=== PATIENT | female | born 1965 | race Caucasian/White ===

== ENCOUNTER 2020-02-08 15:21 | Outpatient (REF) | payer OTHER, SELFPAY ==
[2020-02-08 16:59] LABS: Vitamin D 25-OH Total 23.8 ng/mL (>30)
[2020-02-11 19:12] LABS: DHEA Sulfate 203 mcg/dL (8-188)
== END 2020-02-08 15:22 | disposition home or self-care (01) ==
LOC: HO.LAB 15:21
PROVIDERS: PCP Internal Medicine; Visit Provider Internal Medicine
DX: E27.8 Other specified disorders of adrenal gland (principal); N83.201 Unspecified ovarian cyst, right side; E67.3 Hypervitaminosis D
CPT/HCPCS: 82306; 82627

== ENCOUNTER → 2020-02-14 10:32 | Outpatient (BNVA) | payer OTHER, SELFPAY | PROVIDERS: PCP Internal Medicine; Referring Provider Internal Medicine; Visit Provider Internal Medicine | DX: Z76.89 Persons encountering health services in other specified circumstances (principal) ==

== ENCOUNTER 2020-05-29 14:08 | Outpatient (REF) | payer OTHER, SELFPAY | END 2020-05-29 14:09 | disposition home or self-care (01) | LOC: HO.LNP 14:08 | PROVIDERS: Visit Provider Hospitalist | DX: Z20.822 Contact with and (suspected) exposure to COVID-19 (principal); B34.9 Viral infection, unspecified | CPT/HCPCS: U0003; U0005 ==

== ENCOUNTER 2020-06-24 14:49 | Outpatient (REF) | payer OTHER, SELFPAY ==
--- NOTE | ~2020-06-24 | XR_ITS ---
EXAMINATION: XR HIP, LEFT CLINICAL INFORMATION: Pain left hip COMPARISON: None TECHNIQUE: Two views of the left hip. FINDINGS: Bones and soft tissues are normal. No fracture. Alignment is anatomic. Hip joint space is maintained. XR/XR hip LT min 2V IMPRESSION: Unremarkable left hip exam.
== END 2020-06-24 14:50 | disposition home or self-care (01) ==
LOC: HO.HMGCX 14:49
PROVIDERS: PCP Internal Medicine; Visit Provider Internal Medicine
DX: M25.552 Pain in left hip (principal)
CPT/HCPCS: 73502

== ENCOUNTER → 2020-07-15 14:04 | Outpatient (BNVA) | payer OTHER, SELFPAY | PROVIDERS: PCP Internal Medicine; Visit Provider Physician Assistant ==

== ENCOUNTER 2020-08-05 15:13 | Outpatient (REF) | payer OTHER, SELFPAY ==
--- NOTE | ~2020-08-05 | US_ITS ---
EXAMINATION: PELVIC ULTRASOUND CLINICAL INFORMATION: Right ovarian cyst COMPARISON: Previous pelvic ultrasound October 2019 TECHNIQUE: Transabdominal and transvaginal pelvic ultrasound was performed. Transvaginal exam was performed for better visualization of the uterus and ovaries. FINDINGS: The uterus is anteverted and measures 6.9 x 2.5 x 2.6 cm in dimension. There is a 7 x 5 x 7 mm hypoechoic lesion in the uterine fundus suggestive of a small fibroid. No other focal uterine lesion is seen. The endometrium and is normal in thickness measuring 2 mm. The cervix is normal appearing. The ovaries are not seen. No adnexal mass is seen. There is no fluid in the pelvis. US/US pelvic complete IMPRESSION: Small uterine fibroid. Ovaries not seen.
--- NOTE | ~2020-08-05 | US_ITS ---
EXAMINATION: PELVIC ULTRASOUND CLINICAL INFORMATION: Right ovarian cyst COMPARISON: Previous pelvic ultrasound October 2019 TECHNIQUE: Transabdominal and transvaginal pelvic ultrasound was performed. Transvaginal exam was performed for better visualization of the uterus and ovaries. FINDINGS: The uterus is anteverted and measures 6.9 x 2.5 x 2.6 cm in dimension. There is a 7 x 5 x 7 mm hypoechoic lesion in the uterine fundus suggestive of a small fibroid. No other focal uterine lesion is seen. The endometrium and is normal in thickness measuring 2 mm. The cervix is normal appearing. The ovaries are not seen. No adnexal mass is seen. There is no fluid in the pelvis. US/US transvaginal IMPRESSION: Small uterine fibroid. Ovaries not seen.
[2020-08-05 16:23] LABS: Vitamin D 25-OH Total 26.6 ng/mL (>30)
[2020-08-06 09:32] LABS: DHEA Sulfate 190 mcg/dL (8-188)
== END 2020-08-05 15:14 | disposition home or self-care (01) ==
LOC: HO.US 15:13
PROVIDERS: Absent Provider Internal Medicine; PCP Internal Medicine; Visit Provider Internal Medicine
DX: N83.201 Unspecified ovarian cyst, right side (principal); E27.8 Other specified disorders of adrenal gland; M53.3 Sacrococcygeal disorders, not elsewhere classified; E55.9 Vitamin D deficiency, unspecified; Z79.899 Other long term (current) drug therapy
CPT/HCPCS: 36415; 76830; 76856; 82306; 82627

== ENCOUNTER → 2020-08-13 11:42 | Outpatient (BNVA) | payer OTHER, SELFPAY | PROVIDERS: PCP Internal Medicine; Visit Provider Internal Medicine ==

== ENCOUNTER 2020-09-18 18:37 | Outpatient (REF) | payer OTHER, SELFPAY ==
--- NOTE | ~2020-09-18 | MR_ITS ---
EXAMINATION: MR LUMBAR SPINE WITHOUT CONTRAST CLINICAL INFORMATION: Lower back pain with left leg pain, numbness, weakness, toe numbness and weakness. COMPARISON: Lumbar spine radiographs dated 12/14/2018. TECHNIQUE: MRI of the lumbar spine was obtained using routine sequences without contrast. FINDINGS: VERTEBRAL BODIES AND PARASPINAL STRUCTURES: Normal vertebral body alignment. The lumbar lordosis is maintained. No acute fracture or subluxation. No loss of vertebral body height. Mild loss of intervertebral disc height at L5-S1. Minimal disc desiccation at L3-S1. Minimal degenerative endplate changes at T11-T12. No additional abnormal marrow signal. No evidence of acute osseous injury. CONUS MEDULLARIS AND CAUDA EQUINA: Normal, terminating at the level of T12. SPINAL LEVELS: T12-L1: No significant disc bulge. No central canal or neural foraminal stenosis. L1-L2: No significant disc bulge. No central canal or neural foraminal stenosis. L2-L3: Minimal disc bulge with a superimposed left subarticular/foraminal disc protrusion which abuts the exiting left L2 nerve root in the extra foraminal space. Mild left-sided neural foraminal stenosis. L3-L4: Minimal broad-based disc bulge and shallow superimposed left extraforaminal disc protrusion which abuts the exiting left L3 nerve root in the extra foraminal space. Bilateral facet arthropathy with mild left-sided neural foraminal stenosis. L4-L5: Minimal broad-based disc bulge and posterior annular fissuring. Bilateral facet arthropathy with mild bilateral neural foraminal stenosis. L5-S1: Minimal broad-based disc bulge with a superimposed left subarticular/extraforaminal disc protrusion where there is annular fissuring. Bilateral facet arthropathy, left greater than right. Minimal left neural foraminal stenosis. MR/MR lumbar spine wo con IMPRESSION: 1. Minimal broad-based disc bulge at L3-L4 with a shallow superimposed left extra foraminal disc protrusion abutting the exiting left L3 nerve root as well as bilateral facet arthropathy resulting in mild left-sided neural foraminal stenosis. 2. Minimal disc bulge at L2-L3 with a superimposed left subarticular/extraforaminal disc protrusion which abuts the exiting left L2 nerve root and causes mild left-sided neural foraminal stenosis. 3. Minimal broad-based disc bulge at L4-L5 with posterior annular fissuring and bilateral facet arthropathy resulting in mild bilateral neural foraminal stenosis. 4. Minimal disc bulge at L5-S1 with a superimposed left subarticular/extraforaminal disc protrusion and annular fissuring. Bilateral facet arthropathy, left greater than right, with minimal left neural foraminal stenosis.
== END 2020-09-18 18:38 | disposition home or self-care (01) ==
LOC: HO.MRI 18:37
PROVIDERS: Visit Provider Anesthesiology
DX: M54.16 Radiculopathy, lumbar region (principal)
CPT/HCPCS: 72148

== ENCOUNTER 2020-10-01 22:10 | Emergency (ER) | payer BC, SELFPAY ==
[2020-10-01 22:12] VITALS: BP 140/69; PULSE 94; RESP 18; TEMP 36.9; O2SAT 98
--- NOTE | 2020-10-01 22:57 | ED_ITS ---
HPI - Seizure General Chief Complaint: Seizure Stated Complaint: Seizure? Time Seen by Provider: 10/01/20 22:48 Source: patient and family Mode of arrival: ambulatory Limitations: no limitations History of Present Illness HPI Narrative: patient with no history of seizures in the past has history of depression and back pain came with 3 episodes of muscle spasm lasted for few minutes patient was awake but having spasm in the both hands in the legs no eyes up rolling no incontinence no jerking movements never had similar situation in the past denies any significant anxiety Related Data Home Medications Medication Instructions Recorded Confirmed bupropion HCl 75 mg tablet 150 mg PO DAILY 02/14/20 09/30/20 escitalopram oxalate 10 mg tablet 10 mg PO DAILY 02/14/20 09/30/20 Previous Rx's Medication Instructions Recorded diclofenac sodium 50 mg 50 mg PO BID #60 tab 08/05/20 tablet,delayed release gabapentin 300 mg capsule 300 mg PO TID 30 Days #90 cap 09/30/20 lidocaine 5 % topical patch 1 patch TOPICAL DAILY 90 Days #90 09/30/20 ea oxycodone 5 mg tablet 5 mg PO Q8H PRN 7 Days #14 tab 09/30/20 lorazepam [Ativan] 1 mg PO BID PRN #14 tab 10/02/20 Allergies Allergy/AdvReac Type Severity Reaction Status Date / Time Iodinated Contrast Media Allergy Unknown UNKNOWN Verified 10/01/20 22:12 [CONTRAST, IV] morphine [Morphine] Allergy Unknown NAUSEA/RASH, Verified 10/01/20 22:12 rash, N/V, rash, N/V Review of Systems Review of Systems: Yes all other systems are reviewed and are negative PMFSH Past Medical History Attestation statement: The following information was validated with the patient. Medical History Cyst of right ovary Elevated dehydroepiandrosterone sulfate level Vitamin D deficiency Surgical History History of lateral meniscus repair of left knee Hx of section Hx of colonoscopy Hx of foot surgery Hx of fusion of cervical spine Hx of wisdom tooth extraction Family History Family History Father Mesothelioma Mother Breast cancer Colon cancer Other Mental health disorder Substance use disorder Social History Social History Housing: House Alcohol intake: current Alcohol intake frequency: a few times a month Patient Tobacco Use Status: Current everyday Tobacco user Tobacco use type: Cigarette Cigarettes Per Day: 10 Advance Directives: No Advance Directives Information Provided: No Patient : No Current occupational status: employed 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: Vital Signs: Last Vital Signs Temp 98.5 F 10/01/20 22:12 Pulse 94 10/01/20 22:12 Resp 18 10/01/20 22:12 BP 140/69 H 10/01/20 22:12 Pulse Ox 98 10/01/20 22:12 Body Mass Index 0.3 MDM - Seizure MDM Narrative Medical decision making narrative: patient has muscle spasm happened 2 times at home and 1 more in the ER no loss of consciousness patient was awake no jerking movements workup is negative patient responded to Ativan feeling much better advised to follow with neurologist and PCP for further workup Lab Data Result diagrams: 10/01/20 23:24 10/01/20 23:23 Labs: Lab Results 10/01/20 10/01/20 Range/Units 23:23 23:24 WBC 9.6 (4.8-10.8) X10*3/uL RBC 4.01 L (4.20-5.50) X10*6/uL Hgb 12.1 (12.0-16.0) g/dl Hct 36.6 L (37-47) % MCV 91.3 (80-98) fL MCH 30.2 (27.0-33.0) pg MCHC 33.1 (31.0-35.0) g/dl RDW 13.3 (11.0-16.0) % Plt Count 308 (160-400) X10*3/uL MPV 8.9 L (9.4-12.3) fL Immature Gran % (Auto) 0.6 H (0.0-0.4) % Neut % (Auto) 57.8 (45-73) % Lymph % (Auto) 33.2 (20-40) % [place] % (Auto) 7.2 (2-11) % Eos % (Auto) 0.7 (0-4) % Baso % (Auto) 0.5 (0-2) % Lymph # (Auto) 3.2 (1.2-4.9) X10*3/uL [place] # (Auto) 0.7 (0.1-1.2) X10*3/uL Eos # (Auto) 0.1 (0.0-0.4) X10*3/uL Baso # (Auto) 0.1 (0.0-0.2) X10*3/uL Abs Immat Gran (auto) 0.06 H (0.00-0.03) X10*3/uL Absolute Neuts (auto) 5.6 (2.0-8.3) X10*3/uL Absolute Nucleated RBC 0.000 (0.0-0.012) X10*3/uL Nucleated RBC % (auto) 0.0 (0.0-0.2) /100WBC Sodium 138 (135-145) mmol/L Potassium 4.7 (3.3-5.1) mmol/L Chloride 105 (96-108) mmol/L Carbon Dioxide 24 (22-29) mmol/L Anion Gap 14 (12-20) BUN 29 H (9-16) mg/dL Creatinine 0.82 (0.5-1.4) mg/dL Estim Creat Clear Calc 117.0 Estimated GFR > 60 Random Glucose 122 H (60-115) mg/dL Calcium 9.6 (8.4-10.2) mg/dL Magnesium 2.3 (1.6-2.6) mg/dL Total Bilirubin 0.2 (0.0-1.0) mg/dL AST 11 (5-31) U/L ALT 22 (0-31) U/L Alkaline Phosphatase 64 (39-117) U/L Total Protein 6.5 (6.5-8.0) g/dL Albumin 4.0 (3.5-5.0) g/dL Discharge Plan Discharge Clinical Impression: Muscle spasm Patient Disposition: Home, Self-Care Instructions: Muscle Spasm (ED) Additional Instructions: likely have muscle spasm etiology not very clear. Take medication to relax. Follow-up with your primary care doctor / neurologist to rule out complex seizure Prescriptions: New lorazepam [Ativan] 1 mg tablet 1 mg PO BID PRN (Reason: anxiety) Qty: 14 RF: 0 No Action gabapentin 300 mg capsule 300 mg PO TID 30 Days Qty: 90 RF: 0 oxycodone 5 mg tablet 5 mg PO Q8H PRN (Reason: pain) 7 Days Qty: 14 RF: 0 lidocaine [Lidoderm] 5 % adhesive patch,medicated 1 patch topical DAILY 90 Days Qty: 90 RF: 0 escitalopram oxalate 10 mg tablet 10 mg PO DAILY RF: 0 bupropion HCl 75 mg tablet 150 mg PO DAILY RF: 0 diclofenac sodium 50 mg tablet,delayed release (DR/EC) 50 mg PO BID Qty: 60 RF: 0 Referrals: Yamile Carreon MD [Physician] - 2 weeks Interventions: ED Discharge Assessment Last Done: 10/02/20 01:34 Discharge Date/Time: 10/02/20 01:35
--- NOTE | 2020-10-01 23:40 | PC.NURSE ---
IN ROOM FOR EVAL. IV PLACED, LABS DRAWN TO LAB. WHILE DRAWING LABS PT STATED IM HAVING CRAMP-LIKE SENSATION TO MY LEGS. MD OBSERVED. PT MEDICATED WITH ATIVAN AND PT RESTING APPARENTLY COMFORTABLE. PT WAKES TO VOICE AND DENIES ANY COMPLAINTS. SEIZURE PADS AT BEDSIDE. CALL BRANDEN W/I REACH OF PT. BED IN LOW LOCKED POSITION. WILL CONTINUE TO MONITOR PT.
[2020-10-01 23:42] LABS: Basophils Absolute Auto 0.1 X10*3/uL (0.0-0.2); Basophils Percent Auto 0.5 % (0-2); Eosinophils Absolute Auto 0.1 X10*3/uL (0.0-0.4); Eosinophils Percent Auto 0.7 % (0-4); Hematocrit 36.6 % (37-47); Hemoglobin 12.1 g/dl (12.0-16.0); Imm Gran Abs Auto 0.06 X10*3/uL (0.00-0.03); Imm Gran Pct Auto 0.6 % (0.0-0.4); Lymphocytes Absolute Auto 3.2 X10*3/uL (1.2-4.9); Lymphocytes Percent Auto 33.2 % (20-40); MANUAL DIFF FLAG NO; Mean Corpuscular HGB Conc 33.1 g/dl (31.0-35.0); Mean Corpuscular Hemoglobin 30.2 pg (27.0-33.0); Mean Corpuscular Volume 91.3 fL (80-98); Mean Platelet Volume 8.9 fL (9.4-12.3); Monocytes Absolute Auto 0.7 X10*3/uL (0.1-1.2); Monocytes Percent Auto 7.2 % (2-11); Neutrophils Absolute Auto 5.6 X10*3/uL (2.0-8.3); Neutrophils Percent Auto 57.8 % (45-73); Platelet Count 308 X10*3/uL (160-400); Red Blood Count 4.01 X10*6/uL (4.20-5.50); Red Cell Distribution Width 13.3 % (11.0-16.0); White Blood Count 9.6 X10*3/uL (4.8-10.8)
[2020-10-01] MEDS: LORazepam 2 MG/ML VIAL 1 MG IVPUSH (23:46)
[2020-10-02 00:19] LABS: Alanine Aminotransferase 22 U/L (0-31); Alkaline Phosphatase 64 U/L (39-117); Anion Gap 14 (12-20); Aspartate Amino Transferase 11 U/L (5-31); Bilirubin Total 0.2 mg/dL (0.0-1.0); Blood Urea Nitrogen 29 mg/dL (9-16); Calcium 9.6 mg/dL (8.4-10.2); Carbon Dioxide 24 mmol/L (22-29); Chloride 105 mmol/L (96-108); Estimated Glomerular Filt Rate > 60; Glucose Random 122 mg/dL (60-115); Magnesium 2.3 mg/dL (1.6-2.6); Potassium 4.7 mmol/L (3.3-5.1); Sodium 138 mmol/L (135-145); Total Protein 6.5 g/dL (6.5-8.0)
== END 2020-10-02 01:35 | disposition home or self-care (01) ==
PROVIDERS: Emergency Provider Internal Medicine; PCP Internal Medicine
DX: M62.838 Other muscle spasm (principal)
CPT/HCPCS: 36415; 80053; 83735; 85025; 96374; 99283; 99284; J2060

== ENCOUNTER 2020-10-16 13:45 | Outpatient (REF) | payer BC, SELFPAY ==
--- NOTE | ~2020-10-16 | MM_ITS ---
EXAMINATION: MM SCREENING DIGITAL BREAST TOMOSYNTHESIS, BILATERAL CLINICAL INFORMATION: Screening. Asymptomatic. Family history breast cancer (mother, sister). The lifetime risk of breast cancer based on the Tyrer-Cuzick Model is 21%. COMPARISON: Mammography: 05/17/2019, 05/08/2018, 04/27/2016 TECHNIQUE: Digital breast tomosynthesis is performed in both the craniocaudal and mediolateral oblique views along with computer-aided detection (CAD). Synthesized 2D images are generated from the tomosynthesis. FINDINGS: There are scattered areas of fibroglandular density (ACR BI-RADS breast composition Category b). There are no significant masses, abnormal calcifications, or other abnormalities. No developing density. No significant changes from prior study. Again, there is biopsy clip marker mid right breast. The axilla and skin contours are unremarkable. MM/MM tomosynthesis screening BI IMPRESSION: No mammographic evidence of malignancy. ASSESSMENT: BI-RADS 1: Negative RECOMMENDATION: 1. Routine annual mammography screening. 2. The lifetime risk of breast cancer based on the Tyrer-Cuzick Model is 21%. Additional annual adjunct screening with breast MRI may be of benefit in women with a risk score of 20% or greater. This patient's information was entered into a reminder system with a target due date for their next mammogram.
== END 2020-10-16 13:46 | disposition home or self-care (01) ==
LOC: HO.MAMMO 13:45
PROVIDERS: PCP Internal Medicine; Visit Provider Internal Medicine
DX: Z12.31 Encounter for screening mammogram for malignant neoplasm of breast (principal)
CPT/HCPCS: 77063; 77067

== ENCOUNTER 2020-10-23 07:56 | Outpatient (REF) | payer BC, SELFPAY ==
[2020-10-23 11:41] LABS: MANUAL DIFF FLAG NO
[2020-10-23 11:48] LABS: Basophils Percent Auto 0.3 % (0-2); Eosinophils Absolute Auto 0.1 X10*3/uL (0.0-0.4); Eosinophils Percent Auto 1.7 % (0-4); Hematocrit 37.7 % (37-47); Hemoglobin 12.1 g/dl (12.0-16.0); Imm Gran Abs Auto 0.01 X10*3/uL (0.00-0.03); Imm Gran Pct Auto 0.2 % (0.0-0.4); Lymphocytes Absolute Auto 2.1 X10*3/uL (1.2-4.9); Lymphocytes Percent Auto 35.7 % (20-40); Mean Corpuscular HGB Conc 32.1 g/dl (31.0-35.0); Mean Corpuscular Hemoglobin 30.2 pg (27.0-33.0); Mean Platelet Volume 9.4 fL (9.4-12.3); Monocytes Absolute Auto 0.4 X10*3/uL (0.1-1.2); Monocytes Percent Auto 6.2 % (2-11); Neutrophils Absolute Auto 3.3 X10*3/uL (2.0-8.3); Neutrophils Percent Auto 55.9 % (45-73); Platelet Count 252 X10*3/uL (160-400); Red Blood Count 4.01 X10*6/uL (4.20-5.50); White Blood Count 5.9 X10*3/uL (4.8-10.8)
[2020-10-23 12:09] LABS: Alanine Aminotransferase 15 U/L (0-31); Albumin Level 4.2 g/dL (3.5-5.0); Alkaline Phosphatase 58 U/L (39-117); Anion Gap 11 (12-20); Aspartate Amino Transferase 12 U/L (5-31); Bilirubin Total 0.6 mg/dL (0.0-1.0); Blood Urea Nitrogen 20 mg/dL (9-16); Calcium 9.5 mg/dL (8.4-10.2); Carbon Dioxide 25 mmol/L (22-29); Chloride 109 mmol/L (96-108); Cholesterol 234 mg/dL; Estimated Glomerular Filt Rate > 60; Glucose Fasting 99 mg/dL (60-99); HDL Cholesterol 65 mg/dL; LDL Cholesterol Calculated 154 mg/dl; Sodium 141 mmol/L (135-145); Total Protein 6.7 g/dL (6.5-8.0); Triglycerides 77 mg/dL
== END 2020-10-23 07:57 | disposition home or self-care (01) ==
LOC: HO.HMGCLDS 07:56
PROVIDERS: PCP Internal Medicine; Visit Provider Internal Medicine
DX: Z00.01 Encounter for general adult medical examination with abnormal findings (principal); F33.9 Major depressive disorder, recurrent, unspecified; F41.1 Generalized anxiety disorder; Z86.010 Personal history of colon polyps
CPT/HCPCS: 36415; 80053; 80061; 85025

== ENCOUNTER 2020-11-11 13:29 | Emergency (ER) | payer BC, SELFPAY ==
[2020-11-11 14:41] VITALS: BP 159/84; PULSE 76; RESP 16; TEMP 36.7; O2SAT 98; BMI 32.2
--- NOTE | 2020-11-11 14:48 | PC.NURSE ---
PT AMBULATORY INTO TRIAGE. GAIT STEADY. NEUROS INTACT. MOVING ALL EXTREMITIES FREELY.
--- NOTE | 2020-11-11 16:26 | ED.NECK ---
HPI - Neck Pain/Injury General Chief Complaint: Neck Pain/Injury Stated Complaint: neck pain Time Seen by Provider: 11/11/20 16:26 Source: patient Mode of arrival: ambulatory Limitations: no limitations History of Present Illness HPI Narrative: 55 y/o female presenting to the ER from home c/o acute on chronic neck pain. She [place] was at the beach 3 [place] ago when she went to catch an umbrella that flew away and was about to her her granddaughter. She pulled the left side of her neck and has been having tightness, soreness and aching since. She has been on chronic opioids for the last 4 weeks after having procedures done on her back. She reports they only help with the pain for about 1-2 hours. The pain is mostly on the left side of her neck and radiates down into her shoulder. She can move her neck side to side with some discomfort. No arm weakness, tingling or numbness. When the pain is severe she reports headaches and blurred vision. MD complaint: neck pain and neck injury Onset (ago): day(s) (5) Place: other ([place]) Radiation: left lateral Severity: moderate Severity scale (1-10): 6 Quality: aching, spasming and throbbing Duration: constant Relieving factors: none Exacerbating factors: movement of extremity and movement of neck Context: other (grabbing a flying away beach umbrella) Associated symptoms: headache and swollen glands Treatments prior to arrival: acetaminophen, ibuprofen, prescription analgesic and heat therapy Related Data Home Medications Medication Instructions Recorded Confirmed bupropion HCl 75 mg tablet 150 mg PO DAILY 02/14/20 10/23/20 escitalopram oxalate 10 mg tablet 10 mg PO DAILY 02/14/20 10/23/20 Previous Rx's Medication Instructions Recorded diclofenac sodium 50 mg 50 mg PO BID #60 tab 08/05/20 tablet,delayed release gabapentin 300 mg capsule 300 mg PO TID 30 Days #90 cap 09/30/20 lidocaine 5 % topical patch 1 patch TOPICAL DAILY 90 Days #90 09/30/20 (Lidoderm) ea lorazepam 1 mg tablet (Ativan) 1 mg PO BID PRN #14 tab 10/02/20 sodium,potassium,mag sulfates 17.5 See Rx Instructions PO .COMPLEX 10/23/20 gram-3.13 gram-1.6 gram oral soln #354 ml (Suprep Bowel Prep Kit) oxycodone 5 mg tablet 5 mg PO Q8H PRN 7 Days #14 tab 10/24/20 diazepam 5 mg tablet (Valium) 5 mg PO BID PRN #8 tab 11/11/20 ibuprofen 600 mg tablet 600 mg PO Q8H PRN #14 tab 11/11/20 lidocaine 5 % topical patch 1 patch TOPICAL DAILY #15 ea 11/11/20 (Lidoderm) Allergies Allergy/AdvReac Type Severity Reaction Status Date / Time Iodinated Contrast Media Allergy Unknown UNKNOWN Verified 10/23/20 14:24 [CONTRAST, IV] morphine [Morphine] Allergy Unknown NAUSEA/RASH, Verified 10/23/20 14:24 rash, N/V, rash, N/V Review of Systems Constitutional: Constitutional: Denies chills, Denies fever(s), Reports headache(s) and Denies weakness Eyes: Eyes: Reports blurry vision (when the pain is severe), Denies diplopia and Denies photophobia ENT: Reports Normal hearing present, Denies vertigo, Denies dizziness, Reports headache(s), Denies hoarseness, Denies neck mass and Reports neck pain Cardiovascular: Cardiovascular: Denies chest pain Respiratory: Respiratory: Denies cough Gastrointestinal: Gastrointestinal: Denies nausea and Denies vomiting Musculoskeletal: Musculoskeletal: Denies back pain, Reports neck pain and Denies numbness Integumentary/Breasts: Skin/Breast: Denies swelling and Denies erythema Neurologic: Reports Normal hearing present, Denies vertigo, Denies dizziness, Reports headache(s), Denies numbness and Denies weakness Psychiatric: Psychiatric: Reports anxiety PMFSH Past Medical History Attestation statement: The following information was validated with the patient. Medical History Cyst of right ovary Elevated dehydroepiandrosterone sulfate level History of colon polyps Vitamin D deficiency Surgical History History of lateral meniscus repair of left knee Hx of section Hx of colonoscopy Hx of foot surgery Hx of fusion of cervical spine Hx of wisdom tooth extraction Family History Family History Father Mesothelioma Mother Breast cancer Colon cancer Other Mental health disorder Substance use disorder Social History Social History Housing: House Alcohol intake: current Alcohol intake frequency: a few times a month Patient Tobacco Use Status: Current everyday Tobacco user Tobacco use type: Cigarette Cigarettes Per Day: 10 Advance Directives: No Advance Directives Information Provided: No Current occupational status: employed 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: Vital Signs: Last Vital Signs Temp 98.0 F 11/11/20 14:41 Pulse 76 11/11/20 14:41 Resp 16 11/11/20 14:41 BP 159/84 H 11/11/20 14:41 Pulse Ox 98 11/11/20 14:41 Body Mass Index 32.2 Const: General: cooperative, healthy appearing and comfortable Nutritional Appearance: average body habitus Orientation/consciousness: patient oriented x3 HENMT: Head: Yes normal to inspection, Yes normocephalic and Yes atraumatic Ears: hearing grossly normal bilaterally, external ears normal and TM's normal bilaterally General nose exam: Normal external nose present and Normal nares present Face and sinus: Yes normal facial exam and Yes face symmetric Mouth: Normal oral and palatal mucosa present, lip normal and tongue normal Teeth and gingiva: dentition normal and gingiva normal Throat: Yes posterior oropharynx normal, Yes tonsils normal and Yes uvula midline Eyes: General: appearance normal, both eyes and all related structures Direct Ophthalmoscopy: No photophobia Neck: Neck: Yes normal visual inspection, Yes full ROM, Yes no lymphadenopathy, Yes no meningeal signs, Yes trachea midline, Yes supple, No anterior neck swelling and Yes tender (left sided soft tissue tenderness of the neck, upper trapezius. ) Thyroid: Thyroid normal Chest: Chest palpation & inspection: normal inspection of the chest and normal palpation of entire chest wall Resp: Effort & Inspection: normal respiratory effort and able to speak in complete sentences : General: Yes no CVA tenderness Back/Spine/Pelvis: Back: no CVA tenderness Cervical Spine: normal cervical lordosis, cervical ROM normal, cervical muscular tenderness, cervical spasm and No Cervical spine tenderness Thoracic/Lumbar Spine: thoracic and lumbar spine normal to inspection Skin: General skin exam: no rashes or lesions noted Neuro: General: patient oriented x3, gait normal, moves all extremities and no meningeal signs Cranial nerves: Yes Normal hearing present Motor exam (neuro): 5/5 motor strength present throughout Extrem: General: Yes normal to inspection and Yes full ROM Psych: Appearance: grossly normal and well kempt Mental Status: mental status grossly normal Course Course Course Narrative: 55 y/o presenting with acute on chronic left pain after minor pulling type injury 5 days ago. Exam and clinical presentation are consistent with muscular strain. Neuro exam is nonfocal and she has no radicular pains. She had a recent MRI of her neck in September. She is going to see pain management, neurology and neurosurgery for follow up at the end of this month. Will give dose of Valium and Toradol and reassess her pain. Reevaluation(s) Reevaluation #1: Pain is improved. She is stable for discharge home with muscle relaxer, NSAID and lidoderm. Discharge Plan Discharge Clinical Impression: Strain of neck muscle Qualifiers: Encounter type: initial encounter Qualified Code(s): S16.1XXA - Strain of muscle, fascia and tendon at neck level, initial encounter Patient Disposition: Home, Self-Care Instructions: Cervical Strain (ED), Acute Neck Pain (ED) Additional Instructions: Follow up with your doctor and Pain Specialist as scheduled. Take the medications as prescribed. If you develop new or worsening symptoms call 911 or come back to the ER for further evaluation. Prescriptions: New diazepam [Valium] 5 mg tablet 5 mg PO BID PRN (Reason: muscle spasm) Qty: 8 RF: 0 ibuprofen 600 mg tablet 600 mg PO Q8H PRN (Reason: pain) Qty: 14 RF: 0 lidocaine [Lidoderm] 5 % adhesive patch,medicated 1 patch topical DAILY Qty: 15 RF: 0 No Action oxycodone 5 mg tablet 5 mg PO Q8H PRN (Reason: pain) 7 Days Qty: 14 RF: 0 lorazepam [Ativan] 1 mg tablet 1 mg PO BID PRN (Reason: anxiety) Qty: 14 RF: 0 gabapentin 300 mg capsule 300 mg PO TID 30 Days Qty: 90 RF: 0 lidocaine [Lidoderm] 5 % adhesive patch,medicated 1 patch topical DAILY 90 Days Qty: 90 RF: 0 escitalopram oxalate 10 mg tablet 10 mg PO DAILY RF: 0 bupropion HCl 75 mg tablet 150 mg PO DAILY RF: 0 diclofenac sodium 50 mg tablet,delayed release (DR/EC) 50 mg PO BID Qty: 60 RF: 0 Suprep Bowel Prep Kit 17.5-3.13-1.6 gram recon soln See Rx Instructions PO .COMPLEX Qty: 354 RF: 0 Interventions: ED Discharge Assessment Last Done: 11/11/20 19:07 Discharge Date/Time: 11/11/20 19:07
[2020-11-11] MEDS: diazePAM 5 MG TABLET PO (17:39)
[2020-11-11] MEDS: Ketorolac Tromethamine 15 MG/ML VIAL 30 MG IM (17:39)
[2020-11-11] MEDS: Lidocaine 4 % Patch ADH..PATCH 1 PATCH TRANSDERMA (17:40)
== END 2020-11-11 19:07 | disposition home or self-care (01) ==
PROVIDERS: Emergency Provider Emergency Medicine; PCP Internal Medicine
DX: S16.1XXA Strain of muscle, fascia and tendon at neck level, initial encounter (principal); X50.9XXA Other and unspecified overexertion or strenuous movements or postures, initial encounter; Y93.89 Activity, other specified; Y92.832 Beach as the place of occurrence of the external cause; Y99.9 Unspecified external cause status; F17.210 Nicotine dependence, cigarettes, uncomplicated; Z79.891 Long term (current) use of opiate analgesic
CPT/HCPCS: 96372; 99284; J1885

== ENCOUNTER → 2020-11-18 08:02 | Outpatient (BNVA) | payer BC, SELFPAY | PROVIDERS: PCP Internal Medicine; Visit Provider Family Medicine Adult Medicine ==

== ENCOUNTER → 2020-11-26 14:22 | Outpatient (BNVA) | payer BC, SELFPAY | PROVIDERS: PCP Internal Medicine; Visit Provider Nurse Practitioner Family ==

== ENCOUNTER → 2020-11-28 08:17 | Outpatient (BNVA) | payer BC, SELFPAY | PROVIDERS: PCP Internal Medicine; Visit Provider Nurse Practitioner Family | DX: M79.18 Myalgia, other site (principal); M54.12 Radiculopathy, cervical region | CPT/HCPCS: 20552; 20553; J3300 ==

== ENCOUNTER 2020-12-09 06:25 | Day surgery (SDC) | payer BC, SELFPAY ==
[2020-12-04 10:00] VITALS: BMI 32.3
--- NOTE | 2020-12-08 08:35 | P.CONAN_ITS ---
Documented by User: Estefanía Wilkes NP 12/08/20 08:37 HPI - Anesthesia Eval Consult details Narrative: 55yo F for Colonoscopy PMFSH Active Problems Active Problems: All Active Problems (Updated 12/05/20 @ 15:01 by Herman Carreon MD) Recurrent boils (Acute) Acute sinusitis (Acute) Viral syndrome (Acute) Hip pain, left (Acute) Lumbar radiculopathy (Acute) Sacroiliac joint pain (Acute) Contact dermatitis (Acute) Alteration in bowel elimination: incontinence (Acute) Herniated nucleus pulposus, lumbar (Acute) Bowel incontinence (Acute) Encounter for general adult medical examination with abnormal findings (Acute) Anxiety, generalized (Acute) Major depression, recurrent (Acute) Breast screening (Acute) Routine gynecological examination (Acute) Colon cancer screening (Acute) Pain management (Acute) Unstable gait (Acute) Muscle spasm (Acute) Weakness of both hands (Acute) Pain in left ear (Acute) Pain in both hands (Acute) Cervical radiculopathy (Acute) Myofascial pain (Acute) History of fusion of cervical spine (Acute) History of colon polyps (Acute) Vitamin D deficiency (Acute) Cyst of right ovary (Acute) Elevated dehydroepiandrosterone sulfate level (Acute) Past Medical History Medical History Chronic neck and back pain Cyst of right ovary Elevated dehydroepiandrosterone sulfate level History of colon polyps Vitamin D deficiency Family History Family History Father Mesothelioma Mother Breast cancer Colon cancer Other Mental health disorder Substance use disorder Surgical History Surgical History History of fusion of cervical spine History of lateral meniscus repair of left knee Hx of section Hx of colonoscopy Hx of foot surgery Hx of fusion of cervical spine Hx of wisdom tooth extraction Social History Social History Housing: House Are you a primary manager respiratory care to a significant other at home: No Do you presently have visiting nurse or other home services: No Alcohol intake: current Alcohol intake frequency: a few times a month Patient Tobacco Use Status: Current everyday Tobacco user Tobacco use type: Cigarette Cigarette Packs Per Day: 0.5 Cigarettes Per Day: 10.0 Years Smoked: 37 Smoked in Last 30 Days: Yes Patient Interested in Nicotine Replacement: No Patient Given Instructions on How to Stop Smoking: Yes Date Education Initiated: 12/04/20 Use of substances other than those prescribed or required for medical reasons: Yes Substance Use Frequency: Occasionally Have you been hit, kicked, punched, or otherwise hurt by someone within the past year? 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 [employer] Allergies Allergy/AdvReac Type Severity Reaction Status Date / Time Iodinated Contrast Media Allergy Unknown UNKNOWN Verified 12/05/20 14:27 [CONTRAST, IV] morphine [Morphine] Allergy Unknown NAUSEA/RASH, Verified 12/05/20 14:27 rash, N/V, rash, N/V Home Medications Medication Instructions Recorded Confirmed Last Taken Type bupropion HCl 75 mg tablet 150 mg PO DAILY 02/14/20 12/05/20 Unknown History escitalopram oxalate 10 mg tablet 10 mg PO DAILY 02/14/20 12/05/20 Unknown History Exam Exam Date and Time: December 08, 2020 0836 Height,Weight and Vital Signs: Height 5 ft 8 in Weight 96.615 kg Pertinent Lab Results Pertinent Lab Results: Laboratory Tests 10/23/20 10/23/20 08:03 08:03 WBC 5.9 Hgb 12.1 Hct 37.7 Plt Count 252 Sodium 141 Potassium 4.0 Chloride 109 H Carbon Dioxide 25 BUN 20 H Creatinine 0.86 Assessment and Plan Assessment Anesthesia Assessment: Chart Reviewed Documented by User: Ciarra Unger MD 12/09/20 07:34 [facility] Past Medical History Medical History Chronic neck and back pain Cyst of right ovary Elevated dehydroepiandrosterone sulfate level History of colon polyps Vitamin D deficiency Functional capacity: independent ambulation Patient : No Family History Family History Father Mesothelioma Mother Breast cancer Colon cancer Other Mental health disorder Substance use disorder Family history of problems with anesthesia: No Surgical History Surgical History History of fusion of cervical spine History of lateral meniscus repair of left knee Hx of section Hx of colonoscopy Hx of foot surgery Hx of fusion of cervical spine Hx of wisdom tooth extraction History of Problems with Anesthesia: No Social History Social History Housing: House Are you a primary manager respiratory care to a significant other at home: No Do you presently have visiting nurse or other home services: No Alcohol intake: current Alcohol intake frequency: a few times a month Patient Tobacco Use Status: Current everyday Tobacco user Tobacco use type: Cigarette Cigarette Packs Per Day: 0.5 Cigarettes Per Day: 10.0 Years Smoked: 37 Smoked in Last 30 Days: Yes Patient Interested in Nicotine Replacement: No Patient Given Instructions on How to Stop Smoking: Yes Date Education Initiated: 12/04/20 Use of substances other than those prescribed or required for medical reasons: Yes Substance Use Frequency: Occasionally Have you been hit, kicked, punched, or otherwise hurt by someone within the past year? 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 Allergies Allergy/AdvReac Type Severity Reaction Status Date / Time Iodinated Contrast Media Allergy Unknown UNKNOWN Verified 12/05/20 14:27 [CONTRAST, IV] morphine [Morphine] Allergy Unknown NAUSEA/RASH, Verified 12/05/20 14:27 rash, N/V, rash, N/V Home Medications Medication Instructions Recorded Confirmed Last Taken Type bupropion HCl 75 mg tablet 150 mg PO DAILY 02/14/20 12/05/20 Unknown History escitalopram oxalate 10 mg tablet 10 mg PO DAILY 02/14/20 12/05/20 Unknown History Exam Airway Mallampati Class: II TM Dist: >3cm Neck ROM: Full Heart: RRR Lungs: CTA Assessment and Plan Final Anesthetic Review Family History of Problems with Anesthesia: No History of Problems with Anesthesia: No
[2020-12-09 07:10] VITALS: BP 106/72; PULSE 68; RESP 16; TEMP 36.3; O2SAT 97
[2020-12-09] MEDS: Lactated Ringers 1,000 ML 100 ML IVCONT (07:25)
--- NOTE | 2020-12-09 07:48 | MHC.SHP ---
Pre-Procedural Eval Section A Date of Service: 12/09/20 Section B Chief Complaint: hx of colonic polyps Allergies: Allergies Allergy/AdvReac Type Severity Reaction Status Date / Time Iodinated Contrast Media Allergy Unknown UNKNOWN Verified 12/05/20 14:27 [CONTRAST, IV] morphine [Morphine] Allergy Unknown NAUSEA/RASH, Verified 12/05/20 14:27 rash, N/V, rash, N/V Plan I have reviewed the history and physical and performed a pertinent physical examination on my patient. No changes have occurred unless specified.
--- NOTE | 2020-12-09 08:53 | W.PM.OPN ---
Operative Note Operative Note Date of Service: 12/09/20 Narrative: Preop diagnosis: History of large tubular adenoma Postop diagnosis: 1. Diverticulosis of the sigmoid and left colon, mild 2. Internal and external hemorrhoids Procedure: Colonoscopy Surgeon: Venancio Eddy MD The patient is a 55-year-old female who had previously undergone colonoscopy in 2017 for screening and was noted to have a polyp that was more than 1 cm in size which was a tubular adenoma. I had therefore recommended a short interval for all repeat colonoscopy. She understood the technique of the procedure. She was aware of the risks, benefits, and alternatives She was brought to the operative room placed in left lateral decubitus position under monitored anesthesia care. A full digital rectal was done and there were no palpable anal lesions except for hemorrhoids . The tip of the Olympus colonoscope was gently introduced through the anal orifice advanced with insufflation all the way to the cecum. The cecum was intubated. The cecum was identified by with visualization of the cecal valve as well as the appendiceal orifice. The cecal mucosa was unremarkable. The scope schedule redrawn with careful examination of the entire colonic mucosa being done with scope withdrawal. The patient had good bowel prep so it is unlikely that any lesion may have been missed. The rectum was reached. There were no lesions seen. The anal canal was unremarkable. The scope was then withdrawn completely with desufflation The patient tolerated the procedure well. There were no complication noted. In view of her history of a large polyp, I would probably recommend another colonoscopy in the next 5 years.
--- NOTE | 2020-12-09 08:56 | PM.OP ---
Brief Operative Note Date of Service: 12/09/20 Pre-op diagnosis: History of large adenomatous polyp Post-op diagnosis: other (Diverticulosis and hemorrhoids) Procedure: Colonoscopy Surgeon: Venancio Eddy MD Anesthesia: MAC Was an Scleroscope Tester used for this Procedure?: No Estimated blood loss (mL): 0 Pathology: none sent Condition: stable Disposition: PACU
[2020-12-09 09:04] VITALS: BP 109/74; PULSE 79; RESP 16; TEMP 36.8; O2SAT 97
[2020-12-09 09:16] VITALS: BP 113/68; PULSE 75; RESP 16; TEMP 36.8; O2SAT 96
== END 2020-12-09 09:58 | disposition home or self-care (01) ==
PROVIDERS: PCP Internal Medicine; Visit Provider Surgery
PROC: 0DJD8ZZ Inspection of Lower Intestinal Tract, Via Natural or Artificial Opening Endoscopic (ICD-10-PCS; CPT 45378; principal; 2020-12-09 07:30)
DX: Z12.11 Encounter for screening for malignant neoplasm of colon (principal); Z86.010 Personal history of colon polyps; Z80.0 Family history of malignant neoplasm of digestive organs; K57.30 Diverticulosis of large intestine without perforation or abscess without bleeding; K64.8 Other hemorrhoids; K64.4 Residual hemorrhoidal skin tags; E55.9 Vitamin D deficiency, unspecified; E28.1 Androgen excess; Z79.899 Other long term (current) drug therapy; Z88.8 Allergy status to other drugs, medicaments and biological substances; Z91.041 Radiographic dye allergy status; F17.210 Nicotine dependence, cigarettes, uncomplicated
CPT/HCPCS: 45378

== ENCOUNTER 2021-01-22 09:03 | Outpatient (REF) | payer BC, SELFPAY | END 2021-01-22 09:04 | disposition home or self-care (01) | LOC: HO.NEURO 09:03 | PROVIDERS: Visit Provider Internal Medicine | DX: Z13.89 Encounter for screening for other disorder (principal) ==

== ENCOUNTER → 2021-01-29 09:22 | Outpatient (BNVA) | payer BC, SELFPAY | PROVIDERS: PCP Internal Medicine; Referring Provider Internal Medicine; Visit Provider Surgery ==

== ENCOUNTER 2021-02-12 17:00 | Outpatient (RCR) | payer BC, OTHER, SELFPAY ==
--- NOTE | 2021-02-12 18:54 | MHC.PT.DC ---
[facility] [place] Office [place] Office [place] Office [address] Melissa Schulz [address] [phone] F: [phone] F: [phone] F: [phone] F: [phone] Physical Therapy Discharge Report Diagnosis: Sacrocaccegeral disorder. Date of Surgery: Date of Evaluation: 09/04/20 Date of Discharge: 02/12/21 Treatments to Date: 22 Cancellations to Date: 0 No Shows to Date: 0 Discharge Status: Improved Function Independent with HEP Recommend MD Follow-up Discharge Summary: Savita has been an active participant in her therapy in and out of the clinic and has become I with her home program; although she has met some of her therapeutic goals she persists with decreased tolerance for sitting for long duration, traveling by car, perform recreational tasks like gardening as well as disturbed sleep and gait abnormality. Pt has a long Hx of spinal dysfunction and she presents with persisting neurological symptoms of her R > L LE as well as LBP. Pt is recommended to f/u further evaluation and management for her continued symptoms. Electronically signed by: Hugo Wetzel PT. Please sign and return to therapist. Thank you for your referral.
== END 2021-02-12 18:56 | disposition home or self-care (01) ==
LOC: HO.PTCHIC 17:00
PROVIDERS: PCP Internal Medicine; Visit Provider Nurse Practitioner Family
DX: M53.3 Sacrococcygeal disorders, not elsewhere classified (principal)
CPT/HCPCS: 97014; 97110; 97112; 97116; 97140; 97161

== ENCOUNTER 2021-02-24 13:54 | Outpatient (REF) | payer BC, SELFPAY ==
--- NOTE | ~2021-02-24 | US_ITS ---
EXAMINATION: US PELVIS CLINICAL INFORMATION: Right-sided ovarian cyst. COMPARISON: None TECHNIQUE: Ultrasound of the pelvis is performed using both transabdominal and transvaginal transducers along with Doppler. Transvaginal imaging is performed due to inadequate visualization transabdominally. FINDINGS: The uterus is anteverted and anteflexed measuring 5.8 cm in length, 2.1 cm AP and 3.8 cm in transverse dimension. Endometrial thickness is 0.3 cm. There is a hypoechoic lesion in the anterior fundus measuring 0.43 x 0.45 x 0.68 cm. Previously it measured 0.7 x 0.5 x 0.7 cm. Adnexa: The ovaries are not visualized. There is no free fluid in the cul-de-sac. US/US pelvic and transvaginal IMPRESSION: Small anterior fundal uterine fibroid. The ovaries are unremarkable.
[2021-02-25 18:31] LABS: DHEA Sulfate 159 mcg/dL (8-188)
== END 2021-02-24 13:55 | disposition home or self-care (01) ==
LOC: HO.US 13:54
PROVIDERS: Absent Provider Surgery; PCP Internal Medicine; Visit Provider Internal Medicine
DX: N83.201 Unspecified ovarian cyst, right side (principal); E55.9 Vitamin D deficiency, unspecified; E27.8 Other specified disorders of adrenal gland
CPT/HCPCS: 20552; 20553; 36415; 76830; 76856; 82306; 82627

== ENCOUNTER → 2021-02-25 11:31 | Outpatient (BNVA) | payer BC, SELFPAY | PROVIDERS: PCP Internal Medicine; Visit Provider Internal Medicine ==

== ENCOUNTER → 2021-03-09 15:34 | Outpatient (BNVA) | payer BC, SELFPAY | PROVIDERS: PCP Internal Medicine; Referring Provider Internal Medicine; Visit Provider Surgery ==

== ENCOUNTER → 2021-04-29 09:22 | Outpatient (BNVA) | payer BC, SELFPAY | PROVIDERS: PCP Internal Medicine; Visit Provider Nurse Practitioner Family | DX: M79.18 Myalgia, other site (principal); M54.12 Radiculopathy, cervical region; M53.3 Sacrococcygeal disorders, not elsewhere classified | CPT/HCPCS: 20552; J3300 ==

== ENCOUNTER 2021-06-17 06:10 | Outpatient (REF) | payer BC, SELFPAY ==
--- NOTE | ~2021-06-17 | FL_ITS ---
EXAMINATION: XR FLUOROSCOPY WITH IMAGES CLINICAL INFORMATION: Sacrococcygeal disorders COMPARISON: None. TECHNIQUE: Fluoroscopy performed by Beryl Mcleod. Fluoroscopy time: 0.3 minutes DAP: 1.27 Gycm2 Images: 2 FINDINGS: There is needle positioned overlying the SI joints with no contrast visualized. The SI joints spaces maintained normal. FL/FL guidance in treatment room IMPRESSION: Fluoroscopy guidance provided to referrer for pain management.
== END 2021-06-17 06:11 | disposition home or self-care (01) ==
LOC: HO.RADIR 06:10
PROVIDERS: Visit Provider Internal Medicine
DX: M53.3 Sacrococcygeal disorders, not elsewhere classified (principal); M54.50 Low back pain, unspecified
CPT/HCPCS: 27096; J1040; Q9967

== ENCOUNTER → 2021-07-15 08:41 | Outpatient (BNVA) | payer BC, SELFPAY | PROVIDERS: PCP Internal Medicine; Visit Provider Nurse Practitioner Family | DX: M25.50 Pain in unspecified joint (principal) ==

== ENCOUNTER 2021-07-27 08:26 | Outpatient (REF) | payer BC, SELFPAY ==
--- NOTE | ~2021-07-27 | XR_ITS ---
EXAMINATION: XR FOOT, LEFT CLINICAL INFORMATION: Lateral left foot pain. No known injury. COMPARISON: Radiographs left ankle 03/22/2019, left foot radiographs 10/28/2009. TECHNIQUE: Left foot is imaged in 4 views. FINDINGS: There is no acute or healing fracture, dislocation, destructive process. Bony mineralization is normal. There is no periostitis. The retrocalcaneal recess is preserved. There is a small posterior calcaneal spur. Subtalar joint appears normal. The midfoot is unremarkable. There are mild degenerative changes first MTP joint with probable small subchondral cyst. No hallux valgus. XR/XR foot LT min 3V IMPRESSION: -No acute or healing fracture, dislocation, destructive process. -Small posterior calcaneal spur. -Borderline degenerative changes first MTP.
== END 2021-07-27 08:27 | disposition home or self-care (01) ==
LOC: HO.XRAY 08:26
PROVIDERS: PCP Internal Medicine; Visit Provider Nurse Practitioner Family
DX: M79.672 Pain in left foot (principal)
CPT/HCPCS: 73630

== ENCOUNTER → 2021-08-03 10:30 | Outpatient (BNVA) | payer BC, SELFPAY | PROVIDERS: PCP Internal Medicine; Visit Provider Internal Medicine | DX: M54.16 Radiculopathy, lumbar region (principal) | CPT/HCPCS: 20552; 20553 ==

== ENCOUNTER 2021-08-05 05:56 | Outpatient (REF) | payer BC, SELFPAY ==
--- NOTE | ~2021-08-05 | FL_ITS ---
EXAMINATION: XR FLUOROSCOPY WITH IMAGES CLINICAL INFORMATION: M54.16 - Radiculopathy, lumbar region COMPARISON: MR lumbar spine 09/18/2020 TECHNIQUE: Fluoroscopy performed by Dr. Alex Nunez. Fluoroscopy time: 0.1 minutes DAP: 2.38 Gycm2 Images: 2 FINDINGS: There is interlaminar spinal needle at L5-S1 with tip just left of midline. There is contrast seen in the epidural space. FL/FL guidance in treatment room IMPRESSION: Fluoroscopy for pain management procedure.
== END 2021-08-05 05:57 | disposition home or self-care (01) ==
LOC: HO.RADIR 05:56
PROVIDERS: Visit Provider Internal Medicine
DX: M54.16 Radiculopathy, lumbar region (principal)
CPT/HCPCS: 62323; J1040; J2795; Q9967

== ENCOUNTER 2021-08-21 08:23 | Outpatient (REF) | payer BC, SELFPAY ==
[2021-08-22 23:42] LABS: DHEA Sulfate 68 mcg/dL (5-167)
== END 2021-08-21 08:24 | disposition home or self-care (01) ==
LOC: HO.LAB 08:23
PROVIDERS: PCP Internal Medicine; Visit Provider Internal Medicine
DX: E27.8 Other specified disorders of adrenal gland (principal)
CPT/HCPCS: 36415; 82627

== ENCOUNTER → 2021-08-26 12:21 | Outpatient (BNVA) | payer BC, SELFPAY | PROVIDERS: PCP Internal Medicine; Visit Provider Internal Medicine | DX: Z13.89 Encounter for screening for other disorder (principal) ==

== ENCOUNTER 2021-09-07 09:32 | Outpatient (REF) | payer BC, SELFPAY ==
--- NOTE | ~2021-09-07 | XR_ITS ---
EXAMINATION: XR CHEST CLINICAL INFORMATION: Cough COMPARISON: 06/19/2019 TECHNIQUE: 2 views of the chest were obtained. FINDINGS: Lungs grossly are clear. Heart and pulmonary vessels are normal. There are no pleural effusions. XR/XR chest 2V IMPRESSION: No active disease.
== END 2021-09-07 09:33 | disposition home or self-care (01) ==
LOC: HO.HMGCX 09:32
PROVIDERS: PCP Internal Medicine; Visit Provider Physician Assistant
DX: R05.8 Other specified cough (principal)
CPT/HCPCS: 71046

== ENCOUNTER 2021-09-29 10:36 | Outpatient (REF) | payer BC, SELFPAY ==
--- NOTE | ~2021-09-29 | XR_ITS ---
EXAMINATION: XR FOOT, LEFT CLINICAL INFORMATION: M79.672 - Pain in left foot COMPARISON: Radiographs left foot 07/27/2021 TECHNIQUE: AP, lateral, and oblique views of the left foot. FINDINGS: No acute or healing fracture, dislocation, destructive process. Normal bony mineralization. No periostitis. Retrocalcaneal recess preserved. There are mild degenerative changes first MTP with small subchondral cyst first metatarsal head. No erosive change or periarticular demineralization. No hallux valgus. XR/XR foot LT min 3V IMPRESSION: Mild degenerative changes first MTP.
[2021-09-29 13:57] LABS: Erythrocyte Sedimentation Rate 13 MM/HR (0-20)
[2021-09-29 14:07] LABS: C Reactive Protein 0.73 mg/dL (< or = 0.50); Rheumatoid Factor < 15.0 IU/mL (<15.0)
[2021-10-05 13:55] LABS: Cyclic Citrullinated Peptide <16 UNITS
== END 2021-09-29 10:37 | disposition home or self-care (01) ==
LOC: HO.XRAY 10:36
PROVIDERS: PCP Internal Medicine; Visit Provider Internal Medicine Rheumatology
DX: M79.672 Pain in left foot (principal); M79.641 Pain in right hand; M79.642 Pain in left hand
CPT/HCPCS: 36415; 73630; 85652; 86140; 86200; 86431

== ENCOUNTER 2021-10-23 07:46 | Outpatient (REF) | payer BC, SELFPAY ==
[2021-10-23 11:08] LABS: MANUAL DIFF FLAG NO
[2021-10-23 11:14] LABS: Basophils Percent Auto 0.6 % (0-2); Eosinophils Absolute Auto 0.1 X10*3/uL (0.0-0.4); Eosinophils Percent Auto 1.1 % (0-4); Hematocrit 39.5 % (37.0-47.0); Hemoglobin 13.2 g/dl (12.0-16.0); Imm Gran Abs Auto 0.02 X10*3/uL (0.00-0.03); Imm Gran Pct Auto 0.3 % (0.0-0.4); Lymphocytes Absolute Auto 1.8 X10*3/uL (1.2-4.9); Lymphocytes Percent Auto 28.3 % (20-40); Mean Corpuscular HGB Conc 33.4 g/dl (31.0-35.0); Mean Corpuscular Volume 92.7 fL (80.0-98.0); Mean Platelet Volume 9.8 fL (9.4-12.3); Monocytes Absolute Auto 0.5 X10*3/uL (0.1-1.2); Monocytes Percent Auto 6.9 % (2-11); Neutrophils Absolute Auto 4.1 x10*3/uL (2.0-8.3); Neutrophils Percent Auto 62.8 % (45-73); Platelet Count 282 X10*3/uL (160-400); Red Blood Count 4.26 X10*6/uL (4.20-5.50); Red Cell Distribution Width 13.2 % (11.0-16.0); White Blood Count 6.5 X10*3/uL (4.8-10.8)
[2021-10-23 11:52] LABS: Alanine Aminotransferase 26 U/L (0-31); Albumin Level 4.3 g/dL (3.5-5.0); Alkaline Phosphatase 81 U/L (39-117); Anion Gap 16 (12-20); Aspartate Amino Transferase 17 U/L (5-31); Bilirubin Total 0.4 mg/dL (0.0-1.0); Blood Urea Nitrogen 19 mg/dL (9-16); Calcium 9.3 mg/dL (8.4-10.2); Carbon Dioxide 24 mmol/L (22-29); Chloride 105 mmol/L (96-108); Cholesterol 224 mg/dL; Estimated Glomerular Filt Rate > 60; Glucose Fasting 113 mg/dL (60-99); HDL Cholesterol 43 mg/dL; LDL Cholesterol Calculated 135 mg/dl; Potassium 4.2 mmol/L (3.3-5.1); Sodium 141 mmol/L (135-145); Total Protein 7.1 g/dL (6.5-8.0); Triglycerides 232 mg/dL; Vitamin B12 307 pg/mL (200-900)
[2021-10-23 12:00] LABS: TSH reflex Free T4 1.88 uIU/mL (0.32-4.0)
[2021-10-30 12:56] LABS: Vitamin D 25-OH, D2 <4 ng/mL; Vitamin D 25-OH, D3 40 ng/mL; Vitamin D 25-OH, Total 40 ng/mL (30-100)
== END 2021-10-23 07:47 | disposition home or self-care (01) ==
LOC: HO.HMGCLDS 07:46
PROVIDERS: Visit Provider Internal Medicine
DX: Z00.01 Encounter for general adult medical examination with abnormal findings (principal); F33.9 Major depressive disorder, recurrent, unspecified; F41.1 Generalized anxiety disorder; G89.29 Other chronic pain; M19.041 Primary osteoarthritis, right hand; M19.042 Primary osteoarthritis, left hand; M79.672 Pain in left foot; Z72.0 Tobacco use
CPT/HCPCS: 36415; 80053; 80061; 82306; 82607; 84443; 85025

== ENCOUNTER 2022-03-10 10:28 | Emergency (ER) | payer OTHER, BC, SELFPAY ==
--- NOTE | ~2022-03-10 | XR_ITS ---
EXAMINATION: XR CERVICAL SPINE CLINICAL INFORMATION: History of fall and left-sided neck pain COMPARISON: None TECHNIQUE: 3 views of the cervical spine were obtained. FINDINGS: There is lack of lordotic curvature of the degenerated and surgically fused cervical spine. The craniocervical junction, dens and atlantodental articulation are intact. Cervical vertebra are normal in height. No evidence of compression fracture or prevertebral soft tissue swelling. Multilevel facet osteoarthritis is present, including C2-C3 and C7-T1. There is 0.2 cm of degenerative anterolisthesis at C2-C3 and C7-T1. The zero profile anterior fusion device is well-positioned in the disc space of C3-C4. Prior discectomy and anterior fusion at C4-C5 and C5-C6. The bone graft is well incorporated into the vertebral endplates at C4-C5 and C5-C6. Anterior fusion plate and screws are intact. Postoperative multilevel laminectomies of the cervical spine and intact appearance of the instrumented posterior spinal fusion at C3-C7. Moderate degenerative disc disease of C6-C7. XR/XR cervical spine 2V IMPRESSION: * No evidence of loosening of the anterior or posterior cervical spinal fusion hardware. * No acute radiographic abnormalities in the cervical spine. No evidence of fracture or traumatic subluxation. * Mild degenerative anterolisthesis is noted at C2-C3 and C7-T1. * Moderate degenerative disc disease at C6-C7.
[2022-03-10 11:18] VITALS: BP 148/78; PULSE 82; RESP 16; TEMP 36.2; O2SAT 98; BMI 36.5
--- NOTE | 2022-03-10 11:19 | ED_ITS ---
HPI - Fall General Chief Complaint: Fall <Clarisa Garcia NP - Last Filed: 03/10/22 11:24> Stated Complaint: fall 03/10/22 <Clarisa Garcia NP - Last Filed: 03/10/22 11:24> Time Seen by Provider: 03/10/22 12:49 <Clarisa Garcia NP - Last Filed: 03/10/22 11:24> Source: patient <Estrellita Neumann NP - Last Filed: 03/10/22 14:01> Mode of arrival: ambulatory <Estrellita Neumann NP - Last Filed: 03/10/22 14:01> Limitations: no limitations <Estrellita Neumann NP - Last Filed: 03/10/22 14:01> History of Present Illness HPI Narrative: 56-year-old female with PMH of Nava syndrome, HTN, osteoarthritis, and recent cervical laminectomy on 12/17/21 who presents to the emergency department today after sustaining a fall and hitting the left side of her body at work at roughly 8:00 a.m. She denies hitting her head. She reports pain at the left shoulder and upper neck that is reproducible with palpation. She describes the pain as sharp, constant, 7/10. She denies any changes in her range of motion, loss of consciousness, vision changes,new numbness or tingling in BUE, no weakness, or changes in bowel or bladder function. She denies numbness or tingling or weakness in perineum or BLE. <Estrellita Neumann NP - Last Filed: 03/10/22 14:01> Related Data Home Medications: Home Medications Medication Instructions Recorded Confirmed escitalopram oxalate 10 mg tablet 10 mg PO DAILY 02/14/20 01/20/22 bupropion HCl 150 mg tablet,12 hr 150 mg PO BID 02/25/21 01/20/22 sustained-release lidocaine 5 % topical patch 1 patch topical DAILY PRN 09/29/21 01/20/22 (Lidoderm) lorazepam 1 mg tablet (Ativan) 0.5 mg PO BID PRN anxiety 09/29/21 01/20/22 gabapentin 100 mg capsule 100 mg PO TID 10/18/22 10/26/22 oxycodone 5 mg tablet mg PO 01/12/22 01/20/22 Previous Rx's Medication Instructions Recorded methocarbamol 750 mg tablet 750 mg PO BID PRN muscle spasm #60 07/15/21 tabs lisinopril 10 mg tablet 10 mg PO ONCE 90 days #90 tabs 01/20/22 meloxicam 7.5 mg tablet 7.5 mg PO BID 90 days #180 tabs 01/20/22 pantoprazole 20 mg tablet,delayed 20 mg PO DAILY 90 days #90 tabs 01/20/22 release tizanidine 2 mg tablet 2 mg PO Q8H 90 days #270 tabs 01/20/22 <LISA Jim Last Filed: 03/10/22 11:24> Allergies/Adverse Reactions: Allergies Allergy/AdvReac Type Severity Reaction Status Date / Time Iodinated Contrast Media Allergy Unknown UNKNOWN Verified 01/20/22 11:24 [CONTRAST, IV] morphine [Morphine] Allergy Unknown NAUSEA/RASH, Verified 01/20/22 11:24 rash, N/V, rash, N/V <Clarisa Garcia NP - Last Filed: 03/10/22 11:24> Review of Systems Review of Systems: In addition to documented HPI above, the additional ROS was obtained: Constitutional: No Weight loss, No Fever, No Chills ENT/Mouth: No Ear Pain, No Nasal Congestion, No Sinus Pain, No Hoarseness, No sore throat, No Rhinorrhea, No Swallowing Difficulty Cardiovascular: No Chest Pain, No SOB Respiratory: No Cough, No Sputum, No Wheezing Gastrointestinal: No Nausea, No Vomiting, No Diarrhea, No Constipation, No Abdominal pain Musculoskeletal: No joint pain, No Myalgias, No Joint Swelling Skin: No Skin Lesions, No rash Neuro: No Weakness, No Numbness, No Paresthesias <LISA Stapleton Last Filed: 03/10/22 14:01> Yes all other systems are reviewed and are negative <LISA Stapleton Last Filed: 03/10/22 14:01> ENT: Reports Normal hearing present <LISA Stapleton Last Filed: 03/10/22 14:01> Neurologic: Reports Normal hearing present <LISA Stapleton Last Filed: 03/10/22 14:01> [facility] Past Medical History Attestation statement: The following information was validated with the patient. <Estrellita Neumann NP - Last Filed: 03/10/22 14:01> Source: old records reviewed <Estrellita Neumann NP - Last Filed: 03/10/22 14:01> Medical History: Medical History Abnormal bowel movement Chronic neck and back pain Cyst of right ovary Elevated dehydroepiandrosterone sulfate level (~2019) Hypertension, essential Nicotine dependence, cigarettes, uncomplicated Post-menopausal (~2018) Tubular adenoma of colon (~2017) Vitamin D deficiency <Clarisa Garcia NP - Last Filed: 03/10/22 11:24> Surgical History: Surgical History History of basal cell carcinoma (BCC) excision History of History of colonoscopy History of foot surgery History of fusion of cervical spine History of left knee surgery History of right knee surgery <Clarisa Garcia NP - Last Filed: 03/10/22 11:24> Family History Family History: Family History Father Mesothelioma Mother Breast cancer Colon cancer Other Mental health disorder Substance use disorder <Clarisa Garcia NP - Last Filed: 03/10/22 11:24> Social History Social History: Social History Housing: House Are you a primary career development facilitator to a significant other at home: No Do you presently have visiting nurse or other home services: No Alcohol intake: current Alcohol intake frequency: a few times a month Patient Tobacco Use Status: Former Tobacco user Tobacco use type: Cigarette Cigarette Packs Per Day: 0.5 Cigarettes Per Day: 10.0 Years Smoked: 37 e-Cigarette/Vaping Use: Never Used Advance Directives: No Current occupational status: employed 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: No Hearing needs: No Vision needs: Yes <Clarisa Garcia NP - Last Filed: 03/10/22 11:24> Physical Exam Vital Signs: Vital Signs: Last Vital Signs Temp 97.2 F 03/10/22 11:18 Pulse 82 03/10/22 11:18 Resp 16 03/10/22 11:18 BP 148/78 H 03/10/22 11:18 Pulse Ox 98 03/10/22 11:18 O2 Del Method 03/10/22 11:18 BMI result Body Mass Index 36.5 <Clarisa Garcia PERENNIAL HOUSE MANAGER - Last Filed: 03/10/22 11:24> Vital Signs: Last Vital Signs Temp 97.2 F 03/10/22 11:18 Pulse 82 03/10/22 11:18 Resp 16 03/10/22 11:18 BP 148/78 H 03/10/22 11:18 Pulse Ox 98 03/10/22 11:18 O2 Del Method 03/10/22 11:18 BMI result Body Mass Index 36.5 <Estrellita Neumann PERENNIAL HOUSE MANAGER - Last Filed: 03/10/22 14:01> Const: General: cooperative, alert and awake <Estrellita Neumann PERENNIAL HOUSE MANAGER - Last Filed: 03/10/22 14:01> Nutritional Appearance: well nourished <Estrellita Neumann PERENNIAL HOUSE MANAGER - Last Filed: 03/10/22 14:01> Orientation/consciousness: patient oriented x3 <Estrellita Neumann PERENNIAL HOUSE MANAGER - Last Filed: 03/10/22 14:01> Limitations: no limitations <Estrellita Neumann PERENNIAL HOUSE MANAGER - Last Filed: 03/10/22 14:01> HEENT: Head: Yes normal to inspection, Yes normocephalic, Yes atraumatic, No abrasion, No contusion, No laceration and No scalp tenderness <Estrellita Neumann PERENNIAL HOUSE MANAGER - Last Filed: 03/10/22 14:01> Ears: hearing grossly normal bilaterally and external ears normal <Estrellita Neumann PERENNIAL HOUSE MANAGER - Last Filed: 03/10/22 14:01> General nose exam: Normal external nose present <Estrellita Neumann PERENNIAL HOUSE MANAGER - Last Filed: 03/10/22 14:01> Face and sinus: Yes normal facial exam <Estrellita Neumann PERENNIAL HOUSE MANAGER - Last Filed: 03/10/22 14:01> Mouth: Normal oral and palatal mucosa present <Estrellita Neumann PERENNIAL HOUSE MANAGER - Last Filed: 03/10/22 14:01> Eyes: General: appearance normal, both eyes and all related structures <Estrellita Neumann PERENNIAL HOUSE MANAGER - Last Filed: 03/10/22 14:01> Visual Regan: normal visual regan by confrontation <Estrellita Neumann PERENNIAL HOUSE MANAGER - Last Filed: 03/10/22 14:01> Alignment and Position: alignment normal <Estrellita Neumann PERENNIAL HOUSE MANAGER - Last Filed: 03/10/22 14:01> Periorbital: periorbital findings normal <Estrellita Neumann PERENNIAL HOUSE MANAGER - Last Filed: 03/10/22 14:01> Eyelids: Yes eyelids normal <Estrellita Neumann PERENNIAL HOUSE MANAGER - Last Filed: 03/10/22 14:01> Conjunctivae: conjunctivae normal <Estrellita Neumann PERENNIAL HOUSE MANAGER - Last Filed: 03/10/22 14:01> Sclerae: sclerae normal <Estrellita Neumann PERENNIAL HOUSE MANAGER - Last Filed: 03/10/22 14:01> Corneas: corneas normal <Estrellita Neumann PERENNIAL HOUSE MANAGER - Last Filed: 03/10/22 14:01> Pupils: Equal, round and reactive pupils present <Estrellita Neumann PERENNIAL HOUSE MANAGER - Last Filed: 03/10/22 14:01> EOM: EOMs intact bilaterally <Estrellita Neumann PERENNIAL HOUSE MANAGER - Last Filed: 03/10/22 14:01> Neck: Neck: Yes normal visual inspection and Yes full ROM <Estrellita Neumann PERENNIAL HOUSE MANAGER - Last Filed: 03/10/22 14:01> Chest: Chest palpation & inspection: normal inspection of the chest <Estrellita Neumann PERENNIAL HOUSE MANAGER - Last Filed: 03/10/22 14:01> Resp: Effort & Inspection: normal respiratory effort and not labored <Estrellita Neumann PERENNIAL HOUSE MANAGER - Last Filed: 03/10/22 14:01> Auscultation: clear to auscultation bilaterally <Estrellita Neumann PERENNIAL HOUSE MANAGER - Last Filed: 03/10/22 14:01> Cardio: Rate: regular rate <Estrellita Neumann, PERENNIAL HOUSE MANAGER - Last Filed: 03/10/22 14:01> Rhythm: regular rhythm <Estrellitakezia Neumann, PERENNIAL HOUSE MANAGER - Last Filed: 03/10/22 14:01> Back/Spine/Pelvis: Cervical Spine: cervical ROM normal and pain with cervical ROM <Estrellita Neumann, PERENNIAL HOUSE MANAGER - Last Filed: 03/10/22 14:01> Thoracic/Lumbar Spine: thoraco-lumbar ROM normal <Estrellitabrandon Neumann, PERENNIAL HOUSE MANAGER - Last Filed: 03/10/22 14:01> Skin: General skin exam: no rashes or lesions noted <Estrellitakezia Neumann, PERENNIAL HOUSE MANAGER - Last Filed: 03/10/22 14:01> Neuro: General: patient oriented x3, gait normal, tone normal, moves all extremities and Normal light touch and pain sensation <Estrellita Neumann, PERENNIAL HOUSE MANAGER - Last Filed: 03/10/22 14:01> Cranial nerves: Yes Equal, round and reactive pupils present, Yes Bilaterally intact EOM present, Yes Nystagmus not present, Yes Normal facial strength present, Yes Normal hearing present and Yes Ability to bilaterally elevate shoulders present <Estrellita Neumann, PERENNIAL HOUSE MANAGER - Last Filed: 03/10/22 14:01> Cognition (Neuro): normal cognition <Estrellita Neumann, PERENNIAL HOUSE MANAGER - Last Filed: 03/10/22 14:01> Gait exam (Neuro): Normal gait present <Estrellita Neumann PERENNIAL HOUSE MANAGER - Last Filed: 03/10/22 14:01> Motor exam (neuro): 5/5 motor strength present throughout <Estrellitabrandon Neumann, PERENNIAL HOUSE MANAGER - Last Filed: 03/10/22 14:01> Extrem: General: Yes normal to inspection, Yes full ROM and Yes capillary refill normal <Estrellita Neumann PERENNIAL HOUSE MANAGER - Last Filed: 03/10/22 14:01> Course Course Course Narrative: This is a rapid medical exam. Deferred additional HPI, ROS, PE to primary provider. 56 yo female s/p lamine[facility] C3-C7 [facility]w/ [facility] anxiety, depression, OA, HTN here with complaints slip and fall on water here w/ left sided neck pain. No numbness/tingling/weakness of the UE. Possible hitting head. No LOC. Ambulatory to triage. VSS. X-rays ordered from triage. <Clarisa Garcia NP - Last Filed: 03/10/22 11:24> This is a rapid medical exam. Deferred additional HPI, ROS, PE to primary provider. 56 yo female s/p laminectomy C3-C7 (w/ cervical fusion) ([facility]), anxiety, depression, OA, HTN here with complaints slip and fall on water here w/ left sided neck pain. No numbness/tingling/weakness of the UE. Possible hitting head. No LOC. Ambulatory to triage. VSS. X-rays ordered from triage. EXAMINATION: XR CERVICAL SPINE CLINICAL INFORMATION: History of fall and left-sided neck pain COMPARISON: None TECHNIQUE: 3 views of the cervical spine were obtained. FINDINGS: There is lack of lordotic curvature of the degenerated and surgically fused cervical spine. The craniocervical junction, dens and atlantodental articulation are intact. Cervical vertebra are normal in height. No evidence of compression fracture or prevertebral soft tissue swelling. Multilevel facet osteoarthritis is present, including C2-C3 and C7-T1. There is 0.2 cm of degenerative anterolisthesis at C2-C3 and C7-T1.? The zero profile anterior fusion device is well-positioned in the disc space of C3-C4. Prior discectomy and anterior fusion at C4-C5 and C5-C6. The bone graft is well incorporated into the vertebral endplates at C4-C5 and C5-C6. Anterior fusion plate and screws are intact. Postoperative multilevel laminectomies of the cervical spine and intact appearance of the instrumented posterior spinal fusion at C3-C7. Moderate degenerative disc disease of C6-C7. XR/XR cervical spine 2V IMPRESSION: *? No evidence of loosening of the anterior or posterior cervical spinal fusion hardware. *? No acute radiographic abnormalities in the cervical spine. No evidence of fracture or traumatic subluxation. *? Mild degenerative anterolisthesis is noted at C2-C3 and C7-T1. *? Moderate degenerative disc disease at C6-C7. ?Dictated By: Mitchell Hayden MD Signed By: <Electronically signed by Mitchell Hayden MD in [place] 03/10/22 1225 DD/ 1131 TD/TT:? Wedding Florist: <Estrellita Neumann NP - Last Filed: 03/10/22 14:01> Medical Decision Making Medical Decision Making MDM Narrative: 56-year-old female with PMH of Nava syndrome, HTN, osteoarthritis, and recent cervical laminectomy on 12/17/21 who presents to the emergency department today after sustaining a fall and hitting the left side of her body at work at roughly 8:00 a.m. Pt able to WORRELL with equal strength, cervical ROM normal. Cervical spine x-ray was negative for any acute changes, no evidence of loosening of the anterior or posterior cervical spinal fusion hardware, no acute radiographic abnormalities in the cervical spine. No evidence of fracture or traumatic subluxation, mild degenerative anterolisthesis is noted at C2-C3 and C7-T1, and moderate degenerative disc disease at C6-C7. Physical exam and HPI the no red flags and consistent with acute on chronic cervicalgia. Low suspicion for cervical cord compression or myelopathy. Recommend to manage pain with [id number] Tylenol and Motrin and to use previously prescribed tizanidine and lidocaine patches as directed for pain. Recommended to rest, apply heat and/or ice to the area. HPI, physical exam, diagnostics, and plan discussed with pt with no unanswered questions. Educated to return to the emergency department with new or worsening numbness, tingling, weakness, changes in vision, headache, inability to move your neck, or any other concerning emergent issues. Recommended to follow up with your primary care provider for further treatment and management. <Estrellita Neumann NP - Last Filed: 03/10/22 14:01> Discharge Plan Discharge Clinical Impression: Neck pain on left side <Clarisa Garcia NP - Last Filed: 03/10/22 11:24> Patient Disposition: Home, Self-Care <Clarisa Garcia NP - Last Filed: 03/10/22 11:24> Instructions: Acute Neck Pain (ED) <Clarisa Garcia NP - Last Filed: 03/10/22 11:24> Additional Instructions: Your cervical spine x-ray was negative for any acute changes. The xray showed not evidence of loosening of the anterior or posterior cervical spinal fusion hardware. No acute radiographic abnormalities in the cervical spine. No evidence of fracture or traumatic subluxation. Mild degenerative anterolisthesis is noted at C2-C3 and C7-T1. Moderate degenerative disc disease at C6-C7. Your pain is consistent with acute on chronic cervicalgia. Recommend that you manage your pain with [id number] Tylenol and Motrin as needed. Please use tizanidine and lidocaine patches as directed for pain. Recommended to rest, apply heat and/or ice to the area. Please return to the emergency department with new or worsening numbness, tingling, weakness, changes in vision, headache, inability to move your neck, or any other concerning emergent issues. Please follow up with your primary care provider for further treatment and management. <Clarisa Garcia NP - Last Filed: 03/10/22 11:24> Prescriptions: No Action gabapentin 100 mg capsule 100 mg PO TID oxycodone 5 mg tablet PO tizanidine 2 mg tablet 2 mg PO Q8H 90 Days Qty: 270 0RF meloxicam 7.5 mg tablet 7.5 mg PO BID 90 Days Qty: 180 0RF lisinopril 10 mg tablet 10 mg PO ONCE 90 Days Qty: 90 0RF pantoprazole 20 mg tablet,delayed release (DR/EC) 20 mg PO DAILY 90 Days Qty: 90 0RF escitalopram oxalate 10 mg tablet 10 mg PO DAILY bupropion HCl 150 mg tablet sustained-release 12 hr 150 mg PO BID lidocaine [Lidoderm] 5 % adhesive patch,medicated 1 patch topical DAILY PRN Rx Instructions: leave on most painful area for up to 12 hrs lorazepam [Ativan] 1 mg tablet 0.5 mg PO BID PRN (Reason: anxiety) methocarbamol 750 mg tablet 750 mg PO BID PRN (Reason: muscle spasm) Qty: 60 3RF <Clarisa Garcia NP - Last Filed: 03/10/22 11:24> Referrals: Herman Carreon MD [Primary Care Provider] - <Clarisa Garcia NP - Last Filed: 03/10/22 11:24> Stand Alone Forms: Work/School Release <Clarisa Garcia NP - Last Filed: 03/10/22 11:24> Print Language: Nigerien <Clarisa Garcia, PERENNIAL HOUSE MANAGER - Last Filed: 03/10/22 11:24>
[2022-03-10] MEDS: Ketorolac Tromethamine 15 MG/ML VIAL IM (13:52)
== END 2022-03-10 13:57 | disposition home or self-care (01) ==
PROVIDERS: Emergency Provider Student in an Organized Health Care Education/Training Program; PCP Internal Medicine
DX: M54.2 Cervicalgia (principal); I10 Essential (primary) hypertension; Z79.899 Other long term (current) drug therapy; Z87.891 Personal history of nicotine dependence
CPT/HCPCS: 72040; 96372; 99283; 99284; J1885

== ENCOUNTER 2022-03-12 14:26 | Outpatient (REF) | payer BC, SELFPAY ==
--- NOTE | ~2022-03-12 | CT_ITS ---
EXAMINATION: CT CHEST SCREENING CLINICAL INFORMATION: Personal history of nicotine dependence. COMPARISON: Chest x-ray 09/07/2021. TECHNIQUE: Multidetector volumetric CT imaging of the chest is performed without contrast using low dose technique. Additional 2D coronal and sagittal reformatted images and axial 3D maximum intensity projection (MIP) images are generated on the CT workstation. This CT examination was performed using dose optimization techniques as appropriate, variously including the following: *Automated exposure control *Adjustment of mA and/or kV according to patient size (this includes techniques or standardized protocols for targeted exams where dose is matched to indication/reason for exam; i.e. extremities or head) *Use of iterative reconstruction technique DLP: 71 mGy-cm. FINDINGS: LUNGS: The lungs are well expanded and clear of acute pneumonic process. There is a 5 mm ill-defined semisolid opacity right middle lobe axial image 28/4 and focal atelectatic changes in the lingula. No additional lung nodules, mass or consolidation. MEDIASTINUM: The thyroid lobes are symmetrical and normal. Central trachea and the bronchi are widely patent. Heart size and the great vessels are normal caliber. No pericardial effusion seen. No abnormal size mediastinal or hilar lymph nodes seen. CORONARY ARTERY CALCIFICATION: None visualized on this study. PLEURA: There is no pleural effusion. No pleural mass or thickening. AXILLA: There are small shotty lymph nodes in the axilla. UPPER ABDOMEN: Visualized liver, spleen, pancreas and bilateral adrenal glands unremarkable. OSSEOUS STRUCTURES: No lytic or sclerotic process seen. CT/CT lung screening IMPRESSION: 5 mm semisolid opacity right middle lobe. Low-dose annual CT chest. ASSESSMENT: Lung-RADS category 2: Benign. RECOMMENDATION: Low-dose annual CT chest.
== END 2022-03-12 14:27 | disposition home or self-care (01) ==
LOC: HO.CT 14:26
PROVIDERS: PCP Internal Medicine; Visit Provider Physician Assistant Medical
DX: Z12.2 Encounter for screening for malignant neoplasm of respiratory organs (principal); Z87.891 Personal history of nicotine dependence
CPT/HCPCS: 71271; G0296

== ENCOUNTER → 2022-08-27 11:21 | Outpatient (BNVA) | payer BC, SELFPAY | PROVIDERS: PCP Nurse Practitioner Family; Visit Provider Internal Medicine | DX: M79.18 Myalgia, other site (principal); M54.16 Radiculopathy, lumbar region | CPT/HCPCS: 20553; J2795; J3301 ==

== ENCOUNTER 2022-09-21 12:07 | Outpatient (REF) | payer BC, SELFPAY ==
--- NOTE | ~2022-09-21 | MM_ITS ---
EXAMINATION: MM SCREENING DIGITAL BREAST TOMOSYNTHESIS, BILATERAL CLINICAL INFORMATION: Screening. Asymptomatic. Family history breast cancer, mother and sister. The lifetime risk of breast cancer based on the Tyrer-Cuzick Model is 20%. COMPARISON: Mammography: 10/16/2020, 05/17/2019, 05/08/2018 TECHNIQUE: Digital breast tomosynthesis is performed in both the craniocaudal and mediolateral oblique views along with computer-aided detection (CAD). Synthesized 2D images are generated from the tomosynthesis. FINDINGS: There are scattered areas of fibroglandular density (ACR BI-RADS breast composition Category b). There are no significant masses, abnormal calcifications, or other abnormalities. Parenchymal pattern is similar to prior studies. No developing density or architectural abnormality. Biopsy clip marker again seen mid central 8:00 right breast. The axilla and skin contours are unremarkable. No significant changes. MM/MM tomosynthesis screening BI IMPRESSION: No mammographic evidence of malignancy. ASSESSMENT: BI-RADS 2: Benign RECOMMENDATION: Routine annual mammography screening. This patient's information was entered into a reminder system with a target due date for their next mammogram.
== END 2022-09-21 12:08 | disposition home or self-care (01) ==
LOC: HO.MAMMO 12:07
PROVIDERS: PCP Nurse Practitioner Family; Visit Provider Nurse Practitioner Family
DX: Z12.31 Encounter for screening mammogram for malignant neoplasm of breast (principal)
CPT/HCPCS: 77063; 77067

== ENCOUNTER 2022-10-06 05:58 | Outpatient (REF) | payer BC, SELFPAY ==
--- NOTE | ~2022-10-06 | FL_ITS ---
EXAMINATION: XR FLUOROSCOPY WITH IMAGES CLINICAL INFORMATION: Radiculopathy, lumbar region. COMPARISON: None available. TECHNIQUE: Fluoroscopy Supervised By: Dr. Nunez. Fluoroscopy Time: 0.1 minute. Cumulative Dose: 5.84 mGy. DAP: 0.774 Gycm2. Images: 2. FINDINGS: Images demonstrate needle placement and epidural contrast injection over the lower lumbar spine at L5-S1. FL/FL guidance in treatment room IMPRESSION: Fluoroscopy guidance for pain management procedure.
== END 2022-10-06 05:59 | disposition home or self-care (01) ==
LOC: CF 05:58
PROVIDERS: Visit Provider Internal Medicine
DX: M54.16 Radiculopathy, lumbar region (principal)
CPT/HCPCS: 62321; Q9967

== ENCOUNTER 2022-10-06 07:44 | Outpatient (AMB) | payer BC, SELFPAY ==
[2022-10-06 08:13] VITALS: BP 130/72; PULSE 96; RESP 14; O2SAT 95
--- NOTE | 2022-10-06 08:13 | A.OFFVIS_ITS ---
Intake Vital Signs 10/06/22 08:13 BP 130/72 Blood Pressure Location Lt brachial Position Sitting Respiration 14 Pulse 96 Pulse Source Pulse Oximeter Pulse Oximetry (%) 95 Oxygen Delivery Method Room Air Intake Visit Reasons: Left interlaminar parasagittal L5-S1 EVELYN Allergies Iodinated Contrast Media [CONTRAST, IV] Allergy (Unknown, Verified 10/06/22 08:13) UNKNOWN morphine [Morphine] Allergy (Unknown, Verified 10/06/22 08:13) NAUSEA/RASH, rash, N/V, rash, N/V HPI Left interlaminar parasagittal L5-S1 EVELYN HPI Details Patient presents for scheduled procedure. Denies any recent cough, cold, infection, fever or other significant changes in medical history since last office visit. [facility] Medical History (Updated 08/31/22 @ 12:54 by Alex Nunez MD) Abnormal bowel movement Chronic neck and back pain Cyst of right ovary Elevated dehydroepiandrosterone sulfate level (~2018) Hypertension, essential Personal history of nicotine dependence Post-menopausal (~2017) Tubular adenoma of colon (~2017) Vitamin D deficiency Surgical History (Updated 03/12/22 @ 14:12 by Edwige Carrasquillo PA-C) History of basal cell carcinoma (BCC) excision History of History of colonoscopy History of foot surgery History of fusion of cervical spine History of left knee surgery History of right knee surgery Family History Father Mesothelioma Mother Breast cancer Colon cancer Other Mental health disorder Substance use disorder Social History Housing: House Are you a primary healthcare or medical to a significant other at home: No Do you presently have visiting nurse or other home services: No Alcohol intake: current Alcohol intake frequency: a few times a month Patient Tobacco Use Status: Former Tobacco user Tobacco use type: Cigarette Cigarette Packs Per Day: 0.5 Cigarettes Per Day: 10.0 Years Smoked: 37 e-Cigarette/Vaping Use: Never Used Current occupational status: employed 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 The patient was placed in the prone position. The lumbosacral area was widely prepped with chloraprep and draped in sterile fashion. Fluoroscopic guidance was used to identify the desired interlaminar space and for needle placement. Subcutaneous 0.5% lidocaine was used to anesthetize the skin overlying the target. A 20-gauge Euceda needle was advanced to the epidural space using loss of resistance to contrast technique under fluoroscopic AP and contralateral oblique views. There was no evidence of heme or CSF and no paresthesias were elicited with needle placement. Confirmation of epidural needle placement was performed with 1cc of Isovue. Next 3 ml 0.5% lidocaine mixed with 80 mg methylprednisolone was administered epidurally with no pain elicited on injection. The needle tract tubing was then cleared with 1 ml of 0.5% lidocaine. The needle was removed, skin cleansed and a sterile bandage was applied. The patient tolerated the procedure well and no complications were encountered. Following the procedure the patient's vital signs were stable. The patient was discharged home in good condition with post-procedural instructions. Time Out: Immediately prior to the procedure, the following was verbally confirmed that there is a signed consent form and that the correct patient, planned procedure, site and side are consistent with documentation and that necessary equipment and/or blood products are available prior to the start of the case. Complications: none EBL: <5 cc Coding 82525 - Caudal/Lumbar Epidural/Interlaminar with fluoroscopy Procedure code (CPT) selection complete Assessment & Plan Assessment & Plan (1) Lumbar radiculitis: Code(s): M54.16 - Radiculopathy, lumbar region Plan Patient is status post left parasagittal interlaminar EVELYN at L5/S1. Patient tolerated procedure well and was discharged home in stable condition with discharge instructions. All questions were answered. We will follow-up via telephone or in clinic to assess response to therapy. A follow-up appointment was made during today's visit. Orders: Orders FL guidance in treatment room Today M54.16 - Radiculopathy, lumbar region Coding Level of Care Code Procedure Only Diagnoses Lumbar radiculitis M54.16 CPT Codes Coding - Joint 11: 09197 - Caudal/Lumbar Epidural/Interlaminar with fluoroscopy ([id number])
== END 2022-10-06 08:26 | disposition home or self-care (01) ==
LOC: HO.PMCPRC 07:44
PROVIDERS: PCP Nurse Practitioner Family; Visit Provider Internal Medicine
DX: M54.16 Radiculopathy, lumbar region (principal)
CPT/HCPCS: 62321

== ENCOUNTER 2022-10-11 08:34 | Outpatient (AMB) | payer BC, SELFPAY ==
--- NOTE | 2022-10-11 08:35 | MHC.OFFVIS ---
Intake Intake Visit Reasons: F/U Elevated DHEA-s level Pasteurizing Supervisor Required: No Allergies Iodinated Contrast Media [CONTRAST, IV] Allergy (Unknown, Verified 10/11/22 09:22) UNKNOWN morphine [Morphine] Allergy (Unknown, Verified 10/11/22 09:22) NAUSEA/RASH, rash, N/V, rash, N/V Medication List - Last Reconciled 10/11/22 by Jenifer Alston, DO bupropion HCl 75 mg PO QAM escitalopram oxalate 10 mg PO DAILY lidocaine 5% (Lidoderm) 1 patch topical DAILY PRN lisinopril 10 mg PO ONCE 90 days lorazepam (Ativan) 0.5 mg PO BID PRN meloxicam 15 mg PO DAILY methocarbamol 750 mg PO BID PRN HPI HPI Comments History of Present Illness Details 56 YO Female with no significant PMHx who is seen in F/U for elevated DHEA-S level. She reports in 2019 she began losing hair in an androgenic pattern on the top of her head. She was referred to a Gaggerman who checked labs which revealed a DHEA-s level elevated to 254. TSH was WNL. Testosterone levels were also WNL. After these labs were drawn she was started on Biotin by her Gaggerman. She then stopped this after her first visit with me. After our initial evaluation I sent her for a full hyperandrogenism panel, and she stopped her Biotin for 7 days prior to having labs drawn. Labs revealed that she is postmenopausal, and also mild elevation of DHEA-S to 218. Labs were otherwise WNL. She had a CT of the abdomen 05/23/2019 which revealed no adrenal pathology. She had an US of the ovaries completed 04/20/2019 which revealed 2 simple cysts within the R ovary, and the R ovary was also larger than expected for a postmenopausal female. The L ovary appeared WNL. She opted for continued surveillance, and DHEA-s was repeated again and was stable at 249. It was again repeated 6 months later and was stable at 203. She underwent a repeat US of the ovary, but unfortunately the ovaries were unable to be visualized. She again underwent repeat imaging 08/05/2020, again with no ovaries visualized. DHEA-s had improved to 193, and has continued to trend down from there. DHEA-s is now within the normal range. She had labs completed 02/24/2021 along with another ovarian US, again with no visualization of the ovaries. Hair loss has improved. Menarche was age 15, menses was irregular and she had endometriosis. She had multiple ectopic pregnancies, and then did IVF which resulted in triplets. Menopause was at the age of 52. US Ovaries: 02/24/2021 FINDINGS: The uterus is anteverted and anteflexed measuring 5.8 cm in length, 2.1 cm AP and 3.8 cm in transverse dimension. Endometrial thickness is 0.3 cm. There is a hypoechoic lesion in the anterior fundus measuring 0.43 x 0.45 x 0.68 cm. Previously it measured 0.7 x 0.5 x 0.7 cm. Adnexa: The ovaries are not visualized. There is no free fluid in the cul-de-sac. Labs: Laboratory Tests 02/24/21 02/24/21 08/21/21 14:05 14:05 08:42 25-OH Vitamin D To holly 38.0 DHEA Sulfate Pending 68 PFSH Medical History Abnormal bowel movement Chronic neck and back pain Cyst of right ovary Elevated dehydroepiandrosterone sulfate level (~2019) Hypertension, essential Personal history of nicotine dependence Post-menopausal (~2018) Tubular adenoma of colon (~2017) Vitamin D deficiency Surgical History History of basal cell carcinoma (BCC) excision History of History of colonoscopy History of foot surgery History of fusion of cervical spine History of left knee surgery History of right knee surgery Family History Father Mesothelioma Mother Breast cancer Colon cancer Other Mental health disorder Substance use disorder Social History Housing: House Are you a primary occasional caregiver to a significant other at home: No Do you presently have visiting nurse or other home services: No Alcohol intake: current Alcohol intake frequency: a few times a month Patient Tobacco Use Status: Former Tobacco user Tobacco use type: Cigarette Cigarette Packs Per Day: 0.5 Cigarettes Per Day: 10.0 Years Smoked: 37 e-Cigarette/Vaping Use: Never Used Current occupational status: employed 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 Unclear etiology. No adrenal nodules visualized. She did have 2 simple appearing cysts of the R ovary, but these were not well visualized on her most recent US. We had discussed the option of removing the R ovary, vs continued surveillance with q 6 month labs and US. She has opted for continued surveillance. Last DHEA-S levels were normal. Plan for now is to repeat DHEA-s levels and her ovarian US and she will F/U thereafter. If all remains WNL at that time, she will not require additional Endocrine F/U. All of her questions were answered. She is in agreement with this plan of care. I spent 20 minutes in reviewing the record, seeing the patient and documenting in the medical record, including 5 minutes on the phone with the Patient. (2) Vitamin D deficiency: Code(s): E55.9 - Vitamin D deficiency, unspecified Plan: Remains on Vitamin D 1000 IU daily. Will continue. (3) Cyst of right ovary: Code(s): N83.201 - Unspecified ovarian cyst, right side Plan: Cysts of the R ovary unable to be visualized on her most recent US. Will repeat imaging now to reassess. If remains WNL no further imaging will be necessary. Orders: Orders DHEA Sulfate Today E27.8 - Other specified disorders of adrenal gland US pelvic complete Today E27.8 - Other specified disorders of adrenal gland US transvaginal Today E27.8 - Other specified disorders of adrenal gland Telehealth Telehealth Location of provider rendering services: practice address Location of patient: address on file Patient Identification confirmed using: Name, : Yes Telehealth method: voice only Patient verbally consented to treatment: Yes Patient verbally consented to billing insurance company: Yes Patient informed of any privacy concerns related to visit: Yes Coding Level of Care Code Tele Est Pt Level 3 (62051) Diagnoses Elevated dehydroepiandrosterone sulfate level E27.8 Vitamin D deficiency E55.9 Cyst of right ovary N83.201
== END 2022-10-11 16:48 | disposition home or self-care (01) ==
LOC: HO.ENCR 08:34
PROVIDERS: PCP Nurse Practitioner Family; Visit Provider Internal Medicine
DX: E27.8 Other specified disorders of adrenal gland (principal); E55.9 Vitamin D deficiency, unspecified; N83.201 Unspecified ovarian cyst, right side
CPT/HCPCS: 99443

== ENCOUNTER → 2022-10-11 08:34 | Outpatient (BNVA) | payer BC, SELFPAY | PROVIDERS: PCP Nurse Practitioner Family; Visit Provider Internal Medicine ==

== ENCOUNTER 2022-10-15 15:31 | Outpatient (REF) | payer BC, SELFPAY ==
--- NOTE | ~2022-10-15 | US_ITS ---
EXAMINATION: US PELVIS CLINICAL INFORMATION: Elevated DHEA, section. COMPARISON: None available. TECHNIQUE: Ultrasound of the pelvis is performed using both transabdominal and transvaginal transducers along with Doppler. Transvaginal imaging is performed due to inadequate visualization transabdominally. FINDINGS: The uterus is heterogeneous and measures 5.9 x 2.6 x 3.6 cm. Uterus is anteverted. Previously identified fibroid not visualized today. Endometrial thickness is 0.5 cm. Bilateral ovaries are not visualized. Ovaries were also not visualized on prior exam. No significant free fluid. US/US pelvic and transvaginal IMPRESSION: No discrete fibroids. Heterogeneous uterus. Previously identified fibroid not visualized today. Endometrial thickness is 0.5 cm. Bilateral ovaries are not visualized. Ovaries were also not visualized on prior exam. Limited visualization due to bowel gas and body habitus.
== END 2022-10-15 15:32 | disposition home or self-care (01) ==
LOC: HO.HMGCX 15:31
PROVIDERS: PCP Nurse Practitioner Family; Visit Provider Internal Medicine
DX: E27.8 Other specified disorders of adrenal gland (principal)
CPT/HCPCS: 76830; 76856

== ENCOUNTER 2022-11-05 08:45 | Outpatient (AMB) | payer BC, SELFPAY ==
--- NOTE | 2022-11-05 08:37 | MHC.OFFVIS ---
Intake Intake Visit Reasons: s/p Left L5-S1 EVELYN Allergies Iodinated Contrast Media [CONTRAST, IV] Allergy (Unknown, Verified 10/11/22 09:22) UNKNOWN morphine [Morphine] Allergy (Unknown, Verified 10/11/22 09:22) NAUSEA/RASH, rash, N/V, rash, N/V HPI s/p Left L5-S1 EVELYN HPI Details 57-year-old female presenting today on tele-health visit for a status post left L5-S1 EVELYN. The patient reports >90% relief following the procedure. The patient reports significant improvement in her pain. She reports resolution of the radiating pain in her leg. She is interested in starting physical therapy with her personal therapist. Past Procedures: 10/06/22: Interlaminar epidural steroid injection, L5/S1, Left parasaggital: >90% relief. 08/27/22: Trigger point injections: % relief. 08/05/21: L5/S1 interlaminar EVELYN left parasaggital: 75% relief. 06/17/21: Left SIJ Injection ? 50% relief for 6 days only. [facility] Medical History Abnormal bowel movement Chronic neck and back pain Cyst of right ovary Elevated dehydroepiandrosterone sulfate level (~2019) Hypertension, essential Personal history of nicotine dependence Post-menopausal (~2018) Tubular adenoma of colon (~2017) Vitamin D deficiency Surgical History History of basal cell carcinoma (BCC) excision History of History of colonoscopy History of foot surgery History of fusion of cervical spine History of left knee surgery History of right knee surgery Family History Father Mesothelioma Mother Breast cancer Colon cancer Other Mental health disorder Substance use disorder Social History Housing: House Are you a primary laboratory animal caretaker to a significant other at home: No Do you presently have visiting nurse or other home services: No Alcohol intake: current Alcohol intake frequency: a few times a month Patient Tobacco Use Status: Former Tobacco user Tobacco use type: Cigarette Cigarette Packs Per Day: 0.5 Cigarettes Per Day: 10.0 Years Smoked: 37 e-Cigarette/Vaping Use: Never Used Current occupational status: employed 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 Assessment & Plan Assessment & Plan (1) Lumbar radiculitis: Code(s): M54.16 - Radiculopathy, lumbar region Plan A referral was provided for formal physical therapy. I encouraged her to continue with strengthening exercises and physical therapy. Follow-up as needed. Scribed for Dr. Nunez by Akhil Leahy, medical laboratory scientist, on 11/05/2022. I, Dr. Nunez, have personally reviewed and agree with the information entered by the scribe. Orders: Orders PT Evaluation and Treatment Today M54.16 - Radiculopathy, lumbar region Telehealth Telehealth Location of provider rendering services: practice address Location of patient: address on file Patient Identification confirmed using: Name, : Yes Telehealth method: voice only Patient verbally consented to treatment: Yes Patient verbally consented to billing insurance company: Yes Patient informed of any privacy concerns related to visit: Yes Minutes spent on Phone/Video with Pt.: 3 Coding Level of Care Code Tele Est Pt Level 3 (53363) Diagnoses Lumbar radiculitis M54.16
== END 2022-11-05 08:47 | disposition home or self-care (01) ==
LOC: HO.PMC 08:45
PROVIDERS: PCP Nurse Practitioner Family; Visit Provider Internal Medicine
DX: M54.16 Radiculopathy, lumbar region (principal)
CPT/HCPCS: 99441

== ENCOUNTER → 2022-11-05 08:45 | Outpatient (BNVA) | payer BC, SELFPAY | PROVIDERS: PCP Nurse Practitioner Family; Visit Provider Internal Medicine | DX: M54.16 Radiculopathy, lumbar region (principal) ==

== ENCOUNTER 2023-01-14 10:08 | Outpatient (AMB) | payer BC, SELFPAY ==
--- NOTE | 2023-01-14 10:13 | A.OFFVIS_ITS ---
Intake Vital Signs 01/14/23 10:14 Height 5 ft 8 in Weight 240 lb BMI 36.5 Blood Pressure Location Lt brachial Position Sitting Respiration 14 Pulse 87 Pulse Source Pulse Oximeter Pulse Oximetry (%) 95 Oxygen Delivery Method Room Air Intake Visit Reasons: TRIGGER POINT INJECTIONS/lvm Allergies Iodinated Contrast Media [CONTRAST, IV] Allergy (Unknown, Verified 01/14/23 10:16) UNKNOWN morphine [Morphine] Allergy (Unknown, Verified 01/14/23 10:16) NAUSEA/RASH, rash, N/V, rash, N/V Medication List - Last Reconciled 01/14/23 by Yvonne Ybarra LPN bupropion HCl 75 mg PO QAM escitalopram oxalate 10 mg PO DAILY lidocaine 5% (Lidoderm) 1 patch topical DAILY PRN lisinopril 10 mg PO ONCE 90 days lorazepam (Ativan) 0.5 mg PO BID PRN meloxicam 15 mg PO DAILY methocarbamol 750 mg PO BID PRN HPI TRIGGER POINT INJECTIONS/lvm HPI Details 57-year-old female who presents today to the office for a trigger point injection. Denies any recent cough, cold, infection, fever or other significant changes in medical history since last office visit. She is currently on antibiotics for a bilateral ear infection. She is currently following up with physical therapy for her back and leg pain. She reports worsening pain when walking. She underwent spinal fusion surgery from C2 to C7 by Dr. Norton in [place] about a year ago. Past Procedures: 10/06/22: Interlaminar epidural steroid injection, L5/S1, Left parasaggital: >90% relief. 08/27/22: Trigger point injections: % re lief. 08/05/21: L5/S1 interlaminar EVELYN left pa rasaggital: 75% relief. 06/17/21: Left SIJ Injection ? 50% relief for 6 days only. COUNTS INCLUDE 234 BEDS AT THE [facility] Medical History Abnormal bowel movement Chronic neck and back pain Cyst of right ovary Elevated dehydroepiandrosterone sulfate level (~2018) Hypertension, essential Personal history of nicotine dependence Post-menopausal (~2018) Tubular adenoma of colon (~2017) Vitamin D deficiency Surgical History History of basal cell carcinoma (BCC) excision History of History of colonoscopy History of foot surgery History of fusion of cervical spine History of left knee surgery History of right knee surgery Family History Father Mesothelioma Mother Breast cancer Colon cancer Other Mental health disorder Substance use disorder Social History Housing: House Are you a primary livestock caretaker to a significant other at home: No Do you presently have visiting nurse or other home services: No Alcohol intake: current Alcohol intake frequency: a few times a month Patient Tobacco Use Status: Former Tobacco user Tobacco use type: Cigarette Cigarette Packs Per Day: 0.5 Cigarettes Per Day: 10.0 Years Smoked: 37 e-Cigarette/Vaping Use: Never Used Current occupational status: employed 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 Alert and oriented. Mood and affect appropriate. Follows and participates in conversation appropriately. Respiratory effort is unlabored. Able to transition from sit to stand unassisted. Ambulates with bilaterally normal heel strike and toe off. Office Procedures Injection Trigger Point Multi Pre-procedure diagnosis: Myofascial pain Post-procedure diagnosis: Myofascial pain Site and number of trigger points: Left Trapezius and Levator scapula. Five trigger points in the muscles. Solution: Total volume administered 5 ml bupivacaine 0.25%. The procedure, its benefits, and its risks were explained to the patient and all questions were answered. Prior to the start of the procedure, a ?time out? was performed to confirm correct patient, procedure, and laterality. Trigger points were identified by manual palpation and marked. The skin was cleaned with Chloraprep. A 1.5 inch 25 G needle was used. Each of the trigger points were approximated and elevated in the direction away from the body. Dry needling then took place for five seconds. Approximately 0.5 ml to 1 ml of injectate was delivered to the trigger point followed by dry needling for five seconds. This process was repeated at each trigger point site. The patient tolerated the procedure well. The patient tolerated the procedure well, without complication. The patient denied any numbness, paresthesias, or weakness. Post-procedure vitals were recorded as part of the nursing discharge note in electronic medical record. Following a period of observation, the patient was discharged in stable condition with written discharge instructions. Trigger Point Multiple: 67556- Trigger point injection =/>3 Results Reviewed Results Reviewed: No imaging is available for review. Assessment & Plan Assessment & Plan (1) Cervical myofascial pain syndrome: Code(s): M79.18 - Myalgia, other site Plan Patient is status post trigger point injections. Patient tolerated procedure well and was discharged home in stable condition with discharge instructions. All questions were answered. We will follow-up in two weeks via telephone or in clinic to assess response to therapy. A follow-up appointment was made during today's visit. Scribed for Dr. Nunez by Akhil Leahy, biomedical instrument technician, on 01/14/2023. I, Dr. Nunez, have personally reviewed and agree with the information entered by the scribe. Coding Level of Care Code Procedure Only Diagnoses Cervical myofascial pain syndrome M79.18 CPT Codes Details - Trigger Point Multiple: 09951- Trigger point injection =/>3 ([id number])
[2023-01-14 10:14] VITALS: PULSE 87; RESP 14; O2SAT 95; BMI 36.5
== END 2023-01-14 10:37 | disposition home or self-care (01) ==
PROVIDERS: PCP Nurse Practitioner Family; Visit Provider Internal Medicine
DX: M79.18 Myalgia, other site (principal)
CPT/HCPCS: 20552

== ENCOUNTER → 2023-01-14 10:08 | Outpatient (BNVA) | payer BC, SELFPAY | PROVIDERS: PCP Nurse Practitioner Family; Visit Provider Internal Medicine | DX: M79.18 Myalgia, other site (principal) | CPT/HCPCS: 20552 ==

== ENCOUNTER 2023-02-20 06:25 | Emergency (ER) | payer BC, SELFPAY ==
--- NOTE | ~2023-02-20 | CT_ITS ---
Examination: CT chest, abdomen and pelvis without IV contrast. CLINICAL INDICATION: Fall on left side. Left abdominal pain. COMPARISON: CT chest screening 03/12/2022 TECHNIQUE: 5 mm thin axial and reformatted 3 mm thin sagittal and coronal images of chest, abdomen pelvis were obtained without IV contrast. DLP [id number]. This CT examination was performed using dose optimization technique as appropriate, variously including the following: Automated exposure control Adjustment of MA and/or KV according to patient size(this includes techniques or standardized protocols for targeted exams where dose is matched to indication/reason for exam; extremities or head. Use ofings CHEST: LUNGS: There is 6 with opacity right middle lobe axial image 75/26, stable., There is a peripheral tumor ill-defined opacities in the left upper lobe axial image 225/23, Alyssa the nodule images in the right major fissure image 215/23, focal atelectasis in the lingula.. The lungs are expanded without consolidation or groundglass density. Mediastinum: Thyroid lobes are symmetric and normal. The central trachea and the bronchi widely patent. There are small shotty lymph nodes. Heart size and the great vessels are normal caliber. No pericardial effusion seen. Pleura: There is no pleural effusion or thickening. Axillae: There are benign bilateral axillary lymph nodes. The chest wall is unremarkable. Osseous structures visualized dorsal spine, bony thorax and the sternum is unremarkable. Especially no visible right rib fractures seen. Abdomen and pelvis: Liver, ducts and gallbladder: The liver is mildly attenuated without any focal lesion or intrahepatic ductal dilatation. The gallbladder is unremarkable. Spleen: Unremarkable. Pancreas: Unremarkable. Adrenal glands: Unremarkable. Kidneys and ureter: Both kidneys are normal size, shape and position. No radiopaque renal calculi or hydronephrosis. There is an exophytic 9 mm lesion lower pole left kidney. There is no perinephric stranding. Lymphovascular structures: Abdominal aorta is normal caliber. No retroperitoneal lymph nodes seen. Abdominal wall: Unremarkable. GI tract: There is scattered stool and gas seen and gas seen throughout the colon without significant distention. Pelvis: The urinary bladder is unremarkable. Osseous structures: No visible fracture or bony abnormality. CT/CT abdomen pelvis wo IV con IMPRESSION: Small pulmonary semisolid nodules especially the 5 minute nodule in the right upper/middle lobe and some subpleural tumor nodules in the left upper lobe as well. Focal atelectasis in the lingula. There is no fracture involving the bony thorax especially no fracture involving right ribs.
--- NOTE | ~2023-02-20 | CT_ITS ---
EXAMINATION: CT HEAD W/O IV CONTRAST CT CERVICAL SPINE W/O IV CONTRAST CLINICAL INFORMATION: History of fall. Head strike. Neck pain. COMPARISON: None TECHNIQUE: Head - Contiguous axial imaging of the head was performed from the skull base to the vertex without the administration of intravenous contrast, and axial images are reconstructed at 2 mm and 5 mm slice thickness. Cervical spine - A volumetric, helical CT acquisition of the cervical spine was obtained without contrast; in addition to the standard set of axial images, multiplanar reformatted images were provided in the coronal and sagittal imaging planes. This CT examination was performed using dose optimization techniques as appropriate, variously including the following: *Automated exposure control *Adjustment of mA and/or kV according to patient size (this includes techniques or standardized protocols for targeted exams where dose is matched to indication/reason for exam; i.e. extremities or head) *Use of iterative reconstruction technique DLP: Reported in mGy-cm: 10.25 for the topogram, 625.[address] and 666.46 for the C-spine CT FINDINGS: HEAD: No acute intracranial findings. Pretty to white matter differentiation is preserved. No evidence of intracranial hemorrhage, major vascular territory infarction, focal mass effect or midline shift. The ventricles have normal size and configuration. No hydrocephalus or extra-axial fluid collections. The calvarium is intact and the visualized paranasal sinuses are well aerated. Incidentally noted is opacification of some of the left mastoid air cells. There is mild subarticular sclerosis and subarticular cystic change of mildly degenerated right temporomandibular joint. The orbits and globes are unremarkable. CERVICAL SPINE: The craniocervical junction is normal. The occipital condyles, dens and atlantodental articulation are intact. The vertebral body heights and alignment are maintained. No fractures. No prevertebral soft tissue edema or soft tissue hematoma. There is subarticular sclerosis, osteophyte formation and subarticular cystic change at the atlantodental articulation. Intervertebral fusion device is well-positioned in the C3-C4 disc space. Also, status post discectomy and anterior spinal fusion at C4-C6. The anterior fusion plate and screws are in satisfactory position. There is at least moderate degenerative loss of disc space at C6-C7 and mild degenerative disc space narrowing at C7-T1. There is intact appearance of the C3-C7 posterior spinal fusion hardware. Cervical spinal decompression with multilevel laminectomies seen through the region of posterior fusion. There is lack of lordotic curvature of the surgically fused spine. Thyroid gland is unremarkable. Mild pulmonary emphysema noted at lung apices. No apical pneumothorax. CT/CT cervical spine wo IV con IMPRESSION: * No intracranial hemorrhage or other acute intracranial pathology. * No fracture or malalignment in the cervical spine. * No evidence of loosening of anterior or posterior cervical spine fusion hardware.
--- NOTE | ~2023-02-20 | XR_ITS ---
EXAMINATION: XR FOOT, LEFT CLINICAL INFORMATION: Injury COMPARISON: 09/29/2021 TECHNIQUE: AP, lateral, and oblique views of the left foot. XR/XR foot LT min 3V FINDINGS AND IMPRESSION: Mild degenerative narrowing of joint space, subchondral cysts and small osteophytes of the great toe metatarsophalangeal joint. Acute mildly displaced oblique fracture of the distal diaphysis of the fifth metatarsal with 0.2 cm medial displacement of the distal fragment. Soft tissues are mildly swollen over the injured metatarsal. Otherwise, bones and joints are unremarkable.
--- NOTE | ~2023-02-20 | XR_ITS ---
EXAMINATION: XR ELBOW, LEFT CLINICAL INFORMATION: Left elbow pain, status post fall. COMPARISON: None available. TECHNIQUE: AP, lateral, and oblique views of the left elbow. FINDINGS: The elbow joint spaces are maintained. No fracture, subluxation or elbow joint effusion. Incidentally noted is enthesophyte formation at the sublime tubercle of the ulna. There appears to be minimal soft tissue swelling dorsal to the region of the triceps insertion. No radiopaque foreign body. XR/XR elbow LT min 3V IMPRESSION: No acute osseous injury at the left elbow.
[2023-02-20 06:34] VITALS: BP 152/79; PULSE 87; RESP 18; TEMP 36.7; O2SAT 95; BMI 38.0
--- NOTE | 2023-02-20 07:09 | ECG_ITS ---
Test Reason : FALL Blood Pressure : / mmHG Vent. Rate : 078 BPM Atrial Rate : 078 BPM P-R Int : 164 ms QRS Dur : 076 ms QT Int : 378 ms P-R-T Axes : 059 054 072 degrees QTc Int : 430 ms Sinus rhythm with occasional Premature ventricular complexes Otherwise normal ECG No previous ECGs available Referred By: Randal Mata Electronically Signed By:DEVON BAUER MD
[2023-02-20] MEDS: oxyCODONE HCl Immed Release 5 MG TABLET PO (07:16)
--- NOTE | 2023-02-20 07:16 | ED.LOWEXIN ---
HPI - Extremity Injury (Lower) General Chief Complaint: Extremity Injury, Lower Stated Complaint: broken foot ? fall 02/19 Time Seen by Provider: 02/20/23 06:58 Source: patient Mode of arrival: ambulatory Limitations: no limitations History of Present Illness HPI Narrative: This is a 57-year-old female history of Nava's syndrome, hypertension, anemia presenting to the emergency department for complaints of left-sided elbow pain, rib pain throughout left side, left-sided foot pain since yesterday night. Patient reports were hurts the most is her left foot. She reports she fell after trying to take the dogs out she states I do not even really know why a fell'. She thinks she may have slipped because she was wearing socks. Has been having severe 10/10 pain throughout worse to the left foot since yesterday, difficult to move left foot and is unable to bear any weight on it. Has tried RICE without relief. Using crutches at home. Denies preceding symptoms to fall that she can recall. No history of syncope or seizure. Related Data Home Medications Medication Instructions Recorded Confirmed escitalopram oxalate 10 mg tablet 10 mg PO DAILY 02/14/20 01/14/23 lidocaine 5 % topical patch 1 patch topical DAILY PRN 09/29/21 01/14/23 (Lidoderm) lorazepam 1 mg tablet (Ativan) 0.5 mg PO BID PRN anxiety 09/29/21 01/14/23 bupropion HCl 75 mg tablet 75 mg PO QAM 10/11/22 01/14/23 meloxicam 15 mg tablet 15 mg PO DAILY 10/11/22 01/14/23 Previous Rx's Medication Instructions Recorded methocarbamol 750 mg tablet 750 mg PO BID PRN muscle spasm #60 07/15/21 tabs lisinopril 10 mg tablet 10 mg PO ONCE 90 days #90 tabs 01/20/22 oxycodone 5 mg tablet 5 mg PO TID PRN pain #10 tabs 02/20/23 Allergies Allergy/AdvReac Type Severity Reaction Status Date / Time Iodinated Contrast Media Allergy Unknown UNKNOWN Verified 02/20/23 06:37 [CONTRAST, IV] morphine [Morphine] Allergy Unknown NAUSEA/RASH, Verified 02/20/23 06:37 rash, N/V, rash, N/V Review of Systems Review of Systems: Constitutional : No Weight loss, No Fever, No Chills, No Fatigue, No Malaise ENT/Mouth : No sore throat, No Rhinorrhea Eyes: No Eye Pain, No Swelling, No Redness Cardiovascular : No Chest Pain, No SOB, No Dyspnea on Exertion, No Orthopnea, No Edema, No Palpitations Respiratory : No Cough, No Sputum, No Wheezing Gastrointestinal : No Nausea, No Vomiting, No Diarrhea, No Constipation, No abdominal Pain, No Hematochezia, No Melena Genitourinary : No Dysuria, No Urinary Frequency, No Hematuria, Musculoskeletal : + joint pain, No Myalgias, + Joint Swelling Skin : No Skin Lesions, No rash Neuro : No Weakness, No Numbness, No Dizziness, No Headache Psych : No Anxiety/Panic, No Depression All other systems reviewed and are negative Yes all other systems are reviewed and are negative [facility] Past Medical History Attestation statement: The following information was validated with the patient. Source: old records reviewed and nursing notes reviewed Medical History Personal history of nicotine dependence Post-menopausal (~2018) Tubular adenoma of colon (~2017) Hypertension, essential Abnormal bowel movement Chronic neck and back pain Vitamin D deficiency Cyst of right ovary Elevated dehydroepiandrosterone sulfate level (~2019) Surgical History History of basal cell carcinoma (BCC) excision History of left knee surgery History of right knee surgery History of foot surgery History of History of colonoscopy History of fusion of cervical spine Family History Family History Father Mesothelioma Mother Breast cancer Colon cancer Other Mental health disorder Substance use disorder Social History Housing: House Are you a primary manager home healthcare to a significant other at home: No Do you presently have visiting nurse or other home services: No Alcohol intake: current Alcohol intake frequency: a few times a month Patient Tobacco Use Status: Former Tobacco user Tobacco use type: Cigarette Cigarette Packs Per Day: 0.5 Cigarettes Per Day: 10.0 Years Smoked: 37 e-Cigarette/Vaping Use: Never Used Advance Directives: No Advance Directives Information Provided: No Current occupational status: employed 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 Oriented X3.? No acute distress.? Head: Normocephalic, atraumatic, no step-offs or deformities Eyes: Pupils equal, round and reactive to light.? ENT: Pharynx normal.? Neck: Normal inspection.? Neck supple.? CVS: Normal heart rate and rhythm.? Pulses normal.? Respiratory: No respiratory distress.? Breath sounds normal.? + TTP to left sided ribs throughout Abdomen: Soft and nontender.? Skin: Skin warm and dry.? Normal skin color.? Normal skin turgor.? Extremities: No lower extremity edema.? No calf ttp. 5/5 strength to bilateral upper and lower extremities 2+ DP,A T, PT equal and b/l. + TTP to left sided 4-5 metatarsals throughout w/ overlying ecchymosis + TTP to left sided 4-5 metatarsals throughout w/ overlying ecchymosis. + pain w/ palpation of left elbow. 2+ radial pulses. Back: No midline tenderness, no C-spine tenderness, full range of motion, no CVA tenderness bilaterally Neuro: Oriented X 3.? No motor deficit.? No sensory deficit. CN 2-12 intact Course Reevaluation(s) Reevaluation #1: X-ray of left elbow with no osseous injury. X-ray of left foot with mildly displaced oblique fracture of the distal diaphysis of the 5th metatarsal with medial displacement and soft tissues mildly swollen overlying the injury. CT scans pending. Pending labs. EKG nonischemic I did educate patient on pulmonary nodule she is aware of this and is followed by a provider who follows these. Time: 08:23 Reevaluation #2: Patient placed in a walking boot and given crutches. Discussed this case with Ortho, will have patient follow-up with the orthopedic team will consult an appointment tomorrow. Will discharge home with oxycodone, educated on proper narcotic use. Educated patient on diagnosis and treatment plan, answered all question, patient verbalizes understanding. At this time patient will be discharged home, advised to return with new or worsening symptoms. Educated on worrisome signs and symptoms and when to return. At this time I feel comfortable discharge home. Time: 09:59 Medications Administered Discontinued Medications Generic Name Dose Route Start Last Admin Trade Name Thom PRN Reason Stop Dose Admin Oxycodone HCl 5 mg 02/20/23 07:09 02/20/23 07:16 Oxycodone Hcl Immed Release 5 Mg Tablet PO 02/20/23 07:10 5 mg ONCE ONE Administration Medical Decision Making Medical Decision Making [facility] Narrative: 0721 57 year old female presents w/ compalints of fall w/ L sided elbow pain, L rib pain and L foot pain 2+ DP,A T, PT equal and b/l. + TTP to left sided 4-5 metatarsals throughout w/ overlying ecchymosis. + pain w/ palpation of left elbow. 2+ radial pulses. + TTP to rleft sided ribs throughout Concerns for fracture of 4th and 5th metatarsal no signs of threat to liver neurovascular compromise. Left-sided pain concerning for rib fractures. Unlikely pneumothorax, flail chest. Does not know how she fell will rule out anemia, electrolyte abnormalities, ACS. Unlikely PE as there is no shortness of breath, no history of PE, no significant risk factors. Plan at this time imaging, labs, EKG Differential Diagnosis Differential Diagnoses: The differential diagnosis associated with the presentation includes Concerns for fracture of 4th and 5th metatarsal no signs of threat to liver neurovascular compromise. Left-sided pain concerning for rib fractures. Unlikely pneumothorax, flail chest. Does not know how she fell will rule out anemia, electrolyte abnormalities, ACS. Unlikely PE as there is no shortness of breath, no history of PE, no significant risk factors. Admission/Observation Consideration of admission/observation: Escalation of care including admission/observation considered Consult Healthcare Provider Management of the patient was discussed with: [place] Worker (ortho ) Lab Data [facility] Lab Attestation statement: I reviewed the patient's lab results. 02/20/23 08:59 02/20/23 08:59 Labs: Lab Results 02/20/23 Range/Units 08:59 WBC 4.8 (4.8-10.8) X10*3/uL RBC 4.27 (4.20-5.50) X10*6/uL Hgb 12.6 (12.0-16.0) g/dl Hct 39.1 (37.0-47.0) % MCV 91.6 (80.0-98.0) fL MCH 29.5 (27.0-33.0) pg MCHC 32.2 (31.0-35.0) g/dl RDW 13.1 (11.0-16.0) % Plt Count 257 (160-400) X10*3/uL MPV 8.7 L (9.4-12.3) fL Immature Gran % (Auto) 0.0 (0.0-0.4) % Neut % (Auto) 53.9 (45-73) % Lymph % (Auto) 34.9 (20-40) % [place] % (Auto) 7.9 (2-11) % Eos % (Auto) 2.7 (0-4) % Baso % (Auto) 0.6 (0-2) % Lymph # (Auto) 1.7 (1.2-4.9) X10*3/uL [place] # (Auto) 0.4 (0.1-1.2) X10*3/uL Eos # (Auto) 0.1 (0.0-0.4) X10*3/uL Baso # (Auto) 0.0 (0.0-0.2) X10*3/uL Abs Immat Gran (auto) 0.00 (0.00-0.03) X10*3/uL Absolute Neuts (auto) 2.6 (2.0-8.3) x10*3/uL Absolute Nucleated RBC 0.000 (0.0-0.012) X10*3/uL Nucleated RBC % (auto) 0.0 (0.0-0.2) /100WBC Sodium 140 (135-145) mmol/L Potassium 4.5 (3.3-5.1) mmol/L Chloride 102 (96-108) mmol/L Carbon Dioxide 32 H (22-29) mmol/L Anion Gap 11 L (12-20) BUN 17 H (9-16) mg/dL Creatinine 0.80 (0.5-1.4) mg/dL Estim Creat Clear Calc 105.0 Estimated GFR > 60 Random Glucose 103 (60-115) mg/dL Calcium 10.0 D (8.4-10.2) mg/dL Magnesium 2.4 (1.6-2.6) mg/dL Total Bilirubin 0.3 (0.0-1.0) mg/dL AST 18 (5-31) U/L ALT 29 (0-31) U/L Alkaline Phosphatase 73 (39-117) U/L Total Protein 7.4 (6.5-8.0) g/dL Albumin 4.3 (3.5-5.0) g/dL Independent Interpretation I performed an independent interpretation of an: CT Scan ( CT/CT head/brain wo IV con IMPRESSION: * No intracranial hemorrhage or other acute intracranial pathology. * No fracture or malalignment in the cervical spine. * No evidence of loosening of anterior or posterior cervical spine fusion hardware.CT/CT chest wo IV con IMPRESSION: Small pulmonary s ) Radiology Impression Discussion of test interpretation with radiology: I have reviewed the radiologist's reading. External Record Review External record reviewed: Inpatient record, Office record, Outpatient record, Prior outpatient labs, Prior outpatient radiology, Primary care record and Outside ED record Prescription Management I considered prescription management with: Pain Medication Safe narcotic use was discussed with patient Chronic Conditions Patient?s care impacted by: Other (obesity ) Critical Care Time Critical Care Time Critical Care Time: Yes Total Critical Care Time: 35 Attestation: I attest to this time spent taking care of the patient, obtaining history, physical, reviewing labs, imaging, speaking to my attending, speaking to specialist. Discharge Plan Discharge Clinical Impression: Fall, Metatarsal fracture, Pulmonary nodule Patient Disposition: Home, Self-Care Instructions: Crutch Instructions (ED), R.I.C.E. Treatment (ED), Fall Prevention (ED) Additional Instructions: Take your medications as prescribed. If you were prescribed antibiotics today, it is important that you take your medication to their entirety, do not skip any doses, do not finish them early. Follow-up with your primary care provider this week. Return to the emergency department with new or worsening symptoms. Such as fevers, chills, chest pain, shortness of breath, nausea, vomiting, dizziness, headache, vision changes, lethargy In case of emergency call 911 A narcotic has been sent to your pharmacy please take this as prescribed. Do not take more than the prescribed dose. Narcotic medications can cause addiction. Please do not mix them with alcohol. Do not take them while driving or operating machinery. Do not take them with any other narcotics. Do not share them with friends or family. They can cause constipation. Take them only for severe pain. Use post op shoe and crutches no weight bearing. XR/XR foot LT min 3V FINDINGS AND IMPRESSION: Mild degenerative narrowing of joint space, subchondral cysts and small osteophytes of the great toe metatarsophalangeal joint. Acute mildly displaced oblique fracture of the distal diaphysis of the fifth metatarsal with 0.2 cm medial displacement of the distal fragment. Soft tissues are mildly swollen over the injured metatarsal. Otherwise, bones and joints are unremarkable. XR/XR elbow LT min 3V IMPRESSION: No acute osseous injury at the left elbow. CT/CT cervical spine wo IV con IMPRESSION: * No intracranial hemorrhage or other acute intracranial pathology. * No fracture or malalignment in the cervical spine. * No evidence of loosening of anterior or posterior cervical spine fusion hardware. CT/CT head/brain wo IV con IMPRESSION: * No intracranial hemorrhage or other acute intracranial pathology. * No fracture or malalignment in the cervical spine. * No evidence of loosening of anterior or posterior cervical spine fusion hardware. CT/CT chest & abdomen wo IV con IMPRESSION: Small pulmonary semisolid nodules especially the 5 minute nodule in the right upper/middle lobe and some subpleural tumor nodules in the left upper lobe as well. Focal atelectasis in the lingula. Abdomen and pelvis: Liver, ducts and gallbladder: The liver is mildly attenuated without any focal lesion or intrahepatic ductal dilatation. The gallbladder is unremarkable. Spleen: Unremarkable. Pancreas: Unremarkable. Adrenal glands: Unremarkable. Kidneys and ureter: Both kidneys are normal size, shape and position. No radiopaque renal calculi or hydronephrosis. There is an exophytic 9 mm lesion lower pole left kidney. There is no perinephric stranding. Lymphovascular structures: Abdominal aorta is normal caliber. No retroperitoneal lymph nodes seen. Abdominal wall: Unremarkable. GI tract: There is scattered stool and gas seen and gas seen throughout the colon without significant distention. Pelvis: The urinary bladder is unremarkable. Osseous structures: No visible fracture or bony abnormality. Prescriptions: New oxycodone 5 mg tablet 5 mg PO TID PRN (Reason: pain) Qty: 10 0RF Rx Instructions: Partial Fill upon patient request. No Action lisinopril 10 mg tablet 10 mg PO ONCE 90 Days Qty: 90 0RF escitalopram oxalate 10 mg tablet 10 mg PO DAILY lidocaine [Lidoderm] 5 % adhesive patch,medicated 1 patch topical DAILY PRN Rx Instructions: leave on most painful area for up to 12 hrs lorazepam [Ativan] 1 mg tablet 0.5 mg PO BID PRN (Reason: anxiety) meloxicam 15 mg tablet 15 mg PO DAILY bupropion HCl 75 mg tablet 75 mg PO QAM methocarbamol 750 mg tablet 750 mg PO BID PRN (Reason: muscle spasm) Qty: 60 3RF Referrals: [facility] [place] [facility] [Provider Group] - 1 day Stand Alone Forms: Work/School Release
[2023-02-20 09:04] LABS: Basophils Percent Auto 0.6 % (0-2); Eosinophils Absolute Auto 0.1 X10*3/uL (0.0-0.4); Eosinophils Percent Auto 2.7 % (0-4); Hematocrit 39.1 % (37.0-47.0); Hemoglobin 12.6 g/dl (12.0-16.0); Lymphocytes Absolute Auto 1.7 X10*3/uL (1.2-4.9); Lymphocytes Percent Auto 34.9 % (20-40); MANUAL DIFF FLAG NO; Mean Corpuscular HGB Conc 32.2 g/dl (31.0-35.0); Mean Corpuscular Hemoglobin 29.5 pg (27.0-33.0); Mean Corpuscular Volume 91.6 fL (80.0-98.0); Mean Platelet Volume 8.7 fL (9.4-12.3); Monocytes Absolute Auto 0.4 X10*3/uL (0.1-1.2); Monocytes Percent Auto 7.9 % (2-11); Neutrophils Absolute Auto 2.6 x10*3/uL (2.0-8.3); Neutrophils Percent Auto 53.9 % (45-73); Platelet Count 257 X10*3/uL (160-400); Red Blood Count 4.27 X10*6/uL (4.20-5.50); Red Cell Distribution Width 13.1 % (11.0-16.0); White Blood Count 4.8 X10*3/uL (4.8-10.8)
[2023-02-20 09:24] LABS: Alanine Aminotransferase 29 U/L (0-31); Albumin Level 4.3 g/dL (3.5-5.0); Alkaline Phosphatase 73 U/L (39-117); Anion Gap 11 (12-20); Aspartate Amino Transferase 18 U/L (5-31); Bilirubin Total 0.3 mg/dL (0.0-1.0); Blood Urea Nitrogen 17 mg/dL (9-16); Carbon Dioxide 32 mmol/L (22-29); Chloride 102 mmol/L (96-108); Estimated Glomerular Filt Rate > 60; Glucose Random 103 mg/dL (60-115); Magnesium 2.4 mg/dL (1.6-2.6); Potassium 4.5 mmol/L (3.3-5.1); Sodium 140 mmol/L (135-145); Total Protein 7.4 g/dL (6.5-8.0)
[2023-02-20 09:59] LABS: Troponin-I High Sensitivity < 2.7 ng/L (<3.5-17.0)
[2023-02-20 10:06] VITALS: BP 151/72; PULSE 86; RESP 18; TEMP 36.7; O2SAT 94
--- NOTE | 2023-02-20 10:12 | PC.NURSE ---
patient had walking boot placed with good toleration, patient educated on crutch walking and use. patient verbally agreed she understood directions
== END 2023-02-20 10:14 | disposition home or self-care (01) ==
PROVIDERS: Physician Assistant; Emergency Provider Emergency Medicine; PCP Nurse Practitioner Family
DX: S92.342A Displaced fracture of fourth metatarsal bone, left foot, initial encounter for closed fracture (principal); S92.352A Displaced fracture of fifth metatarsal bone, left foot, initial encounter for closed fracture; R07.89 Other chest pain; M25.522 Pain in left elbow; M79.672 Pain in left foot; R94.31 Abnormal electrocardiogram [ECG] [EKG]; R51.9 Headache, unspecified; M54.2 Cervicalgia; I10 Essential (primary) hypertension; R10.2 Pelvic and perineal pain; W01.0XXA Fall on same level from slipping, tripping and stumbling without subsequent striking against object, initial encounter; Y93.9 Activity, unspecified; Y92.9 Unspecified place or not applicable; Y99.9 Unspecified external cause status; Z79.899 Other long term (current) drug therapy; Z87.891 Personal history of nicotine dependence
CPT/HCPCS: 36415; 70450; 71250; 72125; 73080; 73630; 74176; 80053; 83735; 84484; 85025; 93005; 99284

== ENCOUNTER 2023-05-18 08:49 | Outpatient (AMB) | payer BC, SELFPAY ==
--- NOTE | 2023-05-18 08:52 | MHC.OFFVIS ---
Intake Vital Signs 05/18/23 08:54 Height 5 ft 8 in Weight 250 lb BMI 38.0 BP 140/82 H Blood Pressure Location Lt brachial Position Sitting Respiration 12 Pulse 92 Pulse Source Pulse Oximeter Pulse Oximetry (%) 98 Oxygen Delivery Method Room Air Intake Visit Reasons: Joint Pain Allergies Iodinated Contrast Media [CONTRAST, IV] Allergy (Unknown, Verified 05/18/23 08:56) UNKNOWN morphine [Morphine] Allergy (Unknown, Verified 05/18/23 08:56) NAUSEA/RASH, rash, N/V, rash, N/V Medication List - Last Reconciled 05/18/23 by Yvonne Ybarra LPN acetaminophen 1,000 mg PO BID diclofenac sodium 75 mg PO BID lidocaine 5% (Lidoderm) 1 patch topical DAILY PRN lisinopril 10 mg PO ONCE 90 days lorazepam (Ativan) 0.5 mg PO BID PRN methocarbamol 750 mg PO BID PRN HPI Joint Pain HPI Details 57-year-old female who presents today for joint pain The patient reports 50% relief following the procedure. She did undergo a CT head and cervical spine and wants to know if they are any changes in her thoracic spine. She has difficulty raising the arm above her shoulder with limited range of motion. She reports a spot with burning sensation under the bra straps, which makes difficult for her to sleep at night time. She has been to physical therapy which worsen her pain. She has been doing exercises at home to avoid freezing of the shoulder muscles. She has been receiving trigger point injections. She spends most of the time in front of computer and is considering an early group home due to inability to work with worsening pain symptoms. She has been using ice compression for pain relief. She had tried taking gabapentin without any benefit. She recently had a fall and fractured her foot. Past Procedures: 01/14/23: Trigger Point Multi injection: 50% relief. 10/06/22: Interlaminar epidural steroid injection, L5/S1, Left parasaggital: >90% relief. 08/27/22: Trigger point injections: 50% relief. 08/05/21: L5/S1 interlaminar EVELYN left parasaggital: 75% relief. 06/17/21: Left SIJ Injection ? 50% relief for 6 days only. [facility] Medical History (Updated 05/18/23 @ 13:36 by Alex Nunez MD) Cervical post-laminectomy syndrome Personal history of nicotine dependence Post-menopausal (~2018) Tubular adenoma of colon (~2017) Hypertension, essential Abnormal bowel movement Chronic neck and back pain Vitamin D deficiency Cyst of right ovary Elevated dehydroepiandrosterone sulfate level (~2019) Surgical History History of basal cell carcinoma (BCC) excision History of left knee surgery History of right knee surgery History of foot surgery History of History of colonoscopy History of fusion of cervical spine Family History Father Mesothelioma Mother Breast cancer Colon cancer Other Mental health disorder Substance use disorder Social History Housing: House Are you a primary residential care officer to a significant other at home: No Do you presently have visiting nurse or other home services: No Alcohol intake: current Alcohol intake frequency: a few times a month Patient Tobacco Use Status: Former Tobacco user Tobacco use type: Cigarette Cigarette Packs Per Day: 0.5 Cigarettes Per Day: 10.0 Years Smoked: 37 e-Cigarette/Vaping Use: Never Used Current occupational status: employed 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 Alert and oriented. Mood and affect appropriate. Follows and participates in conversation appropriately. Respiratory effort is unlabored. Able to transition from sit to stand unassisted. Ambulates with bilaterally normal heel strike and toe off. Exquisite tenderness to palpation throughout the lower cervical and upper thoracic spine. Office Procedures Injection Trigger Point Multi Pre-procedure diagnosis: Myofascial pain Post-procedure diagnosis: Myofascial pain Site and number of trigger points: Bilateral Trapezius and Levator scapulae Solution: Total volume administered 15 ml ropivacaine 0.25%. The procedure, its benefits, and its risks were explained to the patient and all questions were answered. Prior to the start of the procedure, a ?time out? was performed to confirm correct patient, procedure, and laterality. Trigger points were identified by manual palpation and marked. The skin was cleaned with Chloraprep. A 1.5 inch 25 G needle was used. Each of the trigger points were approximated and elevated in the direction away from the body. Dry needling then took place for five seconds. Approximately 0.5 ml to 1 ml of injectate was delivered to the trigger point followed by dry needling for five seconds. This process was repeated at each trigger point site. The patient tolerated the procedure well. The patient tolerated the procedure well, without complication. The patient denied any numbness, paresthesias, or weakness. Post-procedure vitals were recorded as part of the nursing discharge note in electronic medical record. Following a period of observation, the patient was discharged in stable condition with written discharge instructions. Trigger Point Multiple: 90244- Trigger point injection =/>3 Results Reviewed Results Reviewed: 02/20/23: CT HEAD W/O IV CONTRAST. CT CERVICAL SPINE W/O IV CONTRAST FINDINGS: HEAD: No acute intracranial findings. Pretty to white matter differentiation is preserved. No evidence of intracranial hemorrhage, major vascular territory infarction, focal mass effect or midline shift. The ventricles have normal size and configuration. No hydrocephalus or extra-axial fluid collections. The calvarium is intact and the visualized paranasal sinuses are well aerated. Incidentally noted is opacification of some of the left mastoid air cells. There is mild subarticular sclerosis and subarticular cystic change of mildly degenerated right temporomandibular joint. The orbits and globes are unremarkable. CERVICAL SPINE: The craniocervical junction is normal. The occipital condyles, dens and atlantodental articulation are intact. The vertebral body heights and alignment are maintained. No fractures. No prevertebral soft tissue edema or soft tissue hematoma. There is subarticular sclerosis, osteophyte formation and subarticular cystic change at the atlantodental articulation. Intervertebral fusion device is well-positioned in the C3-C4 disc space. Also, status post discectomy and anterior spinal fusion at C4-C6. The anterior fusion plate and screws are in satisfactory position. There is at least moderate degenerative loss of disc space at C6-C7 and mild degenerative disc space narrowing at C7-T1. There is intact appearance of the C3-C7 posterior spinal fusion hardware. Cervical spinal decompression with multilevel laminectomies seen through the region of posterior fusion. There is lack of lordotic curvature of the surgically fused spine. Thyroid gland is unremarkable. Mild pulmonary emphysema noted at lung apices. No apical pneumothorax. IMPRESSION: * No intracranial hemorrhage or other acute intracranial pathology. * No fracture or malalignment in the cervical spine. * No evidence of loosening of anterior or posterior cervical spine fusion hardware. Assessment & Plan Assessment & Plan (1) Cervical myofascial pain syndrome: Code(s): M79.18 - Myalgia, other site (2) Intractable cervical neuropathic pain: Code(s): M79.2 - Neuralgia and neuritis, unspecified (3) Cervical post-laminectomy syndrome: Code(s): M96.1 - Postlaminectomy syndrome, not elsewhere classified Plan Discussed spinal cord stimulator vs. pain pump as possible treatment options for her pain. Discussed technical challenges associated with placing either of the devices given her history of anterior and posterior cervical instrumentation. We will schedule her for temporary left C5-C6 medial branch nerve stimulator placement (potentially upper thoracic region) for post laminectomy syndrome first. Discussed the risks and benefits of the procedure with the patient in detail. All questions were answered. The patient is on board with the plan. Informed the patient that insurance approval is required. We will file a PA for approval and keep her updated. She is hesitant to proceed with pain pump at this point. Justification for interventional therapy: ? Patient with average pain > 6/10 ? Patient has exhausted conservative therapy including PT, surgical interventions, trigger point injections, and oral medications. ? Patient continuing home exercise program Patient is status post trigger point injections. Patient tolerated procedure well and was discharged home in stable condition with discharge instructions. All questions were answered. Scribed for Dr. Nunez by [employer] medical billing specialist, on 05/18/2023. I, Dr. Nunez, have personally reviewed and agree with the information entered by the scribe. Coding Level of Care Code Est Pt Level 4 (91691) Diagnoses Cervical myofascial pain syndrome M79.18 Intractable cervical neuropathic pain M79.2 Cervical post-laminectomy syndrome M96.1 CPT Codes Details - Trigger Point Multiple: 70770- Trigger point injection =/>3 ([id number])
[2023-05-18 08:54] VITALS: BP 140/82; PULSE 92; RESP 12; O2SAT 98; BMI 38.0
== END 2023-05-18 09:29 | disposition home or self-care (01) ==
LOC: HO.PMC 08:49
PROVIDERS: PCP Nurse Practitioner Family; Visit Provider Internal Medicine
DX: M79.2 Neuralgia and neuritis, unspecified (principal); M96.1 Postlaminectomy syndrome, not elsewhere classified; M79.18 Myalgia, other site
CPT/HCPCS: 20553; 99214

== ENCOUNTER → 2023-05-18 08:49 | Outpatient (BNVA) | payer BC, SELFPAY | PROVIDERS: PCP Nurse Practitioner Family; Visit Provider Internal Medicine | DX: M79.18 Myalgia, other site (principal); M79.2 Neuralgia and neuritis, unspecified; M96.1 Postlaminectomy syndrome, not elsewhere classified | CPT/HCPCS: 20553; J2795 ==

== ENCOUNTER 2023-05-26 06:16 | Outpatient (REF) | payer BC, SELFPAY ==
--- NOTE | ~2023-05-26 | FL_ITS ---
CLINICAL INDICATION: Neuralgia and neuritis. FINDINGS: Technical assistance and equipment were provided by the Department of Radiology during intraoperative fluoroscopy for intraprocedural imaging guidance. 3, limited fluoroscopic spot images are submitted. A radiologist was not present during the procedure. Images demonstrate bilateral transpedicular screws, rods, as well as anterior fixation plate and screws across lowest cervical vertebrae, possibly at least C4-C7. No obvious evidence of hardware fracture or loosening. The tip of a percutaneous needle projects roughly over the expected location of the posterior elements at the presumed C6-C7 level on the left. No contrast is identified. The images are available for review on PACS. TOTAL FLUOROSCOPY TIME: 0.6 minutes. DOSE AREA PRODUCT: 0.08 mGy-m2 (milligray-meter squared) FL/FL guidance in treatment room IMPRESSION: Technical assistance and equipment provided by the Department of Radiology during intraoperative fluoroscopy, as above. Please see operative report for further details.
== END 2023-05-26 06:17 | disposition home or self-care (01) ==
LOC: CF 06:16
PROVIDERS: Visit Provider Internal Medicine
DX: M79.2 Neuralgia and neuritis, unspecified (principal); M96.1 Postlaminectomy syndrome, not elsewhere classified; M79.18 Myalgia, other site
CPT/HCPCS: 64555; C1778

== ENCOUNTER 2023-05-26 12:51 | Outpatient (AMB) | payer BC, SELFPAY ==
[2023-05-26 13:01] VITALS: BP 130/70; PULSE 102; RESP 16; O2SAT 96; BMI 38.0
--- NOTE | 2023-05-26 13:01 | A.OFFVIS_ITS ---
Intake Vital Signs 05/26/23 13:01 05/26/23 14:07 Height 5 ft 8 in Weight 250 lb BMI 38.0 BP 130/70 140/84 H Blood Pressure Location Lt brachial Rt radial Position Sitting Sitting Respiration 16 Pulse 102 H 98 Pulse Source Pulse Oximeter Pulse Oximeter Pulse Oximetry (%) 96 95 Oxygen Delivery Method Room Air Room Air Comment Pre-Op Post-Op Intake Visit Reasons: Left C5-C6 Sprint Allergies Iodinated Contrast Media [CONTRAST, IV] Allergy (Unknown, Verified 05/18/23 08:56) UNKNOWN morphine [Morphine] Allergy (Unknown, Verified 05/18/23 08:56) NAUSEA/RASH, rash, N/V, rash, N/V PFSH Medical History (Updated 05/18/23 @ 13:36 by Alex Nunez MD) Cervical post-laminectomy syndrome Personal history of nicotine dependence Post-menopausal (~2018) Tubular adenoma of colon (~2016) Hypertension, essential Abnormal bowel movement Chronic neck and back pain Vitamin D deficiency Cyst of right ovary Elevated dehydroepiandrosterone sulfate level (~2018) Surgical History History of basal cell carcinoma (BCC) excision History of left knee surgery History of right knee surgery History of foot surgery History of History of colonoscopy History of fusion of cervical spine Family History Father Mesothelioma Mother Breast cancer Colon cancer Other Mental health disorder Substance use disorder Social History Housing: House Are you a primary care connector to a significant other at home: No Do you presently have visiting nurse or other home services: No Alcohol intake: current Alcohol intake frequency: a few times a month Patient Tobacco Use Status: Former Tobacco user Tobacco use type: Cigarette Cigarette Packs Per Day: 0.5 Cigarettes Per Day: 10.0 Years Smoked: 37 e-Cigarette/Vaping Use: Never Used Current occupational status: employed 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 After the risks, benefits and alternatives were discussed with the patient and informed consent was obtained, patient was placed in the prone position and padded to foster comfort. The skin overlying the cervical spine was prepped and draped in sterile fashion. Fluoroscopy was used to identify the spinous process and lamina over the C6 articular pillar. After identifying and marking the intended target along the course of the medial branch nerve, the skin around the planned entry point and the subcutaneous tissues were injected with lidocaine 1%. An introducer needle and stimulating probe were assembled, inserted and advanced along the intended course of the medial branch nerve, taking care to maintain the proper depth of insertion as the introducer was advanced under fluoroscopic guidance. The introducer needle was delivered to a location in proximity to the nerve. Multiple stimulation parameters were used to deliver stimulation to the target medial branch nerve in concert with stimulating at multiple positions around the nerve. Nerve target acquisition was confirmed noting generation of paresthesias in the paravertebral regions corresponding to the level being stimulated. Various electrical parameter combinations were tested, and the lead location was adjusted (physically relocated) until the patient indicated paresthesia/muscle tension in the left cervical/shoulder region. The stimulating probe was removed from the introducer and a percutaneous lead was guided through the needle and delivered to a location in similar proximity to the nerve. Final location was verified with electrical stimulation and documented with fluoroscopy. Reliable lateral and contralateral oblique images could not be obtained due to hardware artifact and shoulder anatomy. The introducer needle was removed, and the exposed end of the percutaneous lead was attached to an external stimulator unit. Various electrical parameter combinations were again tested until the patient indicated paresthesia or muscle tension overlapping the distribution of the patient?s typical region of pain. AP fluoroscopy was used to document the location of the percutaneous lead in the deployed position. After confirming that lead impedance was in the normal range, the external unit was detached, the needle was removed, and the lead was anchored at the skin. The lead was threaded into the connector block and electrical continuity and desired patient response was confirmed. The connector block was attached to the external stimulator unit. The site was covered with a sterile occlusive pressure dressing. The patient was observed for stability of vital signs and comfort. Patient was dischared in stable condition. Sprint PNS Device: Sprint PNS Device [id number] Percutaneous Peripheral Neuroelectrode Procedure: 19191 - Percutaneous Peripheral Neuroelectrode Procedure code (CPT) selection complete Office Meds lidocaine (PF) 50 mg/5 mL (1 %) injection syringe Performing Provider: Alex Nunez MD Performing Location: [facility] – [place] [facility] Administered by: Yvonne Ybarra LPN on 05/26/23 13:28 Dose Route Admin Location Dispensed Lot Number Expiration Date [facility] Paste [employer] Artist Apprentice 5 mL subcut 5 mL Assessment & Plan Assessment & Plan (1) Cervical post-laminectomy syndrome: Code(s): M96.1 - Postlaminectomy syndrome, not elsewhere classified (2) Intractable cervical neuropathic pain: Code(s): M79.2 - Neuralgia and neuritis, unspecified (3) Cervical myofascial pain syndrome: Code(s): M79.18 - Myalgia, other site Plan Patient is status post temporary left C6 medial branch nerve stimulator placement. Patient tolerated procedure well and was discharged home in stable condition with discharge instructions. All questions were answered. We will follow-up via telephone or in clinic to assess response to therapy. A follow-up appointment was made during today's visit. Orders: Orders AMB Sprint PNS Today M79.18 - Myalgia, other site, M79.2 - Neuralgia and neuritis, unspecified, M96.1 - Postlaminectomy syndrome, not elsewhere classified Alex Nunez MD [place] guidance in treatment room Today M79.2 - Neuralgia and neuritis, unspecified SANTIAGO Alejandro Medications: New cyclobenzaprine 10 mg PO TID 90 tabs 0RF Alex Nunez MD Discontinued methocarbamol Discontinued Reason: Patient Completed Course 750 mg PO BID PRN 60 tabs 3RF muscle spasm Coding Level of Care Code Procedure Only Diagnoses Cervical post-laminectomy syndrome M96.1 Intractable cervical neuropathic pain M79.2 Cervical myofascial pain syndrome M79.18 CPT Codes Sprint PNS - Sprint PNS Device: Sprint PNS Device ([id number]) Sprint PNS - SPRINT: 41732 - Percutaneous Peripheral Neuroelectrode ([id number]) Implantable Device Implantable Device Implantable Devices [employer] P[employer] Artist Apprentice Implant Date Expiration Date Analgesic PENS system [address] [facility] [employer], [employer] 05/26/23 08/24/24
[2023-05-26 14:07] VITALS: BP 140/84; PULSE 98; O2SAT 95
== END 2023-05-26 14:22 | disposition home or self-care (01) ==
LOC: HO.PMCPRC 12:52
PROVIDERS: PCP Nurse Practitioner Family; Visit Provider Internal Medicine
DX: M96.1 Postlaminectomy syndrome, not elsewhere classified (principal); M79.2 Neuralgia and neuritis, unspecified; M79.18 Myalgia, other site
CPT/HCPCS: 64555

== ENCOUNTER 2023-05-30 08:32 | Outpatient (AMB) | payer BC, SELFPAY ==
[2023-05-30 08:45] VITALS: BP 177/90; PULSE 890; RESP 12; O2SAT 96; BMI 38.0
--- NOTE | 2023-05-30 08:45 | A.OFFVIS_ITS ---
Intake Vital Signs 05/30/23 08:45 Height 5 ft 8 in Weight 250 lb BMI 38.0 BP 177/90 H Blood Pressure Location Lt brachial Position Sitting Respiration 12 Pulse 890 H Pulse Source Pulse Oximeter Pulse Oximetry (%) 96 Oxygen Delivery Method Room Air Intake Visit Reasons: s/p Left C5-C6 Sprint Allergies Iodinated Contrast Media [CONTRAST, IV] Allergy (Unknown, Verified 05/30/23 08:47) UNKNOWN morphine [Morphine] Allergy (Unknown, Verified 05/30/23 08:47) NAUSEA/RASH, rash, N/V, rash, N/V Medication List - Last Reconciled 05/30/23 by Yvonne Ybarra LPN acetaminophen 1,000 mg PO BID cyclobenzaprine 10 mg PO TID diclofenac sodium 75 mg PO BID lidocaine 5% (Lidoderm) 1 patch topical DAILY PRN lisinopril 10 mg PO ONCE 90 days lorazepam (Ativan) 0.5 mg PO BID PRN HPI s/p Left C5-C6 Sprint HPI Details 57-year-old female who presents today to the office for a status post left C5-C6 sprint. The patient reports mild improvement following the procedure. She had good pain relief yesterday. She reports mild ?pinching sensations? from the device. She has been avoiding any strenuous activities at home. She is also not raising her arm overhead. She is using the device setting at 57. She states that she has gradually increased the device setting at home. She states that her pain is stable in the morning. She states that she was able to do laundry yesterday after a long time. Past Procedures: 05/26/23: Cervical Medial Branch Nerve St imulation Lead Placement, SPR (Sprint) System, Left C6: mild relief. 05/18/23: Trigger point injection: % rel ief. 01/14/23: Trigger Point Multi injection: 50% relief. 10/06/22: Interlaminar epidural steroid injection, L5/S1, Left parasaggital: >90% relief. 08/27/22: Trigger point injections: 50% relief. 08/05/21: L5/S1 interlaminar EVELYN left pa rasaggital: 75% relief. 06/17/21: Left SIJ Injection ? 50% relief for 6 days only. [facility] Medical History (Updated 05/18/23 @ 13:36 by Alex Nunez MD) Cervical post-laminectomy syndrome Personal history of nicotine dependence Post-menopausal (~2018) Tubular adenoma of colon (~2017) Hypertension, essential Abnormal bowel movement Chronic neck and back pain Vitamin D deficiency Cyst of right ovary Elevated dehydroepiandrosterone sulfate level (~2019) Surgical History History of basal cell carcinoma (BCC) excision History of left knee surgery History of right knee surgery History of foot surgery History of History of colonoscopy History of fusion of cervical spine Family History Father Mesothelioma Mother Breast cancer Colon cancer Other Mental health disorder Substance use disorder Social History Housing: House Are you a primary congregational care pastor to a significant other at home: No Do you presently have visiting nurse or other home services: No Alcohol intake: current Alcohol intake frequency: a few times a month Patient Tobacco Use Status: Former Tobacco user Tobacco use type: Cigarette Cigarette Packs Per Day: 0.5 Cigarettes Per Day: 10.0 Years Smoked: 37 e-Cigarette/Vaping Use: Never Used Current occupational status: employed 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 Alert and oriented. Mood and affect appropriate. Follows and participates in conversation appropriately. Respiratory effort is unlabored. Able to transition from sit to stand unassisted. Ambulates with bilaterally normal heel strike and toe off. The site was clean, dry, and intact. Results Reviewed Results Reviewed: No imaging is available for review. Assessment & Plan Assessment & Plan (1) Cervical post-laminectomy syndrome: Code(s): M96.1 - Postlaminectomy syndrome, not elsewhere classified (2) Intractable cervical neuropathic pain: Code(s): M79.2 - Neuralgia and neuritis, unspecified (3) Cervical myofascial pain syndrome: Code(s): M79.18 - Myalgia, other site Plan The patient will continue the therapy for the next 60 days. The patient will follow up for device removal. I did provide her with the brochure for an intrathecal pain pump for consideration if she is unable to gain the desired level of relief from the PNS device. Scribed for Dr. Nunez by Akhil Leahy, biomedical equipment technician, on 05/30/2023. I, Dr. Nunez, have personally reviewed and agree with the information entered by the scribe. Coding Level of Care Code Est Pt Level 3 (65884) Diagnoses Cervical post-laminectomy syndrome M96.1 Intractable cervical neuropathic pain M79.2 Cervical myofascial pain syndrome M79.18
== END 2023-05-30 09:00 | disposition home or self-care (01) ==
PROVIDERS: PCP Nurse Practitioner Family; Visit Provider Internal Medicine
DX: M96.1 Postlaminectomy syndrome, not elsewhere classified (principal); M79.2 Neuralgia and neuritis, unspecified; M79.18 Myalgia, other site
CPT/HCPCS: 99024

== ENCOUNTER → 2023-05-30 08:32 | Outpatient (BNVA) | payer BC, SELFPAY | PROVIDERS: PCP Nurse Practitioner Family; Visit Provider Internal Medicine ==

== ENCOUNTER 2023-07-07 15:52 | Outpatient (AMB) | payer BC, SELFPAY ==
[2023-07-07 16:03] VITALS: BMI 38.3
--- NOTE | 2023-07-07 16:03 | MHC.OFFVIS ---
Intake Vital Signs 07/07/23 16:03 Height 5 ft 8 in Weight 252 lb BMI 38.3 Intake Visit Reasons: SPRINT DEVICE CHECK Allergies Iodinated Contrast Media [CONTRAST, IV] Allergy (Unknown, Verified 07/07/23 16:04) UNKNOWN morphine [Morphine] Allergy (Unknown, Verified 07/07/23 16:04) NAUSEA/RASH, rash, N/V, rash, N/V Medication List - Last Reconciled 07/07/23 by Shikha Carcamo, LAWNMOWER MECHANIC acetaminophen 1,000 mg PO BID cyclobenzaprine 10 mg PO TID diclofenac sodium 75 mg PO BID lidocaine 5% (Lidoderm) 1 patch topical DAILY PRN lisinopril 10 mg PO ONCE 90 days lorazepam (Ativan) 0.5 mg PO BID PRN HPI HPI Comments History of Present Illness Details Savita is very pleasant 57-year-old female who presents today to the office for a status post left C5-C6 sprint. She reports loss of the ability to stimulate her neck with the device. He reported excessive amount of the wire hanging out from the site of the insertion. There is no signs of inflammation when the dressing was removed there is no pathological discharge no redness and no swelling. However almost 1/3 of the length of the electrode is out the decision was made to remove the electrode. Electrode was removed still I have Band-Aid was applied. Patient tolerated procedure well. She has a victim of posterior cervical fusion C3 through C7. She reports severe cervicalgia. I DDD was discussed with the patient. The patient reports mild improvement following the procedure. She had good pain relief yesterday. She reports mild ?pinching sensations? from the device. She has been avoiding any strenuous activities at home. She is also not raising her arm overhead. She is using the device setting at 57. She states that she has gradually increased the device setting at home. She states that her pain is stable in the morning. She states that she was able to do laundry yesterday after a long time. Past Procedures: 05/26/23: Cervical Medial Branch Nerve Stimulation Lead Placement, SPR (Sprint) System, Left C6: mild relief. 05/18/23: Trigger point injection: % relief. 01/14/23: Trigger Point Multi injection: 50% relief. 10/06/22: Interlaminar epidural steroid injection, L5/S1, Left parasaggital: >90% relief. 08/27/22: Trigger point injections: 50% relief. 08/05/21: L5/S1 interlaminar EVELYN left parasaggital: 75% relief. 06/17/21: Left SIJ Injection ? 50% relief for 6 days onl COUNTS INCLUDE 234 BEDS AT THE [facility] Medical History (Updated 05/18/23 @ 13:36 by Alex Nunez MD) Cervical post-laminectomy syndrome Personal history of nicotine dependence Post-menopausal (~2017) Tubular adenoma of colon (~2016) Hypertension, essential Abnormal bowel movement Chronic neck and back pain Vitamin D deficiency Cyst of right ovary Elevated dehydroepiandrosterone sulfate level (~2018) Surgical History History of basal cell carcinoma (BCC) excision History of left knee surgery History of right knee surgery History of foot surgery History of History of colonoscopy History of fusion of cervical spine Family History Father Mesothelioma Mother Breast cancer Colon cancer Other Mental health disorder Substance use disorder Social History Housing: House Are you a primary home care companion to a significant other at home: No Do you presently have visiting nurse or other home services: No Alcohol intake: current Alcohol intake frequency: a few times a month Patient Tobacco Use Status: Former Tobacco user Tobacco use type: Cigarette Cigarette Packs Per Day: 0.5 Cigarettes Per Day: 10.0 Years Smoked: 37 e-Cigarette/Vaping Use: Never Used Current occupational status: employed 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: No Hearing needs: No Vision needs: Yes Review of Systems Const All systems reviewed & are unremarkable except as noted in HPI and below ENT Reports Normal hearing present Neuro Reports Normal hearing present, Denies Abnormal speech present, Denies confusion and Denies Sensory deficit (Neuro) Psych Denies confusion Physical Exam Vital Signs: BMI result Body Mass Index 38.3 Const General: no acute distress; No confusion Nutritional Appearance: obese morbidly obese Orientation/consciousness: patient oriented x3 and No confusion Eyes General: appearance normal, both eyes and all related structures Pupils: Equal, round and reactive pupils present EOM: EOMs intact bilaterally Neck Other: On inspection of the posterior neck there is no redness no swelling no pathological discharge in the area of the device insertion. Scar in the posterior surface of the neck starting from approximately projection of the C2 through projection of the C7 vertebral spinous processes is very well-healed no signs of inflammation. Neck: No full ROM Chest Chest palpation & inspection: normal inspection of the chest Resp Effort & Inspection: normal respiratory effort, able to speak in complete sentences, normal respiratory pattern, no audible wheezes and no cough Cardio Jugular venous distension: no JVD GI Inspection: Yes normal to inspection Neuro General: patient oriented x3, gait normal and No confusion Cranial nerves: Yes CN's II-XII intact bilaterally, Yes Equal, round and reactive pupils present, Yes Normal hearing present and Yes Ability to bilaterally elevate shoulders present Speech: No Abnormal speech present Gait exam (Neuro): Normal gait present Motor exam (neuro): 5/5 motor strength present throughout Sensory Exam: No Sensory deficit (Neuro) Extrem General: No pedal edema Psych Speech and movement: Normal speech and movement present Affect: normal affect Attitude: cooperative Thought process: Normal thought process present Thought content: Normal thought content present Insight: Good insight present (Psych) Judgement: Good judgement present (Psych) Assessment & Plan Assessment & Plan (1) Cervical post-laminectomy syndrome: Code(s): M96.1 - Postlaminectomy syndrome, not elsewhere classified (2) Intractable cervical neuropathic pain: Code(s): M79.2 - Neuralgia and neuritis, unspecified (3) Cervical myofascial pain syndrome: Code(s): M79.18 - Myalgia, other site Plan The patient electrode got dislodged. It was removed without complications. The patient completed approximately 2/3 of the length of the therapy. This probably is long enough for her to have at least few months of pain relief after the removal of the electrode. When the pain will come back she is recommended to give us a call and schedule an appointment. I DDD was explained. If patient is interested we can discuss it as well. She is opioid naive and appears to receive small short courses of the opioids infrequently. Coding Level of Care Code Est Pt Level 3 (29160) Diagnoses Cervical post-laminectomy syndrome M96.1 Intractable cervical neuropathic pain M79.2 Cervical myofascial pain syndrome M79.18
== END 2023-07-07 16:05 | disposition home or self-care (01) ==
LOC: HO.PMC 15:52
PROVIDERS: PCP Nurse Practitioner Family; Visit Provider Anesthesiology
DX: M96.1 Postlaminectomy syndrome, not elsewhere classified (principal); M79.2 Neuralgia and neuritis, unspecified; M79.18 Myalgia, other site
CPT/HCPCS: 99213

== ENCOUNTER → 2023-07-07 15:52 | Outpatient (BNVA) | payer BC, SELFPAY | PROVIDERS: PCP Nurse Practitioner Family; Visit Provider Anesthesiology ==

== ENCOUNTER 2023-07-22 08:06 | Outpatient (AMB) | payer BC, SELFPAY ==
--- NOTE | 2023-07-22 08:08 | A.OFFVIS_ITS ---
Vital Signs 07/22/23 08:10 Height 5 ft 8 in Weight 245 lb BMI 37.2 BP 141/80 H Blood Pressure Location Lt brachial Position Sitting Respiration 14 Pulse 97 Pulse Source Pulse Oximeter Pulse Oximetry (%) 96 Oxygen Delivery Method Room Air Intake Visit Reasons: procedure discussion Allergies Iodinated Contrast Media [CONTRAST, IV] Allergy (Unknown, Verified 07/22/23 08:12) UNKNOWN morphine [Morphine] Allergy (Unknown, Verified 07/22/23 08:12) NAUSEA/RASH, rash, N/V, rash, N/V Medication List - Last Reconciled 07/22/23 by Yvonne Ybarra LPN acetaminophen 1,000 mg PO BID cyclobenzaprine 10 mg PO TID diclofenac sodium 75 mg PO BID lidocaine 5% (Lidoderm) 1 patch topical DAILY PRN lisinopril 10 mg PO ONCE 90 days lorazepam (Ativan) 0.5 mg PO BID PRN methocarbamol 1,500 mg PO TID PRN HPI HPI procedure discussion: Details: 58-year-old female who presents today to the office for a discussion regarding intrathecal therapy for her neck related pain. She has tried TENS units in the past with minimal benefit. She takes methocarbamol 750 mg, two tablets T.I.D. P.R.N., and diclofenac 75mg. She is not taking cyclobenzaprine. ?She will change her insurance at the end of August 2023.? She is interested in proceeding with a trial and implant. Past Procedures: 05/26/23: Cervical Medial Branch Nerve Stimulation Lead Placement, SPR (Sprint) System, Left C6: mild ongoing relief. 05/18/23: Trigger point injection: 50 % relief. 01/14/23: Trigger Point Multi injection: 50% relief. 10/06/22: Interlaminar epidural steroid injection, L5/S1, Left parasaggital: >90% relief. 08/27/22: Trigger point injections: 50% relief. 08/05/21: L5/S1 interlaminar EVELYN left parasaggital: 75% relief. 06/17/21: Left SIJ Injection ? 50% relief for 6 days only. [facility] Medical History (Updated 05/18/23 @ 13:36 by Alex Nunez MD) Cervical post-laminectomy syndrome Personal history of nicotine dependence Post-menopausal (~2018) Tubular adenoma of colon (~2017) Hypertension, essential Abnormal bowel movement Chronic neck and back pain Vitamin D deficiency Cyst of right ovary Elevated dehydroepiandrosterone sulfate level (~2019) Surgical History History of basal cell carcinoma (BCC) excision History of left knee surgery History of right knee surgery History of foot surgery History of History of colonoscopy History of fusion of cervical spine Family History Father Mesothelioma Mother Breast cancer Colon cancer Other Mental health disorder Substance use disorder Social History Housing: House Are you a primary school childcare attendant to a significant other at home: No Do you presently have visiting nurse or other home services: No Alcohol intake: current Alcohol intake frequency: a few times a month Patient Tobacco Use Status: Former Tobacco user Tobacco use type: Cigarette Cigarette Packs Per Day: 0.5 Cigarettes Per Day: 10.0 Years Smoked: 37 e-Cigarette/Vaping Use: Never Used Current occupational status: employed 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 Alert and oriented. Mood and affect appropriate. Follows and participates in conversation appropriately. Respiratory effort is unlabored. Able to transition from sit to stand unassisted. Ambulates with bilaterally normal heel strike and toe off. Results Reviewed Results Reviewed: No imaging is available for review. Assessment & Plan Assessment & Plan (1) Cervical post-laminectomy syndrome: Code(s): M96.1 - Postlaminectomy syndrome, not elsewhere classified Category: Medical (2) Intractable cervical neuropathic pain: Code(s): M79.2 - Neuralgia and neuritis, unspecified Category: Medical Plan We had a discussion about the risks, benefits, and details of a pain pump implant. She is amenable to proceeding with the discussed plan. I will place a referral for psychology clearance. Once we have received psychology clearance, we will plan for a trial of the ITDD pain pump implant. The patient will receive a call from [facility] for the psychology assessment. I provided a refill of methocarbamol 750, two tablets TID, and diclofenac 75 mg BID for pain management in the meanwhile.? Scribed for Dr. Nunez by Akhil Leahy, spanish medical interpreter, on 07/22/2023. I, Dr. Nunez, have personally reviewed and agree with the information entered by the scribe. Medications: New methocarbamol 1,500 mg (2 x 750 mg) PO TID PRN 120 tabs 2RF muscle spasm diclofenac sodium 75 mg PO BID 60 tabs 5RF Discontinued cyclobenzaprine Discontinued Reason: Duplicate 10 mg PO TID 90 tabs 0RF Coding Level of Care Code Est Pt Level 3 (43578) Diagnoses Cervical post-laminectomy syndrome M96.1 Intractable cervical neuropathic pain M79.2
[2023-07-22 08:10] VITALS: BP 141/80; PULSE 97; RESP 14; O2SAT 96; BMI 37.2
== END 2023-07-22 08:41 | disposition home or self-care (01) ==
PROVIDERS: PCP Nurse Practitioner Family; Visit Provider Internal Medicine
DX: M96.1 Postlaminectomy syndrome, not elsewhere classified (principal); M79.2 Neuralgia and neuritis, unspecified
CPT/HCPCS: 99213

== ENCOUNTER → 2023-07-22 08:06 | Outpatient (BNVA) | payer BC, SELFPAY | PROVIDERS: PCP Nurse Practitioner Family; Visit Provider Internal Medicine ==

== ENCOUNTER 2023-08-10 07:56 | Outpatient (AMB) | payer BC, SELFPAY ==
--- NOTE | 2023-08-10 08:00 | MHC.OFFVIS ---
Vital Signs 08/10/23 08:02 Height 5 ft 8 in Weight 246 lb BMI 37.4 BP 135/84 Blood Pressure Location Lt brachial Position Sitting Respiration 14 Pulse 109 H Pulse Source Pulse Oximeter Pulse Oximetry (%) 95 Oxygen Delivery Method Room Air Intake Visit Reasons: Trigger Point Injections Allergies Iodinated Contrast Media [CONTRAST, IV] Allergy (Unknown, Verified 08/10/23 08:07) UNKNOWN morphine [Morphine] Allergy (Unknown, Verified 08/10/23 08:07) NAUSEA/RASH, rash, N/V, rash, N/V Medication List - Last Reconciled 08/10/23 by Yvonne Ybarra LPN acetaminophen 1,000 mg PO BID diclofenac sodium 75 mg PO BID lidocaine 5% (Lidoderm) 1 patch topical DAILY PRN lisinopril 10 mg PO ONCE 90 days lorazepam (Ativan) 0.5 mg PO BID PRN methocarbamol 1,500 mg (2 x 750 mg) PO TID PRN HPI HPI Trigger Point Injections: Details: 58-year-old female who presents today for trigger point injections Denies any recent cough, cold, infection, fever or other significant changes in medical history since last office visit. Past Procedures: 05/26/23: Cervical Medial Branch Nerve Stimulation Lead Placement, SPR (Sprint) System, Left C6: mild ongoing relief. 05/18/23: Trigger point injection: 50% relief. 01/14/23: Trigger Point Multi injection: 50% relief. 10/06/22: Interlaminar epidural steroid injection, L5/S1, Left parasaggital: >90% relief. 08/27/22: Trigger point injections: 50% relief. 08/05/21: L5/S1 interlaminar EVELYN left parasaggital: 75% relief. 06/17/21: Left SIJ Injection ? 50% relief for 6 days only. [facility] Medical History (Updated 05/18/23 @ 13:36 by lAex Nunez MD) Cervical post-laminectomy syndrome Personal history of nicotine dependence Post-menopausal (~2018) Tubular adenoma of colon (~2017) Hypertension, essential Abnormal bowel movement Chronic neck and back pain Vitamin D deficiency Cyst of right ovary Elevated dehydroepiandrosterone sulfate level (~2019) Surgical History History of basal cell carcinoma (BCC) excision History of left knee surgery History of right knee surgery History of foot surgery History of History of colonoscopy History of fusion of cervical spine Family History Father Mesothelioma Mother Breast cancer Colon cancer Other Mental health disorder Substance use disorder Social History Housing: House Are you a primary continuum of care manager to a significant other at home: No Do you presently have visiting nurse or other home services: No Alcohol intake: current Alcohol intake frequency: a few times a month Patient Tobacco Use Status: Former Tobacco user Tobacco use type: Cigarette Cigarette Packs Per Day: 0.5 Cigarettes Per Day: 10.0 Years Smoked: 37 e-Cigarette/Vaping Use: Never Used Current occupational status: employed 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 Alert and oriented. Mood and affect appropriate. Follows and participates in conversation appropriately. Respiratory effort is unlabored. Able to transition from sit to stand unassisted. Office Procedures Injection Trigger Point Multi Pre-procedure diagnosis: Myofascial pain Post-procedure diagnosis: Myofascial pain Site and number of trigger points: Bilateral Trapezius and Levator scapulae Solution: Total volume administered 15 ml ropivacaine 0.25%. The procedure, its benefits, and its risks were explained to the patient and all questions were answered. Prior to the start of the procedure, a ?time out? was performed to confirm correct patient, procedure, and laterality. Trigger points were identified by manual palpation and marked. The skin was cleaned with Chloraprep. A 1.5 inch 25 G needle was used. Each of the trigger points were approximated and elevated in the direction away from the body. Dry needling then took place for five seconds. Approximately 0.5 ml to 1 ml of injectate was delivered to the trigger point followed by dry needling for five seconds. This process was repeated at each trigger point site. The patient tolerated the procedure well. The patient tolerated the procedure well, without complication. The patient denied any numbness, paresthesias, or weakness. Post-procedure vitals were recorded as part of the nursing discharge note in electronic medical record. Following a period of observation, the patient was discharged in stable condition with written discharge instructions. Trigger Point Multiple: 04732- Trigger point injection =/>3 Results Reviewed Results Reviewed: No imaging is available for review Assessment & Plan Assessment & Plan (1) Cervical post-laminectomy syndrome: Code(s): M96.1 - Postlaminectomy syndrome, not elsewhere classified Category: Medical (2) Cervical myofascial pain syndrome: Code(s): M79.18 - Myalgia, other site Category: Medical (3) Intractable cervical neuropathic pain: Code(s): M79.2 - Neuralgia and neuritis, unspecified Category: Medical Plan Patient is status post trigger point injections. Patient tolerated procedure well and was discharged home in stable condition with discharge instructions. All questions were answered. Proceed with ITDD trial as planned. Scribed for Dr. Nunez by [employer] medical delivery driver, on 08/10/2023. I, Dr. Nunez, have personally reviewed and agree with the information entered by the scribe. Coding Level of Care Code Procedure Only Diagnoses Cervical post-laminectomy syndrome M96.1 Cervical myofascial pain syndrome M79.18 Intractable cervical neuropathic pain M79.2 CPT Codes Details - Trigger Point Multiple: 79217- Trigger point injection =/>3 ([id number])
[2023-08-10 08:02] VITALS: BP 135/84; PULSE 109; RESP 14; O2SAT 95; BMI 37.4
== END 2023-08-10 08:35 | disposition home or self-care (01) ==
PROVIDERS: PCP Nurse Practitioner Family; Visit Provider Internal Medicine
DX: M79.18 Myalgia, other site (principal)
CPT/HCPCS: 20553

== ENCOUNTER → 2023-08-10 07:56 | Outpatient (BNVA) | payer BC, SELFPAY | PROVIDERS: PCP Nurse Practitioner Family; Visit Provider Internal Medicine | DX: M79.18 Myalgia, other site (principal); M96.1 Postlaminectomy syndrome, not elsewhere classified; M79.2 Neuralgia and neuritis, unspecified | CPT/HCPCS: 20553; J2795 ==

== ENCOUNTER 2023-08-25 06:04 | Outpatient (REF) | payer BC, SELFPAY ==
--- NOTE | ~2023-08-25 | FL_ITS ---
EXAMINATION: XR FLUOROSCOPY WITH IMAGES CLINICAL INFORMATION: Neuralgia and neuritis. COMPARISON: None available. TECHNIQUE: Fluoroscopy Supervised By: Dr. Nunez. Fluoroscopy Time: 0.1 min. Cumulative Dose: 1.83 mGy. DAP: 0.0175 Gycm2. Images: 2. FINDINGS: Intraoperative fluoroscopy and spot films were performed during a procedure in the OR. 2 coned images are seen with a slightly to the left of midline needle in the region of the epidural space in the spine. The exact level cannot be ascertained because images. Please see Dr. Nunez' report for complete details. FL/FL guidance in treatment room IMPRESSION: Intraoperative fluoroscopy and spot films were obtained. Please see Dr. Nunez' report for complete details.
== END 2023-08-25 06:05 | disposition home or self-care (01) ==
LOC: CF 06:04
PROVIDERS: Visit Provider Internal Medicine
DX: M79.2 Neuralgia and neuritis, unspecified (principal); M96.1 Postlaminectomy syndrome, not elsewhere classified
CPT/HCPCS: 62323; J3010

== ENCOUNTER 2023-08-25 07:47 | Outpatient (AMB) | payer BC, SELFPAY ==
--- NOTE | 2023-08-25 07:47 | MHC.OFFVIS ---
Vital Signs 08/25/23 09:26 08/25/23 09:27 Height 5 ft 8 in Weight 246 lb BMI 37.4 BP 136/68 136/68 Blood Pressure Location Lt brachial Lt brachial Position Sitting Sitting Respiration 18 16 Pulse 92 83 Pulse Source Pulse Oximeter Pulse Oximeter Pulse Oximetry (%) 97 97 Oxygen Delivery Method Room Air Room Air Comment Pre-op Post-Op Intake Visit Reasons: ITDD trial Allergies Iodinated Contrast Media [CONTRAST, IV] Allergy (Unknown, Verified 08/10/23 08:07) UNKNOWN morphine [Morphine] Allergy (Unknown, Verified 08/10/23 08:07) NAUSEA/RASH, rash, N/V, rash, N/V HPI HPI ITDD trial: Details: Patient presents for scheduled procedure. Denies any recent cough, cold, infection, fever or other significant changes in medical history since last office visit. [facility] Medical History (Updated 05/18/23 @ 13:36 by Alex Nunez MD) Cervical post-laminectomy syndrome Personal history of nicotine dependence Post-menopausal (~2018) Tubular adenoma of colon (~2016) Hypertension, essential Abnormal bowel movement Chronic neck and back pain Vitamin D deficiency Cyst of right ovary Elevated dehydroepiandrosterone sulfate level (~2019) Surgical History History of basal cell carcinoma (BCC) excision History of left knee surgery History of right knee surgery History of foot surgery History of History of colonoscopy History of fusion of cervical spine Family History Father Mesothelioma Mother Breast cancer Colon cancer Other Mental health disorder Substance use disorder Social History Housing: House Are you a primary resident care manager to a significant other at home: No Do you presently have visiting nurse or other home services: No Alcohol intake: current Alcohol intake frequency: a few times a month Patient Tobacco Use Status: Former Tobacco user Tobacco use type: Cigarette Cigarette Packs Per Day: 0.5 Cigarettes Per Day: 10.0 Years Smoked: 37 e-Cigarette/Vaping Use: Never Used Current occupational status: employed 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 The patient was placed in the prone position. The lumbar area was widely prepped with chloraprep and draped in sterile fashion. Fluoroscopic guidance was used to identify the desired interlaminar space and for needle placement. Subcutaneous 0.5% lidocaine was used to anesthetize the skin overlying the target. A 22-gauge Moises needle was advanced to the intrathecal space under fluoroscopic AP and contralateral oblique views. CSF flow was confirmed with positive clear aspiration. Next 1.5 ml containing 75 mcg fentanyl was administered intrathecally with barbotage with no pain elicited on injection. The needle was removed, skin cleansed and a sterile bandage was applied. The patient tolerated the procedure well and no complications were encountered. Following the procedure the patient's vital signs were stable. He was monitored in recovery for 1 hour. The patient was discharged home in good condition with post-procedural instructions. Time Out: Immediately prior to the procedure, the following was verbally confirmed that there is a signed consent form and that the correct patient, planned procedure, site and side are consistent with documentation and that necessary equipment and/or blood products are available prior to the start of the case. Complications: none EBL: <1 cc 38886 - Trial Procedure code (CPT) selection complete Assessment & Plan Assessment & Plan (1) Cervical post-laminectomy syndrome: Code(s): M96.1 - Postlaminectomy syndrome, not elsewhere classified Category: Medical (2) Intractable cervical neuropathic pain: Code(s): M79.2 - Neuralgia and neuritis, unspecified Category: Medical Plan Patient is status post intrathecal trial injection of fentanyl for cervical intractable pain. Patient tolerated procedure well and was discharged home in stable condition with discharge instructions. All questions were answered. Prescribed Narcan spray to have at hand in case of symptoms of somnolence or respiratory depression. Counseled patient's to administer Narcan nasal spray in case of somnolence. Orders: Orders FL guidance in treatment room Today Criselda Harvey, MUSHROOM SORTER GRADER, FLIGHT COMMUNICATIONS SPECIALIST M79.2 - Neuralgia and neuritis, unspecified Medications: New naloxone 4 mg/actuation spray 1 dose into ONE nostril; alternate nostrils w each dose until help arrives 4 mg intranasal Q2M PRN 2 ea 0RF opioid overdose Alex Nunez MD Coding Level of Care Code Procedure Only Diagnoses Cervical post-laminectomy syndrome M96.1 Intractable cervical neuropathic pain M79.2 CPT Codes Intraethecal Drug Delivery System - CPT: 12348 - Trial ([id number])
[2023-08-25 09:26] VITALS: BP 136/68; PULSE 92; RESP 18; O2SAT 97; BMI 37.4
[2023-08-25 09:27] VITALS: BP 136/68; PULSE 83; RESP 16; O2SAT 97
== END 2023-08-25 09:10 | disposition home or self-care (01) ==
LOC: HO.PMCPRC 07:47
PROVIDERS: PCP Nurse Practitioner Family; Visit Provider Internal Medicine
DX: M96.1 Postlaminectomy syndrome, not elsewhere classified (principal); M79.2 Neuralgia and neuritis, unspecified
CPT/HCPCS: 62323

== ENCOUNTER 2023-08-31 08:01 | Outpatient (AMB) | payer BC, SELFPAY ==
--- NOTE | 2023-08-31 08:05 | A.OFFVIS_ITS ---
Vital Signs 08/31/23 08:08 Height 5 ft 8 in Weight 245 lb BMI 37.2 BP 136/62 Blood Pressure Location Lt brachial Position Sitting Respiration 14 Pulse 108 H Pulse Source Pulse Oximeter Pulse Oximetry (%) 96 Oxygen Delivery Method Room Air Intake Visit Reasons: s/p ITDD trial Allergies Iodinated Contrast Media [CONTRAST, IV] Allergy (Unknown, Verified 08/31/23 08:09) UNKNOWN morphine [Morphine] Allergy (Unknown, Verified 08/31/23 08:09) NAUSEA/RASH, rash, N/V, rash, N/V Medication List - Last Reconciled 08/31/23 by Yvonne Ybarra LPN acetaminophen 1,000 mg PO BID diclofenac sodium 75 mg PO BID lidocaine 5% (Lidoderm) 1 patch topical DAILY PRN lisinopril 10 mg PO ONCE 90 days lorazepam (Ativan) 0.5 mg PO BID PRN methocarbamol 1,500 mg (2 x 750 mg) PO TID PRN naloxone 4 mg/actuation 4 mg intranasal Q2M PRN HPI HPI s/p ITDD trial: Details: 58-year-old female who presents today to the office for status post ITDD trial She got 100% pain relief and for her lower extremity symptoms and a noticeable difference in her shoulder pain symptoms. She is interested in proceeding with an implant of intrathecal pain pump. Past Procedures: 08/25/23: Intrathecal drug delivery trial L-2/3: 05/26/23: Cervical Medial Branch Nerve Stimulation Lead Placement, SPR (Sprint) System, Left C6: mild ongoing relief. 05/18/23: Trigger point injection: 50% relief. 01/14/23: Trigger Point Multi injection: 50% relief. 10/06/22: Interlaminar epidural steroid injection, L5/S1, Left parasaggital: >90% relief. 08/27/22: Trigger point injections: 50% relief. 08/05/21: L5/S1 interlaminar EVELYN left parasaggital: 75% relief. 06/17/21: Left SIJ Injection ? 50% relief for 6 days only. [facility] Medical History (Updated 05/18/23 @ 13:36 by Alex Nunez MD) Cervical post-laminectomy syndrome Personal history of nicotine dependence Post-menopausal (~2017) Tubular adenoma of colon (~2017) Hypertension, essential Abnormal bowel movement Chronic neck and back pain Vitamin D deficiency Cyst of right ovary Elevated dehydroepiandrosterone sulfate level (~2019) Surgical History History of basal cell carcinoma (BCC) excision History of left knee surgery History of right knee surgery History of foot surgery History of History of colonoscopy History of fusion of cervical spine Family History Father Mesothelioma Mother Breast cancer Colon cancer Other Mental health disorder Substance use disorder Social History Housing: House Are you a primary rn urgent care to a significant other at home: No Do you presently have visiting nurse or other home services: No Alcohol intake: current Alcohol intake frequency: a few times a month Patient Tobacco Use Status: Former Tobacco user Tobacco use type: Cigarette Cigarette Packs Per Day: 0.5 Cigarettes Per Day: 10.0 Years Smoked: 37 e-Cigarette/Vaping Use: Never Used Current occupational status: employed 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 Alert and oriented. Mood and affect appropriate. Follows and participates in conversation appropriately. Respiratory effort is unlabored. Able to transition from sit to stand unassisted. Results Reviewed Results Reviewed: No imaging is available for review Assessment & Plan Assessment & Plan (1) Intractable cervical neuropathic pain: Code(s): M79.2 - Neuralgia and neuritis, unspecified Category: Medical (2) Cervical post-laminectomy syndrome: Code(s): M96.1 - Postlaminectomy syndrome, not elsewhere classified Category: Medical Plan 58-year-old female with post-laminectomy intractable neck pain here for discussion regarding implant of intrathecal pain pump. She had a good response to the intrathecal trial of fentanyl with 100% relief of her lower extremity symptoms. She got noticeable changes up to a high thoracic level after a lumbar injection with barbotage. She did not get a clear spread up to the cervical spine but did report some improvement in her left shoulder symptoms. She is interested in proceeding with an intrathecal pain pump implant given that she has exhausted all other modalities and continues to suffer from intractable pain that is affecting her quality of life and ability to continue working. We will proceed with requesting insurance authorization for ITP implant and schedule the patient accordingly. Scribed for Dr. Nunez by Ortiz Sales, medical videographer, on 08/31/2023. I, Dr. Nunez, have personally reviewed and agree with the information entered by the scribe. Coding Level of Care Code Est Pt Level 3 (95173) Diagnoses Intractable cervical neuropathic pain M79.2 Cervical post-laminectomy syndrome M96.1
[2023-08-31 08:08] VITALS: BP 136/62; PULSE 108; RESP 14; O2SAT 96; BMI 37.2
== END 2023-08-31 08:29 | disposition home or self-care (01) ==
PROVIDERS: PCP Nurse Practitioner Family; Visit Provider Internal Medicine
DX: M79.2 Neuralgia and neuritis, unspecified (principal); M96.1 Postlaminectomy syndrome, not elsewhere classified
CPT/HCPCS: 99213

== ENCOUNTER → 2023-08-31 08:01 | Outpatient (BNVA) | payer BC, SELFPAY | PROVIDERS: PCP Nurse Practitioner Family; Visit Provider Internal Medicine ==

== ENCOUNTER 2023-09-26 09:36 | Outpatient (AMB) | payer BC, SELFPAY ==
--- NOTE | 2023-09-26 09:50 | A.OFFVIS_ITS ---
Vital Signs 09/26/23 09:55 Height 5 ft 8 in Weight 250 lb BMI 38.0 BP 139/84 Blood Pressure Location Rt brachial Position Sitting Pulse 84 Pulse Source Pulse Oximeter Pulse Oximetry (%) 96 Oxygen Delivery Method Room Air Intake Visit Reasons: Follow Up Allergies Iodinated Contrast Media [CONTRAST, IV] Allergy (Unknown, Verified 09/26/23 09:50) UNKNOWN morphine [Morphine] Allergy (Unknown, Verified 09/26/23 09:50) NAUSEA/RASH, rash, N/V, rash, N/V HPI HPI Follow Up: Details: 58-year-old female who presents today to the office for a follow up. She reports back pain that radiates down to the leg. She describes her pain as burning sensations in her back. She has difficulty walking. She quit her job due to pain. She states that her insurance company denied a pain pump. She is taking gabapentin 600 mg four times a day (one in the morning and afternoon and two at night) and methocarbomol. She states that gabapentin helps to alleviate pain at work but makes her sleepy and groggy. She is not taking tramadol. She deferred trigger point injections today in the office. She is amenable to receiving a back injection for radicular pain on the left side that seems to have now come back after a good response to EVELYN last summer. She had an MRI scan several years ago. Past Procedures: 08/25/23: Intrathecal drug delivery trial L-2/3: >50% relief. 05/26/23: Cervical Medial Branch Nerve Stimulation Lead Placement, SPR (Sprint) System, Left C6: mild ongoing relief. 05/18/23: Trigger point injection: 50% relief. 01/14/23: Trigger Point Multi injection: 50% relief. 10/06/22: Interlaminar epidural steroid injection, L5/S1, Left parasaggital: >90% relief. 08/27/22: Trigger point injections: 50% relief. 08/05/21: L5/S1 interlaminar EVELYN left parasaggital: 75% relief. 06/17/21: Left SIJ Injection ? 50% relief for 6 days only. [facility] Medical History (Updated 09/28/23 @ 16:56 by Alex Nunez MD) Cervical post-laminectomy syndrome Personal history of nicotine dependence Post-menopausal (~2018) Tubular adenoma of colon (~2017) Hypertension, essential Abnormal bowel movement Chronic neck and back pain Vitamin D deficiency Cyst of right ovary Elevated dehydroepiandrosterone sulfate level (~2019) Surgical History History of basal cell carcinoma (BCC) excision History of left knee surgery History of right knee surgery History of foot surgery History of History of colonoscopy History of fusion of cervical spine Family History Father Mesothelioma Mother Breast cancer Colon cancer Other Mental health disorder Substance use disorder Social History Housing: House Are you a primary client care coordinator to a significant other at home: No Do you presently have visiting nurse or other home services: No Alcohol intake: current Alcohol intake frequency: a few times a month Patient Tobacco Use Status: Former Tobacco user Tobacco use type: Cigarette Cigarette Packs Per Day: 0.5 Cigarettes Per Day: 10.0 Years Smoked: 37 e-Cigarette/Vaping Use: Never Used Current occupational status: employed 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 Alert and oriented. Mood and affect appropriate. Follows and participates in conversation appropriately. Respiratory effort is unlabored. Able to transition from sit to stand unassisted. Ambulates with bilaterally normal heel strike and toe off. Results Reviewed Results Reviewed: No imaging is available for review. Assessment & Plan Assessment & Plan (1) Cervical post-laminectomy syndrome: Code(s): M96.1 - Postlaminectomy syndrome, not elsewhere classified Category: Medical (2) Lumbar radiculitis: Code(s): M54.16 - Radiculopathy, lumbar region Category: Medical (3) Intractable pain: Code(s): R52 - Pain, unspecified Category: Medical Plan We will appeal the ITDD pain pump [place] denial for approval from the insurance. In the meantime, I will schedule her for an interlaminar L5-S1 left parasagittal EVELYN. She has previously had an excellent response lasting almost a year to an interlaminar EVELYN for left lower extremity radicular symptoms. Discussed the risks and benefits of the procedure with the patient in detail. All questions were answered. The patient is on board with the plan. I prescribed tramadol and refilled gabapentin for interval pain management. Justification for interventional therapy: ? Patient with average pain > 6/10 ? Patient has exhausted conservative therapy ? Patient unable to tolerate physical therapy due to pain . Patient has a good understanding of their pain condition and has appropriate mental and social support Scribed for Dr. Nunez by Akhil Leahy, medical reimbursement manager, on 09/26/2023. I, Dr. Nunez, have personally reviewed and agree with the information entered by the scribe. Medications: New tramadol 50 mg PO BID PRN 60 tabs 1RF pain gabapentin 600 mg PO TID 60 tabs 0RF Coding Level of Care Code Est Pt Level 4 (49974) Diagnoses Cervical post-laminectomy syndrome M96.1 Lumbar radiculitis M54.16 Intractable pain R52
[2023-09-26 09:55] VITALS: BP 139/84; PULSE 84; O2SAT 96; BMI 38.0
== END 2023-09-26 10:35 | disposition home or self-care (01) ==
PROVIDERS: PCP Nurse Practitioner Family; Visit Provider Internal Medicine
DX: M96.1 Postlaminectomy syndrome, not elsewhere classified (principal); M54.16 Radiculopathy, lumbar region
CPT/HCPCS: 99214

== ENCOUNTER → 2023-09-26 09:36 | Outpatient (BNVA) | payer BC, SELFPAY | PROVIDERS: PCP Nurse Practitioner Family; Visit Provider Internal Medicine ==

== ENCOUNTER 2023-10-13 06:23 | Outpatient (REF) | payer BC, SELFPAY ==
--- NOTE | ~2023-10-13 | FL_ITS ---
EXAMINATION: XR FLUOROSCOPY WITH IMAGES CLINICAL INFORMATION: Radiculopathy lumbar region. COMPARISON: None available. TECHNIQUE: Fluoroscopy Supervised By: Dr. Alex Nunez. Fluoroscopy Time: 0.1 minutes. Cumulative Dose: 3.55 mGy. DAP: 0.0209 Gy-cm2. Images: 2. FINDINGS: Intraoperative fluoroscopy and spot films were performed during a procedure in the OR. [place] are see in the epidural space on the left likely at L5-S1. However, precise levels can not be ascertained secondary to marked coning of the images with lack of appropriate landmarks. Please correlate with Dr. Alex Nunez' report for complete details and level treated. FL/FL guidance in treatment room IMPRESSION: Intraoperative fluoroscopy and spot films were obtained. Please see Dr. Alex Nunez' report for complete details.
== END 2023-10-13 06:24 | disposition home or self-care (01) ==
LOC: CF 06:23
PROVIDERS: Visit Provider Internal Medicine
DX: M54.16 Radiculopathy, lumbar region (principal)
CPT/HCPCS: 62323; J3301; Q9967

== ENCOUNTER 2023-10-13 10:39 | Outpatient (AMB) | payer BC, SELFPAY ==
--- NOTE | 2023-10-13 10:52 | A.OFFVIS_ITS ---
Vital Signs 10/13/23 11:50 10/13/23 11:50 Height 5 ft 8 in Weight 250 lb BMI 38.0 BP 140/76 H 145/81 H Blood Pressure Location Lt brachial Lt brachial Position Sitting Sitting Respiration 16 16 Pulse 84 78 Pulse Source Pulse Oximeter Pulse Oximeter Pulse Oximetry (%) 98 98 Oxygen Delivery Method Room Air Room Air Comment Pre-Op Post-Op Intake Visit Reasons: Left L5-S1 parasagittal interlaminar EVELYN Regulatory Affairs Portfolio Leader Required: No Accompanied by: Self / Same As Patient Allergies Iodinated Contrast Media [CONTRAST, IV] Allergy (Unknown, Verified 10/13/23 10:54) UNKNOWN morphine [Morphine] Allergy (Unknown, Verified 10/13/23 10:54) NAUSEA/RASH, rash, N/V, rash, N/V HPI HPI Left L5-S1 parasagittal interlaminar EVELYN: Details: Patient presents for scheduled procedure. Denies any recent cough, cold, infection, fever or other significant changes in medical history since last office visit. [facility] Medical History (Updated 09/28/23 @ 16:56 by Alex Nunez MD) Cervical post-laminectomy syndrome Personal history of nicotine dependence Post-menopausal (~2018) Tubular adenoma of colon (~2017) Hypertension, essential Abnormal bowel movement Chronic neck and back pain Vitamin D deficiency Cyst of right ovary Elevated dehydroepiandrosterone sulfate level (~2019) Surgical History History of basal cell carcinoma (BCC) excision History of left knee surgery History of right knee surgery History of foot surgery History of History of colonoscopy History of fusion of cervical spine Family History Father Mesothelioma Mother Breast cancer Colon cancer Other Mental health disorder Substance use disorder Social History Housing: House Are you a primary healthcare administration intern to a significant other at home: No Do you presently have visiting nurse or other home services: No Alcohol intake: current Alcohol intake frequency: a few times a month Patient Tobacco Use Status: Former Tobacco user Tobacco use type: Cigarette Cigarette Packs Per Day: 0.5 Cigarettes Per Day: 10.0 Years Smoked: 37 e-Cigarette/Vaping Use: Never Used Current occupational status: employed 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 The patient was placed in the prone position. The lumbosacral area was widely prepped with chloraprep and draped in sterile fashion. Fluoroscopic guidance was used to identify the desired interlaminar space and for needle placement. Subcutaneous 0.5% lidocaine was used to anesthetize the skin overlying the target. A 20-gauge Euceda needle was advanced to the epidural space using loss of resistance to contrast technique under fluoroscopic AP and contralateral oblique views. There was no evidence of heme or CSF and no paresthesias were elicited with needle placement. Confirmation of epidural needle placement was performed with 1cc of omnipaque 180. Next 3 ml 0.5% lidocaine mixed with 80 mg triamcinilone was administered epidurally with no pain elicited on injection. The needle tract tubing was then cleared with 1 ml of 0.5% lidocaine. The needle was removed, skin cleansed and a sterile bandage was applied. The patient tolerated the procedure well and no complications were encountered. Following the procedure the patient's vital signs were stable. The patient was discharged home in good condition with post-procedural instructions. Time Out: Immediately prior to the procedure, the following was verbally confirmed that there is a signed consent form and that the correct patient, planned procedure, site and side are consistent with documentation and that necessary equipment and/or blood products are available prior to the start of the case. Complications: none EBL: <2 cc Coding 80990 - Caudal/Lumbar Epidural/Interlaminar with fluoroscopy Procedure code (CPT) selection complete Assessment & Plan Assessment & Plan (1) Lumbar radiculitis: Code(s): M54.16 - Radiculopathy, lumbar region Category: Medical Plan Patient is status post left parasagittal interlaminar L5-S1 EVELYN. Patient tolerated procedure well and was discharged home in stable condition with discharge instructions. All questions were answered. We will follow-up via telephone or in clinic to assess response to therapy. A follow-up appointment was made during today's visit. Orders: Orders FL guidance in treatment room Today M54.16 - Radiculopathy, lumbar region Coding Level of Care Code Procedure Only Diagnoses Lumbar radiculitis M54.16 CPT Codes Coding - Joint 11: 99013 - Caudal/Lumbar Epidural/Interlaminar with fluoroscopy ([id number])
[2023-10-13 11:50] VITALS: BP 140/76; BP 145/81; PULSE 78; PULSE 84; RESP 16; O2SAT 98; BMI 38.0
== END 2023-10-13 11:59 | disposition home or self-care (01) ==
LOC: HO.PMCPRC 10:39
PROVIDERS: PCP Nurse Practitioner Family; Visit Provider Internal Medicine
DX: M54.16 Radiculopathy, lumbar region (principal)
CPT/HCPCS: 62323

== ENCOUNTER 2023-11-11 09:16 | Outpatient (AMB) | payer BC, SELFPAY ==
--- NOTE | 2023-11-11 09:16 | A.OFFVIS_ITS ---
Intake Visit Reasons: s/p Left L5-S1 interlaminar EVELYN Allergies Iodinated Contrast Media [CONTRAST, IV] Allergy (Unknown, Verified 10/13/23 10:54) UNKNOWN morphine [Morphine] Allergy (Unknown, Verified 10/13/23 10:54) NAUSEA/RASH, rash, N/V, rash, N/V HPI HPI s/p Left L5-S1 interlaminar EVELYN: Details: 58-year-old female who presents today via tele visit for status post left L5-S1 interlaminar epidural steroid injection. The patient reports no particular relief following the procedure. She still has some soreness in her lower back region. She states that her pain radiates down to her left foot. She describes her pain as frustrating and limits her functionality. She has difficulty walking any distance and experiences pain in the bottom of the foot. She also reports neck pain that is constant in nature. She takes tramadol in the morning that lasts for five hours. She also takes Tylenol. She lays down on the ice for some relief. Past procedures 10/13/23: Interlaminar epidural steroid injection, L5-S1, LEFT parasaggital: No relief. 08/25/23: Intrathecal drug delivery trial L-2/3: >50% relief. 05/26/23: Cervical Medial Branch Nerve Stimulation Lead Placement, SPR (Sprint) System, Left C6: mild ongoing relief. 05/18/23: Trigger point injection: 50% relief. 01/14/23: Trigger Point Multi injection: 50% relief. 10/06/22: Interlaminar epidural steroid injection, L5/S1, Left parasaggital: >90% relief. 08/27/22: Trigger point injections: 50% relief. 08/05/21: L5/S1 interlaminar EVELYN left parasaggital: 75% relief. 06/17/21: Left SIJ Injection ? 50% relief for 6 days only. [facility] Medical History (Updated 11/15/23 @ 14:13 by Alex Nunez MD) Cervical post-laminectomy syndrome Personal history of nicotine dependence Post-menopausal (~2017) Tubular adenoma of colon (~2017) Hypertension, essential Abnormal bowel movement Chronic neck and back pain Vitamin D deficiency Cyst of right ovary Elevated dehydroepiandrosterone sulfate level (~2019) Surgical History History of basal cell carcinoma (BCC) excision History of left knee surgery History of right knee surgery History of foot surgery History of History of colonoscopy History of fusion of cervical spine Family History Father Mesothelioma Mother Breast cancer Colon cancer Other Mental health disorder Substance use disorder Social History Housing: House Are you a primary healthcare prof to a significant other at home: No Do you presently have visiting nurse or other home services: No Alcohol intake: current Alcohol intake frequency: a few times a month Patient Tobacco Use Status: Former Tobacco user Tobacco use type: Cigarette Cigarette Packs Per Day: 0.5 Cigarettes Per Day: 10.0 Years Smoked: 37 e-Cigarette/Vaping Use: Never Used Current occupational status: employed 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: No Hearing needs: No Vision needs: Yes Review of Systems Const All systems reviewed & are unremarkable except as noted in HPI and below Telehealth Telehealth Telehealth [facility] Location of provider rendering services: practice address Location of patient: address on file Patient Identification confirmed using: Name, : Yes Telehealth method: video Patient verbally consented to treatment: Yes Patient verbally consented to billing insurance company: Yes Patient informed of any privacy concerns related to visit: Yes Minutes spent on Phone/Video with Pt.: 12 Results Reviewed Results Reviewed: No imaging is available for review. Assessment & Plan Assessment & Plan (1) Lumbar radiculitis: Code(s): M54.16 - Radiculopathy, lumbar region Category: Medical (2) Intractable pain: Comment: Back and neck Code(s): R52 - Pain, unspecified Category: Medical Plan Discussed transforaminal epidural steroid injection and temporary peripheral nerve stimulator as possible treatment options for lumbar radicular an aggregate low back pain symptoms, respectively. We will schedule her for left L5 transforaminal epidural steroid injection for her lumbar radicular pain that did not respond to the interlaminar L5-S1 epidur al steroid injection. For her axial low back pain, we will consider a trial of lumbar medial branch nerve stimulation in the future. Discussed the risks and benefits of the procedure with the patient in detail. All questions were answered. The patient is on board with the plan. She also has minor modic changes in her lumbar spine that may also be a source of for axial low back pain. We can consider other interventions if temporary PNS is not helpful. She is continuing to appeal the denial for her intrathecal pain pump. Continue tramadol 50 mg B.I.D. for the pain relief. She will follow up next week on the nurse schedule for the opioid paperwork and urine test. Justification for interventional therapy: ? Patient with average pain > 6/10 ? Patient has exhausted conservative therapy ? Patient unable to tolerate physical therapy due to pain. . Patient has a good understanding of their pain condition and has appropriate mental and social support Scribed for Dr. Nunez by Akhil Leahy, medical record librarian, on 11/11/2023. I, Dr. Nunez, have personally reviewed and agree with the information entered by the scribe. Coding Level of Care Code Tele Est Pt Level 4 (34173) Diagnoses Lumbar radiculitis M54.16 Intractable pain R52
== END 2023-11-11 09:17 | disposition home or self-care (01) ==
LOC: HO.PMC 09:16
PROVIDERS: PCP Nurse Practitioner Family; Visit Provider Internal Medicine
DX: M54.16 Radiculopathy, lumbar region (principal)
CPT/HCPCS: 99214

== ENCOUNTER → 2023-11-11 09:16 | Outpatient (BNVA) | payer BC, SELFPAY | PROVIDERS: PCP Nurse Practitioner Family; Visit Provider Internal Medicine ==

== ENCOUNTER 2023-11-17 08:01 | Outpatient (REF) | payer BC, SELFPAY | END 2023-11-17 08:02 | disposition home or self-care (01) | LOC: CF 08:01 | PROVIDERS: Visit Provider Internal Medicine | DX: M54.16 Radiculopathy, lumbar region (principal) | CPT/HCPCS: 64483; J1100; Q9967 ==

== ENCOUNTER 2023-11-17 10:48 | Outpatient (AMB) | payer BC, SELFPAY ==
--- NOTE | 2023-11-17 11:00 | A.OFFVIS_ITS ---
Vital Signs 11/17/23 11:45 11/17/23 11:45 BP 136/76 146/80 H Blood Pressure Location Lt brachial Lt brachial Position Sitting Sitting Respiration 16 16 Pulse 103 H 88 Pulse Source Pulse Oximeter Pulse Oximeter Pulse Oximetry (%) 97 98 Oxygen Delivery Method Room Air Room Air Comment pre-op post-op Intake Visit Reasons: Left L5 TFESI Allergies Iodinated Contrast Media [CONTRAST, IV] Allergy (Unknown, Verified 11/17/23 11:46) UNKNOWN morphine [Morphine] Allergy (Unknown, Verified 11/17/23 11:46) NAUSEA/RASH, rash, N/V, rash, N/V HPI HPI Left L5 TFESI: Details: Patient presents for scheduled procedure. Denies any recent cough, cold, infection, fever or other significant changes in medical history since last office visit. [facility] Medical History (Updated 11/15/23 @ 14:13 by Alex Nunez MD) Cervical post-laminectomy syndrome Personal history of nicotine dependence Post-menopausal (~2018) Tubular adenoma of colon (~2016) Hypertension, essential Abnormal bowel movement Chronic neck and back pain Vitamin D deficiency Cyst of right ovary Elevated dehydroepiandrosterone sulfate level (~2019) Surgical History History of basal cell carcinoma (BCC) excision History of left knee surgery History of right knee surgery History of foot surgery History of History of colonoscopy History of fusion of cervical spine Family History Father Mesothelioma Mother Breast cancer Colon cancer Other Mental health disorder Substance use disorder Social History Housing: House Are you a primary urgent care nurse practitioner to a significant other at home: No Do you presently have visiting nurse or other home services: No Alcohol intake: current Alcohol intake frequency: a few times a month Patient Tobacco Use Status: Former Tobacco user Tobacco use type: Cigarette Cigarette Packs Per Day: 0.5 Cigarettes Per Day: 10.0 Years Smoked: 37 e-Cigarette/Vaping Use: Never Used Current occupational status: employed 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 The patient was placed in the prone position on the fluoroscopy table. The lumbosacral area was prepped with chloraprep, allowed to dry and draped in ster ile fashion. Using fluoroscopy, the skin overlying our target was anesthetized with 0.5% lidocaine. A 22 gauge 3.5 inch spinal needle was advanced to the safe triangle in the upper pole of the left L5 foramen. No paresthesias were elicited with needle placement and aspiration was negative for blood and CSF. Correct needle position was confirmed with approximately 1 ml contrast dye (Omnipaque 180 mg/ml) injected under real-time fluoroscopy. No evidence of vascular or intrathecal uptake was seen and there was both epidural and peripheral spread of the contrast agent. 10 mg dexamethasone plus 1 ml containing 0.5% lidocaine was slowly injected. The needle was flushed and removed. the same procedure was repeated for the remaining levels. The skin was cleansed and a sterile bandages were applied. The patient tolerated the procedure well and no complications were encountered. Following the procedure the patient's vital signs were stable. The patient was discharged home in good condition with post-procedural instructions. Time Out: Immediately prior to the procedure, the following was verbally confirmed that there is a signed consent form and that the correct patient, planned procedure, site and side are consistent with documentation and that necessary equipment and/or blood products are available prior to the start of the case. Complications: none EBL: <5 cc 29855 - Lumbar/Sacral Procedure code (CPT) selection complete Assessment & Plan Assessment & Plan (1) Lumbar radiculitis: Code(s): M54.16 - Radiculopathy, lumbar region Category: Medical Plan Patient is status post left L5 TFESI. Patient tolerated procedure well and was discharged home in stable condition with discharge instructions. All questions were answered. We will follow-up via telephone or in clinic to assess response to therapy. A follow-up appointment was made during today's visit. Orders: Orders FL guidance in treatment room Today M54.16 - Radiculopathy, lumbar region Coding Level of Care Code Procedure Only Diagnoses Lumbar radiculitis M54.16 CPT Codes Transforaminal Epidural Steroid Inj - TESI 3: 41166 - Lumbar/Sacral ([id number])
[2023-11-17 11:45] VITALS: BP 136/76; BP 146/80; PULSE 103; PULSE 88; RESP 16; O2SAT 97; O2SAT 98
== END 2023-11-17 11:42 | disposition home or self-care (01) ==
LOC: HO.PMCPRC 10:48
PROVIDERS: PCP Nurse Practitioner Family; Visit Provider Internal Medicine
DX: M54.16 Radiculopathy, lumbar region (principal)
CPT/HCPCS: 64483

== ENCOUNTER → 2023-12-06 08:28 | Outpatient (BNVA) | payer BC, SELFPAY | PROVIDERS: PCP Nurse Practitioner Family; Visit Provider Nurse Practitioner Family ==

== ENCOUNTER 2023-12-19 08:57 | Outpatient (AMB) | payer BC, SELFPAY ==
--- NOTE | 2023-12-19 09:08 | MHC.OFFVIS ---
Vital Signs 12/19/23 09:09 Height 5 ft 8 in Weight 237 lb BMI 36.0 BP 158/74 H Blood Pressure Location Lt brachial Position Sitting Respiration 14 Pulse 88 Pulse Source Pulse Oximeter Pulse Oximetry (%) 97 Oxygen Delivery Method Room Air Intake Visit Reasons: s/p Left L5 TFESI/Pill Count Intake Note: Pt states she last took tramadol 12/19/23 @ 8am Allergies Iodinated Contrast Media [CONTRAST, IV] Allergy (Unknown, Verified 12/19/23 09:11) UNKNOWN morphine [Morphine] Allergy (Unknown, Verified 12/19/23 09:11) NAUSEA/RASH, rash, N/V, rash, N/V Medication List - Last Reconciled 12/19/23 by Yvonne Ybarra LPN acetaminophen 1,000 mg PO BID diclofenac sodium 75 mg PO BID duloxetine 40 mg PO BID gabapentin 600 mg PO TID lidocaine 5% (Lidoderm) 1 patch topical DAILY PRN lisinopril 10 mg PO ONCE 90 days methocarbamol 1,500 mg (2 x 750 mg) PO TID PRN naloxone 4 mg/actuation 4 mg intranasal Q2M PRN tramadol 50 mg PO BID PRN HPI HPI s/p Left L5 TFESI/Pill Count: Details: 58-year-old female who presents today to the office for status post left L5 transforaminal epidural steroid injection and pill count. 34 pills were expected, and?35 pills were presented. She still reports back pain. She is able to push the grocery cartel without pain. she also reports neck pain. She is compliant with Tramadol and noticed significant relief. She already has one refill pending for Tramadol. She states that her PA was denied by the insurance company. She inquired about the MILD procedure for her back pain. Her last MRI scan was about three years ago at [facility]. Past procedures 11/17/23: Transforaminal epidural steroid injection, Left L5: 50% relief. 10/13/23: Interlaminar epidural steroid injection, L5-S1, LEFT parasaggital: No relief. 08/25/23: Intrathecal drug delivery trial L-2/3: >50% relief. 05/26/23: Cervical Medial Branch Nerve Stimulation Lead Placement, SPR (Sprint) System, Left C6: mild ongoing relief. 05/18/23: Trigger point injection: 50% relief. 01/14/23: Trigger Point Multi injection: 50% relief. 10/06/22: Interlaminar epidural steroid injection, L5/S1, Left parasaggital: >90% relief. 08/27/22: Trigger point injections: 50% relief. 08/05/21: L5/S1 interlaminar EVELYN left parasaggital: 75% relief. 06/17/21: Left SIJ Injection ? 50% relief for 6 days only. [facility] Medical History (Updated 11/15/23 @ 14:13 by Alex Nunez MD) Cervical post-laminectomy syndrome Personal history of nicotine dependence Post-menopausal (~2018) Tubular adenoma of colon (~2016) Hypertension, essential Abnormal bowel movement Chronic neck and back pain Vitamin D deficiency Cyst of right ovary Elevated dehydroepiandrosterone sulfate level (~2018) Surgical History History of basal cell carcinoma (BCC) excision History of left knee surgery History of right knee surgery History of foot surgery History of History of colonoscopy History of fusion of cervical spine Family History Father Mesothelioma Mother Breast cancer Colon cancer Other Mental health disorder Substance use disorder Social History Housing: House Are you a primary healthcare management to a significant other at home: No Do you presently have visiting nurse or other home services: No Alcohol intake: current Alcohol intake frequency: a few times a month Patient Tobacco Use Status: Former Tobacco user Tobacco use type: Cigarette Cigarette Packs Per Day: 0.5 Cigarettes Per Day: 10.0 Years Smoked: 37 e-Cigarette/Vaping Use: Never Used Current occupational status: employed 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 Alert and oriented. Mood and affect appropriate. Follows and participates in conversation appropriately. Respiratory effort is unlabored. Able to transition from sit to stand unassisted. Ambulates with bilaterally normal heel strike and toe off. Results Reviewed Results Reviewed: No imaging is available for review. Assessment & Plan Assessment & Plan (1) Lumbar radiculitis: Code(s): M54.16 - Radiculopathy, lumbar region Category: Medical Plan 34 pills were expected, and?35 pills were presented. She already has one refill pending for Tramadol. Patient will follow up in one week of January for pill count and refill. Her lower extremity symptoms have significantly improved with the injection, but still bothersome, I will order an MRI scan of the lumbar spine for further evaluation of the lumbar radiculopathy symptoms. Scribed for Dr. Nunez by Akhil Leahy, medical transcription editor, on 12/19/2023. I, Dr. Nunez, have personally reviewed and agree with the information entered by the scribe. Orders: Orders MR lumbar spine wo con 12/19/23 M54.16 - Radiculopathy, lumbar region Coding Level of Care Code Est Pt Level 3 (45108) Diagnoses Lumbar radiculitis M54.16
[2023-12-19 09:09] VITALS: BP 158/74; PULSE 88; RESP 14; O2SAT 97; BMI 36.0
== END 2023-12-19 09:44 | disposition home or self-care (01) ==
PROVIDERS: PCP Nurse Practitioner Family; Visit Provider Internal Medicine
DX: M54.16 Radiculopathy, lumbar region (principal)
CPT/HCPCS: 99213

== ENCOUNTER → 2023-12-19 08:57 | Outpatient (BNVA) | payer BC, SELFPAY | PROVIDERS: PCP Nurse Practitioner Family; Visit Provider Internal Medicine ==

== ENCOUNTER 2024-01-08 11:08 | Outpatient (REF) | payer BC, SELFPAY ==
--- NOTE | ~2024-01-08 | MR_ITS ---
EXAMINATION: MR LUMBAR SPINE WITHOUT CONTRAST CLINICAL INFORMATION: Radiculopathy. COMPARISON: MRI lumbar spine dated September 18, 2020. TECHNIQUE: MRI of the lumbar spine was obtained using routine sequences without contrast. FINDINGS: Lumbar spinal alignment is anatomic in the sagittal projection. The vertebral bodies demonstrate preserved stature. Bone marrow signal intensity is within normal limits. There is partial desiccation of the L3-4, L4-5, and L5-S1 intervertebral discs. There is minimal narrowing of the L3-4 and L4-5 intervertebral discs. The visualized spinal cord, conus medullaris, and cauda equina nerve roots appear normal. The conus medullaris terminates at T12-L1. The paraspinal soft tissue is normal in appearance. Visualized retroperitoneal structures are unremarkable. Evaluation of the individual disc space levels is as follows: T12-L1: No disc herniation, spinal canal or foraminal stenosis. L1-2: No disc herniation, spinal canal or foraminal stenosis. L2-3: There is a shallow left subarticular/foraminal disc protrusion which abuts the exiting left L2 nerve root in the extraforaminal space. There is mild left-sided neural foraminal stenosis. The spinal canal and right neural foramen are widely patent. Findings are similar to prior study. L3-4: There is a shallow circumferential disc bulge and bilateral facet arthropathy. There is no spinal canal stenosis. No foraminal stenosis. L4-5: There is a shallow circumferential disc bulge. There is bilateral facet arthropathy. No spinal canal or foraminal stenosis. L5-S1: There is a shallow circumferential disc bulge and facet arthropathy. No spinal canal or foraminal stenosis. MR/MR lumbar spine wo con IMPRESSION: At L2-3 there is a shallow left subarticular/foraminal disc protrusion which abuts the exiting left L2 nerve root in the extraforaminal space. There is mild left-sided neural foraminal stenosis. The spinal canal and right neural foramen are widely patent. Findings are similar to prior study. At L3-4 there is a shallow circumferential disc bulge and bilateral facet arthropathy. There is no spinal canal stenosis. No foraminal stenosis. At L4-5 there is a shallow circumferential disc bulge. There is bilateral facet arthropathy. No spinal canal or foraminal stenosis. At L5-S1 there is a shallow circumferential disc bulge and facet arthropathy. No spinal canal or foraminal stenosis. Electronically signed by: Johnny Kc DO 02/01/2024 10:18 AM [facility]
== END 2024-01-08 11:09 | disposition home or self-care (01) ==
LOC: HO.MRI 11:08
PROVIDERS: PCP Nurse Practitioner Family; Visit Provider Internal Medicine
DX: M54.16 Radiculopathy, lumbar region (principal)
CPT/HCPCS: 72148

== ENCOUNTER 2024-01-30 11:45 | Emergency (ER) | payer BC, SELFPAY ==
--- NOTE | ~2024-01-30 | XR_ITS ---
EXAMINATION: XR LUMBOSACRAL SPINE CLINICAL INFORMATION: Back pain. COMPARISON: Lumbar spine MRI dated 01/08/2024. TECHNIQUE: Three views of the lumbosacral spine. FINDINGS: The lumbar lordosis is maintained. No acute fracture or subluxation. No loss of vertebral body height. Mild multilevel loss of intervertebral disc height with small endplate osteophytes. No concerning lytic or blastic osseous lesion. Lower lumbar spine facet arthropathy. No abnormal soft tissue calcification. XR/XR lumbar spine 2-3V IMPRESSION: Mild multilevel degenerative disc disease with lower lumbar spine facet arthropathy. Electronically signed by: Tam Blunt MD 01/30/2024 04:01 PM CHARAN QUIÑONES
[2024-01-30 12:11] VITALS: BP 129/93; PULSE 102; RESP 20; TEMP 36.2; O2SAT 100; BMI 36.2
--- NOTE | 2024-01-30 12:14 | ED.GENADULT ---
HPI - General Adult General Chief complaint: Back Pain/Injury Stated complaint: back pain Time Seen by Provider: 01/30/24 13:46 History of Present Illness ED Provider: Dr. Emanuel HPI narrative: 58 y/o F patient; PMH cervical laminectomy, HTN, anxiety/depression, chronic lower back pain followed with pain management; presents from home reporting increased lumbar back pain. The patient states she recently has been more active around the house. She states the pain makes it difficult for her to ambulate and sit down comfortably. The patient had an out-patient MRI completed on 01/08/2024 in association with pain management. She denies: urinary incontinence, stool incontinence, peritoneal numbness, numbness/weakness/tingling of her arms or legs, fever. Related Data Home Medications ?Medication ?Instructions ?Recorded ?Confirmed lidocaine 5 % topical patch 1 patch topical DAILY PRN 09/29/21 12/19/23 (Lidoderm) acetaminophen 500 mg capsule 1,000 mg PO BID 05/18/23 12/19/23 duloxetine 60 mg capsule,delayed 40 mg PO BID 12/19/23 12/19/23 release Previous Rx's ?Medication ?Instructions ?Recorded lisinopril 10 mg tablet 10 mg PO ONCE 90 days #90 tabs 01/20/22 diclofenac sodium 75 mg 75 mg PO BID #60 tabs 07/22/23 tablet,delayed release methocarbamol 750 mg tablet 1,500 mg (2 x 750 mg) PO TID PRN 07/22/23 muscle spasm #120 tabs naloxone 4 mg/actuation nasal spray 4 mg intranasal Q2M PRN opioid 08/25/23 overdose #2 ea gabapentin 600 mg tablet 600 mg PO TID #60 tabs 09/26/23 tramadol 50 mg tablet 50 mg PO BID PRN pain #60 tabs 12/06/23 cyclobenzaprine 10 mg tablet 10 mg PO TID 3 days #9 tabs 01/30/24 Allergies Allergy/AdvReac Type Severity Reaction Status Date / Time Iodinated Contrast Media Allergy Unknown UNKNOWN Verified 01/30/24 12:13 [CONTRAST, IV] morphine [Morphine] Allergy Unknown NAUSEA/RASH, Verified 01/30/24 12:13 rash, N/V, rash, N/V Review of Systems Review of Systems: Yes all other systems are reviewed and are negative Neurologic: Denies Sensory deficit (Neuro) PMFSH Past Medical History Attestation statement: The following information was validated with the patient. Medical History Cervical post-laminectomy syndrome Personal history of nicotine dependence Post-menopausal (~2018) Tubular adenoma of colon (~2017) Hypertension, essential Abnormal bowel movement Chronic neck and back pain Vitamin D deficiency Cyst of right ovary Elevated dehydroepiandrosterone sulfate level (~2019) Surgical History History of basal cell carcinoma (BCC) excision History of left knee surgery History of right knee surgery History of foot surgery History of History of colonoscopy History of fusion of cervical spine Family History Family History Father Mesothelioma Mother Breast cancer Colon cancer Other Mental health disorder Substance use disorder Social History Social History Housing: House Are you a primary technical healthcare consultant to a significant other at home: No Do you presently have visiting nurse or other home services: No Alcohol intake: current Alcohol intake frequency: a few times a month Patient Tobacco Use Status: Former Tobacco user Tobacco use type: Cigarette Cigarette Packs Per Day: 0.5 Cigarettes Per Day: 10.0 Years Smoked: 37 Smoked in Last 30 Days: No e-Cigarette/Vaping Use: Never Used Use of substances other than those prescribed or required for medical reasons: No Advance Directives: No Advance Directives Information Provided: Yes Patient : No Current occupational status: employed 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: No Hearing needs: No Vision needs: Yes Physical Exam ED Vital Signs: Vital Signs - 24 hr 01/30/24 12:11 01/30/24 15:30 01/30/24 17:39 Temperature 97.1 F 97.8 F 97.8 F Pulse Rate 102 H 84 84 Respiratory Rate 20 18 18 Blood Pressure 129/93 H 115/66 115/66 Pulse Oximetry 100 99 99 Oxygen Delivery Method Room Air Room Air Room Air BMI result Body Mass Index 36.2 Patient is afebrile and hemodynamically stable Const General: cooperative Orientation/consciousness: patient oriented x3 HENMT Head: Yes normal to inspection and Yes atraumatic Eyes General: appearance normal, both eyes and all related structures Pupils: Equal, round and reactive pupils present EOM: EOMs intact bilaterally Neck Neck: Yes normal visual inspection, Yes supple and No tender Chest Chest palpation & inspection: normal inspection of the chest and normal palpation of entire chest wall Resp Effort & Inspection: normal respiratory effort, able to speak in complete sentences, no cough and no respiratory distress Auscultation: clear to auscultation bilaterally Cardio Rate: regular rate Rhythm: regular rhythm Peripheral pulses: Peripheral pulses 2+ throughout GI Inspection: Yes normal to inspection, No Abdominal wall edema and No distended Palpation (GI): Soft to palpation, not firm, nontender, no guarding and not rigid Neuro General: patient oriented x3 Cranial nerves: Yes Equal, round and reactive pupils present Motor exam (neuro): 5/5 motor strength present throughout Sensory Exam: No Sensory deficit (Neuro) Course Course Course Narrative: RME: 58-year-old female history of cauda equinus syndrome and was admitted at [facility] for 1 week in the past presents to ED for for 1 week of worsening back pain without any urinary/bowel incontinence. Patient states pain is worse on range of motion. Positive for lumbar spine tenderness on palpation. Reevaluation(s) Reevaluation #1: Patient is afebrile and hemodynamically stable. Will obtain basic labs and EKG. Able to review MRI in patient's chart - will request radiology review. Labs reviewed. No leukocytosis. No significant ESR or CRP elevation. Will treat pain with Tylenol, Cyclobenzaprine, Toradol, and Lidoderm patch. Reevaluation #2: Patient re-evaluated multiple times. Despite requests, unable to obtain MRI radiology reading. The patient does NOT have red flag signs/symptoms such as: fever, incontinence, urinary retention, focal neurological deficit. Patient requests to be discharged to home as she has a ride available to her. Will rx 3 day course of flexeril, patient has follow up with pain management scheduled for Tuesday02/01/2024. Plan: Discharge to home Condition: Stable Medications Administered Discontinued Medications Generic Name Dose Route Start Last Admin Trade Name Freq PRN Reason Stop Dose Admin Acetaminophen 975 mg 01/30/24 15:44 01/30/24 15:54 Acetaminophen 325 Mg Tablet PO 01/30/24 15:45 975 mg ONCE ONE Administration Cyclobenzaprine HCl 10 mg 01/30/24 15:44 01/30/24 15:56 Cyclobenzaprine Hcl 10 Mg Tablet PO 01/30/24 15:45 10 mg ONCE ONE Administration Ketorolac Tromethamine 30 mg 01/30/24 15:44 01/30/24 15:56 Ketorolac Tromethamine 30 Mg/Ml Vial IM 01/30/24 15:45 30 mg ONCE ONE Administration Lidocaine 1 patch 01/30/24 15:44 01/30/24 15:57 Lidocaine 4 % Patch Adh..Patch TRANSDERMA 01/30/24 15:45 Not Given ONCE ONE Protocol Medical Decision Making Lab Data 01/30/24 12:49 01/30/24 12:49 Labs: Lab Results 01/30/24 01/30/24 Range/Units 12:49 14:03 WBC 7.9 (4.8-10.8) X10*3/uL RBC 4.90 (4.20-5.50) X10*6/uL Hgb 14.6 (12.0-16.0) g/dl Hct 45.0 (37.0-47.0) % MCV 91.8 (80.0-98.0) fL MCH 29.8 (27.0-33.0) pg MCHC 32.4 (31.0-35.0) g/dl RDW 13.0 (11.0-16.0) % Plt Count 308 (160-400) X10*3/uL MPV 9.0 L (9.4-12.3) fL Immature Gran % (Auto) 0.3 (0.0-0.4) % Neut % (Auto) 57.9 (45-73) % Lymph % (Auto) 34.1 (20-40) % [place] % (Auto) 6.2 (2-11) % Eos % (Auto) 0.9 (0-4) % Baso % (Auto) 0.6 (0-2) % Lymph # (Auto) 2.7 (1.2-4.9) X10*3/uL [place] # (Auto) 0.5 (0.1-1.2) X10*3/uL Eos # (Auto) 0.1 (0.0-0.4) X10*3/uL Baso # (Auto) 0.1 (0.0-0.2) X10*3/uL Abs Immat Gran (auto) 0.02 (0.00-0.03) X10*3/uL Absolute Neuts (auto) 4.6 (2.0-8.3) x10*3/uL Absolute Nucleated RBC 0.000 (0.0-0.012) X10*3/uL Nucleated RBC % (auto) 0.0 (0.0-0.2) /100WBC ESR 6 (0-20) MM/HR Sodium 137 (135-145) mmol/L Potassium 4.1 (3.3-5.1) mmol/L Chloride 102 (96-108) mmol/L Carbon Dioxide 26 (22-29) mmol/L Anion Gap 13 (12-20) BUN 18 H (9-16) mg/dL Creatinine 0.87 (0.5-1.4) mg/dL Estim Creat Clear Calc 92.9 Estimated GFR > 60 Random Glucose 99 (60-115) mg/dL Calcium 10.5 H (8.4-10.2) mg/dL Total Bilirubin 0.3 (0.0-1.0) mg/dL AST 17 (5-31) U/L ALT 25 (0-31) U/L Alkaline Phosphatase 85 (39-117) U/L C-Reactive Protein 0.72 H (< or = 0.50) mg/dL Total Protein 7.7 (6.5-8.0) g/dL Albumin 4.5 (3.5-5.0) g/dL Urine Color Yellow Urine Appearance Clear Urine pH 6.0 (5.0-9.0) Ur Specific [place] 1.015 (1.005-1.025) Urine Protein Negative (Neg-Trace) mg/dL Urine Glucose (UA) Negative (Negative) mg/dL Urine Ketones Negative (Negative) mg/dL Urine Blood Negative (Negative) Urine Nitrite Negative (Negative) Ur Leukocyte Esterase Negative (Negative) Independent Interpretation I performed an independent interpretation of an: EKG Interpretation: NSR 78BPM without ischemic changes Radiology Impression Discussion of test interpretation with radiology: I have reviewed the radiologist's reading. Radiologist Impression: EXAMINATION: XR LUMBOSACRAL SPINE CLINICAL INFORMATION: Back pain. COMPARISON: Lumbar spine MRI dated 01/08/2024. TECHNIQUE: Three views of the lumbosacral spine. FINDINGS: The lumbar lordosis is maintained. No acute fracture or subluxation. No loss of vertebral body height. Mild multilevel loss of intervertebral disc height with small endplate osteophytes. No concerning lytic or blastic osseous lesion. Lower lumbar spine facet arthropathy. No abnormal soft tissue calcification. XR/XR lumbar spine 2-3V IMPRESSION: Mild multilevel degenerative disc disease with lower lumbar spine facet arthropathy. Electronically signed by: Tam Blunt MD 01/30/2024 04:01 PM [facility] Discharge Plan Discharge Clinical Impression: Lower back pain Patient Disposition: Home, Self-Care Instructions: Back Pain (ED) Additional Instructions: As we discussed, you were seen today for lower back pain. Your pain was treated with flexeril, tylenol, toradol, and a lidoderm patch. A course of 3 days (up to 3 times a day) of flexeril was sent to your pharmacy. Be careful taking this with tramadol as it can cause excessive sleepiness. Please follow up with the painter barrel on Tuesday as you have planned. Return to the emergency department for: Fever Worsening pain Difficulty peeing or loss of control of your urine Prescriptions: New cyclobenzaprine 10 mg tablet 10 mg PO TID 3 Days Qty: 9 0RF No Action tramadol 50 mg tablet 50 mg PO BID PRN (Reason: pain) Qty: 60 1RF duloxetine 60 mg capsule,delayed release(DR/EC) 40 mg PO BID lisinopril 10 mg tablet 10 mg PO ONCE 90 Days Qty: 90 0RF lidocaine [Lidoderm] 5 % adhesive patch,medicated 1 patch topical DAILY PRN Rx Instructions: leave on most painful area for up to 12 hrs acetaminophen 500 mg capsule 1,000 mg PO BID gabapentin 600 mg tablet 600 mg PO TID Qty: 60 0RF diclofenac sodium 75 mg tablet,delayed release (DR/EC) 75 mg PO BID Qty: 60 5RF methocarbamol 750 mg tablet 1,500 mg PO TID PRN (Reason: muscle spasm) Qty: 120 2RF naloxone 4 mg/actuation spray,non-aerosol 4 mg intranasal Q2M PRN (Reason: opioid overdose) Qty: 2 0RF Rx Instructions: spray 1 dose into ONE nostril; alternate nostrils w each dose until help arrives Interventions: ED Discharge Assessment Last Done: 01/30/24 17:39 Discharge Date/Time: 01/30/24 17:46 Print Language: Greek
[2024-01-30 12:52] LABS: MANUAL DIFF FLAG NO
[2024-01-30 12:54] LABS: Basophils Absolute Auto 0.1 X10*3/uL (0.0-0.2); Basophils Percent Auto 0.6 % (0-2); Eosinophils Absolute Auto 0.1 X10*3/uL (0.0-0.4); Eosinophils Percent Auto 0.9 % (0-4); Hemoglobin 14.6 g/dl (12.0-16.0); Imm Gran Abs Auto 0.02 X10*3/uL (0.00-0.03); Imm Gran Pct Auto 0.3 % (0.0-0.4); Lymphocytes Absolute Auto 2.7 X10*3/uL (1.2-4.9); Lymphocytes Percent Auto 34.1 % (20-40); Mean Corpuscular HGB Conc 32.4 g/dl (31.0-35.0); Mean Corpuscular Hemoglobin 29.8 pg (27.0-33.0); Mean Corpuscular Volume 91.8 fL (80.0-98.0); Monocytes Absolute Auto 0.5 X10*3/uL (0.1-1.2); Monocytes Percent Auto 6.2 % (2-11); Neutrophils Absolute Auto 4.6 x10*3/uL (2.0-8.3); Neutrophils Percent Auto 57.9 % (45-73); Platelet Count 308 X10*3/uL (160-400); White Blood Count 7.9 X10*3/uL (4.8-10.8)
[2024-01-30 13:17] LABS: Alanine Aminotransferase 25 U/L (0-31); Albumin Level 4.5 g/dL (3.5-5.0); Alkaline Phosphatase 85 U/L (39-117); Anion Gap 13 (12-20); Aspartate Amino Transferase 17 U/L (5-31); Bilirubin Total 0.3 mg/dL (0.0-1.0); Blood Urea Nitrogen 18 mg/dL (9-16); C Reactive Protein 0.72 mg/dL (< or = 0.50); Calcium 10.5 mg/dL (8.4-10.2); Carbon Dioxide 26 mmol/L (22-29); Chloride 102 mmol/L (96-108); Creatinine Clr Calc Pharmacy 92.9; Estimated Glomerular Filt Rate > 60; Glucose Random 99 mg/dL (60-115); Potassium 4.1 mmol/L (3.3-5.1); Sodium 137 mmol/L (135-145); Total Protein 7.7 g/dL (6.5-8.0)
[2024-01-30 13:35] LABS: Erythrocyte Sedimentation Rate 6 MM/HR (0-20)
--- NOTE | 2024-01-30 13:50 | PC.NURSE ---
patient ambulated to ED16 from triage with steady gait
--- NOTE | 2024-01-30 13:57 | PC.NURSE ---
patient from external triage with cc of lumbar pain. 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 patient with hx of cortisone injections to lumbar spine, last injection approximately 2 months ago, patient states the pain has been getting worse over the last 48 hours but has been ongoing for the last 4 weeks, had an MRI a few weeks ago due to the pain coming back and has yet to get results from it. patient states she has a hx of cervical fusion to T2-6, also has a hx of cauda equina and sciatica on the left side. patient able to ambulate to room, however is most comfortable laying flat. CMS intact in BLE, states nerve pain is worse on the left side. patient denies any recent falls or injuries. states she took a tramadol at approximately 1pm while in waiting room.
[2024-01-30 14:27] LABS: Appearance Urine Clear; Color Urine Yellow; Glucose Urine UA Negative (Negative); Leukocyte Esterase Urine Negative (Negative); Nitrite Urine Negative (Negative); Specific Gravity - Urine 1.015 (1.005-1.025); Urine Blood Negative (Negative); Urine Ketones Negative (Negative); Urine Protein Negative (Neg-Trace)
[2024-01-30 15:30] VITALS: BP 115/66; PULSE 84; RESP 18; TEMP 36.6; O2SAT 99
[2024-01-30] MEDS: Acetaminophen 325 MG TABLET 975 MG PO (15:54)
[2024-01-30] MEDS: Ketorolac Tromethamine 30 MG/ML VIAL IM (15:56)
[2024-01-30] MEDS: Cyclobenzaprine HCl 10 MG TABLET PO (15:56)
[2024-01-30 17:39] VITALS: BP 115/66; PULSE 84; RESP 18; TEMP 36.6; O2SAT 99
== END 2024-01-30 17:46 | disposition home or self-care (01) ==
PROVIDERS: Physician Assistant; Emergency Provider Emergency Medicine; PCP Nurse Practitioner Family
DX: M54.50 Low back pain, unspecified (principal); I10 Essential (primary) hypertension; Z79.899 Other long term (current) drug therapy
CPT/HCPCS: 36415; 72100; 80053; 81003; 85025; 85652; 86140; 96372; 99284; J1885

== ENCOUNTER 2024-02-01 09:32 | Outpatient (AMB) | payer BC, SELFPAY ==
[2024-02-01 09:35] VITALS: BP 129/72; PULSE 109; RESP 16; O2SAT 96; BMI 35.9
--- NOTE | 2024-02-01 09:35 | MHC.OFFVIS ---
Vital Signs 02/01/24 09:35 Height 5 ft 8 in Weight 236 lb BMI 35.9 BP 129/72 Blood Pressure Location Lt brachial Position Sitting Respiration 16 Pulse 109 H Pulse Source Pulse Oximeter Pulse Oximetry (%) 96 Oxygen Delivery Method Room Air Intake Visit Reasons: Pill Count Allergies Iodinated Contrast Media [CONTRAST, IV] Allergy (Unknown, Verified 01/30/24 12:13) UNKNOWN morphine [Morphine] Allergy (Unknown, Verified 01/30/24 12:13) NAUSEA/RASH, rash, N/V, rash, N/V HPI HPI Pill Count : Details: 58-year-old female who presents today to the office for pill count. 8 pills were expected, and 11 pills were presented. She reports she has been more active than usual including walking which is aggravating her pain. She reports her pain is worse on the left side that radiates down to the buttock region and to the foot. She reports she has constant pain in the legs. She reports worsening pain with leaning forward; however, bending backward does not reproduce pain. She reports increased ROM lately and is able to do laundry on certain days. She was seen in the ER on 01/30/24 for 1 week of worsening lumbar back pain and was treated with Tylenol, Cyclobenzaprine, Toradol, and Lidoderm patch. She was given injection in the ER which helped. She is taking Flexeril but she has not taken this today as she is driving. She takes tramadol without any benefit. She recalls she was in a wheelchair a couple of times to navigate through [facility] due to the pain in the past. She takes ibuprofen 600 to 800 mg 3-4x a day which provides temporary relief. She had eczema with diclofenac gel. She has not tried Celebrex yet. She reports feeling frustrated as she has retired. She has been trying to eat healthier. She reports feeling stressed due to her ?s health condition. Past procedures 11/17/23: Transforaminal epidural steroid injection, Left L5: 50% relief. 10/13/23: Interlaminar epidural steroid injection, L5-S1, LEFT parasaggital: No relief. 08/25/23: Intrathecal drug delivery trial L-2/3: >50% relief. 05/26/23: Cervical Medial Branch Nerve Stimulation Lead Placement, SPR (Sprint) System, Left C6: mild ongoing relief. 05/18/23: Trigger point injection: 50% relief. 01/14/23: Trigger Point Multi injection: 50% relief. 10/06/22: Interlaminar epidural steroid injection, L5/S1, Left parasaggital: >90% relief. 08/27/22: Trigger point injections: 50% relief. 08/05/21: L5/S1 interlaminar EVELYN left parasaggital: 75% relief. 06/17/21: Left SIJ Injection ? 50% relief for 6 days only. [facility] Medical History Cervical post-laminectomy syndrome Personal history of nicotine dependence Post-menopausal (~2018) Tubular adenoma of colon (~2016) Hypertension, essential Abnormal bowel movement Chronic neck and back pain Vitamin D deficiency Cyst of right ovary Elevated dehydroepiandrosterone sulfate level (~2018) Surgical History History of basal cell carcinoma (BCC) excision History of left knee surgery History of right knee surgery History of foot surgery History of History of colonoscopy History of fusion of cervical spine Family History Father Mesothelioma Mother Breast cancer Colon cancer Other Mental health disorder Substance use disorder Social History Housing: House Are you a primary healthcare economics manager to a significant other at home: No Do you presently have visiting nurse or other home services: No Alcohol intake: current Alcohol intake frequency: a few times a month Patient Tobacco Use Status: Former Tobacco user Tobacco use type: Cigarette Cigarette Packs Per Day: 0.5 Cigarettes Per Day: 10.0 Years Smoked: 37 e-Cigarette/Vaping Use: Never Used Current occupational status: employed 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 Alert and oriented. Mood and affect appropriate. Follows and participates in conversation appropriately. Respiratory effort is unlabored. Able to transition from sit to stand unassisted. Ambulates with bilaterally normal heel strike and toe off. Forward flexion/anterior column loading reproduces pain especially as she bends more than 30 degrees forward. Lumbar extension does not reproduce pain. Pain does not radiate down the leg. Results Reviewed Results Reviewed: 01/30/24: XR LUMBOSACRAL SPINE FINDINGS: The lumbar lordosis is maintained. No acute fracture or subluxation. No loss of vertebral body height. Mild multilevel loss of intervertebral disc height with small endplate osteophytes. No concerning lytic or blastic osseous lesion. Lower lumbar spine facet arthropathy. No abnormal soft tissue calcification. IMPRESSION: Mild multilevel degenerative disc disease with lower lumbar spine facet arthropathy. Assessment & Plan Assessment & Plan (1) Vertebrogenic low back pain: Code(s): M54.51 - Vertebrogenic low back pain Category: Medical (2) Cervical post-laminectomy syndrome: Code(s): M96.1 - Postlaminectomy syndrome, not elsewhere classified Category: Medical Plan 8 pills were expected, and 11 pills were presented. Refill tramadol 50 mg BID. Pill count and Mass Pat was consistent. Patient will follow up in one month for pill count and refill. I reviewed an MRI scan result that showed intervertebral disc degeneration at L4-5 with associated endplate changes and modic changes at inferior L4 and superior L5 endplates. There are also modic changes at the superior L2 and L3 endplates associated with positive anterior column loading symptoms and pain with lumbar flexion. I believe the symptoms are secondary toward supersonic low back pain. She also does have some evidence of lumbar spondylosis, but her lumbar extension is negative for pain. I discussed the intracept procedure at L2, L3, L4, L5 vertebral levels based on the MRI scan findings and her physical exam findings. She does not have any findings that require surgical intervention. We will schedule her for BVN ablation at L2, L3, L4, L5 levels. Discussed the risks and benefits of the procedure with the patient in detail. All questions were answered. The patient is on board with the plan. I recommended swimming, stretching exercises, an inversion table, and core strengthening with a healthy diet. I prescribed celecoxib 200 mg PO BID for her muscle pains. Justification for interventional therapy: ? Patient with average pain > 6/10 ? Patient has exhausted conservative therapy including oral medication, neuropathic medications, opioids, and physical therapy. ? Patient unable to tolerate physical therapy due to pain . Patient has a good understanding of their pain condition and has appropriate mental and social support. Scribed for Dr. Nunez by Alice electromedical equipment technician, on 02/01/2024. I, Dr. Nunez, have personally reviewed and agree with the information entered by the scribe. Medications: New celecoxib 200 mg PO BID 60 caps 0RF Changed From tramadol 50 mg PO BID PRN 60 tabs 1RF pain To tramadol Fill date: 02/05/24 50 mg PO BID PRN 60 tabs 1RF pain Coding Level of Care Code Est Pt Level 4 (19107) Diagnoses Vertebrogenic low back pain M54.51 Cervical post-laminectomy syndrome M96.1
== END 2024-02-01 10:05 | disposition home or self-care (01) ==
LOC: HO.PMC 09:33
PROVIDERS: PCP Nurse Practitioner Family; Visit Provider Internal Medicine
DX: M54.51 Vertebrogenic low back pain (principal); M96.1 Postlaminectomy syndrome, not elsewhere classified
CPT/HCPCS: 99214

== ENCOUNTER → 2024-03-27 09:26 | Outpatient (BNVA) | payer BC, SELFPAY | PROVIDERS: PCP Nurse Practitioner Family; Visit Provider Internal Medicine ==

== ENCOUNTER 2024-03-30 10:05 | Outpatient (AMB) | payer BC, SELFPAY ==
--- NOTE | 2024-03-30 10:10 | A.OFFVIS_ITS ---
Vital Signs 03/30/24 10:12 Height 5 ft 8 in Weight 225 lb BMI 34.2 BP 138/70 Blood Pressure Location Rt brachial Position Sitting Pulse 100 Pulse Source Pulse Oximeter Pulse Oximetry (%) 96 Oxygen Delivery Method Room Air Intake Visit Reasons: follow up Allergies Iodinated Contrast Media [CONTRAST, IV] Allergy (Unknown, Verified 03/30/24 10:11) UNKNOWN morphine [Morphine] Allergy (Unknown, Verified 03/30/24 10:11) NAUSEA/RASH, rash, N/V, rash, N/V Medication List - Last Reconciled 03/30/24 by Shikha Carcamo, [employer] P[employer]ER acetaminophen 1,000 mg PO BID celecoxib 200 mg PO BID cyclobenzaprine 10 mg PO TID 3 days diclofenac sodium 75 mg PO BID duloxetine 40 mg PO BID gabapentin 600 mg PO TID lidocaine 5% (Lidoderm) 1 patch topical DAILY PRN lisinopril 10 mg PO ONCE 90 days methocarbamol 1,500 mg (2 x 750 mg) PO TID PRN naloxone 4 mg/actuation 4 mg intranasal Q2M PRN tirzepatide (weight loss) (Zepbound) mg subcut tramadol 50 mg PO BID PRN HPI HPI follow up: Details: 58-year-old female with multiple pain complaints presenting for follow-up. She continues to have low back pain. We had a peer to peer review with her insurance company and an escalation to a higher level of review was recommended. This is still in process. At this time, she reports increasing pain in her neck, especially on the right side. Now that her neck pain is starting to return she feels that the sprint therapy that was done on the left side has been very helpful and that side continues to be less painful. She is interested in repeating the temporary nerve stimulation therapy on the right side. She would like to prioritize that instead of the BVN ablation for her lower back at this time. She continues to take tramadol twice daily. She requests an increase in the tramadol. [facility] Medical History Cervical post-laminectomy syndrome Personal history of nicotine dependence Post-menopausal (~2018) Tubular adenoma of colon (~2017) Hypertension, essential Abnormal bowel movement Chronic neck and back pain Vitamin D deficiency Cyst of right ovary Elevated dehydroepiandrosterone sulfate level (~2019) Surgical History History of basal cell carcinoma (BCC) excision History of left knee surgery History of right knee surgery History of foot surgery History of History of colonoscopy History of fusion of cervical spine Family History Father Mesothelioma Mother Breast cancer Colon cancer Other Mental health disorder Substance use disorder Social History Housing: House Are you a primary sub acute care nurse to a significant other at home: No Do you presently have visiting nurse or other home services: No Alcohol intake: current Alcohol intake frequency: a few times a month Patient Tobacco Use Status: Former Tobacco user Tobacco use type: Cigarette Cigarette Packs Per Day: 0.5 Cigarettes Per Day: 10.0 Years Smoked: 37 e-Cigarette/Vaping Use: Never Used Current occupational status: employed 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 Alert and oriented. Mood and affect appropriate. Follows and participates in conversation appropriately. Respiratory effort is unlabored. Able to transition from sit to stand unassisted. Ambulates with bilaterally normal heel strike and toe off. Able to stand and walk on toes and heels. Assessment & Plan Assessment & Plan (1) Vertebrogenic low back pain: Code(s): M54.51 - Vertebrogenic low back pain Category: Medical (2) Intractable cervical neuropathic pain: Code(s): M79.2 - Neuralgia and neuritis, unspecified Category: Medical (3) Cervical post-laminectomy syndrome: Code(s): M96.1 - Postlaminectomy syndrome, not elsewhere classified Category: Medical (4) Intractable pain: Comment: Back and neck Code(s): R52 - Pain, unspecified Category: Medical Plan Cervical post-laminectomy pain syndrome, intractable cervical neck pain, cervical neuropathic pain. Had a trial of left temporary peripheral nerve stimulation of the medial branch nerves with good effect. Would like the same to be repeated on the right side. She has exhausted all other modalities. Continues to have more than 8/10 pain. Would request insurance authorization for temporary right C5, C6 medial branch nerve stimulator placement. For her neuropathic pain also discussed trial of LDN instead of continuing to escalate tramadol. Patient is interested in trying any potential options. Would start with 1.5 mg daily for naltrexone. Recommended stopping tramadol for at least 7 days prior to starting the naltrexone. We will continue to process the 2nd level appeal for the Intracept procedure for the vertebrogenic low back pain. Patient is in agreement with the plan. Medications: New naltrexone 1.5 mg PO DAILY 30 caps 0RF Coding Level of Care Code Est Pt Level 4 (76430) Diagnoses Vertebrogenic low back pain M54.51 Intractable cervical neuropathic pain M79.2 Cervical post-laminectomy syndrome M96.1 Intractable pain R52
[2024-03-30 10:12] VITALS: BP 138/70; PULSE 100; O2SAT 96; BMI 34.2
--- OUTSIDE RECORDS SUMMARY | 2024-03-30 11:17 | XMS_ITS ---
Author Organization [facility] Address [address] [place] [address] Care Team Providers Care Paid Search Marketing Strategist Name Role Phone Caridad Rebolledo Primary Care Provider ADINA Wilson Unavailable [phone] ALLERGIES Allergen (clinical drug ingredient) Drug/Non Drug Allergy documented on EMR Reaction Allergy Type Onset Date Status Contrast Allergy PreMed Pack rash Drug Allergy Active REASON FOR VISIT Patient is here for weight management follow up. SECA done. Previous weight was 235. Today the patient weight is 227. She expressed no complaints MEDICATIONS Medication SIG (Take, Route, Fr equency, Duration) Notes Start Date End Date Status Zepbound 5 MG/0.5ML Inject 5mg Subcutane ous once weekly for 30 days 03/07/2024 Active traMADol HCl 50 MG 1 tablet Orally twice daily Active Lisinopril 10 MG 1 tablet Orally Once a day Active Zepbound 2.5 MG/0.5ML Inject 2.5mg Subcu taneous weekly for 30 days 01/04/2024 Active Celecoxib 200 MG 1 capsule with food Orally Once a day Active Naloxone HCl 4 MG/10ML as directed Injection Active DULoxetine HCl 60 MG 1 capsule Orally Once a day Active PROBLEMS Problem Type ICD Code Onset Dates Problem Status W/U Status Risk SNOMED Code Notes Problem BMI 35.0-35.9,ad ult (Z68.35) Active confirmed [id number] VITAL SIGNS Heart Rate 99 /min 03/07/2024 Blood pressure systolic 122 mm Hg 03/07/20 24 Blood pressure diastolic 62 mm Hg 024 Weight 227 lbs 03/07/2024 BMI 35.55 kg/m2 03/07/2024 Height 67 in 03/07/2024 Oximetry 92 % 03/07/2024 Encounters Encounter Location Date Provider Diagnosis [address] [facility] [address] [place] [address] 03/07/2024 ADINA ROBISON Obesity (BMI 30-39.9 ) E66.9 ; BMI 35.0-35.9,adult Z68.35 ; Primary hypertension I10 ; Elevated cholesterol E78.00 ; Prediabetes R73.03 ; Other chronic pain G89.29 ; Low back pain, unspecified M54.50 ; Cervical pain M54.2 and Nutritional counseling Z71.3 ASSESSMENTS Encounter Date Diagnosis Assessment Notes Treatment Notes Treatment Clinical Notes Section Notes 03/07/2024 Obesity (BMI 30-39.9) (ICD-10 - E66.9) Savita is a 58-year-old female with a PMH of chronic back pain s/p cervical fusion/laminectomy of C2-7 11/2021, HTN, HLD, prediabetes, depression/anxiety that presents for weight management follow-up. Reviewed [facility] holistic and medical approach to weight loss with emphasis on lifestyle modification. 03/07/2024: Weight: 227, BMI: 35.5. SECA reviewed, reveals 6 pounds of fat loss and 2 pounds of muscle mass loss. Patient continues to have of average muscle mass. He is encouraged to continue making health-conscious diet choices and prioritizing intake of protein. Goal 80 g/day. She is additionally encouraged to continue prioritizing water intake, goal 80 g/daily and added sugar-free electrolyte beverages as needed. Recommending adding strength training as tolerated given neck pain. Commended something such as chair yoga. Plan to increase dose of Zepbound to 5 mg SC weekly and follow-up in 1 month. 02/02/2024: Weight: 235.9, BMI: 36.9. Seca reviewed, reveals fat loss with muscle gain. The patient is encouraged to continue exercising as tolerated given her back pain. She is additionally encouraged to make health-conscious diet choices and prioritize protein intake, goal 80 g/day. Recommending electrolyte drinks such as liquid IV, sugar-free Gatorade, smart water, etc. to assist with additional hydration. Plan to continue Zepbound 2.5 mg SC weekly with follow-up in 1 month. Rx for Wegovy sent in error, prescription immediately canceled. Called pharmacy to ensure cancellation. 01/04/2024: Weight: 238, BMI: 37.27. SECA reviewed, reveals fat loss with some improvement in muscle mass. Patient finds nutrition challenging. Recommending a diet rich in fruits, vegetables, fiber, and healthy fats such as those found in fish and nuts. Limit sugar, processed foods, fried foods, alcohol, red meat, and unhealthy fats such as trans fats and saturated fat. Patient is encouraged to continue to incorporate exercise as tolerated. Interested in GLP-1 agonist Zepbound. Rx for Zepbound 2.5 mg SC weekly sent to pharmacy. Denies personal/family history of medullary thyroid cancer/M EN syndrome. Reviewed expectations for PA process/insurance coverage. 12/07/2023: Weight: 241, BMI: 37.7. Reviewed SECA/goals for implementing sustainable lifestyle changes. Given spinal injury/chronic pain patient is encouraged to incorporate physical activity/strength training as tolerated. Discussed options including resistance bands, wrist/ankle weights, etc. reviewed nutrition. Patient is encouraged to maintain food diary x 1 week to ensure adequate caloric/protein intake. Goal 100 g protein/day. Patient is encouraged to increase water intake, goal 80oz/day. Reviewed risks, benefits, and side effects of weight loss medications including phentermine, Topamax, Contrave, metformin, and GLP-1 agonist. Additionally reviewed holistic approaches to weight management with use of supplements. Patient would like to call her insurance company to see if they cover weight management medications and try lifestyle changes alone over the next month. Interested in MICC injection, administered in office today. All questions answered to the patient's satisfaction. Patient demonstrates understanding of diagnosis and treatments discussed. Follow-up in 4 weeks, sooner should any questions/concerns arise. Case discussed with collaborating physician Janett Roblero who has reviewed the assessment/plan. Chart, medications, labs, and vital signs reviewed. Dictation completed with the use of [employer] voice recognition software, prone to medical misidentifications and grammatical errors. All errors are unintentional. Although the practitioner does try to identify and correct errors, some may be present. Please do not hesitate to contact the practitioner for clarification. Total time spent was 30 minutes with >50% on coordination of care and patient education. 03/07/2024 BMI 35.0-35.9,adult (ICD-10 - Z68.35) Savita is a 58-year-old female with a PMH of chronic back pain s/p cervical fusion/laminectomy of C2-7 11/2021, HTN, HLD, prediabetes, depression/anxiety that presents for weight management follow-up. Reviewed [facility] holistic and medical approach to weight loss with emphasis on lifestyle modification. 03/07/2024: Weight: 227, BMI: 35.5. SECA reviewed, reveals 6 pounds of fat loss and 2 pounds of muscle mass loss. Patient continues to have of average muscle mass. He is encouraged to continue making health-conscious diet choices and prioritizing intake of protein. Goal 80 g/day. She is additionally encouraged to continue prioritizing water intake, goal 80 g/daily and added sugar-free electrolyte beverages as needed. Recommending adding strength training as tolerated given neck pain. Commended something such as chair yoga. Plan to increase dose of Zepbound to 5 mg SC weekly and follow-up in 1 month. 02/02/2024: Weight: 235.9, BMI: 36.9. Seca reviewed, reveals fat loss with muscle gain. The patient is encouraged to continue exercising as tolerated given her back pain. She is additionally encouraged to make health-conscious diet choices and prioritize protein intake, goal 80 g/day. Recommending electrolyte drinks such as liquid IV, sugar-free Gatorade, smart water, etc. to assist with additional hydration. Plan to continue Zepbound 2.5 mg SC weekly with follow-up in 1 month. Rx for Wegovy sent in error, prescription immediately canceled. Called pharmacy to ensure cancellation. 01/04/2024: Weight: 238, BMI: 37.27. SECA reviewed, reveals fat loss with some improvement in muscle mass. Patient finds nutrition challenging. Recommending a diet rich in fruits, vegetables, fiber, and healthy fats such as those found in fish and nuts. Limit sugar, processed foods, fried foods, alcohol, red meat, and unhealthy fats such as trans fats and saturated fat. Patient is encouraged to continue to incorporate exercise as tolerated. Interested in GLP-1 agonist Zepbound. Rx for Zepbound 2.5 mg SC weekly sent to pharmacy. Denies personal/family history of medullary thyroid cancer/M EN syndrome. Reviewed expectations for PA process/insurance coverage. 12/07/2023: Weight: 241, BMI: 37.7. Reviewed SECA/goals for implementing sustainable lifestyle changes. Given spinal injury/chronic pain patient is encouraged to incorporate physical activity/strength training as tolerated. Discussed options including resistance bands, wrist/ankle weights, etc. reviewed nutrition. Patient is encouraged to maintain food diary x 1 week to ensure adequate caloric/protein intake. Goal 100 g protein/day. Patient is encouraged to increase water intake, goal 80oz/day. Reviewed risks, benefits, and side effects of weight loss medications including phentermine, Topamax, Contrave, metformin, and GLP-1 agonist. Additionally reviewed holistic approaches to weight management with use of supplements. Patient would like to call her insurance company to see if they cover weight management medications and try lifestyle changes alone over the next month. Interested in MICC injection, administered in office today. All questions answered to the patient's satisfaction. Patient demonstrates understanding of diagnosis and treatments discussed. Follow-up in 4 weeks, sooner should any questions/concerns arise. Case discussed with collaborating physician Janett Roblero who has reviewed the assessment/plan. Chart, medications, labs, and vital signs reviewed. Dictation completed with the use of [employer] voice recognition software, prone to medical misidentifications and grammatical errors. All errors are unintentional. Although the practitioner does try to identify and correct errors, some may be present. Please do not hesitate to contact the practitioner for clarification. Total time spent was 30 minutes with >50% on coordination of care and patient education. 03/07/2024 Primary hypertension (ICD-10 - I10) Savita is a 58-year-old female with a PMH of chronic back pain s/p cervical fusion/laminectomy of C2-7 11/2021, HTN, HLD, prediabetes, depression/anxiety that presents for weight management follow-up. Reviewed [facility] holistic and medical approach to weight loss with emphasis on lifestyle modification. 03/07/2024: Weight: 227, BMI: 35.5. SECA reviewed, reveals 6 pounds of fat loss and 2 pounds of muscle mass loss. Patient continues to have of average muscle mass. He is encouraged to continue making health-conscious diet choices and prioritizing intake of protein. Goal 80 g/day. She is additionally encouraged to continue prioritizing water intake, goal 80 g/daily and added sugar-free electrolyte beverages as needed. Recommending adding strength training as tolerated given neck pain. Commended something such as chair yoga. Plan to increase dose of Zepbound to 5 mg SC weekly and follow-up in 1 month. 02/02/2024: Weight: 235.9, BMI: 36.9. Seca reviewed, reveals fat loss with muscle gain. The patient is encouraged to continue exercising as tolerated given her back pain. She is additionally encouraged to make health-conscious diet choices and prioritize protein intake, goal 80 g/day. Recommending electrolyte drinks such as liquid IV, sugar-free Gatorade, smart water, etc. to assist with additional hydration. Plan to continue Zepbound 2.5 mg SC weekly with follow-up in 1 month. Rx for Wegovy sent in error, prescription immediately canceled. Called pharmacy to ensure cancellation. 01/04/2024: Weight: 238, BMI: 37.27. SECA reviewed, reveals fat loss with some improvement in muscle mass. Patient finds nutrition challenging. Recommending a diet rich in fruits, vegetables, fiber, and healthy fats such as those found in fish and nuts. Limit sugar, processed foods, fried foods, alcohol, red meat, and unhealthy fats such as trans fats and saturated fat. Patient is encouraged to continue to incorporate exercise as tolerated. Interested in GLP-1 agonist Zepbound. Rx for Zepbound 2.5 mg SC weekly sent to pharmacy. Denies personal/family history of medullary thyroid cancer/M EN syndrome. Reviewed expectations for PA process/insurance coverage. 12/07/2023: Weight: 241, BMI: 37.7. Reviewed SECA/goals for implementing sustainable lifestyle changes. Given spinal injury/chronic pain patient is encouraged to incorporate physical activity/strength training as tolerated. Discussed options including resistance bands, wrist/ankle weights, etc. reviewed nutrition. Patient is encouraged to maintain food diary x 1 week to ensure adequate caloric/protein intake. Goal 100 g protein/day. Patient is encouraged to increase water intake, goal 80oz/day. Reviewed risks, benefits, and side effects of weight loss medications including phentermine, Topamax, Contrave, metformin, and GLP-1 agonist. Additionally reviewed holistic approaches to weight management with use of supplements. Patient would like to call her insurance company to see if they cover weight management medications and try lifestyle changes alone over the next month. Interested in MICC injection, administered in office today. All questions answered to the patient's satisfaction. Patient demonstrates understanding of diagnosis and treatments discussed. Follow-up in 4 weeks, sooner should any questions/concerns arise. Case discussed with collaborating physician Janett Roblero who has reviewed the assessment/plan. Chart, medications, labs, and vital signs reviewed. Dictation completed with the use of [employer] voice recognition software, prone to medical misidentifications and grammatical errors. All errors are unintentional. Although the practitioner does try to identify and correct errors, some may be present. Please do not hesitate to contact the practitioner for clarification. Total time spent was 30 minutes with >50% on coordination of care and patient education. 03/07/2024 Elevated cholesterol (ICD-10 - E78.00) Savita is a 58-year-old female with a PMH of chronic back pain s/p cervical fusion/laminectomy of C2-7 11/2021, HTN, HLD, prediabetes, depression/anxiety that presents for weight management follow-up. Reviewed [facility] holistic and medical approach to weight loss with emphasis on lifestyle modification. 03/07/2024: Weight: 227, BMI: 35.5. SECA reviewed, reveals 6 pounds of fat loss and 2 pounds of muscle mass loss. Patient continues to have of average muscle mass. He is encouraged to continue making health-conscious diet choices and prioritizing intake of protein. Goal 80 g/day. She is additionally encouraged to continue prioritizing water intake, goal 80 g/daily and added sugar-free electrolyte beverages as needed. Recommending adding strength training as tolerated given neck pain. Commended something such as chair yoga. Plan to increase dose of Zepbound to 5 mg SC weekly and follow-up in 1 month. 02/02/2024: Weight: 235.9, BMI: 36.9. Seca reviewed, reveals fat loss with muscle gain. The patient is encouraged to continue exercising as tolerated given her back pain. She is additionally encouraged to make health-conscious diet choices and prioritize protein intake, goal 80 g/day. Recommending electrolyte drinks such as liquid IV, sugar-free Gatorade, smart water, etc. to assist with additional hydration. Plan to continue Zepbound 2.5 mg SC weekly with follow-up in 1 month. Rx for Wegovy sent in error, prescription immediately canceled. Called pharmacy to ensure cancellation. 01/04/2024: Weight: 238, BMI: 37.27. SECA reviewed, reveals fat loss with some improvement in muscle mass. Patient finds nutrition challenging. Recommending a diet rich in fruits, vegetables, fiber, and healthy fats such as those found in fish and nuts. Limit sugar, processed foods, fried foods, alcohol, red meat, and unhealthy fats such as trans fats and saturated fat. Patient is encouraged to continue to incorporate exercise as tolerated. Interested in GLP-1 agonist Zepbound. Rx for Zepbound 2.5 mg SC weekly sent to pharmacy. Denies personal/family history of medullary thyroid cancer/M EN syndrome. Reviewed expectations for PA process/insurance coverage. 12/07/2023: Weight: 241, BMI: 37.7. Reviewed SECA/goals for implementing sustainable lifestyle changes. Given spinal injury/chronic pain patient is encouraged to incorporate physical activity/strength training as tolerated. Discussed options including resistance bands, wrist/ankle weights, etc. reviewed nutrition. Patient is encouraged to maintain food diary x 1 week to ensure adequate caloric/protein intake. Goal 100 g protein/day. Patient is encouraged to increase water intake, goal 80oz/day. Reviewed risks, benefits, and side effects of weight loss medications including phentermine, Topamax, Contrave, metformin, and GLP-1 agonist. Additionally reviewed holistic approaches to weight management with use of supplements. Patient would like to call her insurance company to see if they cover weight management medications and try lifestyle changes alone over the next month. Interested in MICC injection, administered in office today. All questions answered to the patient's satisfaction. Patient demonstrates understanding of diagnosis and treatments discussed. Follow-up in 4 weeks, sooner should any questions/concerns arise. Case discussed with collaborating physician Janett Roblero who has reviewed the assessment/plan. Chart, medications, labs, and vital signs reviewed. Dictation completed with the use of [employer] voice recognition software, prone to medical misidentifications and grammatical errors. All errors are unintentional. Although the practitioner does try to identify and correct errors, some may be present. Please do not hesitate to contact the practitioner for clarification. Total time spent was 30 minutes with >50% on coordination of care and patient education. 03/07/2024 Prediabetes (ICD-10 - R73.03) Savita is a 58-year-old female with a PMH of chronic back pain s/p cervical fusion/laminectomy of C2-7 11/2021, HTN, HLD, prediabetes, depression/anxiety that presents for weight management follow-up. Reviewed [facility] holistic and medical approach to weight loss with emphasis on lifestyle modification. 03/07/2024: Weight: 227, BMI: 35.5. SECA reviewed, reveals 6 pounds of fat loss and 2 pounds of muscle mass loss. Patient continues to have of average muscle mass. He is encouraged to continue making health-conscious diet choices and prioritizing intake of protein. Goal 80 g/day. She is additionally encouraged to continue prioritizing water intake, goal 80 g/daily and added sugar-free electrolyte beverages as needed. Recommending adding strength training as tolerated given neck pain. Commended something such as chair yoga. Plan to increase dose of Zepbound to 5 mg SC weekly and follow-up in 1 month. 02/02/2024: Weight: 235.9, BMI: 36.9. Seca reviewed, reveals fat loss with muscle gain. The patient is encouraged to continue exercising as tolerated given her back pain. She is additionally encouraged to make health-conscious diet choices and prioritize protein intake, goal 80 g/day. Recommending electrolyte drinks such as liquid IV, sugar-free Gatorade, smart water, etc. to assist with additional hydration. Plan to continue Zepbound 2.5 mg SC weekly with follow-up in 1 month. Rx for Wegovy sent in error, prescription immediately canceled. Called pharmacy to ensure cancellation. 01/04/2024: Weight: 238, BMI: 37.27. SECA reviewed, reveals fat loss with some improvement in muscle mass. Patient finds nutrition challenging. Recommending a diet rich in fruits, vegetables, fiber, and healthy fats such as those found in fish and nuts. Limit sugar, processed foods, fried foods, alcohol, red meat, and unhealthy fats such as trans fats and saturated fat. Patient is encouraged to continue to incorporate exercise as tolerated. Interested in GLP-1 agonist Zepbound. Rx for Zepbound 2.5 mg SC weekly sent to pharmacy. Denies personal/family history of medullary thyroid cancer/M EN syndrome. Reviewed expectations for PA process/insurance coverage. 12/07/2023: Weight: 241, BMI: 37.7. Reviewed SECA/goals for implementing sustainable lifestyle changes. Given spinal injury/chronic pain patient is encouraged to incorporate physical activity/strength training as tolerated. Discussed options including resistance bands, wrist/ankle weights, etc. reviewed nutrition. Patient is encouraged to maintain food diary x 1 week to ensure adequate caloric/protein intake. Goal 100 g protein/day. Patient is encouraged to increase water intake, goal 80oz/day. Reviewed risks, benefits, and side effects of weight loss medications including phentermine, Topamax, Contrave, metformin, and GLP-1 agonist. Additionally reviewed holistic approaches to weight management with use of supplements. Patient would like to call her insurance company to see if they cover weight management medications and try lifestyle changes alone over the next month. Interested in MICC injection, administered in office today. All questions answered to the patient's satisfaction. Patient demonstrates understanding of diagnosis and treatments discussed. Follow-up in 4 weeks, sooner should any questions/concerns arise. Case discussed with collaborating physician Janett Roblero who has reviewed the assessment/plan. Chart, medications, labs, and vital signs reviewed. Dictation completed with the use of [employer] voice recognition software, prone to medical misidentifications and grammatical errors. All errors are unintentional. Although the practitioner does try to identify and correct errors, some may be present. Please do not hesitate to contact the practitioner for clarification. Total time spent was 30 minutes with >50% on coordination of care and patient education. 03/07/2024 Other chronic pain (ICD-10 - G89.29) Savita is a 58-year-old female with a PMH of chronic back pain s/p cervical fusion/laminectomy of C2-7 11/2021, HTN, HLD, prediabetes, depression/anxiety that presents for weight management follow-up. Reviewed [facility] holistic and medical approach to weight loss with emphasis on lifestyle modification. 03/07/2024: Weight: 227, BMI: 35.5. SECA reviewed, reveals 6 pounds of fat loss and 2 pounds of muscle mass loss. Patient continues to have of average muscle mass. He is encouraged to continue making health-conscious diet choices and prioritizing intake of protein. Goal 80 g/day. She is additionally encouraged to continue prioritizing water intake, goal 80 g/daily and added sugar-free electrolyte beverages as needed. Recommending adding strength training as tolerated given neck pain. Commended something such as chair yoga. Plan to increase dose of Zepbound to 5 mg SC weekly and follow-up in 1 month. 02/02/2024: Weight: 235.9, BMI: 36.9. Seca reviewed, reveals fat loss with muscle gain. The patient is encouraged to continue exercising as tolerated given her back pain. She is additionally encouraged to make health-conscious diet choices and prioritize protein intake, goal 80 g/day. Recommending electrolyte drinks such as liquid IV, sugar-free Gatorade, smart water, etc. to assist with additional hydration. Plan to continue Zepbound 2.5 mg SC weekly with follow-up in 1 month. Rx for Wegovy sent in error, prescription immediately canceled. Called pharmacy to ensure cancellation. 01/04/2024: Weight: 238, BMI: 37.27. SECA reviewed, reveals fat loss with some improvement in muscle mass. Patient finds nutrition challenging. Recommending a diet rich in fruits, vegetables, fiber, and healthy fats such as those found in fish and nuts. Limit sugar, processed foods, fried foods, alcohol, red meat, and unhealthy fats such as trans fats and saturated fat. Patient is encouraged to continue to incorporate exercise as tolerated. Interested in GLP-1 agonist Zepbound. Rx for Zepbound 2.5 mg SC weekly sent to pharmacy. Denies personal/family history of medullary thyroid cancer/M EN syndrome. Reviewed expectations for PA process/insurance coverage. 12/07/2023: Weight: 241, BMI: 37.7. Reviewed SECA/goals for implementing sustainable lifestyle changes. Given spinal injury/chronic pain patient is encouraged to incorporate physical activity/strength training as tolerated. Discussed options including resistance bands, wrist/ankle weights, etc. reviewed nutrition. Patient is encouraged to maintain food diary x 1 week to ensure adequate caloric/protein intake. Goal 100 g protein/day. Patient is encouraged to increase water intake, goal 80oz/day. Reviewed risks, benefits, and side effects of weight loss medications including phentermine, Topamax, Contrave, metformin, and GLP-1 agonist. Additionally reviewed holistic approaches to weight management with use of supplements. Patient would like to call her insurance company to see if they cover weight management medications and try lifestyle changes alone over the next month. Interested in MICC injection, administered in office today. All questions answered to the patient's satisfaction. Patient demonstrates understanding of diagnosis and treatments discussed. Follow-up in 4 weeks, sooner should any questions/concerns arise. Case discussed with collaborating physician Janett Roblero who has reviewed the assessment/plan. Chart, medications, labs, and vital signs reviewed. Dictation completed with the use of [employer] voice recognition software, prone to medical misidentifications and grammatical errors. All errors are unintentional. Although the practitioner does try to identify and correct errors, some may be present. Please do not hesitate to contact the practitioner for clarification. Total time spent was 30 minutes with >50% on coordination of care and patient education. 03/07/2024 Low back pain, unspecified (ICD-10 - M54.50) Savita is a 58-year-old female with a PMH of chronic back pain s/p cervical fusion/laminectomy of C2-7 11/2021, HTN, HLD, prediabetes, depression/anxiety that presents for weight management follow-up. Reviewed [facility] holistic and medical approach to weight loss with emphasis on lifestyle modification. 03/07/2024: Weight: 227, BMI: 35.5. SECA reviewed, reveals 6 pounds of fat loss and 2 pounds of muscle mass loss. Patient continues to have of average muscle mass. He is encouraged to continue making health-conscious diet choices and prioritizing intake of protein. Goal 80 g/day. She is additionally encouraged to continue prioritizing water intake, goal 80 g/daily and added sugar-free electrolyte beverages as needed. Recommending adding strength training as tolerated given neck pain. Commended something such as chair yoga. Plan to increase dose of Zepbound to 5 mg SC weekly and follow-up in 1 month. 02/02/2024: Weight: 235.9, BMI: 36.9. Seca reviewed, reveals fat loss with muscle gain. The patient is encouraged to continue exercising as tolerated given her back pain. She is additionally encouraged to make health-conscious diet choices and prioritize protein intake, goal 80 g/day. Recommending electrolyte drinks such as liquid IV, sugar-free Gatorade, smart water, etc. to assist with additional hydration. Plan to continue Zepbound 2.5 mg SC weekly with follow-up in 1 month. Rx for Wegovy sent in error, prescription immediately canceled. Called pharmacy to ensure cancellation. 01/04/2024: Weight: 238, BMI: 37.27. SECA reviewed, reveals fat loss with some improvement in muscle mass. Patient finds nutrition challenging. Recommending a diet rich in fruits, vegetables, fiber, and healthy fats such as those found in fish and nuts. Limit sugar, processed foods, fried foods, alcohol, red meat, and unhealthy fats such as trans fats and saturated fat. Patient is encouraged to continue to incorporate exercise as tolerated. Interested in GLP-1 agonist Zepbound. Rx for Zepbound 2.5 mg SC weekly sent to pharmacy. Denies personal/family history of medullary thyroid cancer/M EN syndrome. Reviewed expectations for PA process/insurance coverage. 12/07/2023: Weight: 241, BMI: 37.7. Reviewed SECA/goals for implementing sustainable lifestyle changes. Given spinal injury/chronic pain patient is encouraged to incorporate physical activity/strength training as tolerated. Discussed options including resistance bands, wrist/ankle weights, etc. reviewed nutrition. Patient is encouraged to maintain food diary x 1 week to ensure adequate caloric/protein intake. Goal 100 g protein/day. Patient is encouraged to increase water intake, goal 80oz/day. Reviewed risks, benefits, and side effects of weight loss medications including phentermine, Topamax, Contrave, metformin, and GLP-1 agonist. Additionally reviewed holistic approaches to weight management with use of supplements. Patient would like to call her insurance company to see if they cover weight management medications and try lifestyle changes alone over the next month. Interested in MICC injection, administered in office today. All questions answered to the patient's satisfaction. Patient demonstrates understanding of diagnosis and treatments discussed. Follow-up in 4 weeks, sooner should any questions/concerns arise. Case discussed with collaborating physician Janett Roblero who has reviewed the assessment/plan. Chart, medications, labs, and vital signs reviewed. Dictation completed with the use of [employer] voice recognition software, prone to medical misidentifications and grammatical errors. All errors are unintentional. Although the practitioner does try to identify and correct errors, some may be present. Please do not hesitate to contact the practitioner for clarification. Total time spent was 30 minutes with >50% on coordination of care and patient education. 03/07/2024 Cervical pain (ICD-10 - M54.2) Savita is a 58-year-old female with a PMH of chronic back pain s/p cervical fusion/laminectomy of C2-7 11/2021, HTN, HLD, prediabetes, depression/anxiety that presents for weight management follow-up. Reviewed [facility] holistic and medical approach to weight loss with emphasis on lifestyle modification. 03/07/2024: Weight: 227, BMI: 35.5. SECA reviewed, reveals 6 pounds of fat loss and 2 pounds of muscle mass loss. Patient continues to have of average muscle mass. He is encouraged to continue making health-conscious diet choices and prioritizing intake of protein. Goal 80 g/day. She is additionally encouraged to continue prioritizing water intake, goal 80 g/daily and added sugar-free electrolyte beverages as needed. Recommending adding strength training as tolerated given neck pain. Commended something such as chair yoga. Plan to increase dose of Zepbound to 5 mg SC weekly and follow-up in 1 month. 02/02/2024: Weight: 235.9, BMI: 36.9. Seca reviewed, reveals fat loss with muscle gain. The patient is encouraged to continue exercising as tolerated given her back pain. She is additionally encouraged to make health-conscious diet choices and prioritize protein intake, goal 80 g/day. Recommending electrolyte drinks such as liquid IV, sugar-free Gatorade, smart water, etc. to assist with additional hydration. Plan to continue Zepbound 2.5 mg SC weekly with follow-up in 1 month. Rx for Wegovy sent in error, prescription immediately canceled. Called pharmacy to ensure cancellation. 01/04/2024: Weight: 238, BMI: 37.27. SECA reviewed, reveals fat loss with some improvement in muscle mass. Patient finds nutrition challenging. Recommending a diet rich in fruits, vegetables, fiber, and healthy fats such as those found in fish and nuts. Limit sugar, processed foods, fried foods, alcohol, red meat, and unhealthy fats such as trans fats and saturated fat. Patient is encouraged to continue to incorporate exercise as tolerated. Interested in GLP-1 agonist Zepbound. Rx for Zepbound 2.5 mg SC weekly sent to pharmacy. Denies personal/family history of medullary thyroid cancer/M EN syndrome. Reviewed expectations for PA process/insurance coverage. 12/07/2023: Weight: 241, BMI: 37.7. Reviewed SECA/goals for implementing sustainable lifestyle changes. Given spinal injury/chronic pain patient is encouraged to incorporate physical activity/strength training as tolerated. Discussed options including resistance bands, wrist/ankle weights, etc. reviewed nutrition. Patient is encouraged to maintain food diary x 1 week to ensure adequate caloric/protein intake. Goal 100 g protein/day. Patient is encouraged to increase water intake, goal 80oz/day. Reviewed risks, benefits, and side effects of weight loss medications including phentermine, Topamax, Contrave, metformin, and GLP-1 agonist. Additionally reviewed holistic approaches to weight management with use of supplements. Patient would like to call her insurance company to see if they cover weight management medications and try lifestyle changes alone over the next month. Interested in MICC injection, administered in office today. All questions answered to the patient's satisfaction. Patient demonstrates understanding of diagnosis and treatments discussed. Follow-up in 4 weeks, sooner should any questions/concerns arise. Case discussed with collaborating physician Janett Roblero who has reviewed the assessment/plan. Chart, medications, labs, and vital signs reviewed. Dictation completed with the use of [employer] voice recognition software, prone to medical misidentifications and grammatical errors. All errors are unintentional. Although the practitioner does try to identify and correct errors, some may be present. Please do not hesitate to contact the practitioner for clarification. Total time spent was 30 minutes with >50% on coordination of care and patient education. 03/07/2024 Nutritional counseling (ICD-10 - Z71.3) Savita is a 58-year-old female with a PMH of chronic back pain s/p cervical fusion/laminectomy of C2-7 11/2021, HTN, HLD, prediabetes, depression/anxiety that presents for weight management follow-up. Reviewed [facility] holistic and medical approach to weight loss with emphasis on lifestyle modification. 03/07/2024: Weight: 227, BMI: 35.5. SECA reviewed, reveals 6 pounds of fat loss and 2 pounds of muscle mass loss. Patient continues to have of average muscle mass. He is encouraged to continue making health-conscious diet choices and prioritizing intake of protein. Goal 80 g/day. She is additionally encouraged to continue prioritizing water intake, goal 80 g/daily and added sugar-free electrolyte beverages as needed. Recommending adding strength training as tolerated given neck pain. Commended something such as chair yoga. Plan to increase dose of Zepbound to 5 mg SC weekly and follow-up in 1 month. 02/02/2024: Weight: 235.9, BMI: 36.9. Seca reviewed, reveals fat loss with muscle gain. The patient is encouraged to continue exercising as tolerated given her back pain. She is additionally encouraged to make health-conscious diet choices and prioritize protein intake, goal 80 g/day. Recommending electrolyte drinks such as liquid IV, sugar-free Gatorade, smart water, etc. to assist with additional hydration. Plan to continue Zepbound 2.5 mg SC weekly with follow-up in 1 month. Rx for Wegovy sent in error, prescription immediately canceled. Called pharmacy to ensure cancellation. 01/04/2024: Weight: 238, BMI: 37.27. SECA reviewed, reveals fat loss with some improvement in muscle mass. Patient finds nutrition challenging. Recommending a diet rich in fruits, vegetables, fiber, and healthy fats such as those found in fish and nuts. Limit sugar, processed foods, fried foods, alcohol, red meat, and unhealthy fats such as trans fats and saturated fat. Patient is encouraged to continue to incorporate exercise as tolerated. Interested in GLP-1 agonist Zepbound. Rx for Zepbound 2.5 mg SC weekly sent to pharmacy. Denies personal/family history of medullary thyroid cancer/M EN syndrome. Reviewed expectations for PA process/insurance coverage. 12/07/2023: Weight: 241, BMI: 37.7. Reviewed SECA/goals for implementing sustainable lifestyle changes. Given spinal injury/chronic pain patient is encouraged to incorporate physical activity/strength training as tolerated. Discussed options including resistance bands, wrist/ankle weights, etc. reviewed nutrition. Patient is encouraged to maintain food diary x 1 week to ensure adequate caloric/protein intake. Goal 100 g protein/day. Patient is encouraged to increase water intake, goal 80oz/day. Reviewed risks, benefits, and side effects of weight loss medications including phentermine, Topamax, Contrave, metformin, and GLP-1 agonist. Additionally reviewed holistic approaches to weight management with use of supplements. Patient would like to call her insurance company to see if they cover weight management medications and try lifestyle changes alone over the next month. Interested in MICC injection, administered in office today. All questions answered to the patient's satisfaction. Patient demonstrates understanding of diagnosis and treatments discussed. Follow-up in 4 weeks, sooner should any questions/concerns arise. Case discussed with collaborating physician Janett Roblero who has reviewed the assessment/plan. Chart, medications, labs, and vital signs reviewed. Dictation completed with the use of [employer] voice recognition software, prone to medical misidentifications and grammatical errors. All errors are unintentional. Although the practitioner does try to identify and correct errors, some may be present. Please do not hesitate to contact the practitioner for clarification. Total time spent was 30 minutes with >50% on coordination of care and patient education. PLAN OF TREATMENT Medication Medication Name Sig Start Date Stop Date Notes Zepbound 5 MG/0.5ML Inject 5mg Subcutane ous once weekly for 30 days 03/07/2024 Next Appt Details Provider Name:ADINA Lozano, 04/17/2024 09:00:00 AM, [address] [place] [address], [address], [id number], MEDICATIONS ADMINISTERED Medication Instructions Date of Administration Dosage Notes MICC B12 INJECTION 03/07/2024 1 mL Progress Notes * Savita BENNETT LDOB:[birth year] (58 yo F)Acc No.[id number]:03/07/2024 Patient:??Savita BENNETT L Provider:??ADINA ROBISON PA-C :1965?Age:58 Y?Sex:Fe male Date:03/07/2024 Address:[address] [place] [address], [id number] Pcp:Caridad Rebolledo Subjective: * Chief Complaints: * ?1. Patient is here for weight management follow up. SECA done. Previous weight was 235. Today the patient weight is 227. She expressed no complaints. * HPI: ?Constitutional:? Savita is a 58-year-old female with a PMH of chronic back pain s/p cervical fusion/laminectomy of C2-7 11/2021, HTN, depression/anxiety that presents for weight management follow-up. Patient taking Zepbound 2.5 mg SC weekly with compliance. Reports appetite suppression is good, but has started to decrease in the last 2 weeks. Denies side effects including nausea or vomiting. Does report increased thirst and mild constipation relieved with probiotic/fiber. Also drinking liquid IV which has helped with the hydration piece. Reports stress is down and her is home from the hospital and doing much better, recovering from lung collapse with hemothorax. ?States this month has been particularly hard given her back pain. Follows with [facility] pain management. States insurance had denied two procedures that may improve her pain. * ROS:?Constitutional: Denies sudden weight loss, fever, night sweats, excessive fatigue, or changes in sleep. ???CV: Denies chest pain or heart palpitations. ???Respiratory: Denies SOB, wheezing, or pleuritic pain. ???GI: Denies n/v/d, constipation, blood in stools, pain associated with eating, indigestion, or difficulty/pain with swallowing. ???MSK: Denies back pain, joint deformity/pain, or muscle weakness. ???Integumentary: Denies skin changes. ???Endocrine: Denies polyuria, polyphagia, or polydipsia. No heat/cold intolerance or excessive thirst. * Medical History:??High blood pressure, Vision loss, Seasonal allergies, Weight gain/loss, Anxiety, Depression. * Surgical History:??cervical fusion/laminectomy . * Family History:??Father: dec eased, Mesothelioma.??Mother: , Breast cancer.??2 son(s) , 1 daughter(s) - healthy. .?? * Medications:??Taking Celecox ib 200 MG Capsule 1 capsule with food Orally Once a day , Taking Naloxone HCl 4 MG/10ML Solution as directed Injection , Taking DULoxetine HCl 60 MG Capsule Delayed Release Particles 1 capsule Orally Once a day , Taking traMADol HCl 50 MG Tablet 1 tablet Orally twice daily , Taking Lisinopril 10 MG Tablet 1 tablet Orally Once a day , Taking Zepbound 2.5 MG/0.5ML Solution Auto-injector Inject 2.5mg Subcutaneous weekly , Medication List reviewed and reconciled with the patient * Allergies:??Contrast Allergy PreMed Pack: rash. Objective: * Vitals:??HR:99/min, BP:122/6 2mm Hg, Wt:227lbs, BMI:35.55Index, Ht: 67 in, Oxygen sat %:92%. * Physical Examination:?General: Age appropriate, well-appearing 58-year-old female in no acute distress, speaking in full sentences without respiratory compromise. Well groomed, well developed. Alert, interactive. ?Skin: Warm, dry and intact. No lesions/rashes/erythema. ?HEENT: Normocephalic/atraumatic. ?CV: RRR. ?Lungs: Clear to auscultation bilaterally. ?Neuro: CN II-XII grossly intact. Steady gait with non-assisted ambulation observed. ?Psych: Stable mood and affect. Assessment: * Assessment: 1.??Obesity (BMI 30-39.9) - E66.9 (Primary)??2.??BMI 35.0-35.9,adult - Z68.35??3.??Primary hypertension - I10??4.??Elevated cholesterol - E78.00??5.??Prediabetes - R73.03??6.??Other chronic pain - G89.29??7.??Low back pain, unspecified - M54.50??8.??Cervical pain - M54.2??9.??Nutritional counseling - Z71.3?? Savita is a 58-year-old fema le with a PMH of chronic back pain s/p cervical fusion/laminectomy of C2-7 11/2021, HTN, HLD, prediabetes, depression/anxiety that presents for weight management follow-up. Reviewed [facility] holistic and medical approach to weight loss with emphasis on lifestyle modification. 03/07/2024: Weight: 227, BMI: 35.5. SECA reviewed, reveals 6 pounds of fat loss and 2 pounds of muscle mass loss. Patient continues to have of average muscle mass. He is encouraged to continue making health-conscious diet choices and prioritizing intake of protein. Goal 80 g/day. She is additionally encouraged to continue prioritizing water intake, goal 80 g/daily and added sugar-free electrolyte beverages as needed. Recommending adding strength training as tolerated given neck pain. Commended something such as chair yoga. Plan to increase dose of Zepbound to 5 mg SC weekly and follow-up in 1 month. 02/02/2024: Weight: 235.9, BMI: 36.9. Seca reviewed, reveals fat loss with muscle gain. The patient is encouraged to continue exercising as tolerated given her back pain. She is additionally encouraged to make health-conscious diet choices and prioritize protein intake, goal 80 g/day. Recommending electrolyte drinks such as liquid IV, sugar-free Gatorade, smart water, etc. to assist with additional hydration. Plan to continue Zepbound 2.5 mg SC weekly with follow-up in 1 month. Rx for Wegovy sent in error, prescription immediately canceled. Called pharmacy to ensure cancellation. 01/04/2024: Weight: 238, BMI: 37.27. SECA reviewed, reveals fat loss with some improvement in muscle mass. Patient finds nutrition challenging. Recommending a diet rich in fruits, vegetables, fiber, and healthy fats such as those found in fish and nuts. Limit sugar, processed foods, fried foods, alcohol, red meat, and unhealthy fats such as trans fats and saturated fat. Patient is encouraged to continue to incorporate exercise as tolerated. Interested in GLP-1 agonist Zepbound. Rx for Zepbound 2.5 mg SC weekly sent to pharmacy. Denies personal/family history of medullary thyroid cancer/M EN syndrome. Reviewed expectations for PA process/insurance coverage. 12/07/2023: Weight: 241, BMI: 37.7. Reviewed SECA/goals for implementing sustainable lifestyle changes. Given spinal injury/chronic pain patient is encouraged to incorporate physical activity/strength training as tolerated. Discussed options including resistance bands, wrist/ankle weights, etc. reviewed nutrition. Patient is encouraged to maintain food diary x 1 week to ensure adequate caloric/protein intake. Goal 100 g protein/day. Patient is encouraged to increase water intake, goal 80oz/day. Reviewed risks, benefits, and side effects of weight loss medications including phentermine, Topamax, Contrave, metformin, and GLP-1 agonist. Additionally reviewed holistic approaches to weight management with use of supplements. Patient would like to call her insurance company to see if they cover weight management medications and try lifestyle changes alone over the next month. Interested in MICC injection, administered in office today. All questions answered to the patient's satisfaction. Patient demonstrates understanding of diagnosis and treatments discussed. Follow-up in 4 weeks, sooner should any questions/concerns arise. Case discussed with collaborating physician Janett Roblero who has reviewed the assessment/plan. Chart, medications, labs, and vital signs reviewed. Dictation completed with the use of [employer] voice recognition software, prone to medical misidentifications and grammatical errors. All errors are unintentional. Although the practitioner does try to identify and correct errors, some may be present. Please do not hesitate to contact the practitioner for clarification. Total time spent was 30 minutes with >50% on coordination of care and patient education. Plan: * Treatment: * Therapeutic Injections:? MICC B12 INJECTION : 1 mL (Route: Intramuscular) given by Zulema Llamas on right deltoid * Procedure Codes:??G0447 FCE- FCE BEHAVRL CNSL OBESITY 15 MIN, Modifiers: 59 * Images: Billing Information: * Visit Code:?? 79158 Office Visit, Est Pt., Level 4. * Procedure Codes:?? G0447 FCE-FCE BEHAVRL CNSL OBESITY 15 MIN. Modifiers: 59 * Sign off status: Completed true * Provider:??ADINA ROBISON PA-C Date:?? 03/07/2024 History and Physical Notes * HPI (History of Present Illness) Category Sub-Category Detail Notes Category Not es Constitutional Savita is a 58-year-old female with a PMH of chronic back pain s/p cervical fusion/laminectomy of C2-7 11/2021, HTN, depression/anxiety that presents for weight management follow-up. Patient taking Zepbound 2.5 mg SC weekly with compliance. Reports appetite suppression is good, but has started to decrease in the last 2 weeks. Denies side effects including nausea or vomiting. Does report increased thirst and mild constipation relieved with probiotic/fiber. Also drinking liquid IV which has helped with the hydration piece. Reports stress is down and her is home from the hospital and doing much better, recovering from lung collapse with hemothorax. States this month has been particularly hard given her back pain. Follows with [facility] pain management. States insurance had denied two procedures that may improve her pain. Physical Examination Category Sub-Category Detail Notes Section Note s General: Age appropriate, well-appearing 58-year-old female in no acute distress, speaking in full sentences without respiratory compromise. Well groomed, well developed. Alert, interactive. Skin: Warm, dry and intact. No lesions/rashes/erythema. HEENT: Normocephalic/atraumatic. CV: RRR. Lungs: Clear to auscultation bilaterally. Neuro: CN II-XII grossly intact. Steady gait with non-assisted ambulation observed. Psych: Stable mood and affect.
--- OUTSIDE RECORDS SUMMARY | 2024-03-30 11:17 | XMS_ITS | Patient Health Record ---
Author Organization [facility] Address [address] [facility] [address] [place] [address] Care Team Providers Care Mobile Ui/Ux Designer Name Role Phone Caridad Rebolledo Primary Care Provider ADINA Wilson Unavailable [phone] ALLERGIES Allergen (clinical drug ingredient) Drug/Non Drug Allergy documented on EMR Reaction Allergy Type Onset Date Status Contrast Allergy PreMed Pack rash Drug Allergy Active REASON FOR REFERRAL No Information MEDICATIONS Medication SIG (Take, Route, Fr equency, Duration) Notes Start Date End Date Status Zepbound 5 MG/0.5ML Inject 5mg Subcutane ous once weekly for 30 days 03/07/2024 Active Naloxone HCl 4 MG/10ML as directed Injection Active DULoxetine HCl 60 MG 1 capsule Orally Once a day Active traMADol HCl 50 MG 1 tablet Orally twice daily Active Lisinopril 10 MG 1 tablet Orally Once a day Active Zepbound 2.5 MG/0.5ML Inject 2.5mg Subcu taneous weekly for 30 days 01/04/2024 Active Celecoxib 200 MG 1 capsule with food Orally Once a day Active PROBLEMS Problem Type ICD Code Onset Dates Problem Status W/U Status Risk SNOMED Code Notes Problem Other chronic pain (G89.29) Active confirmed 91288432 Problem Prediabetes (R73.03) Active confirmed 668214131 Problem Obesity (BMI 30-39.9) (E66.9) Active confirmed 273369420 Problem BMI 37.0-37.9, adult (Z68.37) Active confirmed 359062016 Problem BMI 35.0-35.9,adult (Z68.35) Active confirmed 719398322 Problem Elevated cholesterol (E78.00) Active confirmed 82127932 Problem Cervical pain (M54.2) Active confirmed 84852265 Problem BMI 36.0-36.9,adult (Z68.36) Active confirmed 260037045 Problem Primary hypertension (I10) Active confirmed 61277521 Problem Low back pain, unspecified (M54.50) Active confirmed 122913148 Problem Nutritional counseling (Z71.3) Active confirmed 912862920 VITAL SIGNS Heart Rate 99 /min 03/07/2024 Oximetry 92 % 03/07/2024 Blood pressure diastolic 62 mm Hg 03/07/2024 Height 67 in 03/07/2024 Blood pressure systolic 122 mm Hg 03/07/2024 Weight 227 lbs 03/07/2024 BMI 35.55 kg/m2 03/07/2024 Encounters Encounter Location Date Provider Diagnosis [address] [address] 02/08/2024 ADINA WEBERHAM [address] [address] 12/07/2023 ADINA ROBISON Obesity (BMI 30-39.9 ) E66.9 ; BMI 37.0-37.9, adult Z68.37 ; Primary hypertension I10 ; Elevated cholesterol E78.00 ; Other chronic pain G89.29 ; Low back pain, unspecified M54.50 ; Cervical pain M54.2 and Nutritional counseling Z71.3 [address] [address] 01/04/2024 ADINA ROBISON Obesity (BMI 30-39.9 ) E66.9 ; BMI 37.0-37.9, adult Z68.37 ; Primary hypertension I10 ; Elevated cholesterol E78.00 ; Prediabetes R73.03 ; Other chronic pain G89.29 ; Low back pain, unspecified M54.50 ; Cervical pain M54.2 and Nutritional counseling Z71.3 [address] [address] 02/02/2024 ADINA ROBISON Obesity (BMI 30-39.9 ) E66.9 ; BMI 36.0-36.9,adult Z68.36 ; Primary hypertension I10 ; Elevated cholesterol E78.00 ; Prediabetes R73.03 ; Other chronic pain G89.29 ; Low back pain, unspecified M54.50 ; Nutritional counseling Z71.3 and Cervical pain M54.2 [address] [address] 03/07/2024 ADINA ROBISON Obesity (BMI 30-39.9 ) E66.9 ; BMI 35.0-35.9,adult Z68.35 ; Primary hypertension I10 ; Elevated cholesterol E78.00 ; Prediabetes R73.03 ; Other chronic pain G89.29 ; Low back pain, unspecified M54.50 ; Cervical pain M54.2 and Nutritional counseling Z71.3 [place] [address] [address] 12/08/2023 ADINA [facility] [address] [address] 01/06/2024 [facility] [address] [address] 01/11/2024 [place] [address] [address] 02/28/2024 ADINA ROBISON Obesity (BMI 30-39.9 ) E66.9 [place] [address] [address] 03/07/2024 ADINA ROBISON [place] [address] [address] 01/04/2024 ADINA ROBISON ASSESSMENTS Encounter Date Diagnosis Assessment Notes Treatment Notes Treatment Clinical Notes Section Notes 12/07/2023 Obesity (BMI 30-39.9) (ICD-10 - E66.9) Patient was reassured and welcomed to the practice. Discussed [facility] holistic medical approach to weight loss with emphasis on lifestyle modification. Patient is educated that a healthy lifestyle aids in combating obesity as well as reducing the risk of developing obesity-related medical complications including but not limited to diabetes and cardiovascular disease. Detailed education provided about taking steps to initiate sustainable lifestyle changes including incorporating regular physical activity, making healthy diet choices, and prioritizing mental health. Information provided about literature including The Food Rules by Piero Epps and Eat Fat Get Lean by Dr Satnam Kim. Handouts including lifestyle checklist, protein content of food, low calorie snacks, and cholesterol information sheet provided. Diagnostic testing/ SECA scale offered. Discussed the importance of regular SECA scale measurements to ensure healthy weight loss. 12/07/2023:Weight: 241, BMI: 37.7. Reviewed SECA/goals for implementing [...] reviewed. Dictation completed with the use of [employer] voice recognition software, prone to medical misidentifications and grammatical errors. All errors are unintentional. Although the practitioner does try to identify and correct errors, some may be present. Please do not hesitate to contact the practitioner for clarification. 60 minutes spent with >50% on coordination of care. 12/07/2023 BMI 37.0-37.9, adult (ICD-10 - Z68.37) Patient was reassured and welcomed to the practice. Discussed [facility] holistic medical approach to weight loss with emphasis on lifestyle modification. Patient is educated that a healthy lifestyle aids in combating obesity as well as reducing the risk of developing obesity-related medical complications including but not limited to diabetes and cardiovascular disease. Detailed education provided about taking steps to initiate sustainable lifestyle changes including incorporating regular physical activity, making healthy diet choices, and prioritizing mental health. Information provided about literature including The Food Rules by Piero Epps and Eat Fat Get Lean by Dr Satnam Kim. Handouts including lifestyle checklist, protein content of food, low calorie snacks, and cholesterol information sheet provided. Diagnostic testing/ SECA scale offered. Discussed the importance of regular SECA scale measurements to ensure healthy weight loss. 12/07/2023:Weight: 241, BMI: 37.7. Reviewed SECA/goals for implementing [...] reviewed. Dictation completed with the use of [employer] voice recognition software, prone to medical misidentifications and grammatical errors. All errors are unintentional. Although the practitioner does try to identify and correct errors, some may be present. Please do not hesitate to contact the practitioner for clarification. 60 minutes spent with >50% on coordination of care. 01/04/2024 Obesity (BMI 30-39.9) (ICD-10 - E66.9) Savita is a 58-year-old female with a PMH of chronic back pain s/p cervical fusion/laminectomy of C2-7 11/2021, HTN, HLD, prediabetes, depression/anxiety that presents for weight management follow-up. Reviewed [facility] holistic medical approach to weight loss with emphasis on lifestyle modification. 01/04/2024: Weight: 238, BMI: 37.27. SECA reviewed, [...] syndrome. Reviewed expectations for PA process/insurance coverage. After consultation and careful review of medical history, this patient would benefit from Zepbound based off of the following criteria met: Patient is over the age of 20 with a BMI of 37. Additional comorbidities include prediabetes (A1C 5.9%), HLD, HTN Patient has trialed other methods of weight loss including improving diet and exercise without success.This medication is prescribed by or in consultation with a board-certified obesity and weight management physician (Dr. Shwetha Roblero or Dr. Marielos Roblero). 12/07/2023: Weight: 241, BMI: 37.7. Reviewed SECA/goals [...] reviewed. Dictation completed with the use of [employer] voice recognition software, prone to medical misidentifications and grammatical errors. All errors are unintentional. Although the practitioner does try to identify and correct errors, some may be present. Please do not hesitate to contact the practitioner for clarification. 60 minutes spent with >50% on coordination of care. 01/04/2024 BMI 37.0-37.9, adult (ICD-10 - Z68.37) Savita is a 58-year-old female with a PMH of chronic back pain s/p cervical fusion/laminectomy of C2-7 11/2021, HTN, HLD, prediabetes, depression/anxiety that presents for weight management follow-up. Reviewed [facility] holistic medical approach to weight loss with emphasis on lifestyle modification. 01/04/2024: Weight: 238, BMI: 37.27. SECA reviewed, [...] syndrome. Reviewed expectations for PA process/insurance coverage. After consultation and careful review of medical history, this patient would benefit from Zepbound based off of the following criteria met: Patient is over the age of 20 with a BMI of 37. Additional comorbidities include prediabetes (A1C 5.9%), HLD, HTN Patient has trialed other methods of weight loss including improving diet and exercise without success.This medication is prescribed by or in consultation with a board-certified obesity and weight management physician (Dr. Shwetha Roblero or Dr. Marielos Roblero). 12/07/2023: Weight: 241, BMI: 37.7. Reviewed SECA/goals [...] reviewed. Dictation completed with the use of [employer] voice recognition software, prone to medical misidentifications and grammatical errors. All errors are unintentional. Although the practitioner does try to identify and correct errors, some may be present. Please do not hesitate to contact the practitioner for clarification. 60 minutes spent with >50% on coordination of care. 02/02/2024 BMI 36.0-36.9,adult (ICD-10 - Z68.36) Savita is a 58-year-old female with a PMH of chronic back pain s/p cervical fusion/laminectomy of C2-7 11/2021, HTN, HLD, prediabetes, depression/anxiety that presents for weight management follow-up. Reviewed [facility] holistic and medical approach to weight loss with emphasis on lifestyle modification. 02/02/2024: Weight: 235.9, BMI: 36.9. Seca reviewed, [...] questions/concerns arise. Case discussed with collaborating physician Chapo Roblero who has reviewed the assessment/plan. Chart, medications, labs, and vital signs reviewed. Dictation completed with the use of [employer] voice recognition software, prone to medical misidentifications and grammatical errors. All errors are unintentional. Although the practitioner does try to identify and correct errors, some may be present. Please do not hesitate to contact the practitioner for clarification. Total time spent was 25 minutes with >50% on coordination of care and patient education. 02/02/2024 Obesity (BMI 30-39.9) (ICD-10 - E66.9) Savita is a 58-year-old female with a PMH of chronic back pain s/p cervical fusion/laminectomy of C2-7 11/2021, HTN, HLD, prediabetes, depression/anxiety that presents for weight management follow-up. Reviewed [facility] holistic and medical approach to weight loss with emphasis on lifestyle modification. 02/02/2024: Weight: 235.9, BMI: 36.9. Seca reviewed, [...] questions/concerns arise. Case discussed with collaborating physician Chapo Roblero who has reviewed the assessment/plan. Chart, medications, labs, and vital signs reviewed. Dictation completed with the use of [employer] voice recognition software, prone to medical misidentifications and grammatical errors. All errors are unintentional. Although the practitioner does try to identify and correct errors, some may be present. Please do not hesitate to contact the practitioner for clarification. Total time spent was 25 minutes with >50% on coordination of care and patient education. 02/28/2024 Obesity (BMI 30-39.9) (ICD-10 - E66.9) 03/07/2024 Obesity (BMI 30-39.9) (ICD-10 - E66.9) [...] reviewed. Dictation completed with the use of [employer] voice recognition software, prone to medical misidentifications [...] reviewed. Dictation completed with the use of [employer] voice recognition software, prone to medical misidentifications [...] reviewed. Dictation completed with the use of [employer] voice recognition software, prone to medical misidentifications and grammatical errors. All errors are unintentional. Although the practitioner does try to identify and correct errors, some may be present. Please do not hesitate to contact the practitioner for clarification. Total time spent was 30 minutes with >50% on coordination of care and patient education. 02/02/2024 Primary hypertension (ICD-10 - I10) Savita is a 58-year-old female with a PMH of chronic back pain s/p cervical fusion/laminectomy of C2-7 11/2021, HTN, HLD, prediabetes, depression/anxiety that presents for weight management follow-up. Reviewed [facility] holistic and medical approach to weight loss with emphasis on lifestyle modification. 02/02/2024: Weight: 235.9, BMI: 36.9. Seca reviewed, [...] questions/concerns arise. Case discussed with collaborating physician Chapo Roblero who has reviewed the assessment/plan. Chart, medications, labs, and vital signs reviewed. Dictation completed with the use of [employer] voice recognition software, prone to medical misidentifications and grammatical errors. All errors are unintentional. Although the practitioner does try to identify and correct errors, some may be present. Please do not hesitate to contact the practitioner for clarification. Total time spent was 25 minutes with >50% on coordination of care and patient education. 01/04/2024 Primary hypertension (ICD-10 - I10) Savita is a 58-year-old female with a PMH of chronic back pain s/p cervical fusion/laminectomy of C2-7 11/2021, HTN, HLD, prediabetes, depression/anxiety that presents for weight management follow-up. Reviewed [facility] holistic medical approach to weight loss with emphasis on lifestyle modification. 01/04/2024: Weight: 238, BMI: 37.27. SECA reviewed, [...] syndrome. Reviewed expectations for PA process/insurance coverage. After consultation and careful review of medical history, this patient would benefit from Zepbound based off of the following criteria met: Patient is over the age of 20 with a BMI of 37. Additional comorbidities include prediabetes (A1C 5.9%), HLD, HTN Patient has trialed other methods of weight loss including improving diet and exercise without success.This medication is prescribed by or in consultation with a board-certified obesity and weight management physician (Dr. Shwetha Roblero or Dr. Marielos Roblero). 12/07/2023: Weight: 241, BMI: 37.7. Reviewed SECA/goals [...] reviewed. Dictation completed with the use of [employer] voice recognition software, prone to medical misidentifications and grammatical errors. All errors are unintentional. Although the practitioner does try to identify and correct errors, some may be present. Please do not hesitate to contact the practitioner for clarification. 60 minutes spent with >50% on coordination of care. 12/07/2023 Primary hypertension (ICD-10 - I10) Patient was reassured and welcomed to the practice. Discussed [facility] holistic medical approach to weight loss with emphasis on lifestyle modification. Patient is educated that a healthy lifestyle aids in combating obesity as well as reducing the risk of developing obesity-related medical complications including but not limited to diabetes and cardiovascular disease. Detailed education provided about taking steps to initiate sustainable lifestyle changes including incorporating regular physical activity, making healthy diet choices, and prioritizing mental health. Information provided about literature including The Food Rules by Piero Epps and Eat Fat Get Lean by Dr Satnam Kim. Handouts including lifestyle checklist, protein content of food, low calorie snacks, and cholesterol information sheet provided. Diagnostic testing/ SECA scale offered. Discussed the importance of regular SECA scale measurements to ensure healthy weight loss. 12/07/2023:Weight: 241, BMI: 37.7. Reviewed SECA/goals for implementing [...] reviewed. Dictation completed with the use of [employer] voice recognition software, prone to medical misidentifications and grammatical errors. All errors are unintentional. Although the practitioner does try to identify and correct errors, some may be present. Please do not hesitate to contact the practitioner for clarification. 60 minutes spent with >50% on coordination of care. 12/07/2023 Elevated cholesterol (ICD-10 - E78.00) Patient was reassured and welcomed to the practice. Discussed [facility] holistic medical approach to weight loss with emphasis on lifestyle modification. Patient is educated that a healthy lifestyle aids in combating obesity as well as reducing the risk of developing obesity-related medical complications including but not limited to diabetes and cardiovascular disease. Detailed education provided about taking steps to initiate sustainable lifestyle changes including incorporating regular physical activity, making healthy diet choices, and prioritizing mental health. Information provided about literature including The Food Rules by Piero Epps and Eat Fat Get Lean by Dr Satnam Kim. Handouts including lifestyle checklist, protein content of food, low calorie snacks, and cholesterol information sheet provided. Diagnostic testing/ SECA scale offered. Discussed the importance of regular SECA scale measurements to ensure healthy weight loss. 12/07/2023:Weight: 241, BMI: 37.7. Reviewed SECA/goals for implementing [...] reviewed. Dictation completed with the use of [employer] voice recognition software, prone to medical misidentifications and grammatical errors. All errors are unintentional. Although the practitioner does try to identify and correct errors, some may be present. Please do not hesitate to contact the practitioner for clarification. 60 minutes spent with >50% on coordination of care. 01/04/2024 Elevated cholesterol (ICD-10 - E78.00) Savita is a 58-year-old female with a PMH of chronic back pain s/p cervical fusion/laminectomy of C2-7 11/2021, HTN, HLD, prediabetes, depression/anxiety that presents for weight management follow-up. Reviewed [facility] holistic medical approach to weight loss with emphasis on lifestyle modification. 01/04/2024: Weight: 238, BMI: 37.27. SECA reviewed, [...] syndrome. Reviewed expectations for PA process/insurance coverage. After consultation and careful review of medical history, this patient would benefit from Zepbound based off of the following criteria met: Patient is over the age of 20 with a BMI of 37. Additional comorbidities include prediabetes (A1C 5.9%), HLD, HTN Patient has trialed other methods of weight loss including improving diet and exercise without success.This medication is prescribed by or in consultation with a board-certified obesity and weight management physician (Dr. Shwetha Roblero or Dr. Marielos Roblero). 12/07/2023: Weight: 241, BMI: 37.7. Reviewed SECA/goals [...] reviewed. Dictation completed with the use of [employer] voice recognition software, prone to medical misidentifications and grammatical errors. All errors are unintentional. Although the practitioner does try to identify and correct errors, some may be present. Please do not hesitate to contact the practitioner for clarification. 60 minutes spent with >50% on coordination of care. 02/02/2024 Elevated cholesterol (ICD-10 - E78.00) Savita is a 58-year-old female with a PMH of chronic back pain s/p cervical fusion/laminectomy of C2-7 11/2021, HTN, HLD, prediabetes, depression/anxiety that presents for weight management follow-up. Reviewed [facility] holistic and medical approach to weight loss with emphasis on lifestyle modification. 02/02/2024: Weight: 235.9, BMI: 36.9. Seca reviewed, [...] questions/concerns arise. Case discussed with collaborating physician Chapo Roblero who has reviewed the assessment/plan. Chart, medications, labs, and vital signs reviewed. Dictation completed with the use of [employer] voice recognition software, prone to medical misidentifications and grammatical errors. All errors are unintentional. Although the practitioner does try to identify and correct errors, some may be present. Please do not hesitate to contact the practitioner for clarification. Total time spent was 25 minutes with >50% on coordination of care [...] reviewed. Dictation completed with the use of [employer] voice recognition software, prone to medical misidentifications and grammatical errors. All errors are unintentional. Although the practitioner does try to identify and correct errors, some may be present. Please do not hesitate to contact the practitioner for clarification. Total time spent was 30 minutes with >50% on coordination of care and patient education. 02/02/2024 Prediabetes (ICD-10 - R73.03) Savita is a 58-year-old female with a PMH of chronic back pain s/p cervical fusion/laminectomy of C2-7 11/2021, HTN, HLD, prediabetes, depression/anxiety that presents for weight management follow-up. Reviewed [facility] holistic and medical approach to weight loss with emphasis on lifestyle modification. 02/02/2024: Weight: 235.9, BMI: 36.9. Seca reviewed, [...] questions/concerns arise. Case discussed with collaborating physician Chapo Roblero who has reviewed the assessment/plan. Chart, medications, labs, and vital signs reviewed. Dictation completed with the use of [employer] voice recognition software, prone to medical misidentifications and grammatical errors. All errors are unintentional. Although the practitioner does try to identify and correct errors, some may be present. Please do not hesitate to contact the practitioner for clarification. Total time spent was 25 minutes with >50% on coordination of care [...] reviewed. Dictation completed with the use of [employer] voice recognition software, prone to medical misidentifications and grammatical errors. All errors are unintentional. Although the practitioner does try to identify and correct errors, some may be present. Please do not hesitate to contact the practitioner for clarification. Total time spent was 30 minutes with >50% on coordination of care and patient education. 01/04/2024 Prediabetes (ICD-10 - R73.03) Savita is a 58-year-old female with a PMH of chronic back pain s/p cervical fusion/laminectomy of C2-7 11/2021, HTN, HLD, prediabetes, depression/anxiety that presents for weight management follow-up. Reviewed [facility] holistic medical approach to weight loss with emphasis on lifestyle modification. 01/04/2024: Weight: 238, BMI: 37.27. SECA reviewed, [...] syndrome. Reviewed expectations for PA process/insurance coverage. After consultation and careful review of medical history, this patient would benefit from Zepbound based off of the following criteria met: Patient is over the age of 20 with a BMI of 37. Additional comorbidities include prediabetes (A1C 5.9%), HLD, HTN Patient has trialed other methods of weight loss including improving diet and exercise without success.This medication is prescribed by or in consultation with a board-certified obesity and weight management physician (Dr. Shwetha Roblero or Dr. Marielos Roblero). 12/07/2023: Weight: 241, BMI: 37.7. Reviewed SECA/goals [...] reviewed. Dictation completed with the use of [employer] voice recognition software, prone to medical misidentifications and grammatical errors. All errors are unintentional. Although the practitioner does try to identify and correct errors, some may be present. Please do not hesitate to contact the practitioner for clarification. 60 minutes spent with >50% on coordination of care. 12/07/2023 Other chronic pain (ICD-10 - G89.29) Patient was reassured and welcomed to the practice. Discussed [facility] holistic medical approach to weight loss with emphasis on lifestyle modification. Patient is educated that a healthy lifestyle aids in combating obesity as well as reducing the risk of developing obesity-related medical complications including but not limited to diabetes and cardiovascular disease. Detailed education provided about taking steps to initiate sustainable lifestyle changes including incorporating regular physical activity, making healthy diet choices, and prioritizing mental health. Information provided about literature including The Food Rules by Piero Epps and Eat Fat Get Lean by Dr Satnam Kim. Handouts including lifestyle checklist, protein content of food, low calorie snacks, and cholesterol information sheet provided. Diagnostic testing/ SECA scale offered. Discussed the importance of regular SECA scale measurements to ensure healthy weight loss. 12/07/2023:Weight: 241, BMI: 37.7. Reviewed SECA/goals for implementing [...] reviewed. Dictation completed with the use of Wirama voice recognition software, prone to medical misidentifications and grammatical errors. All errors are unintentional. Although the practitioner does try to identify and correct errors, some may be present. Please do not hesitate to contact the practitioner for clarification. 60 minutes spent with >50% on coordination of care. 01/04/2024 Other chronic pain (ICD-10 - G89.29) Savita is a 58-year-old female with a PMH of chronic back pain s/p cervical fusion/laminectomy of C2-7 11/2021, HTN, HLD, prediabetes, depression/anxiety that presents for weight management follow-up. Reviewed [facility] holistic medical approach to weight loss with emphasis on lifestyle modification. 01/04/2024: Weight: 238, BMI: 37.27. SECA reviewed, [...] syndrome. Reviewed expectations for PA process/insurance coverage. After consultation and careful review of medical history, this patient would benefit from Zepbound based off of the following criteria met: Patient is over the age of 20 with a BMI of 37. Additional comorbidities include prediabetes (A1C 5.9%), HLD, HTN Patient has trialed other methods of weight loss including improving diet and exercise without success.This medication is prescribed by or in consultation with a board-certified obesity and weight management physician (Dr. Shwetha Roblero or Dr. Marielos Roblero). 12/07/2023: Weight: 241, BMI: 37.7. Reviewed SECA/goals [...] reviewed. Dictation completed with the use of Wirama voice recognition software, prone to medical misidentifications and grammatical errors. All errors are unintentional. Although the practitioner does try to identify and correct errors, some may be present. Please do not hesitate to contact the practitioner for clarification. 60 minutes spent with >50% on coordination of care. 12/07/2023 Low back pain, unspecified (ICD-10 - M54.50) Patient was reassured and welcomed to the practice. Discussed [facility] holistic medical approach to weight loss with emphasis on lifestyle modification. Patient is educated that a healthy lifestyle aids in combating obesity as well as reducing the risk of developing obesity-related medical complications including but not limited to diabetes and cardiovascular disease. Detailed education provided about taking steps to initiate sustainable lifestyle changes including incorporating regular physical activity, making healthy diet choices, and prioritizing mental health. Information provided about literature including The Food Rules by Piero Epps and Eat Fat Get Lean by Dr Satnam Kim. Handouts including lifestyle checklist, protein content of food, low calorie snacks, and cholesterol information sheet provided. Diagnostic testing/ SECA scale offered. Discussed the importance of regular SECA scale measurements to ensure healthy weight loss. 12/07/2023:Weight: 241, BMI: 37.7. Reviewed SECA/goals for implementing [...] reviewed. Dictation completed with the use of Wirama voice recognition software, prone to medical misidentifications and grammatical errors. All errors are unintentional. Although the practitioner does try to identify and correct errors, some may be present. Please do not hesitate to contact the practitioner for clarification. 60 minutes spent with >50% on coordination of care. 02/02/2024 Other chronic pain (ICD-10 - G89.29) Savita is a 58-year-old female with a PMH of chronic back pain s/p cervical fusion/laminectomy of C2-7 11/2021, HTN, HLD, prediabetes, depression/anxiety that presents for weight management follow-up. Reviewed [facility] holistic and medical approach to weight loss with emphasis on lifestyle modification. 02/02/2024: Weight: 235.9, BMI: 36.9. Seca reviewed, [...] questions/concerns arise. Case discussed with collaborating physician Chapo Roblero who has reviewed the assessment/plan. Chart, medications, labs, and vital signs reviewed. Dictation completed with the use of Wirama voice recognition software, prone to medical misidentifications and grammatical errors. All errors are unintentional. Although the practitioner does try to identify and correct errors, some may be present. Please do not hesitate to contact the practitioner for clarification. Total time spent was 25 minutes with >50% on coordination of care [...] reviewed. Dictation completed with the use of Wirama voice recognition software, prone to medical misidentifications and grammatical errors. All errors are unintentional. Although the practitioner does try to identify and correct errors, some may be present. Please do not hesitate to contact the practitioner for clarification. Total time spent was 30 minutes with >50% on coordination of care and patient education. 02/02/2024 Low back pain, unspecified (ICD-10 - M54.50) Savita is a 58-year-old female with a PMH of chronic back pain s/p cervical fusion/laminectomy of C2-7 11/2021, HTN, HLD, prediabetes, depression/anxiety that presents for weight management follow-up. Reviewed [facility] holistic and medical approach to weight loss with emphasis on lifestyle modification. 02/02/2024: Weight: 235.9, BMI: 36.9. Seca reviewed, [...] questions/concerns arise. Case discussed with collaborating physician Chapo Roblero who has reviewed the assessment/plan. Chart, medications, labs, and vital signs reviewed. Dictation completed with the use of Wirama voice recognition software, prone to medical misidentifications and grammatical errors. All errors are unintentional. Although the practitioner does try to identify and correct errors, some may be present. Please do not hesitate to contact the practitioner for clarification. Total time spent was 25 minutes with >50% on coordination of care [...] reviewed. Dictation completed with the use of Dragon voice recognition software, prone to medical misidentifications and grammatical errors. All errors are unintentional. Although the practitioner does try to identify and correct errors, some may be present. Please do not hesitate to contact the practitioner for clarification. Total time spent was 30 minutes with >50% on coordination of care and patient education. 01/04/2024 Low back pain, unspecified (ICD-10 - M54.50) Savita is a 58-year-old female with a PMH of chronic back pain s/p cervical fusion/laminectomy of C2-7 11/2021, HTN, HLD, prediabetes, depression/anxiety that presents for weight management follow-up. Reviewed [facility] holistic medical approach to weight loss with emphasis on lifestyle modification. 01/04/2024: Weight: 238, BMI: 37.27. SECA reviewed, [...] syndrome. Reviewed expectations for PA process/insurance coverage. After consultation and careful review of medical history, this patient would benefit from Zepbound based off of the following criteria met: Patient is over the age of 20 with a BMI of 37. Additional comorbidities include prediabetes (A1C 5.9%), HLD, HTN Patient has trialed other methods of weight loss including improving diet and exercise without success.This medication is prescribed by or in consultation with a board-certified obesity and weight management physician (Dr. Shwetha Roblero or Dr. Marielos Roblero). 12/07/2023: Weight: 241, BMI: 37.7. Reviewed SECA/goals [...] reviewed. Dictation completed with the use of Wirama voice recognition software, prone to medical misidentifications and grammatical errors. All errors are unintentional. Although the practitioner does try to identify and correct errors, some may be present. Please do not hesitate to contact the practitioner for clarification. 60 minutes spent with >50% on coordination of care. 12/07/2023 Cervical pain (ICD-10 - M54.2) Patient was reassured and welcomed to the practice. Discussed [facility] holistic medical approach to weight loss with emphasis on lifestyle modification. Patient is educated that a healthy lifestyle aids in combating obesity as well as reducing the risk of developing obesity-related medical complications including but not limited to diabetes and cardiovascular disease. Detailed education provided about taking steps to initiate sustainable lifestyle changes including incorporating regular physical activity, making healthy diet choices, and prioritizing mental health. Information provided about literature including The Food Rules by Piero Epps and Eat Fat Get Lean by Dr Satnam Kim. Handouts including lifestyle checklist, protein content of food, low calorie snacks, and cholesterol information sheet provided. Diagnostic testing/ SECA scale offered. Discussed the importance of regular SECA scale measurements to ensure healthy weight loss. 12/07/2023:Weight: 241, BMI: 37.7. Reviewed SECA/goals for implementing [...] reviewed. Dictation completed with the use of Wirama voice recognition software, prone to medical misidentifications and grammatical errors. All errors are unintentional. Although the practitioner does try to identify and correct errors, some may be present. Please do not hesitate to contact the practitioner for clarification. 60 minutes spent with >50% on coordination of care. 12/07/2023 Nutritional counseling (ICD-10 - Z71.3) Patient was reassured and welcomed to the practice. Discussed [facility] holistic medical approach to weight loss with emphasis on lifestyle modification. Patient is educated that a healthy lifestyle aids in combating obesity as well as reducing the risk of developing obesity-related medical complications including but not limited to diabetes and cardiovascular disease. Detailed education provided about taking steps to initiate sustainable lifestyle changes including incorporating regular physical activity, making healthy diet choices, and prioritizing mental health. Information provided about literature including The Food Rules by Piero Epps and Eat Fat Get Lean by Dr Satnam Kim. Handouts including lifestyle checklist, protein content of food, low calorie snacks, and cholesterol information sheet provided. Diagnostic testing/ SECA scale offered. Discussed the importance of regular SECA scale measurements to ensure healthy weight loss. 12/07/2023:Weight: 241, BMI: 37.7. Reviewed SECA/goals for implementing [...] reviewed. Dictation completed with the use of Wirama voice recognition software, prone to medical misidentifications and grammatical errors. All errors are unintentional. Although the practitioner does try to identify and correct errors, some may be present. Please do not hesitate to contact the practitioner for clarification. 60 minutes spent with >50% on coordination of care. 01/04/2024 Cervical pain (ICD-10 - M54.2) Savita is a 58-year-old female with a PMH of chronic back pain s/p cervical fusion/laminectomy of C2-7 11/2021, HTN, HLD, prediabetes, depression/anxiety that presents for weight management follow-up. Reviewed [facility] holistic medical approach to weight loss with emphasis on lifestyle modification. 01/04/2024: Weight: 238, BMI: 37.27. SECA reviewed, [...] syndrome. Reviewed expectations for PA process/insurance coverage. After consultation and careful review of medical history, this patient would benefit from Zepbound based off of the following criteria met: Patient is over the age of 20 with a BMI of 37. Additional comorbidities include prediabetes (A1C 5.9%), HLD, HTN Patient has trialed other methods of weight loss including improving diet and exercise without success.This medication is prescribed by or in consultation with a board-certified obesity and weight management physician (Dr. Shwetha Roblero or Dr. Marielos Roblero). 12/07/2023: Weight: 241, BMI: 37.7. Reviewed SECA/goals [...] reviewed. Dictation completed with the use of Wirama voice recognition software, prone to medical misidentifications and grammatical errors. All errors are unintentional. Although the practitioner does try to identify and correct errors, some may be present. Please do not hesitate to contact the practitioner for clarification. 60 minutes spent with >50% on coordination of care. 03/07/2024 Cervical pain (ICD-10 - M54.2) Savita [...] arise. Case discussed with collaborating physician Janett Rbolero who has reviewed the assessment/plan. Chart, medications, labs, and vital signs reviewed. Dictation completed with the use of Wirama voice recognition software, prone to medical misidentifications and grammatical errors. All errors are unintentional. Although the practitioner does try to identify and correct errors, some may be present. Please do not hesitate to contact the practitioner for clarification. Total time spent was 30 minutes with >50% on coordination of care and patient education. 02/02/2024 Nutritional counseling (ICD-10 - Z71.3) Savita is a 58-year-old female with a PMH of chronic back pain s/p cervical fusion/laminectomy of C2-7 11/2021, HTN, HLD, prediabetes, depression/anxiety that presents for weight management follow-up. Reviewed [facility] holistic and medical approach to weight loss with emphasis on lifestyle modification. 02/02/2024: Weight: 235.9, BMI: 36.9. Seca reviewed, [...] questions/concerns arise. Case discussed with collaborating physician Chapo Roblero who has reviewed the assessment/plan. Chart, medications, labs, and vital signs reviewed. Dictation completed with the use of Wirama voice recognition software, prone to medical misidentifications and grammatical errors. All errors are unintentional. Although the practitioner does try to identify and correct errors, some may be present. Please do not hesitate to contact the practitioner for clarification. Total time spent was 25 minutes with >50% on coordination of care and patient education. 02/02/2024 Cervical pain (ICD-10 - M54.2) Savita is a 58-year-old female with a PMH of chronic back pain s/p cervical fusion/laminectomy of C2-7 11/2021, HTN, HLD, prediabetes, depression/anxiety that presents for weight management follow-up. Reviewed [facility] holistic and medical approach to weight loss with emphasis on lifestyle modification. 02/02/2024: Weight: 235.9, BMI: 36.9. Seca reviewed, [...] questions/concerns arise. Case discussed with collaborating physician Chapo Roblero who has reviewed the assessment/plan. Chart, medications, labs, and vital signs reviewed. Dictation completed with the use of Wirama voice recognition software, prone to medical misidentifications and grammatical errors. All errors are unintentional. Although the practitioner does try to identify and correct errors, some may be present. Please do not hesitate to contact the practitioner for clarification. Total time spent was 25 minutes with >50% on coordination of care [...] reviewed. Dictation completed with the use of Wirama voice recognition software, prone to medical misidentifications and grammatical errors. All errors are unintentional. Although the practitioner does try to identify and correct errors, some may be present. Please do not hesitate to contact the practitioner for clarification. Total time spent was 30 minutes with >50% on coordination of care and patient education. 01/04/2024 Nutritional counseling (ICD-10 - Z71.3) Savita is a 58-year-old female with a PMH of chronic back pain s/p cervical fusion/laminectomy of C2-7 11/2021, HTN, HLD, prediabetes, depression/anxiety that presents for weight management follow-up. Reviewed [facility] holistic medical approach to weight loss with emphasis on lifestyle modification. 01/04/2024: Weight: 238, BMI: 37.27. SECA reviewed, [...] syndrome. Reviewed expectations for PA process/insurance coverage. After consultation and careful review of medical history, this patient would benefit from Zepbound based off of the following criteria met: Patient is over the age of 20 with a BMI of 37. Additional comorbidities include prediabetes (A1C 5.9%), HLD, HTN Patient has trialed other methods of weight loss including improving diet and exercise without success.This medication is prescribed by or in consultation with a board-certified obesity and weight management physician (Dr. Shwetha Roblero or Dr. Marielos Roblero). 12/07/2023: Weight: 241, BMI: 37.7. Reviewed SECA/goals [...] reviewed. Dictation completed with the use of Wirama voice recognition software, prone to medical misidentifications and grammatical errors. All errors are unintentional. Although the practitioner does try to identify and correct errors, some may be present. Please do not hesitate to contact the practitioner for clarification. 60 minutes spent with >50% on coordination of care. PLAN OF TREATMENT Next Appt Details Provider Name:ADINA AIDA Lozano, 04/17/2024 09:00:00 AM, [address] [facility], [facility] [address], [place], [address], Insurance Providers Payer Name Payer Address Payer Phone Subscriber Number Group Number Insured Name Patient Relationship to Insured Coverage Start Date Coverage End Date [facility] [address] [place] [address] [id number] Savita Bennett Self - patient is the insured MEDICATIONS ADMINISTERED Medication Instructions Date of Administration Dosage Notes MICC B12 INJECTION 12/07/2023 MICC B12 INJECTION 01/04/2024 1 mL MICC B12 INJECTION 02/02/2024 1 mL MICC B12 INJECTION 03/07/2024 1 mL MEDICAL (GENERAL) HISTORY Medical History History ICD Code high blood pressure vision loss seasonal allergies weight gain/loss anxiety depression Surgical History Surgery Date(Month/Year) cervical fusion/laminectomy
--- OUTSIDE RECORDS SUMMARY | 2024-03-30 11:17 | XMS_ITS ---
Author Organization [facility] Address [address] [place] [address] Care Team Providers Care Rehab Consultant Name Role Phone Caridad Rebolledo Primary Care Provider ADINA Wilson Unavailable [phone] REASON FOR VISIT refills - zepbound MEDICATIONS Medication SIG (Take, Route, Fr equency, Duration) Notes Start Date End Date Status Zepbound 2.5 MG/0.5ML Inject 2.5mg Subcu taneous weekly for 30 days 01/04/2024 Active Encounters Encounter Location Date Provider Diagnosis [address] [facility] [address] [place] [address] 02/28/2024 ADINA ROBISON Obesity (BMI 30-39.9 ) E66.9 ASSESSMENTS Encounter Date Diagnosis Assessment Notes Treatment Notes Treatment Clinical Notes Section Notes 02/28/2024 Obesity (BMI 30-39.9) (ICD-10 - E66.9) PLAN OF TREATMENT Medication Medication Name Sig Start Date Stop Date Notes Zepbound 2.5 MG/0.5ML Inject 2.5mg Subcu taneous weekly for 30 days 01/04/2024 Next Appt Details Provider Name:ADINA Lozano, 04/17/2024 09:00:00 AM, [address] [facility], [address], [place], [address], Progress Notes * Savita BENNETT LDOB:[birth year] (58 yo F)Acc No.[id number]:02/28/2024 Patient:??Alcides BENNETTomid Durham Account Number: :[id number]?Age:58 Y?Sex:Fe male Address: [address], [place] [address] * Refills?? Refill Zepbound Solution Auto-injector, 2.5 MG/0.5ML, Subcutaneous, 4 Pen Needle, Inject 2.5mg, weekly, 30 days, Refills=0 * true * Date:??
--- OUTSIDE RECORDS SUMMARY | 2024-03-30 11:17 | XMS_ITS | Patient Health Record ---
Author Organization [facility] Address [address] [place] [place] [address] Care Team Providers Care Operations Team Leader Name Role Phone Lauri SERRANO, Asma Primary Care Provider Becky Stone Unavailable [phone] Allergies Allergen (clinical drug ingredient) Drug/Non Drug Allergy documented on EMR Reaction Allergy Type Onset Date Status benzalkonium Merthiolate mild Drug Allergy Ac tive shrimp allergenic extract Shrimp (Diagnostic) mild Drug Allergy Active Iodine mild Drug Allergy Active morphine Morphine Unknown Drug Allergy Active Shellfish (FN) Shellfish-derived Products mild Drug Allergy Active Reason For Referral No Information Medications Medication SIG (Take, Route, Frequency, Duration) Notes Start Date End Date Status Pregabalin Not-Takin g Escitalopram Oxalate 10 MG 1 tablet Orally Once a day for 30 day(s) Active Gabapentin Not-Takin g Methocarbamol 750 MG 1 tablet Orally angelika ry 4 hrs for 30 day(s) Active Escitalopram Oxalate 10 MG 1 tablet Orally Once a day for 30 day(s) Active buPROPion HCl ER (Smoking Det) 150 MG 1 tablet in the morning Orally Once a day for 30 day(s) Active Ibuprofen 600 MG 1 tablet with food o r milk as needed Orally Three times a day PRN Active buPROPion HCl ER (SR) 150 MG 1 tablet in the morning Orally Once a day for 30 day(s) Active Ibuprofen 600 MG 1 tablet with food o r milk as needed Orally Three times a day Active Lidocaine 5 % 1 application as nee ded Externally Three times a day Active LORazepam 0.5 MG 1 tablet at bedtime as needed Orally Once a day Active LORazepam 0.5 MG as directed Orally Active Lidocaine 5 % as directed Externally Active Methocarbamol 750 MG 1 tablet Orally angelika ry 4 hrs for 30 day(s) Active Social History Tobacco Use: Social History Observation Description Date Details (start date - stop date) Current Smoker NA - NA Tobacco Use/Smoking Question Answer Notes Are you a: current smoker How often do you smoke cigarettes? every day How many cigarettes a day do you smoke? 11-20 Alcohol Screen Question Answer Notes Did you have a drink contain ing alcohol in the past year? Yes How often did you have a dri nk containing alcohol in the past year? Monthly or less (1 point) Points 1 Interpretation Negative Tobacco use other than smoking: Question Answer Notes Are you an other tobacco user? No Plan Of Treatment Pending Test Test Name Order Date X ray : Foot, left 3V 10/12/202110873, [id number] INJECT TENDON ORIGIN/INSER T 10/12/2021 Insurance Providers Payer Name Payer Address Payer Phone Subscriber Number Group Number Insured Name Patient Relationship to Insured Coverage Start Date Coverage End Date [facility] All Others [address] [place] [address] [phone] [id number] Savita Bennett Self - patient is the insured Medical (General) History Medical History History ICD Code Arthritis Back,Hip,and Knee pain Depression Sciatica chronic sinusitis Bone implants/screws Transfusions hidradenitis Supperurativa Cervicalfusion osteoarthritis Hand Pain foot pain Surgical History Surgery Date(Month/Year) cervical fusion 2003 right toe surgery 2009 meniscus tear 2001,2007 1992 Neck Surgery 12/17 Hospitalization History Reason Date(Month/Year) [facility] Back pain 09/2020 [facility] 12/17
== END 2024-03-30 10:30 | disposition home or self-care (01) ==
PROVIDERS: PCP Nurse Practitioner Family; Visit Provider Internal Medicine
DX: M54.51 Vertebrogenic low back pain (principal); M79.2 Neuralgia and neuritis, unspecified; M96.1 Postlaminectomy syndrome, not elsewhere classified
CPT/HCPCS: 99214

== ENCOUNTER → 2024-03-30 10:05 | Outpatient (BNVA) | payer BC, SELFPAY | PROVIDERS: PCP Nurse Practitioner Family; Visit Provider Internal Medicine ==

== ENCOUNTER 2024-04-12 08:53 | Outpatient (REF) | payer BC, SELFPAY ==
--- NOTE | ~2024-04-12 | FL_ITS ---
EXAMINATION: FL GUIDANCE ONLY HISTORY: M79.2 - Neuralgia and neuritis, unspecified COMPARISON: None available. TECHNIQUE: Fluoroscopy time: 0.4 minutes. Cumulative Dose: 3.80 mGy. DAP: 0.0206 uGy-m2 (microgray-meter squared). Images: 2. FINDINGS: Images were obtained during fusion of the cervical spine with facet screws and an anterior plate and screws. FL/FL guidance in treatment room IMPRESSION: Fluoroscopy during procedure. Please see procedure report for additional information. Electronically signed by: Octavio Melvin MD 04/16/2024 03:05 PM CHARAN QUIÑONES
== END 2024-04-12 08:54 | disposition home or self-care (01) ==
LOC: CF 08:53
PROVIDERS: PCP Nurse Practitioner Family; Visit Provider Internal Medicine
DX: M79.2 Neuralgia and neuritis, unspecified (principal)
CPT/HCPCS: 64555; C1778; J2003

== ENCOUNTER 2024-04-12 10:29 | Outpatient (AMB) | payer BC, SELFPAY ==
[2024-04-12 10:44] VITALS: BP 121/67; PULSE 100; O2SAT 96
--- NOTE | 2024-04-12 10:44 | A.OFFVIS_ITS ---
Vital Signs 04/12/24 10:44 04/12/24 12:33 BP 121/67 126/74 Blood Pressure Location Lt brachial Lt brachial Position Sitting Sitting Pulse 100 82 Pulse Source Pulse Oximeter Pulse Oximeter Pulse Oximetry (%) 96 96 Oxygen Delivery Method Room Air Room Air Intake Visit Reasons: Right C5 Sprint Allergies Iodinated Contrast Media [CONTRAST, IV] Allergy (Unknown, Verified 03/30/24 10:11) UNKNOWN morphine [Morphine] Allergy (Unknown, Verified 03/30/24 10:11) NAUSEA/RASH, rash, N/V, rash, N/V HPI HPI Right C5 Sprint: Details: Patient presents for scheduled procedure. Denies any recent cough, cold, infection, fever or other significant changes in medical history since last office visit. [facility] Medical History Cervical post-laminectomy syndrome Personal history of nicotine dependence Post-menopausal (~2018) Tubular adenoma of colon (~2017) Hypertension, essential Abnormal bowel movement Chronic neck and back pain Vitamin D deficiency Cyst of right ovary Elevated dehydroepiandrosterone sulfate level (~2019) Surgical History History of basal cell carcinoma (BCC) excision History of left knee surgery History of right knee surgery History of foot surgery History of History of colonoscopy History of fusion of cervical spine Family History Father Mesothelioma Mother Breast cancer Colon cancer Other Mental health disorder Substance use disorder Social History Housing: House Are you a primary critical care unit manager to a significant other at home: No Do you presently have visiting nurse or other home services: No Alcohol intake: current Alcohol intake frequency: a few times a month Patient Tobacco Use Status: Former Tobacco user Tobacco use type: Cigarette Cigarette Packs Per Day: 0.5 Cigarettes Per Day: 10.0 Years Smoked: 37 e-Cigarette/Vaping Use: Never Used Current occupational status: employed 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 After the risks, benefits and alternatives were discussed with the patient and informed consent was obtained, patient was placed in the prone position and padded to foster comfort. The skin overlying the lumbosacral spine was prepped and draped in sterile fashion. Fluoroscopy was used to identify the spinous process and lamina in the center of the patient?s region of pain. After identifying and marking the intended target along the course of the medial branch nerve, the skin around the planned entry point and the subcutaneous tissues were injected with lidocaine 1%. An introducer needle and stimulating probe were assembled, inserted and advanced along the intended course of the medial branch nerve as it traverses the lamina medial and inferior to the zygapophyseal joint, taking care to maintain the proper depth of insertion as the introducer is advanced under fluoroscopic guidance. The target was selected based on fluoroscopic correlation of patient's typical area of pain. The introducer needle was delivered to a location in proximity to the nerve. Multiple stimulation parameters were used to deliver stimulation to the target medial branch nerve in concert with stimulating at multiple positions around the nerve. Nerve target acquisition was confirmed noting generation of paresthesias in the paravertebral regions corresponding to the level being stimulated. Various electrical parameter combinations were tested, and the lead location was adjusted (physically relocated) until the patient indicated paresthesia/muscle tension overlapping the distribution of the patient?s typical region of pain. The stimulating probe was removed from the introducer and a percutaneous lead was guided through the needle and delivered to a location in similar proximity to the nerve. Final location was verified with electrical stimulation and documented with fluoroscopy. The introducer needle was removed, and the exposed end of the percutaneous lead was attached to an external stimulator unit. Various electrical parameter combinations were again tested until the patient indicated paresthesia or muscle tension overlapping the distribution of the patient?s typical region of pain. After confirming that lead impedance was in the normal range, the external unit was detached, the needle was removed, and the lead was anchored at the skin. The lead was threaded into the connector block and electrical continuity and desired patient response was confirmed. The connector block was attached to the external stimulator unit. The site was covered with a sterile occlusive dressing. The patient was observed for stability of vital signs and comfort. Sprint PNS Device: Sprint PNS Device [id number] Percutaneous Peripheral Neuroelectrode Procedure: 14098 - Percutaneous Peripheral Neuroelectrode Procedure code (CPT) selection complete Office Meds lidocaine HCl 10 mg/mL (1 %) injection solution Performing Provider: Criselda Harvey APRN, MARCELO Performing Location: [facility] Administered by: Yvonne Ybarra LPN on 04/12/24 11:19 Dose Route Admin Location Dispensed Lot Number Expiration Date [employer] 50 mg subcut 5 mL Assessment & Plan Assessment & Plan (1) Intractable pain: Comment: Back and neck Code(s): R52 - Pain, unspecified Category: Medical (2) Cervical post-laminectomy syndrome: Code(s): M96.1 - Postlaminectomy syndrome, not elsewhere classified Category: Medical (3) Intractable cervical neuropathic pain: Code(s): M79.2 - Neuralgia and neuritis, unspecified Category: Medical Plan Patient is status post temporary right T1 medial branch nerve stimulator placement. Patient tolerated procedure well and was discharged home in stable condition with discharge instructions. All questions were answered. We will follow-up via telephone or in clinic to assess response to therapy. A follow-up appointment was made during today's visit. Orders: Orders FL guidance in treatment room Today M79.2 - Neuralgia and neuritis, unspecified AMB Sprint PNS Today M79.2 - Neuralgia and neuritis, unspecified Coding Level of Care Code Procedure Only Diagnoses Intractable pain R52 Cervical post-laminectomy syndrome M96.1 Intractable cervical neuropathic pain M79.2 CPT Codes Sprint PNS - Sprint PNS Device: Sprint PNS Device ([id number]) Sprint PNS - SPRINT: 34206 - Percutaneous Peripheral Neuroelectrode ([id number]) Implantable Device Implantable Device Implantable Devices [employer] Implant Date Expiration Date Analgesic PENS system [address] [employer] [address] 04/12/24 02/05/26
[2024-04-12 12:33] VITALS: BP 126/74; PULSE 82; O2SAT 96
== END 2024-04-12 12:07 | disposition home or self-care (01) ==
LOC: HO.PMCPRC 10:29
PROVIDERS: PCP Nurse Practitioner Family; Visit Provider Internal Medicine
DX: M79.2 Neuralgia and neuritis, unspecified (principal)
CPT/HCPCS: 64555

== ENCOUNTER 2024-04-18 10:24 | Outpatient (AMB) | payer BC, SELFPAY ==
--- NOTE | 2024-04-18 10:30 | MHC.OFFVIS ---
Vital Signs 04/18/24 10:32 Height 5 ft 8 in Weight 210 lb BMI 31.9 BP 147/70 H Blood Pressure Location Lt brachial Position Sitting Respiration 16 Pulse 94 Pulse Source Pulse Oximeter Pulse Oximetry (%) 97 Oxygen Delivery Method Room Air Intake Visit Reasons: s/p right C5 Sprint Allergies Iodinated Contrast Media [CONTRAST, IV] Allergy (Unknown, Verified 04/18/24 10:33) UNKNOWN morphine [Morphine] Allergy (Unknown, Verified 04/18/24 10:33) NAUSEA/RASH, rash, N/V, rash, N/V Medication List - Last Reconciled 04/18/24 by Yvonne Ybarra LPN acetaminophen 1,000 mg PO BID celecoxib 200 mg PO BID cyclobenzaprine 10 mg PO TID 3 days diclofenac sodium 75 mg PO BID duloxetine 40 mg PO BID gabapentin 600 mg PO TID lidocaine 5% (Lidoderm) 1 patch topical DAILY PRN lisinopril 10 mg PO ONCE 90 days methocarbamol 1,500 mg (2 x 750 mg) PO TID PRN naloxone 4 mg/actuation 4 mg intranasal Q2M PRN naltrexone (Naltrex) 1.5 mg PO DAILY tirzepatide (weight loss) (Zepbound) mg subcut HPI HPI s/p right C5 Sprint: Details: History of Present Illness The patient is a 58-year-old female presenting with chronic neck and shoulder pain attributed to cervical radiculopathy. She recently underwent a right C7-T1 medial branch nerve stimulator placement. The procedure initially resulted in postprocedural pain, more severe than prior experiences, but she has since recovered. She reports that it remains difficult to evaluate the effectiveness of the stimulation due to ongoing soreness, although she perceives some pulsing effects and is managing the sensation well. Historically, her pain follows a path resembling a 'V' shape, extending from the neck and radiating under the shoulder blade, a characteristic that aligns with common presentations of cervical radiculopathy. Previous interventions include pharmacotherapy with tramadol, which she has now ceased. Furthermore, she has initiated a regimen of low-dose naltrexone obtained through a third-constitution party pharmacy, with the intent to titrate up to 6 mg nightly. Pain Description - Onset: Chronic - Quality: Soreness, intermittent pulsing - Location: Neck, radiating under the shoulder blade in a 'V' shaped pattern - Exacerbating Factors: Aggravation from activity in sore muscle areas - Relieving Factors: Temporary procedures, medication adjustments - Interference: Difficult to determine overall impact due to persistent soreness Physical Exam Results Pain Management - Affect: Ongoing soreness is affecting overall pain perception; impact on mood not specifically discussed. - Analgesia: Ceased tramadol; started low-dose naltrexone with planned titration; difficulty assessing nerve stimulator's effectiveness. - Adverse Effects: Postprocedural pain, but no specific medication-related side effects reported. - Activities of Daily Living: Interference with normal activities due to pain, though specifics were not detailed. - Aberrant Drug Related Behaviors: None reported. [facility] Medical History Cervical post-laminectomy syndrome Personal history of nicotine dependence Post-menopausal (~2018) Tubular adenoma of colon (~2017) Hypertension, essential Abnormal bowel movement Chronic neck and back pain Vitamin D deficiency Cyst of right ovary Elevated dehydroepiandrosterone sulfate level (~2019) Surgical History History of basal cell carcinoma (BCC) excision History of left knee surgery History of right knee surgery History of foot surgery History of History of colonoscopy History of fusion of cervical spine Family History Father Mesothelioma Mother Breast cancer Colon cancer Other Mental health disorder Substance use disorder Social History Housing: House Are you a primary home care administrator to a significant other at home: No Do you presently have visiting nurse or other home services: No Alcohol intake: current Alcohol intake frequency: a few times a month Patient Tobacco Use Status: Former Tobacco user Tobacco use type: Cigarette Cigarette Packs Per Day: 0.5 Cigarettes Per Day: 10.0 Years Smoked: 37 e-Cigarette/Vaping Use: Never Used Current occupational status: employed 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: No Hearing needs: No Vision needs: Yes Physical Exam Vital Signs: Last Vital Signs Pulse 94 04/18/24 10:32 Resp 16 04/18/24 10:32 BP 147/70 H 04/18/24 10:32 Pulse Ox 97 04/18/24 10:32 Oxygen Delivery Method Room Air 04/18/24 10:32 BMI result Body Mass Index 31.9 Assessment & Plan Assessment & Plan (1) Cervical post-laminectomy syndrome: Code(s): M96.1 - Postlaminectomy syndrome, not elsewhere classified Category: Medical (2) Intractable cervical neuropathic pain: Code(s): M79.2 - Neuralgia and neuritis, unspecified Category: Medical (3) Intractable pain: Comment: Back and neck Code(s): R52 - Pain, unspecified Category: Medical (4) Vertebrogenic low back pain: Code(s): M54.51 - Vertebrogenic low back pain Category: Medical Plan Plan 1. 5 mg and potentially increasing up to 6 mg, monitoring for side effects: - Schedule for future evaluation for left side stimulator placement after assessing right side outcomes. - Discuss second-level appeal process for vertebral nerve ablation procedure with insurance. Patient was informed and verbally consented to the use of an ambient scribe for clinic note documentation during this visit. Discussion Notes I discussed the procedural and pharmacological strategies we are employing to manage her cervical radiculopathy-related pain, including the continuation of the right C7-T1 medial branch nerve stimulation therapy. We reviewed the titration and potential side effects associated with the low-dose naltrexone regimen. I provided guidance regarding her insurance appeal process for the vertebral nerve ablation procedure and discussed the potential for left-sided nerve stimulation therapy in the future. The patient understands the plan and is agreeable to continue with the outlined strategy. Patient Instructions - Continue with the low-dose naltrexone titration as discussed, monitoring for any side effects. - Schedule a follow-up appointment if you experience any unexpected side effects or changes in pain levels. - Contact us if you have questions or concerns about the nerve stimulator or medication plan. - We will handle the insurance appeal process and keep you informed of any developments. Coding Level of Care Code Est Pt Level 4 (52205) Diagnoses Cervical post-laminectomy syndrome M96.1 Intractable cervical neuropathic pain M79.2 Intractable pain R52 Vertebrogenic low back pain M54.51
[2024-04-18 10:32] VITALS: BP 147/70; PULSE 94; RESP 16; O2SAT 97; BMI 31.9
== END 2024-04-18 11:10 | disposition home or self-care (01) ==
PROVIDERS: PCP Nurse Practitioner Family; Visit Provider Internal Medicine
DX: M96.1 Postlaminectomy syndrome, not elsewhere classified (principal); M79.2 Neuralgia and neuritis, unspecified; R52 Pain, unspecified; M54.51 Vertebrogenic low back pain
CPT/HCPCS: 99024

== ENCOUNTER → 2024-04-18 10:24 | Outpatient (BNVA) | payer BC, SELFPAY | PROVIDERS: PCP Nurse Practitioner Family; Visit Provider Internal Medicine ==

== ENCOUNTER 2024-06-06 09:13 | Outpatient (AMB) | payer BC, SELFPAY ==
--- NOTE | 2024-06-06 09:15 | A.OFFVIS_ITS ---
Vital Signs 06/06/24 09:17 Height 5 ft 8 in Weight 205 lb BMI 31.2 BP 128/74 Blood Pressure Location Lt brachial Position Sitting Respiration 16 Pulse 111 H Pulse Source Pulse Oximeter Pulse Oximetry (%) 97 Oxygen Delivery Method Room Air Intake Visit Reasons: Sprint removal Paid Intern Required: No Allergies Iodinated Contrast Media [CONTRAST, IV] Allergy (Unknown, Verified 06/06/24 09:18) UNKNOWN morphine [Morphine] Allergy (Unknown, Verified 06/06/24 09:18) NAUSEA/RASH, rash, N/V, rash, N/V Medication List - Last Reconciled 06/06/24 by Yvonne Ybarra LPN acetaminophen 1,000 mg PO BID celecoxib 200 mg PO BID cyclobenzaprine 10 mg PO TID 3 days diclofenac sodium 75 mg PO BID duloxetine 60 mg PO BID gabapentin 600 mg PO TID lidocaine 5% (Lidoderm) 1 patch topical DAILY PRN lisinopril 10 mg PO ONCE 90 days methocarbamol 1,500 mg (2 x 750 mg) PO TID PRN naloxone 4 mg/actuation 4 mg intranasal Q2M PRN naltrexone (Naltrex) 3 mg PO DAILY tirzepatide (weight loss) (Zepbound) mg subcut HPI HPI Sprint removal: Details: History of Present Illness The patient is a 58-year-old female presenting with cervical pain following the insertion of a Sprint PNS device, as well as chronic right-sided neck and lower back pain. The device provided some relief on the left side of the neck but persistent pain remains on the right. 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 The back pain escalates with activity, leading her to rely on rest for amelioration. The patient's sciatica has resolved following previous epidural steroid injections, yet she seeks further intervention to address axial lumbar discomfort. Past interventions have included increasing and tapering her dosage of low-dose naltrexone, balancing managing side effects with pain reduction. Pain Description - Onset: Chronic in nature, persistent - Quality: Moderate to severe right-side neck pain, dull lower back pain - Primary Location: Right side of neck, lower back (lumbar region) - Radiation: Previous radiation down legs from sciatica, none currently - Exacerbating Factors: Physical activity, prolonged exertion - Relieving Factors: Rest, lying down, use of heat or ice - Impact: Limits long activity duration, requires frequent rest Physical Exam Results - Lumbar Imaging: Disc bulge at L2-3, confirmed under 5mm in size; modic changes on vertebral end plates Pain Management - Affect: Chronic pain impacts her ability to perform activities continuously - Analgesia: On low-dose naltrexone, reported minor pain relief; current dose 3 mg - Adverse Effects: Rhinitis and insomnia from higher naltrexone dose - Activities of Daily Living: Maintains basic tasks post-pain management - Aberrant Drug Related Behaviors: None reported [facility]LY [facility] Medical History Cervical post-laminectomy syndrome Personal history of nicotine dependence Post-menopausal (~2017) Tubular adenoma of colon (~2016) Hypertension, essential Abnormal bowel movement Chronic neck and back pain Vitamin D deficiency Cyst of right ovary Elevated dehydroepiandrosterone sulfate level (~2018) Surgical History History of basal cell carcinoma (BCC) excision History of left knee surgery History of right knee surgery History of foot surgery History of History of colonoscopy History of fusion of cervical spine Family History Father Mesothelioma Mother Breast cancer Colon cancer Other Mental health disorder Substance use disorder Social History Housing: House Are you a primary acute care certified nursing assistant to a significant other at home: No Do you presently have visiting nurse or other home services: No Alcohol intake: current Alcohol intake frequency: a few times a month Patient Tobacco Use Status: Former Tobacco user Tobacco use type: Cigarette Cigarette Packs Per Day: 0.5 Cigarettes Per Day: 10.0 Years Smoked: 37 e-Cigarette/Vaping Use: Never Used Current occupational status: employed 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: No Hearing needs: No Vision needs: Yes Physical Exam Vital Signs: Last Vital Signs Pulse 111 H 06/06/24 09:17 Resp 16 06/06/24 09:17 BP 128/74 06/06/24 09:17 Pulse Ox 97 06/06/24 09:17 Oxygen Delivery Method Room Air 06/06/24 09:17 BMI result Body Mass Index 31.2 Assessment & Plan Assessment & Plan (1) Vertebrogenic low back pain: Code(s): M54.51 - Vertebrogenic low back pain Category: Medical (2) Cervical post-laminectomy syndrome: Code(s): M96.1 - Postlaminectomy syndrome, not elsewhere classified Category: Medical (3) Intractable cervical neuropathic pain: Code(s): M79.2 - Neuralgia and neuritis, unspecified Category: Medical Plan Plan Removal of the Sprint device was performed with continued evaluation for right- side neck pain. We plan to resubmit an appeal for the Intracept procedure, highlighting objective findings that counter insurance denial criteria, particularly lack of lumbar disc bulge >5mm and vertebral body modic changes. S he also does not have any radicular symptoms at this time. We discussed pain management adjustments, particularly low-dose naltrexone at 3 mg to balance effective analgesia with acceptable adverse effects, optimizing her functional capacity. Continued reevaluation of her condition will be guided by any emerging symptoms or insurance decision turnaround. Patient was informed and verbally consented to the use of an ambient scribe for clinic note documentation during this visit. Discussion Notes Patient and I discussed the removal of the Sprint device and potential plans for lumbar intervention, highlighting the aforementioned imaging findings and procedural pathway. Addressing insurance criteria, we reviewed the decision to appeal based on under 5 mm disc bulge evidence contradicting current policy. Additionally, patient education was provided on adjusting naltrexone dosing for side effect management while ensuring pain relief. We acknowledged that while naltrexone provided some improvement, careful titration is essential. Follow-up plans were to reassess any further developments in insurance dialogue. Patient Instructions - Manage neck and back discomfort with rest, ice, and heat application as needed. - Continue current low-dose naltrexone regimen. - Await follow-up notice regarding the insurance appeal process. - Report any exacerbation of symptoms or new developments. - Follow any new instructions or changes after receiving insurance response. Medications: Changed From naltrexone (Naltrex) 1.5 mg PO DAILY 30 caps 0RF To naltrexone (Naltrex) 3 mg PO DAILY Coding Level of Care Code Est Pt Level 4 (88347) Diagnoses Vertebrogenic low back pain M54.51 Cervical post-laminectomy syndrome M96.1 Intractable cervical neuropathic pain M79.2
[2024-06-06 09:17] VITALS: BP 128/74; PULSE 111; RESP 16; O2SAT 97; BMI 31.2
--- OUTSIDE RECORDS SUMMARY | 2024-06-06 09:55 | XMS_ITS ---
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 Physical Encounters Encounter Location Date Provider Diagnosis [facility] [address] [address] 05/03/2023 SHIVAM ZEPEDA Encounter for gynecological examination (general) (routine) without abnormal findings Z01.419 ; Encounter for screening mammogram for malignant neoplasm of breast Z12.31 and Encounter for screening for infections with a predominantly sexual mode of transmission Z11.3 Assessments Encounter Date Diagnosis (ICD Code) Assessment Notes Treatment Notes Treatment Clinical Notes Section Notes 05/03/2023 Encounter for gynecological examination (general) (routine) without abnormal findings (ICD-10 - Z01.419) During the visit, the following areas of concern were addressed: Discussed cervical cancer screening with either cytology alone every 3 years or high risk HPV co-testing every 5 years as per ASCCP guidelines. Advised continued annual pelvic exams. Patient encouraged to increase her level of exercise. SBE technique encouraged/tau ght. Patient reminded when annual mammogram is due. Patient encouraged to keep colon screening up to date. 05/03/2023 Encounter for screening mammogram for malignant neoplasm of breast (ICD-10 - Z12.31) 05/03/2023 Encounter for screening for infections with a predominantly sexual mode of transmission (ICD-10 - Z11.3) Plan Of Treatment Treatment Notes Assessment Notes Encounter for gynecological examination (general) (routine) without abnormal findings During the visit, the following areas of concern were addressed: Discussed cervical cancer screening with either cytology alone every 3 years or high risk HPV co-testing every 5 years as per ASCCP guidelines. Advised continued annual pelvic exams. Patient encouraged to increase her level of exercise. SBE technique encouraged/taught. Patient reminded when annual mammogram is due. Patient encouraged to keep colon screening up to date. 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 * HPI: ???Constitutional:? Consuelo is a 57yo with LMP 01/2018 who presents for her yearly tear down man exam. She has been in state of *fair health since her last exam. She has the following tear down man concerns: She has received the Pfizer Covid-19 vaccine and Moderna booster. She has not had shingles vaccine - she has had shingles 5 times. She only got the first dose. Relationship status: * for 34 years. She is occasionally sexually active. Sexual partner(s): male. Her was diagnosed with prostate cancer last year. She does not wish to have STI testing. She does* report vaginal dryness - lubricant with good effect. She does* have hot flashes/night sweats - better since taking THC/melatonin/CBD/CBG/CBN - allowing her to sleep well at night, feeling rested. The patient has not had an abnormal pap smear within the last 5 years. Her most recent pap smear was 05/02/18 - NIL, neg HR HPV. Due for cotesting today. She has not been diagnosed with breast cancer. She does have a family history of breast cancer - mother and sister. Consuelo tests negative for BRCA. Her last mammogram was 10/16/21, last breast MRI was 05/13/22 - she is past due for her mammogram and due again for breast MRI. She does have a family history of colon cancer - mother. She a has had a colonoscopy. The last colonoscopy was 02/2021. The patient does *not exercise. She is seeing a PT, who recommends rest at this time. She does walk when the weather is good. 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 * Medical History:? Objective: * Vitals:? * Examination: ???General Examination: ?GENERAL APPEARANCE:?in no acute distress, well developed, well nourished, hood maker present in room.?HEAD:?normocephalic, atraumatic.?NECK/THYROID:?neck supple, full range of motion, thyroid normal.?LYMPH NODES:?no axillary or supraclavicular adenopathy.?SKIN:? normal, good turgor, no rashes, no suspicious lesions.?BREASTS:? normal, no dimpling, no discharge, no drainage, no masses palpable bilaterally, nontender.?ABDOMEN:? soft, non-tender, non distended without masses or hepatosplenomegay.?RECTAL:? normal tone, no masses palpable.?BACK:? no costovertebral angle tenderness.?FEMALE GENITOURINARY:?Vulva without lesions or masses, vagina pink without abnormal discharge, lesions or masses, cervix appears normal and is not tender to palpation, uterus is normal size, mobile, nontender and anteverted, ovaries are not palpable.?NEUROLOGIC:? alert and oriented, gait normal.?PSYCH:? alert, oriented, cognitive function intact, cooperative with exam, good eye contact, mood/affect full range, speech clear.? Assessment: * Assessment: 1.?Encounter for gynecologic al examination (general) (routine) without abnormal findings - Z01.419 (Primary)???2.?Encounter for screening mammogram for malignant neoplasm of breast - Z12.31???3.?Encounter for screening for infections with a predominantly sexual mode of transmission - Z11.3??? Plan: * Treatment: 2.?Encounter for screening m ammogram for malignant neoplasm of breast?Imaging: MM Digital Screening Mammogram 3D * Follow Up:?1 Year (Reason: Y early Biomedical Equipment Technician Exam) * Images: Billing Information: * Visit Code:? [id number] Preventive Care Est Pt. Age 40-64. * Procedure Codes:? * Electronic signature of SHIVAM ZEPEDA MD on 06/06/2024 at 09:55 AM EDT Sign off status: Pending * Provider:?SHIVAM ZEPEDA MD Date:?2023 Generated for Aubrey mccormick/Alvin/eTransmitting on:?06/06/2024 09:55 AM EDT History and Physical Notes * HPI (History of Present Illness) Category Sub-Category Detail Notes Category Not es Constitutional Consuelo is a 57yo with LMP 01/2018 who presents for her yearly tear down man exam. She has been in state of *fair health since her last exam. She has the following tear down man concerns: She has received the Pfizer Covid-19 vaccine and Moderna booster. She has not had shingles vaccine - she has had shingles 5 times. She only got the first dose. Relationship status: * for 34 years. She is occasionally sexually active. Sexual partner(s): male. Her was diagnosed with prostate cancer last year. She does not wish to have STI testing. She does* report vaginal dryness - lubricant with good effect. She does* have hot flashes/night sweats - better since taking THC/melatonin/CBD/CBG/CBN - allowing her to sleep well at night, feeling rested. The patient has not had an abnormal pap smear within the last 5 years. Her most recent pap smear was 05/02/18 - NIL, neg HR HPV. Due for cotesting today. She has not been diagnosed with breast cancer. She does have a family history of breast cancer - mother and sister. Consuelo tests negative for BRCA. Her last mammogram was 10/16/21, last breast MRI was 05/13/22 - she is past due for her mammogram and due again for breast MRI. She does have a family history of colon cancer - mother. She a has had a colonoscopy. The last colonoscopy was 02/2021. The patient does *not exercise. She is seeing a PT, who recommends rest at this time. She does walk when the weather is good. Examination Category Sub-Category Detail Notes Category Not es General Examination GENERAL APPEARANCE: in no ac eyak distress, well developed, well nourished, hood maker present in room HEAD: normocephalic, atrau matic NECK/THYROID: neck supple, full ra nge of motion, thyroid normal ABDOMEN: soft, non-tender, no n distended without masses or hepatosplenomegay NEUROLOGIC: alert and oriented, gait normal SKIN: normal, good turgor, no rashes, no suspicious lesions BACK: no costovertebral an gle tenderness BREASTS: normal, no dimpling, no discharge, no drainage, no masses palpable bilaterally, nontender LYMPH NODES: no axillary or supra clavicular adenopathy RECTAL: normal tone, no mass es palpable PSYCH: alert, oriented, cog nitive function intact, cooperative with exam, good eye contact, mood/affect full range, speech clear FEMALE GENITOURINARY: Vulva without lesi ons or masses, vagina pink without abnormal discharge, lesions or masses, cervix appears normal and is not tender to palpation, uterus is normal size, mobile, nontender and anteverted, ovaries are not palpable
--- OUTSIDE RECORDS SUMMARY | 2024-06-06 09:56 | XMS_ITS | Patient Health Record ---
Author Organization [employer] [facility] Address [address] [address] Care Team Providers Care Box Lining Machine Feeder Name Role Phone JEFF GONZALEZ, GREYSON GRAFF Primary Care Provider SHIVAM Lombardo Unavailable [phone] Allergies Allergen (clinical drug ingredient) Drug/Non Drug Allergy documented on EMR Reaction Allergy Type Onset Date Status Contrast dye (uncoded) RASH/NAUSEA Allergy Active morphine Morphine Sulfate RASH/NAUSEA Drug Allergy Active Reason For Referral No Information Medications Medication SIG (Take, Route, Frequency, Duration) Notes Start Date End Date Status buPROPion HCl ER (SR) 150 MG 1 tablet in the morning Orally Once a day for 30 day(s) 2X DAILY Active Lexapro Active Pregabalin 75 MG 1 capsule Orally Twi ce a day Not-Taking Lidocaine Pain Relief 4 % as directed Externally Activ e Restasis 0.05 % 1 drop into affected eye Ophthalmic Twice a day Not-Taking Gabapentin 300 MG 1 capsule Orally twi ce a day 3X DAILY Not-Taking LORazepam 1 MG 1 tablet at bedtime as needed Orally Once a day PRN Active Biotin as directed Orally O nce a day Not-Taking Estring 2 MG as directed Vaginal every 3 months for 365 days 05/02/2018 Not-Taking Estradiol-Norethindron e Acet 0.05-0.25 MG/DAY 1 patch to skin Transdermal Two times a Week for 90 days 05/03/2019 Not-Taking Diclofenac Sodium 75 MG Orally Not-Taking Social History Tobacco Use: Social History Observation Description Date Details (start date - stop date) Former Smoker NA - NA Tobacco Use/Smoking Question Answer Notes Are you a former smoker How long has it been since y ou last smoked? 3-6 months Additional Findings: Tobacco Non-User Ex -moderate cigarette smoker (10-19/day) Alcohol Screen (Audit-C) Question Answer Notes Did you have a drink contain ing alcohol in the past year? Yes How often did you have a dri nk containing alcohol in the past year? 2 to 4 times a month (2 points) How many drinks did you have on a typical day when you were drinking in the past year? 1 or 2 drinks (0 point) How often did you have 6 or more drinks on one occasion in the past year? Less than monthly (1 point) Points 3 Interpretation Positive Problems Problem Type SNOMED Code ICD Code Onset Dates Problem Status W/U Status Risk Notes Problem Menopause (318940080) Menopausal and female climacteric states (N95.1) Active confirmed Problem Postmenopausal atrophic vaginitis (51629735) Postmenopausal atrophic vaginitis (N95.2) Active confirmed Problem Basal cell carcinoma of truncal skin (129673808) Basal cell carcinoma of skin of other part of trunk (C44.519) Active confirmed Problem Tobacco user (582396338) Nicotine dependence, cigarettes, uncomplicated (F17.210) Active confirmed Problem Family history of malignant neoplasm of breast (800567098) Family history of malignant neoplasm of breast (Z80.3) Active confirmed Problem SI - Stress incontinence (48295803) Stress incontinence (female) (male) (N39.3) Active confirmed Plan Of Treatment Pending Test Test Name Order Date Urinalysis 01/05/2019 THIN PREP,HPV,TERESA IF HPV+ (>29YR)(DIAG) 05/02/2018 Bilateral Breast MRI 05/03/2019 MM Digital Screening Mammogram 3D 2021 MM Digital Screening Mammogram 3D 3 MM Digital Screening Mammogram 3D 2018 MM Digital Screening Mammogram 3D 2019 Insurance Providers Payer Name Payer Address Payer Phone Subscriber Number Group Number Insured Name Patient Relationship to Insured Coverage Start Date Coverage End Date [employer] [address] [place] [phone] [id number] CONSUELO GAXIOLA Self - patient is the insured Medical (General) History Medical History History ICD Code DEPRESSION ARTHRITIS Hidradenitis suppurativa L73.2 Eczema Basal cell carcinoma of skin of other pa rt of trunk C44.519 Surgical History Surgery Date(Month/Year) 1993 CERVICAL FUSION 2003 MENISCUS REPAIR 2006 & 2009 BREAST BX 2016 Bunionectomy 2009? laminectomy from c3 to c7, f usion c3 to c4, fusion from c6 to c7 to existing fusion 11/2021 BCC removed from chest 08/2021 Hospitalization History Reason Date(Month/Year) CHILD SEE SURGICAL HX Back Pain 09/24/2020
--- OUTSIDE RECORDS SUMMARY | 2024-06-06 09:56 | XMS_ITS | Patient Health Record ---
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 Name Role Phone Caridad Rebolledo Primary Care Provider ADINA Wilson Unavailable [phone] ALLERGIES Allergen (clinical drug ingredient) Drug/Non Drug Allergy documented on EMR Reaction Allergy Type Onset Date Status Contrast Allergy PreMed Pack rash Drug Allergy Active REASON FOR REFERRAL No Information MEDICATIONS Medication SIG (Take, Route, Frequency, Duration) Notes Start Date End Date Status Naltrexone HCl (Pain) 1.5 MG as directed Orally Active Celecoxib 200 MG 1 capsule with food Orally Once a day Active DULoxetine HCl 60 MG 1 capsule Orally On ce a day Active Zepbound 5 MG/0.5ML Inject 5mg Subcutane ous once weekly for 30 days Active Lisinopril 10 MG 1 tablet Orally Once a day Active Zepbound 2.5 MG/0.5ML Inject 2.5mg Subcu taneous weekly for 30 days 01/04/2024 Not-Taking traMADol HCl 50 MG 1 tablet Orally twic e daily Not-Taking PROBLEMS Problem Type ICD Code Onset Dates Problem Status W/U Status Risk SNOMED Code Notes Problem Other chronic pain (G89.29) Active confirmed 14679622 Problem Prediabetes (R73.03) Active confirmed 060369989 Problem Obesity (BMI 30-39.9) (E66.9) Active confirmed 103037037 Problem BMI 37.0-37.9, adult (Z68.37) Active confirmed 452992718 Problem BMI 35.0-35.9,adult (Z68.35) Active confirmed 220526180 Problem Elevated cholesterol (E78.00) Active confirmed 30912807 Problem Cervical pain (M54.2) Active confirmed 44084303 Problem BMI 36.0-36.9,adult (Z68.36) Active confirmed 977122738 Problem Primary hypertension (I10) Active confirmed 30886326 Problem BMI 34.0-34.9,adult (Z68.34) Active confirmed 574563938 Problem Low back pain, unspecified (M54.50) Active confirmed 100276926 Problem Nutritional counseling (Z71.3) Active confirmed 392899919 Problem Expiratory wheezing (R06.2) Active confirmed 4811294 VITAL SIGNS Heart Rate 108 /min 05/15/2024 Blood pressure diastolic 60 mm Hg 05/15/2024 Oximetry 95 % 05/15/2024 Height 67 in 05/15/2024 Blood pressure systolic 108 mm Hg 05/15/2024 Weight 211 lbs 05/15/2024 BMI 33.04 kg/m2 05/15/2024 Encounters Encounter Location Date Provider Diagnosis [address] [address] 02/08/2024 ADINA NADEAU [address] [address] 12/07/2023 ADINA WEBERHAM Obesity (BMI 30-39.9 ) E66.9 ; BMI 37.0-37.9, adult Z68.37 ; Primary hypertension I10 ; Elevated cholesterol E78.00 ; Other chronic pain G89.29 ; Low back pain, unspecified M54.50 ; Cervical pain M54.2 and Nutritional counseling Z71.3 [address] [address] 01/04/2024 ADINA WEBERHAM Obesity (BMI 30-39.9 ) E66.9 ; BMI 37.0-37.9, adult Z68.37 ; Primary hypertension I10 ; Elevated cholesterol E78.00 ; Prediabetes R73.03 ; Other chronic pain G89.29 ; Low back pain, unspecified M54.50 ; Cervical pain M54.2 and Nutritional counseling Z71.3 [address] [address] 02/02/2024 ADINA WEBERHAM Obesity (BMI 30-39.9 ) E66.9 ; BMI 36.0-36.9,adult Z68.36 ; Primary hypertension I10 ; Elevated cholesterol E78.00 ; Prediabetes R73.03 ; Other chronic pain G89.29 ; Low back pain, unspecified M54.50 ; Nutritional counseling Z71.3 and Cervical pain M54.2 [address] 03/07/2024 ADINA NADEAU Obesity (BMI 30-39.9 ) E66.9 ; BMI 35.0-35.9,adult Z68.35 ; Primary hypertension I10 ; Elevated cholesterol E78.00 ; Prediabetes R73.03 ; Other chronic pain G89.29 ; Low back pain, unspecified M54.50 ; Cervical pain M54.2 and Nutritional counseling Z71.3 [address] [address] 04/17/2024 ADINA NADEAU Obesity (BMI 30-39.9 ) E66.9 ; BMI 34.0-34.9,adult Z68.34 ; Primary hypertension I10 ; Elevated cholesterol E78.00 ; Prediabetes R73.03 ; Other chronic pain G89.29 and Nutritional counseling Z71.3 [address] 05/15/2024 ADINA NADEAU Obesity (BMI 30-39.9 ) E66.9 ; BMI 34.0-34.9,adult Z68.34 ; Primary hypertension I10 ; Elevated cholesterol E78.00 ; Prediabetes R73.03 ; Other chronic pain G89.29 ; Expiratory wheezing R06.2 and Nutritional counseling Z71.3 [facility] [address] [address] 12/08/2023 COUNTS INCLUDE 234 BEDS AT [facility] [address] [address] 01/06/2024 COUNTS INCLUDE 234 BEDS AT THE [facility] [address] [address] 01/11/2024 [place] [address] [address] 02/28/2024 COUNTS INCLUDE 234 BEDS AT THE [facility] Obesity (BMI 30-39.9 ) E66.[address] [facility] [address] [address] 03/07/2024 [facility] [address] [address] 01/04/2024 ADINA ROBISON ASSESSMENTS Encounter Date Diagnosis [...] reviewed. Dictation completed with the use of [employer] voice recognition software, prone to medical misidentifications [...] reviewed. Dictation completed with the use of [employer] voice recognition software, prone to medical misidentifications [...] reviewed. Dictation completed with the use of [employer] voice recognition software, prone to medical misidentifications [...] reviewed. Dictation completed with the use of [employer] voice recognition software, prone to medical misidentifications [...] reviewed. Dictation completed with the use of [employer] voice recognition software, prone to medical misidentifications [...] reviewed. Dictation completed with the use of [employer] voice recognition software, prone to medical misidentifications [...] reviewed. Dictation completed with the use of [employer] voice recognition software, prone to medical misidentifications [...] reviewed. Dictation completed with the use of [employer] voice recognition software, prone to medical misidentifications and grammatical errors. All errors are unintentional. Although the practitioner does try to identify and correct errors, some may be present. Please do not hesitate to contact the practitioner for clarification. Total time spent was 30 minutes with >50% on coordination of care and patient education. 04/17/2024 Obesity (BMI 30-39.9) (ICD-10 - E66.9) Savita is a 58-year-old female with a PMH of chronic back pain s/p cervical fusion/laminectomy of C2-7 11/2021, HTN, HLD, prediabetes, depression/anxiety that presents for weight management follow-up. Reviewed [facility] holistic and medical approach to weight loss with emphasis on lifestyle modification. 04/17/2024: Weight: 219, BMI: 34.3. Patient down 8 pounds. SECA reviewed, reveals 7 pounds of fat loss and 3 pounds of muscle mass loss. Patient is encouraged to continue prioritizing protein intake and exercising as tolerated with goal of maintenance of muscle mass with continued use of Zepbound. Plan to continue Zepbound 5 mg SC weekly and follow-up in 1 month. 03/07/2024: Weight: 227, BMI: 35.5. SECA reviewed, [...] reviewed. Dictation completed with the use of [employer] voice recognition software, prone to medical misidentifications and grammatical errors. All errors are unintentional. Although the practitioner does try to identify and correct errors, some may be present. Please do not hesitate to contact the practitioner for clarification. Total time spent was 30 minutes with >50% on coordination of care and patient education. 04/17/2024 BMI 34.0-34.9,adult (ICD-10 - Z68.34) Savita is a 58-year-old female with a PMH of chronic back pain s/p cervical fusion/laminectomy of C2-7 11/2021, HTN, HLD, prediabetes, depression/anxiety that presents for weight management follow-up. Reviewed [facility] holistic and medical approach to weight loss with emphasis on lifestyle modification. 04/17/2024: Weight: 219, BMI: 34.3. Patient down 8 pounds. SECA reviewed, reveals 7 pounds of fat loss and 3 pounds of muscle mass loss. Patient is encouraged to continue prioritizing protein intake and exercising as tolerated with goal of maintenance of muscle mass with continued use of Zepbound. Plan to continue Zepbound 5 mg SC weekly and follow-up in 1 month. 03/07/2024: Weight: 227, BMI: 35.5. SECA reviewed, [...] reviewed. Dictation completed with the use of [employer] voice recognition software, prone to medical misidentifications and grammatical errors. All errors are unintentional. Although the practitioner does try to identify and correct errors, some may be present. Please do not hesitate to contact the practitioner for clarification. Total time spent was 30 minutes with >50% on coordination of care and patient education. 05/15/2024 Obesity (BMI 30-39.9) (ICD-10 - E66.9) Savita is a 58-year-old female with a PMH of chronic back pain s/p cervical fusion/laminectomy of C2-7 11/2021, HTN, HLD, prediabetes, depression/anxiety that presents for weight management follow-up. Reviewed [facility] holistic and medical approach to weight loss with emphasis on lifestyle modification. 05/15/2024: Weight: 211, BMI: 33. Patient down 8 pounds. SECA reviewed, reveals 7 pounds of fat loss with mild improvement in muscle mass. Patient is encouraged to continue prioritizing protein intake and making health-conscious diet choices. She is additionally encouraged to continue increasing physical activity as tolerated given her pain. Plan to continue Zepbound 5 mg SC weekly and follow-up in 1 month. [facility] injection administered. #Suspected viral illness: Patient with recent development of cold like symptoms. Physical exam reveals wheezing in bilateral upper lung valentin. The patient is encouraged to follow-up with her primary care provider or seek medical attention at an urgent care facility for continued care. She will make an appointment today. 04/17/2024: Weight: 219, BMI: 34.3. Patient down 8 pounds. SECA reviewed, reveals 7 pounds of fat loss and 3 pounds of muscle mass loss. Patient is encouraged to continue prioritizing protein intake and exercising as tolerated with goal of maintenance of muscle mass with continued use of Zepbound. Plan to continue Zepbound 5 mg SC weekly and follow-up in 1 month. 03/07/2024: Weight: 227, BMI: 35.5. SECA reviewed, [...] reviewed. Dictation completed with the use of [employer] voice recognition software, prone to medical misidentifications and grammatical errors. All errors are unintentional. Although the practitioner does try to identify and correct errors, some may be present. Please do not hesitate to contact the practitioner for clarification. Total time spent was 30 minutes with >50% on coordination of care and patient education. 05/15/2024 BMI 34.0-34.9,adult (ICD-10 - Z68.34) Savita is a 58-year-old female with a PMH of chronic back pain s/p cervical fusion/laminectomy of C2-7 11/2021, HTN, HLD, prediabetes, depression/anxiety that presents for weight management follow-up. Reviewed [facility] holistic and medical approach to weight loss with emphasis on lifestyle modification. 05/15/2024: Weight: 211, BMI: 33. Patient down 8 pounds. SECA reviewed, reveals 7 pounds of fat loss with mild improvement in muscle mass. Patient is encouraged to continue prioritizing protein intake and making health-conscious diet choices. She is additionally encouraged to continue increasing physical activity as tolerated given her pain. Plan to continue Zepbound 5 mg SC weekly and follow-up in 1 month. [facility] injection administered. #Suspected viral illness: Patient with recent development of cold like symptoms. Physical exam reveals wheezing in bilateral upper lung valentin. The patient is encouraged to follow-up with her primary care provider or seek medical attention at an urgent care facility for continued care. She will make an appointment today. 04/17/2024: Weight: 219, BMI: 34.3. Patient down 8 pounds. SECA reviewed, reveals 7 pounds of fat loss and 3 pounds of muscle mass loss. Patient is encouraged to continue prioritizing protein intake and exercising as tolerated with goal of maintenance of muscle mass with continued use of Zepbound. Plan to continue Zepbound 5 mg SC weekly and follow-up in 1 month. 03/07/2024: Weight: 227, BMI: 35.5. SECA reviewed, [...] reviewed. Dictation completed with the use of [employer] voice recognition software, prone to medical misidentifications and grammatical errors. All errors are unintentional. Although the practitioner does try to identify and correct errors, some may be present. Please do not hesitate to contact the practitioner for clarification. Total time spent was 30 minutes with >50% on coordination of care and patient education. 05/15/2024 Primary hypertension (ICD-10 - I10) Savita is a 58-year-old female with a PMH of chronic back pain s/p cervical fusion/laminectomy of C2-7 11/2021, HTN, HLD, prediabetes, depression/anxiety that presents for weight management follow-up. Reviewed [facility] holistic and medical approach to weight loss with emphasis on lifestyle modification. 05/15/2024: Weight: 211, BMI: 33. Patient down 8 pounds. SECA reviewed, reveals 7 pounds of fat loss with mild improvement in muscle mass. Patient is encouraged to continue prioritizing protein intake and making health-conscious diet choices. She is additionally encouraged to continue increasing physical activity as tolerated given her pain. Plan to continue Zepbound 5 mg SC weekly and follow-up in 1 month. [facility] injection administered. #Suspected viral illness: Patient with recent development of cold like symptoms. Physical exam reveals wheezing in bilateral upper lung valentin. The patient is encouraged to follow-up with her primary care provider or seek medical attention at an urgent care facility for continued care. She will make an appointment today. 04/17/2024: Weight: 219, BMI: 34.3. Patient down 8 pounds. SECA reviewed, reveals 7 pounds of fat loss and 3 pounds of muscle mass loss. Patient is encouraged to continue prioritizing protein intake and exercising as tolerated with goal of maintenance of muscle mass with continued use of Zepbound. Plan to continue Zepbound 5 mg SC weekly and follow-up in 1 month. 03/07/2024: Weight: 227, BMI: 35.5. SECA reviewed, [...] reviewed. Dictation completed with the use of [employer] voice recognition software, prone to medical misidentifications and grammatical errors. All errors are unintentional. Although the practitioner does try to identify and correct errors, some may be present. Please do not hesitate to contact the practitioner for clarification. Total time spent was 30 minutes with >50% on coordination of care and patient education. 04/17/2024 Primary hypertension (ICD-10 - I10) Savita is a 58-year-old female with a PMH of chronic back pain s/p cervical fusion/laminectomy of C2-7 11/2021, HTN, HLD, prediabetes, depression/anxiety that presents for weight management follow-up. Reviewed [facility] holistic and medical approach to weight loss with emphasis on lifestyle modification. 04/17/2024: Weight: 219, BMI: 34.3. Patient down 8 pounds. SECA reviewed, reveals 7 pounds of fat loss and 3 pounds of muscle mass loss. Patient is encouraged to continue prioritizing protein intake and exercising as tolerated with goal of maintenance of muscle mass with continued use of Zepbound. Plan to continue Zepbound 5 mg SC weekly and follow-up in 1 month. 03/07/2024: Weight: 227, BMI: 35.5. SECA reviewed, [...] reviewed. Dictation completed with the use of [employer] voice recognition software, prone to medical misidentifications [...] reviewed. Dictation completed with the use of [employer] voice recognition software, prone to medical misidentifications [...] reviewed. Dictation completed with the use of [employer] voice recognition software, prone to medical misidentifications [...] reviewed. Dictation completed with the use of [employer] voice recognition software, prone to medical misidentifications [...] reviewed. Dictation completed with the use of [employer] voice recognition software, prone to medical misidentifications [...] reviewed. Dictation completed with the use of [employer] voice recognition software, prone to medical misidentifications [...] reviewed. Dictation completed with the use of [employer] voice recognition software, prone to medical misidentifications [...] reviewed. Dictation completed with the use of [employer] voice recognition software, prone to medical misidentifications [...] reviewed. Dictation completed with the use of [employer] voice recognition software, prone to medical misidentifications and grammatical errors. All errors are unintentional. Although the practitioner does try to identify and correct errors, some may be present. Please do not hesitate to contact the practitioner for clarification. Total time spent was 30 minutes with >50% on coordination of care and patient education. 04/17/2024 Elevated cholesterol (ICD-10 - E78.00) Savita is a 58-year-old female with a PMH of chronic back pain s/p cervical fusion/laminectomy of C2-7 11/2021, HTN, HLD, prediabetes, depression/anxiety that presents for weight management follow-up. Reviewed [facility] holistic and medical approach to weight loss with emphasis on lifestyle modification. 04/17/2024: Weight: 219, BMI: 34.3. Patient down 8 pounds. SECA reviewed, reveals 7 pounds of fat loss and 3 pounds of muscle mass loss. Patient is encouraged to continue prioritizing protein intake and exercising as tolerated with goal of maintenance of muscle mass with continued use of Zepbound. Plan to continue Zepbound 5 mg SC weekly and follow-up in 1 month. 03/07/2024: Weight: 227, BMI: 35.5. SECA reviewed, [...] reviewed. Dictation completed with the use of [employer] voice recognition software, prone to medical misidentifications and grammatical errors. All errors are unintentional. Although the practitioner does try to identify and correct errors, some may be present. Please do not hesitate to contact the practitioner for clarification. Total time spent was 30 minutes with >50% on coordination of care and patient education. 05/15/2024 Elevated cholesterol (ICD-10 - E78.00) Savita is a 58-year-old female with a PMH of chronic back pain s/p cervical fusion/laminectomy of C2-7 11/2021, HTN, HLD, prediabetes, depression/anxiety that presents for weight management follow-up. Reviewed [facility] holistic and medical approach to weight loss with emphasis on lifestyle modification. 05/15/2024: Weight: 211, BMI: 33. Patient down 8 pounds. SECA reviewed, reveals 7 pounds of fat loss with mild improvement in muscle mass. Patient is encouraged to continue prioritizing protein intake and making health-conscious diet choices. She is additionally encouraged to continue increasing physical activity as tolerated given her pain. Plan to continue Zepbound 5 mg SC weekly and follow-up in 1 month. [facility] injection administered. #Suspected viral illness: Patient with recent development of cold like symptoms. Physical exam reveals wheezing in bilateral upper lung valentin. The patient is encouraged to follow-up with her primary care provider or seek medical attention at an urgent care facility for continued care. She will make an appointment today. 04/17/2024: Weight: 219, BMI: 34.3. Patient down 8 pounds. SECA reviewed, reveals 7 pounds of fat loss and 3 pounds of muscle mass loss. Patient is encouraged to continue prioritizing protein intake and exercising as tolerated with goal of maintenance of muscle mass with continued use of Zepbound. Plan to continue Zepbound 5 mg SC weekly and follow-up in 1 month. 03/07/2024: Weight: 227, BMI: 35.5. SECA reviewed, [...] reviewed. Dictation completed with the use of [employer] voice recognition software, prone to medical misidentifications and grammatical errors. All errors are unintentional. Although the practitioner does try to identify and correct errors, some may be present. Please do not hesitate to contact the practitioner for clarification. Total time spent was 30 minutes with >50% on coordination of care and patient education. 05/15/2024 Prediabetes (ICD-10 - R73.03) Savita is a 58-year-old female with a PMH of chronic back pain s/p cervical fusion/laminectomy of C2-7 11/2021, HTN, HLD, prediabetes, depression/anxiety that presents for weight management follow-up. Reviewed [facility] holistic and medical approach to weight loss with emphasis on lifestyle modification. 05/15/2024: Weight: 211, BMI: 33. Patient down 8 pounds. SECA reviewed, reveals 7 pounds of fat loss with mild improvement in muscle mass. Patient is encouraged to continue prioritizing protein intake and making health-conscious diet choices. She is additionally encouraged to continue increasing physical activity as tolerated given her pain. Plan to continue Zepbound 5 mg SC weekly and follow-up in 1 month. [facility] injection administered. #Suspected viral illness: Patient with recent development of cold like symptoms. Physical exam reveals wheezing in bilateral upper lung valentin. The patient is encouraged to follow-up with her primary care provider or seek medical attention at an urgent care facility for continued care. She will make an appointment today. 04/17/2024: Weight: 219, BMI: 34.3. Patient down 8 pounds. SECA reviewed, reveals 7 pounds of fat loss and 3 pounds of muscle mass loss. Patient is encouraged to continue prioritizing protein intake and exercising as tolerated with goal of maintenance of muscle mass with continued use of Zepbound. Plan to continue Zepbound 5 mg SC weekly and follow-up in 1 month. 03/07/2024: Weight: 227, BMI: 35.5. SECA reviewed, [...] reviewed. Dictation completed with the use of [employer] voice recognition software, prone to medical misidentifications and grammatical errors. All errors are unintentional. Although the practitioner does try to identify and correct errors, some may be present. Please do not hesitate to contact the practitioner for clarification. Total time spent was 30 minutes with >50% on coordination of care and patient education. 04/17/2024 Prediabetes (ICD-10 - R73.03) Savita is a 58-year-old female with a PMH of chronic back pain s/p cervical fusion/laminectomy of C2-7 11/2021, HTN, HLD, prediabetes, depression/anxiety that presents for weight management follow-up. Reviewed [facility] holistic and medical approach to weight loss with emphasis on lifestyle modification. 04/17/2024: Weight: 219, BMI: 34.3. Patient down 8 pounds. SECA reviewed, reveals 7 pounds of fat loss and 3 pounds of muscle mass loss. Patient is encouraged to continue prioritizing protein intake and exercising as tolerated with goal of maintenance of muscle mass with continued use of Zepbound. Plan to continue Zepbound 5 mg SC weekly and follow-up in 1 month. 03/07/2024: Weight: 227, BMI: 35.5. SECA reviewed, [...] reviewed. Dictation completed with the use of [employer] voice recognition software, prone to medical misidentifications [...] reviewed. Dictation completed with the use of [employer] voice recognition software, prone to medical misidentifications [...] reviewed. Dictation completed with the use of [employer] voice recognition software, prone to medical misidentifications [...] reviewed. Dictation completed with the use of [employer] voice recognition software, prone to medical misidentifications [...] reviewed. Dictation completed with the use of [employer] voice recognition software, prone to medical misidentifications [...] reviewed. Dictation completed with the use of [employer] voice recognition software, prone to medical misidentifications [...] reviewed. Dictation completed with the use of [employer] voice recognition software, prone to medical misidentifications [...] reviewed. Dictation completed with the use of [employer] voice recognition software, prone to medical misidentifications [...] reviewed. Dictation completed with the use of [employer] voice recognition software, prone to medical misidentifications and grammatical errors. All errors are unintentional. Although the practitioner does try to identify and correct errors, some may be present. Please do not hesitate to contact the practitioner for clarification. Total time spent was 30 minutes with >50% on coordination of care and patient education. 04/17/2024 Other chronic pain (ICD-10 - G89.29) Savita is a 58-year-old female with a PMH of chronic back pain s/p cervical fusion/laminectomy of C2-7 11/2021, HTN, HLD, prediabetes, depression/anxiety that presents for weight management follow-up. Reviewed [facility] holistic and medical approach to weight loss with emphasis on lifestyle modification. 04/17/2024: Weight: 219, BMI: 34.3. Patient down 8 pounds. SECA reviewed, reveals 7 pounds of fat loss and 3 pounds of muscle mass loss. Patient is encouraged to continue prioritizing protein intake and exercising as tolerated with goal of maintenance of muscle mass with continued use of Zepbound. Plan to continue Zepbound 5 mg SC weekly and follow-up in 1 month. 03/07/2024: Weight: 227, BMI: 35.5. SECA reviewed, [...] reviewed. Dictation completed with the use of [employer] voice recognition software, prone to medical misidentifications and grammatical errors. All errors are unintentional. Although the practitioner does try to identify and correct errors, some may be present. Please do not hesitate to contact the practitioner for clarification. Total time spent was 30 minutes with >50% on coordination of care and patient education. 05/15/2024 Other chronic pain (ICD-10 - G89.29) Savita is a 58-year-old female with a PMH of chronic back pain s/p cervical fusion/laminectomy of C2-7 11/2021, HTN, HLD, prediabetes, depression/anxiety that presents for weight management follow-up. Reviewed [facility] holistic and medical approach to weight loss with emphasis on lifestyle modification. 05/15/2024: Weight: 211, BMI: 33. Patient down 8 pounds. SECA reviewed, reveals 7 pounds of fat loss with mild improvement in muscle mass. Patient is encouraged to continue prioritizing protein intake and making health-conscious diet choices. She is additionally encouraged to continue increasing physical activity as tolerated given her pain. Plan to continue Zepbound 5 mg SC weekly and follow-up in 1 month. MICC injection administered. #Suspected viral illness: Patient with recent development of cold like symptoms. Physical exam reveals wheezing in bilateral upper lung valentin. The patient is encouraged to follow-up with her primary care provider or seek medical attention at an urgent care facility for continued care. She will make an appointment today. 04/17/2024: Weight: 219, BMI: 34.3. Patient down 8 pounds. SECA reviewed, reveals 7 pounds of fat loss and 3 pounds of muscle mass loss. Patient is encouraged to continue prioritizing protein intake and exercising as tolerated with goal of maintenance of muscle mass with continued use of Zepbound. Plan to continue Zepbound 5 mg SC weekly and follow-up in 1 month. 03/07/2024: Weight: 227, BMI: 35.5. SECA reviewed, [...] reviewed. Dictation completed with the use of [employer] voice recognition software, prone to medical misidentifications and grammatical errors. All errors are unintentional. Although the practitioner does try to identify and correct errors, some may be present. Please do not hesitate to contact the practitioner for clarification. Total time spent was 30 minutes with >50% on coordination of care and patient education. 04/17/2024 Nutritional counseling (ICD-10 - Z71.3) Savita is a 58-year-old female with a PMH of chronic back pain s/p cervical fusion/laminectomy of C2-7 11/2021, HTN, HLD, prediabetes, depression/anxiety that presents for weight management follow-up. Reviewed [facility] holistic and medical approach to weight loss with emphasis on lifestyle modification. 04/17/2024: Weight: 219, BMI: 34.3. Patient down 8 pounds. SECA reviewed, reveals 7 pounds of fat loss and 3 pounds of muscle mass loss. Patient is encouraged to continue prioritizing protein intake and exercising as tolerated with goal of maintenance of muscle mass with continued use of Zepbound. Plan to continue Zepbound 5 mg SC weekly and follow-up in 1 month. 03/07/2024: Weight: 227, BMI: 35.5. SECA reviewed, [...] reviewed. Dictation completed with the use of [employer] voice recognition software, prone to medical misidentifications and grammatical errors. All errors are unintentional. Although the practitioner does try to identify and correct errors, some may be present. Please do not hesitate to contact the practitioner for clarification. Total time spent was 30 minutes with >50% on coordination of care and patient education. 05/15/2024 Expiratory wheezing (ICD-10 - R06.2) Savita is a 58-year-old female with a PMH of chronic back pain s/p cervical fusion/laminectomy of C2-7 11/2021, HTN, HLD, prediabetes, depression/anxiety that presents for weight management follow-up. Reviewed [facility] holistic and medical approach to weight loss with emphasis on lifestyle modification. 05/15/2024: Weight: 211, BMI: 33. Patient down 8 pounds. SECA reviewed, reveals 7 pounds of fat loss with mild improvement in muscle mass. Patient is encouraged to continue prioritizing protein intake and making health-conscious diet choices. She is additionally encouraged to continue increasing physical activity as tolerated given her pain. Plan to continue Zepbound 5 mg SC weekly and follow-up in 1 month. MICC injection administered. #Suspected viral illness: Patient with recent development of cold like symptoms. Physical exam reveals wheezing in bilateral upper lung valentin. The patient is encouraged to follow-up with her primary care provider or seek medical attention at an urgent care facility for continued care. She will make an appointment today. 04/17/2024: Weight: 219, BMI: 34.3. Patient down 8 pounds. SECA reviewed, reveals 7 pounds of fat loss and 3 pounds of muscle mass loss. Patient is encouraged to continue prioritizing protein intake and exercising as tolerated with goal of maintenance of muscle mass with continued use of Zepbound. Plan to continue Zepbound 5 mg SC weekly and follow-up in 1 month. 03/07/2024: Weight: 227, BMI: 35.5. SECA reviewed, [...] reviewed. Dictation completed with the use of [employer] voice recognition software, prone to medical misidentifications [...] reviewed. Dictation completed with the use of [employer] voice recognition software, prone to medical misidentifications [...] with follow-up in 1 month. Rx for Wegojimenezy sent in error, prescription immediately canceled. Called [...] reviewed. Dictation completed with the use of [employer] voice recognition software, prone to medical misidentifications [...] reviewed. Dictation completed with the use of [employer] voice recognition software, prone to medical misidentifications [...] reviewed. Dictation completed with the use of [employer] voice recognition software, prone to medical misidentifications [...] reviewed. Dictation completed with the use of [employer] voice recognition software, prone to medical misidentifications [...] reviewed. Dictation completed with the use of [employer] voice recognition software, prone to medical misidentifications [...] reviewed. Dictation completed with the use of [employer] voice recognition software, prone to medical misidentifications [...] reviewed. Dictation completed with the use of [employer] voice recognition software, prone to medical misidentifications and grammatical errors. All errors are unintentional. Although the practitioner does try to identify and correct errors, some may be present. Please do not hesitate to contact the practitioner for clarification. Total time spent was 25 minutes with >50% on coordination of care and patient education. 05/15/2024 Nutritional counseling (ICD-10 - Z71.3) Savita is a 58-year-old female with a PMH of chronic back pain s/p cervical fusion/laminectomy of C2-7 11/2021, HTN, HLD, prediabetes, depression/anxiety that presents for weight management follow-up. Reviewed [facility] holistic and medical approach to weight loss with emphasis on lifestyle modification. 05/15/2024: Weight: 211, BMI: 33. Patient down 8 pounds. SECA reviewed, reveals 7 pounds of fat loss with mild improvement in muscle mass. Patient is encouraged to continue prioritizing protein intake and making health-conscious diet choices. She is additionally encouraged to continue increasing physical activity as tolerated given her pain. Plan to continue Zepbound 5 mg SC weekly and follow-up in 1 month. MICC injection administered. #Suspected viral illness: Patient with recent development of cold like symptoms. Physical exam reveals wheezing in bilateral upper lung valentin. The patient is encouraged to follow-up with her primary care provider or seek medical attention at an urgent care facility for continued care. She will make an appointment today. 04/17/2024: Weight: 219, BMI: 34.3. Patient down 8 pounds. SECA reviewed, reveals 7 pounds of fat loss and 3 pounds of muscle mass loss. Patient is encouraged to continue prioritizing protein intake and exercising as tolerated with goal of maintenance of muscle mass with continued use of Zepbound. Plan to continue Zepbound 5 mg SC weekly and follow-up in 1 month. 03/07/2024: Weight: 227, BMI: 35.5. SECA reviewed, [...] reviewed. Dictation completed with the use of [employer] voice recognition software, prone to medical misidentifications [...] reviewed. Dictation completed with the use of [employer] voice recognition software, prone to medical misidentifications [...] reviewed. Dictation completed with the use of [employer] voice recognition software, prone to medical misidentifications [...] reviewed. Dictation completed with the use of [employer] voice recognition software, prone to medical misidentifications and grammatical errors. All errors are unintentional. Although the practitioner does try to identify and correct errors, some may be present. Please do not hesitate to contact the practitioner for clarification. 60 minutes spent with >50% on coordination of care. PLAN OF TREATMENT Next Appt Details Provider Name:ADINA Lozano, 06/14/2024 09:45:00 AM, [address] [facility], [facility] [address], [place], [address], Insurance Providers Payer Name Payer Address Payer Phone Subscriber Number Group Number Insured Name Patient Relationship to Insured Coverage Start Date Coverage End Date [facility] [address] [place] [address] [id number] Savita Bennett Self - patient is the insured MEDICATIONS ADMINISTERED Medication Instructions Date of Administration Dosage Notes MICC B12 INJECTION 12/07/2023 MICC B12 INJECTION 01/04/2024 1 mL MICC B12 INJECTION 02/02/2024 1 mL MICC B12 INJECTION 03/07/2024 1 mL MICC B12 INJECTION 04/17/2024 1 mL MICC B12 INJECTION 05/15/2024 1 mL MEDICAL (GENERAL) HISTORY Medical History History ICD Code Low back pain, unspecified M54.50 Cervical pain M54.2 Other chronic pain G89.29 Elevated cholesterol E78.00 Prediabetes R73.03 Surgical History Surgery Date(Month/Year) cervical fusion/laminectomy
--- OUTSIDE RECORDS SUMMARY | 2024-06-06 09:56 | XMS_ITS ---
Author Organization [facility] Address [address] [place] [id number] Care Team Providers Care Cash Grain Grower Name Role Phone Caridda Rebolledo Primary Care Provider ADINA Wilson Unavailable [phone] ALLERGIES Allergen (clinical drug ingredient) Drug/Non Drug Allergy documented on EMR Reaction Allergy Type Onset Date Status Contrast Allergy PreMed Pack rash Drug Allergy Active REASON FOR VISIT Patient is here for weight management follow up. SECA done. Previous weight was 219. Today the patient weight is 211. She has no complaints MEDICATIONS Medication SIG (Take, Route, Frequency, Duration) Notes Start Date End Date Status Celecoxib 200 MG 1 capsule with food Orally Once a day Active DULoxetine HCl 60 MG 1 capsule Orally On ce a day Active Lisinopril 10 MG 1 tablet Orally Once a day Active Zepbound 2.5 MG/0.5ML Inject 2.5mg Subcu taneous weekly for 30 days 01/04/2024 Not-Taking traMADol HCl 50 MG 1 tablet Orally twic e daily Not-Taking Naltrexone HCl (Pain) 1.5 MG as directed Orally Active Zepbound 5 MG/0.5ML Inject 5mg Subcutane ous once weekly for 30 days Active PROBLEMS Problem Type ICD Code Onset Dates Problem Status W/U Status Risk SNOMED Code Notes Problem Expiratory wheezing (R06.2) Active confirmed 7984904 VITAL SIGNS Blood pressure systolic 108 mm Hg 05/15/19 25 Blood pressure diastolic 60 mm Hg 025 Heart Rate 108 /min 05/15/2024 Height 67 in 05/15/2024 Weight 211 lbs 05/15/2024 BMI 33.04 kg/m2 05/15/2024 Oximetry 95 % 05/15/2024 Encounters Encounter Location Date Provider Diagnosis [address] [place] [address] 05/15/2024 ADINA ROBISON Obesity (BMI 30-39.9 ) E66.9 ; BMI 34.0-34.9,adult Z68.34 ; Primary hypertension I10 ; Elevated cholesterol E78.00 ; Prediabetes R73.03 ; Other chronic pain G89.29 ; Expiratory wheezing R06.2 and Nutritional counseling Z71.3 ASSESSMENTS Encounter Date Diagnosis Assessment Notes Treatment Notes Treatment Clinical Notes Section Notes 05/15/2024 Obesity (BMI 30-39.9) (ICD-10 - E66.9) Savita is a 58-year-old female with a PMH of chronic back pain s/p cervical fusion/laminecto my of C2-7 11/2021, HTN, HLD, prediabetes, depression/anxie ty that presents for weight management follow-up. Reviewed [...] cancer/M EN syndrome. Reviewed expectations for PA process/insuranc e coverage. 12/07/2023: Weight: 241, BMI: 37.7. Reviewed SECA/goals for implementing sustainable lifestyle changes. Given spinal injury/chronic pain patient is encouraged to incorporate physical activity/strengt h training as tolerated. Discussed options including resistance [...] Follow-up in 4 weeks, sooner should any questions/concer ns arise. Case discussed with collaborating physician Janett Roblero who has reviewed the assessment/plan. Chart, medications, labs, and vital signs reviewed. Dictation completed with the use of [employer] voice recognition software, prone to medical misidentificatio ns and grammatical errors. All errors are unintentional. [...] PMH of chronic back pain s/p cervical fusion/laminecto my of C2-7 11/2021, HTN, HLD, prediabetes, depression/anxie ty that presents for weight management follow-up. Reviewed [...] cancer/M EN syndrome. Reviewed expectations for PA process/insuranc e coverage. 12/07/2023: Weight: 241, BMI: 37.7. Reviewed SECA/goals for implementing sustainable lifestyle changes. Given spinal injury/chronic pain patient is encouraged to incorporate physical activity/strengt h training as tolerated. Discussed options including resistance [...] Follow-up in 4 weeks, sooner should any questions/concer ns arise. Case discussed with collaborating physician Janett Roblero who has reviewed the assessment/plan. Chart, medications, labs, and vital signs reviewed. Dictation completed with the use of [employer] voice recognition software, prone to medical misidentificatio ns and grammatical errors. All errors are unintentional. [...] PMH of chronic back pain s/p cervical fusion/laminecto my of C2-7 11/2021, HTN, HLD, prediabetes, depression/anxie ty that presents for weight management follow-up. Reviewed [...] cancer/M EN syndrome. Reviewed expectations for PA process/insuranc e coverage. 12/07/2023: Weight: 241, BMI: 37.7. Reviewed SECA/goals for implementing sustainable lifestyle changes. Given spinal injury/chronic pain patient is encouraged to incorporate physical activity/strengt h training as tolerated. Discussed options including resistance [...] Follow-up in 4 weeks, sooner should any questions/concer ns arise. Case discussed with collaborating physician Janett Roblero who has reviewed the assessment/plan. Chart, medications, labs, and vital signs reviewed. Dictation completed with the use of [employer] voice recognition software, prone to medical misidentificatio ns and grammatical errors. All errors are unintentional. [...] PMH of chronic back pain s/p cervical fusion/laminecto my of C2-7 11/2021, HTN, HLD, prediabetes, depression/anxie ty that presents for weight management follow-up. Reviewed [...] cancer/M EN syndrome. Reviewed expectations for PA process/insuranc e coverage. 12/07/2023: Weight: 241, BMI: 37.7. Reviewed SECA/goals for implementing sustainable lifestyle changes. Given spinal injury/chronic pain patient is encouraged to incorporate physical activity/strengt h training as tolerated. Discussed options including resistance [...] Follow-up in 4 weeks, sooner should any questions/concer ns arise. Case discussed with collaborating physician Janett Roblero who has reviewed the assessment/plan. Chart, medications, labs, and vital signs reviewed. Dictation completed with the use of [employer] voice recognition software, prone to medical misidentificatio ns and grammatical errors. All errors are unintentional. [...] PMH of chronic back pain s/p cervical fusion/laminecto my of C2-7 11/2021, HTN, HLD, prediabetes, depression/anxie ty that presents for weight management follow-up. Reviewed [...] cancer/M EN syndrome. Reviewed expectations for PA process/insuranc e coverage. 12/07/2023: Weight: 241, BMI: 37.7. Reviewed SECA/goals for implementing sustainable lifestyle changes. Given spinal injury/chronic pain patient is encouraged to incorporate physical activity/strengt h training as tolerated. Discussed options including resistance [...] Follow-up in 4 weeks, sooner should any questions/concer ns arise. Case discussed with collaborating physician Janett Roblero who has reviewed the assessment/plan. Chart, medications, labs, and vital signs reviewed. Dictation completed with the use of [employer] voice recognition software, prone to medical misidentificatio ns and grammatical errors. All errors are unintentional. [...] PMH of chronic back pain s/p cervical fusion/laminecto my of C2-7 11/2021, HTN, HLD, prediabetes, depression/anxie ty that presents for weight management follow-up. Reviewed [...] cancer/M EN syndrome. Reviewed expectations for PA process/insuranc e coverage. 12/07/2023: Weight: 241, BMI: 37.7. Reviewed SECA/goals for implementing sustainable lifestyle changes. Given spinal injury/chronic pain patient is encouraged to incorporate physical activity/strengt h training as tolerated. Discussed options including resistance [...] Follow-up in 4 weeks, sooner should any questions/concer ns arise. Case discussed with collaborating physician Janett Roblero who has reviewed the assessment/plan. Chart, medications, labs, and vital signs reviewed. Dictation completed with the use of [employer] voice recognition software, prone to medical misidentificatio ns and grammatical errors. All errors are unintentional. [...] PMH of chronic back pain s/p cervical fusion/laminecto my of C2-7 11/2021, HTN, HLD, prediabetes, depression/anxie ty that presents for weight management follow-up. Reviewed [...] cancer/M EN syndrome. Reviewed expectations for PA process/insuranc e coverage. 12/07/2023: Weight: 241, BMI: 37.7. Reviewed SECA/goals for implementing sustainable lifestyle changes. Given spinal injury/chronic pain patient is encouraged to incorporate physical activity/strengt h training as tolerated. Discussed options including resistance [...] Follow-up in 4 weeks, sooner should any questions/concer ns arise. Case discussed with collaborating physician Janett Roblero who has reviewed the assessment/plan. Chart, medications, labs, and vital signs reviewed. Dictation completed with the use of [employer] voice recognition software, prone to medical misidentificatio ns and grammatical errors. All errors are unintentional. [...] PMH of chronic back pain s/p cervical fusion/laminecto my of C2-7 11/2021, HTN, HLD, prediabetes, depression/anxie ty that presents for weight management follow-up. Reviewed [...] cancer/M EN syndrome. Reviewed expectations for PA process/insuranc e coverage. 12/07/2023: Weight: 241, BMI: 37.7. Reviewed SECA/goals for implementing sustainable lifestyle changes. Given spinal injury/chronic pain patient is encouraged to incorporate physical activity/strengt h training as tolerated. Discussed options including resistance [...] Follow-up in 4 weeks, sooner should any questions/concer ns arise. Case discussed with collaborating physician Janett Roblero who has reviewed the assessment/plan. Chart, medications, labs, and vital signs reviewed. Dictation completed with the use of [employer] voice recognition software, prone to medical misidentificatio ns and grammatical errors. All errors are unintentional. [...] Subcutane ous once weekly for 30 days Next Appt Details Provider Name:ADINA Lozano, 06/14/2024 09:45:00 AM, [address] [facility], [facility] [address], [place], [address], MEDICATIONS ADMINISTERED Medication Instructions Date of Administration Dosage Notes MICC B12 INJECTION 05/15/2024 1 mL Progress Notes * Savita BENNETT LDOB:[birth year] (58 yo F)Acc No.[id number]:05/15/2024 Patient:??Savita BENNETT Provider:??ADINA ROBISON PA-C :1965?Age:58 Y?Sex:Fe male Date:05/15/2024 Address:[address] [place], [place] [id number] Pcp:Caridad Rebolledo Subjective: * Chief Complaints: * ?1. Patient is here for weight management follow up. SECA done. Previous weight was 219. Today the patient weight is 211. She has no complaints. * HPI: ?Constitutional:? Savita is a 58-year-old female with a PMH of chronic back pain s/p cervical fusion/laminectomy of C2-7 11/2021, HTN, depression/anxiety that presents for weight management follow-up. Patient taking Zepbound 5 mg SC weekly with compliance. Reports moderate appetite suppression. Denies side effects including nausea, vomiting, abdominal pain, or constipation. Has been making an effort to eat smaller meals consistently. Has been intentional about increasing protein intake. Primary dietary sources of protein include protein shakes, protein powder, meat, cottage cheese, nuts, etc. Water intake is good, averages 90+ ounces/day. Periodically adds something like Gatorade or an electrolyte packet. Physical activity is limited in the setting of her back pain. Continues to follow with pain management, recently had Sprint nerve stimulator inserted. Has improved pain in the area intended. Taking naltrexone 4.5mg which has helped with her pain. * ROS:?All Other Systems:?Review of Systems (ROS)??All others negative except those mentioned in HPI.? * Medical History:??Low back p ain, unspecified, Cervical pain, Other chronic pain, Elevated cholesterol, Prediabetes. * Surgical History:??cervical fusion/laminectomy . * Family History:??Father: dec eased, Mesothelioma.??Mother: , Breast cancer.??2 son(s) , 1 daughter(s) - healthy. .?? * Medications:??Taking Zepboun d 5 MG/0.5ML Solution Auto-injector Inject 5mg Subcutaneous once weekly , Taking Naltrexone HCl (Pain) 1.5 MG Capsule as directed Orally , Taking Celecoxib 200 MG Capsule 1 capsule with food Orally Once a day , Taking DULoxetine HCl 60 MG Capsule Delayed Release Particles 1 capsule Orally Once a day , Taking Lisinopril 10 MG Tablet 1 tablet Orally Once a day , Not-Taking Zepbound 2.5 MG/0.5ML Solution Auto-injector Inject 2.5mg Subcutaneous weekly , Not- Taking traMADol HCl 50 MG Tablet 1 tablet Orally twice daily , Medication List reviewed and reconciled with the patient * Allergies:??Contrast Allergy PreMed Pack: rash. Objective: * Vitals:??HR:108/min, BP:108/ 60mm Hg, Wt:211lbs, BMI:33.04Index, Ht: 67 in, Oxygen sat %:95%. * Physical Examination:?General: Age appropriate, well-appearing 58-year-old female in no acute distress, speaking in full sentences without respiratory compromise. Well groomed, well developed. Alert, interactive. ?Skin: Warm, dry and intact. No lesions/rashes/erythema. ?HEENT: Normocephalic/atraumatic. ?CV: RRR. ?Lungs: Expiratory wheezing heard in bilateral upper lung valentin, otherwise CTA. ?Neuro: CN II-XII grossly intact. Steady gait with non-assisted ambulation observed. ?Psych: Stable mood and affect. Assessment: * Assessment: 1.??Obesity (BMI 30-39.9) - E66.9 (Primary)??2.??BMI 34.0-34.9,adult - Z68.34??3.??Primary hypertension - I10??4.??Elevated cholesterol - E78.00??5.??Prediabetes - R73.03??6.??Other chronic pain - G89.29??7.??Expiratory wheezing - R06.2??8.??Nutritional counseling - Z71.3?? Savita is a 58-year-old [...] reviewed. Dictation completed with the use of [employer] voice recognition software, prone to medical misidentifications [...] (Route: Intramuscular) given by Zulema Llamas on left deltoid * Procedure Codes:??G0447 FCE- FCE BEHAVRL CNSL OBESITY 15 MIN, Modifiers: 59 * Images: Billing Information: * Visit Code:?? 01753 Office Visit, Est Pt., Level 4. Modifiers: 25, SA * Procedure Codes:?? G0447 FCE-FCE BEHAVRL CNSL OBESITY 15 MIN. Modifiers: 59 * Sign off status: Completed true * Provider:??ADINA ROBISON PA-C Date:?? 05/15/2024 History and Physical Notes * HPI (History of Present Illness) Category Sub-Category Detail Notes Category Not es Constitutional Savita is a [age]-year-old female with a PMH of chronic back pain s/p cervical fusion/laminectomy of C2-7 11/2021, HTN, depression/anxiety that presents for weight management follow-up. Patient taking Zepbound 5 mg SC weekly with compliance. Reports moderate appetite suppression. Denies side effects including nausea, vomiting, abdominal pain, or constipation. Has been making an effort to eat smaller meals consistently. Has been intentional about increasing protein intake. Primary dietary sources of protein include protein shakes, protein powder, meat, cottage cheese, nuts, etc. Water intake is good, averages 90+ ounces/day. Periodically adds something like Gatorade or an electrolyte packet. Physical activity is limited in the setting of her back pain. Continues to follow with pain management, recently had Sprint nerve stimulator inserted. Has improved pain in the area intended. Taking naltrexone 4.5mg which has helped with her pain. Physical Examination Category Sub-Category Detail Notes Section Note s General: Age appropriate, well-appearing 58-year-old female in no acute distress, speaking in full sentences without respiratory compromise. Well groomed, well developed. Alert, interactive. Skin: Warm, dry and intact. No lesions/rashes/erythema. HEENT: Normocephalic/atraumatic. CV: RRR. Lungs: Expiratory wheezing heard in bilateral upper lung valentin, otherwise CTA. Neuro: CN II-XII grossly intact. Steady gait with non-assisted ambulation observed. Psych: Stable mood and affect.
--- OUTSIDE RECORDS SUMMARY | 2024-06-06 09:56 | XMS_ITS ---
Author Organization [facility] Address [address] [place] [address] Care Team Providers Care Moss Picker Name Role Phone Caridad Rebolledo Primary Care Provider ADINA Wilson [phone] REASON FOR VISIT pt asking about bal. Encounters Encounter Location Date Provider Diagnosis [address] [place] [address] 03/07/2024 ADINA ROBISON PLAN OF TREATMENT Next Appt Details Provider Name:ADINA Lozano, 06/14/2024 09:45:00 AM, [address], [address], [place], [address], Progress Notes * Savita BENNETT LDOB:[birth year] (58 yo F)Acc No.[id number]:03/07/2024 Patient:??Savita BENNETT :1965?Age:58 Y?Sex:Fe male Address:[address] [place] [id number] * true * Date:??
--- OUTSIDE RECORDS SUMMARY | 2024-06-06 09:56 | XMS_ITS | Patient Health Record ---
Author Organization [facility] Address [address] [place] [address] Care Team Providers Care Stunner Animal Name Role Phone Lauri SERRANO, Asma Primary Care Provider Becky Stone Unavailable [phone] Allergies Allergen (clinical drug ingredient) Drug/Non Drug [...] Date X ray : Foot, left 3V 10/12/202102130, [id number] INJECT TENDON ORIGIN/INSER T 10/12/2021 Insurance Providers Payer Name Payer Address Payer Phone Subscriber Number Group Number Insured Name Patient Relationship to Insured Coverage Start Date Coverage End Date [facility] [employer] [address] [place] [address] [id number] Savita Bennett Self - patient is the insured Medical (General) History Medical History History ICD Code Arthritis Back,Hip,and Knee pain Depression Sciatica chronic sinusitis Bone implants/screws Transfusions hidradenitis Supperurativa Cervicalfusion osteoarthritis Hand Pain foot pain Surgical History Surgery Date(Month/Year) cervical fusion 2003 right toe surgery 2009 meniscus tear 2001,2007 1992 Neck Surgery 12/17 Hospitalization History Reason Date(Month/Year) [facility] Back pain 09/2020 [facility] 12/17
--- OUTSIDE RECORDS SUMMARY | 2024-06-06 09:56 | XMS_ITS ---
Author Organization [facility] [facility] Address [address] [place] [address] Care Team Providers Care Physician Office Assistant Name Role Phone Caridad Rebolledo Primary Care Provider ADINA Wilson Unavailable [phone] ALLERGIES Allergen (clinical drug ingredient) Drug/Non Drug Allergy documented on EMR Reaction Allergy Type Onset Date Status Contrast Allergy PreMed Pack rash Drug Allergy Active REASON FOR VISIT Patient is here for weight management follow up. SECA done. Previous weight was 227. Today the patient weight is 219. She has no complaints MEDICATIONS Medication SIG (Take, Route, Frequency, Duration) Notes Start Date End Date Status Lisinopril 10 MG 1 tablet Orally Once a day Active Zepbound 5 MG/0.5ML Inject 5mg Subcutane ous once weekly for 30 days Active DULoxetine HCl 60 MG 1 capsule Orally On ce a day Active Celecoxib 200 MG 1 capsule with food Orally Once a day Active Naltrexone HCl (Pain) 1.5 MG as directed Orally Active traMADol HCl 50 MG 1 tablet Orally twic e daily Not-Taking Zepbound 2.5 MG/0.5ML Inject 2.5mg Subcu taneous weekly for 30 days 01/04/2024 Active PROBLEMS Problem Type ICD Code Onset Dates Problem Status W/U Status Risk SNOMED Code Notes Problem BMI 34.0-34.9,ad ult (Z68.34) Active confirmed 830416574 VITAL SIGNS Blood pressure systolic 130 mm Hg 04/17/19 25 Blood pressure diastolic 84 mm Hg 025 Heart Rate 97 /min 04/17/2024 Height 67 in 04/17/2024 Weight 219 lbs 04/17/2024 BMI 34.3 kg/m2 04/17/2024 Oximetry 97 % 04/17/2024 Encounters Encounter Location Date Provider Diagnosis [address] [facility] [address] [place] [address] 04/17/2024 ADINA ROBISON Obesity (BMI 30-39.9 ) E66.9 ; BMI 34.0-34.9,adult Z68.34 ; Primary hypertension I10 ; Elevated cholesterol E78.00 ; Prediabetes R73.03 ; Other chronic pain G89.29 and Nutritional counseling Z71.3 ASSESSMENTS Encounter Date Diagnosis Assessment Notes Treatment Notes Treatment Clinical Notes Section Notes 04/17/2024 Obesity (BMI 30-39.9) (ICD-10 - E66.9) [...] reviewed. Dictation completed with the use of [employer] voice recognition software, prone to medical misidentifications [...] reviewed. Dictation completed with the use of [employer] voice recognition software, prone to medical misidentifications [...] reviewed. Dictation completed with the use of [employer] voice recognition software, prone to medical misidentifications [...] reviewed. Dictation completed with the use of [employer] voice recognition software, prone to medical misidentifications [...] reviewed. Dictation completed with the use of [employer] voice recognition software, prone to medical misidentifications [...] reviewed. Dictation completed with the use of [employer] voice recognition software, prone to medical misidentifications [...] reviewed. Dictation completed with the use of [employer] voice recognition software, prone to medical misidentifications [...] Details Provider Name:ADINA Lozano, 06/14/2024 09:45:00 AM, [address] [place] [address], [phone], MEDICATIONS ADMINISTERED Medication Instructions Date of Administration Dosage Notes MICC B12 INJECTION 04/17/2024 1 mL Progress Notes * Savita BENNETT LDOB:[birth year] (58 yo F)Acc No.[id number]:04/17/2024 Patient:??Savita BENNETT Provider:??ADINA ROBISON PA-C :1965?Age:58 Y?Sex:Fe male Date:04/17/2024 Address:[address] [place], [place] [id number] Pcp:Caridad Rebolledo Subjective: * Chief Complaints: * ?1. Patient is here for weight management follow up. SECA done. Previous weight was 227. Today the patient weight is 219. She has no complaints. * HPI: ?Constitutional:? Savita is a 58-year-old female with a PMH of chronic back pain s/p cervical fusion/laminectomy of C2-7 11/2021, HTN, depression/anxiety that presents for weight management follow-up. Patient taking Zepbound 5 mg SC weekly with compliance. Reports moderate appetite suppression x5 days. Denies side effects including nausea, vomiting, abdominal pain, or constipation. Has been making an effort to eat smaller meals consistently.feels compulsion to snack has decreased. Primary dietary sources of protein include meat, cottage cheese, nuts, etc. Water intake is good, averages 90+ ounces/day. Also adding hydration packets here and there. Physical activity is limited in the setting of her back pain. Continues to follow with pain management, recently had Sprint nerve stimulator inserted. Discontinued tramadol, trying natrexone as alternative. * ROS:?All Other Systems:?Review of Systems (ROS)??All others negative except those mentioned in HPI.? * Medical History:??Low back p ain, unspecified, Cervical pain, Other chronic pain, Elevated cholesterol, Prediabetes. * Surgical History:??cervical fusion/laminectomy . * Family History:??Father: dec eased, Mesothelioma.??Mother: , Breast cancer.??2 son(s) , 1 daughter(s) - healthy. .?? * Medications:??Taking Naltrex one HCl (Pain) 1.5 MG Capsule as directed Orally , Taking Celecoxib 200 MG Capsule 1 capsule with food Orally Once a day , Taking DULoxetine HCl 60 MG Capsule Delayed Release Particles 1 capsule Orally Once a day , Taking Lisinopril 10 MG Tablet 1 tablet Orally Once a day , Taking Zepbound 2.5 MG/0.5ML Solution Auto-injector Inject 2.5mg Subcutaneous weekly , Taking Zepbound 5 MG/0.5ML Solution Auto-injector Inject 5mg Subcutaneous once weekly , Not-Taking traMADol HCl 50 MG Tablet 1 tablet Orally twice daily , Medication List reviewed and reconciled with the patient * Allergies:??Contrast Allergy PreMed Pack: rash. Objective: * Vitals:??HR:97/min, BP:130/8 4mm Hg, Wt:219lbs, BMI:34.3Index, Ht: 67 in, Oxygen sat %:97%. * Physical Examination:?General: Age appropriate, well-appearing 58-year-old [...] - E78.00??5.??Prediabetes - R73.03??6.??Other chronic pain - G89.29??7.??Nutritional counseling - Z71.3?? Savita is a 58-year-old [...] reviewed. Dictation completed with the use of [employer] voice recognition software, prone to medical misidentifications [...] * Images: Billing Information: * Visit Code:?? 31731 Office Visit, Est Pt., Level 4. * Procedure Codes:?? G0447 FCE-FCE BEHAVRL CNSL OBESITY 15 MIN. Modifiers: 59 * Sign off status: Completed true * Provider:??ADINA ROBISON PA-C Date:?? 04/17/2024 History and Physical Notes * HPI (History of Present Illness) Category Sub-Category Detail Notes Category Not es Constitutional Savita is a [age]-year-old female with a PMH of chronic back pain s/p cervical fusion/laminectomy of C2-7 11/2021, HTN, depression/anxiety that presents for weight management follow-up. Patient taking Zepbound 5 mg SC weekly with compliance. Reports moderate appetite suppression x5 days. Denies side effects including nausea, vomiting, abdominal pain, or constipation. Has been making an effort to eat smaller meals consistently.feels compulsion to snack has decreased. Primary dietary sources of protein include meat, cottage cheese, nuts, etc. Water intake is good, averages 90+ ounces/day. Also adding hydration packets here and there. Physical activity is limited in the setting of her back pain. Continues to follow with pain management, recently had Sprint nerve stimulator inserted. Discontinued tramadol, trying natrexone as alternative. Physical Examination Category Sub-Category Detail Notes Section [...]
== END 2024-06-06 09:43 | disposition home or self-care (01) ==
LOC: HO.PMC 09:14
PROVIDERS: PCP Nurse Practitioner Family; Visit Provider Internal Medicine
DX: M54.51 Vertebrogenic low back pain (principal); M96.1 Postlaminectomy syndrome, not elsewhere classified; M79.2 Neuralgia and neuritis, unspecified
CPT/HCPCS: 99214

== ENCOUNTER 2024-07-25 10:48 | Outpatient (AMB) | payer BC, SELFPAY ==
--- NOTE | 2024-07-25 10:48 | MHC.OFFVIS ---
Intake Visit Reasons: PERIPHERAL SODIUM CHANNEL BRITTNI Allergies Iodinated Contrast Media [CONTRAST, IV] Allergy (Unknown, Verified 06/06/24 09:18) UNKNOWN morphine [Morphine] Allergy (Unknown, Verified 06/06/24 09:18) NAUSEA/RASH, rash, N/V, rash, N/V HPI HPI PERIPHERAL SODIUM CHANNEL BRITTNI: Details: History of Present Illness The patient is a 59-year-old female presenting with neuropathic pain. She is exploring alternative medication options for her chronic pain management. During the video telehealth visit, the patient focused on a new medication, Jernavex, a peripheral sodium channel blocking agent. Cost was a concern, as the medication is priced at around $500 for 30 tablets. Potential insurance coverage and reimbursement programs were noted as factors for consideration. The risks and benefits of both traditional sodium channel blockers and newer peripheral sodium channel agents were discussed. Pain Description - Onset: Ongoing neuropathic pain. - Quality: Not specifically detailed. - Location: General neuropathic pain without specific localization mentioned. - Exacerbating Factors: Cost barriers affecting access to proposed treatments. - Relieving Factors: Exploring newer medications. - Interference: Financial costs are prohibitive, affecting the patient's ability to follow through with new treatment options. Pain Management - Affect: Neuropathic pain impacts daily living but specifics on mood were not discussed. - Analgesia: Current pain medications and levels not detailed; considering Jernavex. - Adverse Effects: Not detailed. - Activities of Daily Living: Financial constraints impact ability to access new treatment. - Aberrant Drug Related Behaviors: Not mentioned in conversation. [facility] Medical History Cervical post-laminectomy syndrome Personal history of nicotine dependence Post-menopausal (~2018) Tubular adenoma of colon (~2017) Hypertension, essential Abnormal bowel movement Chronic neck and back pain Vitamin D deficiency Cyst of right ovary Elevated dehydroepiandrosterone sulfate level (~2019) Surgical History History of basal cell carcinoma (BCC) excision History of left knee surgery History of right knee surgery History of foot surgery History of History of colonoscopy History of fusion of cervical spine Family History Father Mesothelioma Mother Breast cancer Colon cancer Other Mental health disorder Substance use disorder Social History Housing: House Are you a primary managed care analyst to a significant other at home: No Do you presently have visiting nurse or other home services: No Alcohol intake: current Alcohol intake frequency: a few times a month Patient Tobacco Use Status: Former Tobacco user Tobacco use type: Cigarette Cigarette Packs Per Day: 0.5 Cigarettes Per Day: 10.0 Years Smoked: 37 e-Cigarette/Vaping Use: Never Used Current occupational status: employed 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 [employer] Cognitive needs: No Hearing needs: No Vision needs: Yes Telehealth Telehealth Telehealth Platform: [employer] Location of provider rendering services: practice address Location of patient: address on file Patient Identification confirmed using: Name, : Yes Telehealth method: video Patient verbally consented to treatment: Yes Patient verbally consented to billing insurance company: Yes Patient informed of any privacy concerns related to visit: Yes Assessment & Plan Assessment & Plan (1) Intractable pain: Comment: Back and neck Code(s): R52 - Pain, unspecified Category: Medical Plan Plan - Exploring alternative medication, Journavax, for neuropathic pain. - Detailed discussion of risks and benefits of new versus traditional sodium channel blockers. - Address the financial burden and encourage patient to verify insurance coverage. Patient was informed and verbally consented to the use of an ambient scribe for clinic note documentation during this visit. Discussion Notes I engaged in a comprehensive discussion with the patient regarding her interest in the peripheral sodium channel brittni, Jernavex, to manage her chronic neuropathic pain. We reviewed the risks and benefits of this newer agent compared to traditional sodium channel blockers. The conversation also covered the financial aspects, including the significant cost of Jernavex and the prohibitive [id number] expenses. I advised her to consult with her insurance company to assess coverage options and potential reimbursement programs for this medication. We encouraged additional research and consideration of available options before making a decision on starting this treatment. Follow-up plans or further recommendations were to be based on the patient's research and insurance discussions. Patient Instructions - Check with your insurance company about coverage for Jernavex. - Explore potential reimbursement programs that might be available for this medication. - Consider all information discussed before making a decision regarding new pain management strategies. Coding Level of Care Code Tele Est Pt Level 3 (55473) Diagnoses Intractable pain R52
--- OUTSIDE RECORDS SUMMARY | 2024-07-25 12:12 | XMS_ITS ---
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 * HPI: ???Constitutional:? Consuelo is a 57yo with LMP 01/2018 who presents for her yearly pressurised container filler exam. She has been in state of *fair health since her last exam. She has the following pressurised container filler concerns: She has received the Pfizer Covid-19 [...] when the weather is good. * ROS:?Annual Wet Press Tender Exam ROS:?Bowel habit changes?denies.?Bladder symptoms?denies.?Vaginal discharge, unusual?denies.?Vaginal itch or odor?denies.?weight or appetite changes?denies.?Chest pains, SOB?denies.?depression?denies.?Breast:?Denies?Breast lump.?Denies?Nipple discharge.?Hematology:?Denies?Swollen glands.?Skin:?Patient denies?changing moles.?Psychiatric:?Denies?Anxiety.? * Medical History:? Objective: * Vitals:? * Examination: ???General Examination: ?GENERAL APPEARANCE:?in no acute distress, well developed, well nourished, astronautical engineer present in room.?HEAD:?normocephalic, atraumatic.?NECK/THYROID:?neck supple, full range [...] * Follow Up:?1 Year (Reason: Y early Wet Press Tender Exam) * Images: Billing Information: * Visit Code:? 82444 Preventive Care Est Pt. Age 40-64. * Procedure Codes:? * Electronic signature of SHIVAM ZEPEDA MD on 07/25/2024 at 12:12 PM EDT Sign off status: Pending * Provider:?SHIVAM ZEPEDA MD Date:?2023 Generated for Aubrey mccormick/Alvin/eTransmitting on:?07/25/2024 12:12 PM EDT History and Physical Notes * HPI (History of Present Illness) Category Sub-Category Detail Notes Category Not es Constitutional Consuelo is a 57yo with LMP 01/2018 who presents for her yearly pressurised container filler exam. She has been in state of *fair health since her last exam. She has the following pressurised container filler concerns: She has received the Pfizer Covid-19 [...] General Examination GENERAL APPEARANCE: in no ac knik distress, well developed, well nourished, astronautical engineer present in room HEAD: normocephalic, atrau matic [...]
--- OUTSIDE RECORDS SUMMARY | 2024-07-25 12:12 | XMS_ITS | Patient Health Record ---
Author Organization [employer] [facility] Address [address] [address] Care Team Providers Care Customer Response Representative Name Role Phone JEFF GONZALEZ, GREYSON GRAFF Primary Care Provider SHIVAM Lombardo Unavailable [phone] Allergies Allergen (clinical drug ingredient) Drug/Non Drug [...] Status W/U Status Risk Notes Problem Menopause (346288170) Menopausal and female climacteric states (N95.1) Active confirmed Problem Postmenopausal atrophic vaginitis (23438153) Postmenopausal atrophic vaginitis (N95.2) Active confirmed Problem Basal cell carcinoma of truncal skin (047418363) Basal cell carcinoma of skin of other part of trunk (C44.519) Active confirmed Problem Tobacco user (633905070) Nicotine dependence, cigarettes, uncomplicated (F17.210) Active confirmed Problem Family history of malignant neoplasm of breast (161049249) Family history of malignant neoplasm of breast (Z80.3) Active confirmed Problem SI - Stress incontinence (66350004) Stress incontinence (female) (male) (N39.3) Active confirmed [...] End Date [employer] [address] [place] [phone] [id number] CONSUELO GAXIOLA Self - patient is the [...]
--- OUTSIDE RECORDS SUMMARY | 2024-07-25 12:12 | XMS_ITS ---
Author Organization [facility] Address [address] [place] [address] Care Team Providers Care Malware Analyst Name Role Phone Caridad Rebolledo Primary Care Provider ADINA Wilson Unavailable [phone] ALLERGIES Allergen (clinical drug ingredient) Drug/Non Drug [...] ous once weekly for 30 days Active VITAL SIGNS Blood pressure systolic 108 mm Hg 05/15/19 25 Blood pressure diastolic 60 mm Hg 025 Heart Rate 108 /min 05/15/2024 Height 67 in 05/15/2024 Weight 211 lbs 05/15/2024 BMI 33.04 kg/m2 05/15/2024 Oximetry 95 % 05/15/2024 Encounters Encounter Location Date Provider Diagnosis [facility] [address] [address] 05/15/2024 ADINA ROBISON Obesity (BMI 30-39.9 ) [...] reviewed. Dictation completed with the use of [employer] voice recognition software, prone to medical misidentificatio [...] reviewed. Dictation completed with the use of [employer] voice recognition software, prone to medical misidentificatio [...] reviewed. Dictation completed with the use of [employer] voice recognition software, prone to medical misidentificatio [...] reviewed. Dictation completed with the use of [employer] voice recognition software, prone to medical misidentificatio [...] reviewed. Dictation completed with the use of [employer] voice recognition software, prone to medical misidentificatio [...] reviewed. Dictation completed with the use of [employer] voice recognition software, prone to medical misidentificatio [...] reviewed. Dictation completed with the use of [employer] voice recognition software, prone to medical misidentificatio [...] reviewed. Dictation completed with the use of [employer] voice recognition software, prone to medical misidentificatio [...] days Next Appt Details Provider Name:ADINA Lozano, 08/08/2024 01:00:00 PM, [address] [facility] [address], [place], [address], MEDICATIONS ADMINISTERED Medication Instructions Date of Administration Dosage Notes MICC B12 INJECTION 05/15/2024 1 mL Progress Notes * Savita BENNETT LDOB:[birth year] (58 yo F)Acc No.[id number]:05/15/2024 Patient:??Savita BENNETT Provider:??ADINA ROBISON PA-C :1965?Age:58 Y?Sex:Fe male Date:05/15/2024 Address:[address] [place] [address], [facility] Pcp:Caridad Rebolledo Subjective: * Chief Complaints: * [...] reviewed. Dictation completed with the use of [employer] voice recognition software, prone to medical misidentifications [...] * Images: Billing Information: * Visit Code:?? 11349 Office Visit, Est Pt., Level 4. Modifiers: [...]
--- OUTSIDE RECORDS SUMMARY | 2024-07-25 12:12 | XMS_ITS | Patient Health Record ---
Author Organization [facility] Address [address] [facility] [address] Care Team Providers Care Examination Proctor Name Role Phone Lauri SERRANO, Asma Primary Care Provider Becky Stone Unavailable [phone] Allergies Allergen (clinical drug ingredient) Drug/Non Drug [...] Date X ray : Foot, left 3V 10/12/202181419, J0702- INJECT TENDON ORIGIN/INSER T 10/12/2021 Insurance Providers Payer Name Payer Address Payer Phone Subscriber Number Group Number Insured Name Patient Relationship to Insured Coverage Start Date Coverage End Date [facility] [employer] [address] [place] [address] [id number] Savita Bennett Self - patient is the insured Medical (General) History Medical History History ICD Code Arthritis Back,Hip,and Knee pain Depression Sciatica chronic sinusitis Bone implants/screws Transfusions hidradenitis Supperurativa Cervicalfusion osteoarthritis Hand Pain foot pain Surgical History Surgery Date(Month/Year) cervical fusion 2003 right toe surgery 2009 meniscus tear 2001,2007 1992 Neck Surgery 12/17 Hospitalization History Reason Date(Month/Year) [facility] Back pain 09/2020 [facility] 12/17
--- OUTSIDE RECORDS SUMMARY | 2024-07-25 12:13 | XMS_ITS ---
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 SECA done. Previous weight was 211. Today the patient weight is 202. She has no complaints MEDICATIONS Medication SIG (Take, Route, Frequency, Duration) Notes Start Date End Date Status Naltrexone HCl (Pain) 1.5 MG as directed Orally Active Celecoxib 200 MG 1 capsule with food Orally Once a day Active DULoxetine HCl 60 MG 1 capsule Orally On ce a day Active Zepbound 7.5 MG/0.5ML Inject 7.5mg Subcu taneous once weekly for 30 days Active traMADol HCl 50 MG 1 tablet Orally twic e daily Not-Taking Lisinopril 10 MG 1 tablet Orally Once a day Active Zepbound 2.5 MG/0.5ML Inject 2.5mg Subcu taneous weekly for 30 days 01/04/2024 Not-Taking VITAL SIGNS Blood pressure systolic 124 mm Hg 06/28/19 25 Blood pressure diastolic 64 mm Hg 025 Heart Rate 91 /min 06/27/2024 Height 67 in 06/27/2024 Weight 208 lbs 06/27/2024 BMI 32.57 kg/m2 06/27/2024 Oximetry 97 % 06/27/2024 Encounters Encounter Location Date Provider Diagnosis [address] [address] 06/27/2024 ADINA ROBISON Obesity (BMI 30-39.9 ) E66.9 ; BMI 32.0-32.9,adult Z68.32 ; Primary hypertension I10 ; Elevated cholesterol E78.00 ; Prediabetes R73.03 ; Other chronic pain G89.29 and Nutritional counseling Z71.3 ASSESSMENTS Encounter Date Diagnosis Assessment Notes Treatment Notes Treatment Clinical Notes Section Notes 06/27/2024 Obesity (BMI 30-39.9) (ICD-10 - E66.9) Savita is a 58-year-old female with a PMH of chronic back pain s/p cervical fusion/laminectomy of C2-7 11/2021, HTN, HLD, prediabetes, depression/anxiety that presents for weight management follow-up. Reviewed [facility] holistic and medical approach to weight loss with emphasis on lifestyle modification. 06/27/2024: Weight: 208, BMI: 32.5. Patient down 9 pounds in 6 weeks. Seca reviewed, reveals primarily fat loss. Patient encouraged to continue making health-conscious diet choices and prioritizing protein intake. Protein goal 25 to 30 g/meal. Additionally discussed the importance of continuing to increase her current level of physical activity as tolerated. Plan to increase dose of Zepbound to 7.5 mg SC weekly and follow-up in 6 weeks. 05/15/2024: Weight: 211, BMI: 33. Patient down [...] follow-up in 1 month. MICC injection administered. 04/17/2024: Weight: 219, BMI: 34.3. Patient down [...] reviewed. Dictation completed with the use of [employer] voice recognition software, prone to medical misidentifications and grammatical errors. All errors are unintentional. Although the practitioner does try to identify and correct errors, some may be present. Please do not hesitate to contact the practitioner for clarification. Total time spent was 30 minutes with >50% on coordination of care and patient education. 06/27/2024 BMI 32.0-32.9,adult (ICD-10 - Z68.32) Savita is a 58-year-old female with a PMH of chronic back pain s/p cervical fusion/laminectomy of C2-7 11/2021, HTN, HLD, prediabetes, depression/anxiety that presents for weight management follow-up. Reviewed [facility] holistic and medical approach to weight loss with emphasis on lifestyle modification. 06/27/2024: Weight: 208, BMI: 32.5. Patient down 9 pounds in 6 weeks. Seca reviewed, reveals primarily fat loss. Patient encouraged to continue making health-conscious diet choices and prioritizing protein intake. Protein goal 25 to 30 g/meal. Additionally discussed the importance of continuing to increase her current level of physical activity as tolerated. Plan to increase dose of Zepbound to 7.5 mg SC weekly and follow-up in 6 weeks. 05/15/2024: Weight: 211, BMI: 33. Patient down [...] follow-up in 1 month. MICC injection administered. 04/17/2024: Weight: 219, BMI: 34.3. Patient down [...] reviewed. Dictation completed with the use of [employer] voice recognition software, prone to medical misidentifications and grammatical errors. All errors are unintentional. Although the practitioner does try to identify and correct errors, some may be present. Please do not hesitate to contact the practitioner for clarification. Total time spent was 30 minutes with >50% on coordination of care and patient education. 06/27/2024 Primary hypertension (ICD-10 - I10) Savita is a 58-year-old female with a PMH of chronic back pain s/p cervical fusion/laminectomy of C2-7 11/2021, HTN, HLD, prediabetes, depression/anxiety that presents for weight management follow-up. Reviewed [facility] holistic and medical approach to weight loss with emphasis on lifestyle modification. 06/27/2024: Weight: 208, BMI: 32.5. Patient down 9 pounds in 6 weeks. Seca reviewed, reveals primarily fat loss. Patient encouraged to continue making health-conscious diet choices and prioritizing protein intake. Protein goal 25 to 30 g/meal. Additionally discussed the importance of continuing to increase her current level of physical activity as tolerated. Plan to increase dose of Zepbound to 7.5 mg SC weekly and follow-up in 6 weeks. 05/15/2024: Weight: 211, BMI: 33. Patient down [...] follow-up in 1 month. MICC injection administered. 04/17/2024: Weight: 219, BMI: 34.3. Patient down [...] reviewed. Dictation completed with the use of [employer] voice recognition software, prone to medical misidentifications and grammatical errors. All errors are unintentional. Although the practitioner does try to identify and correct errors, some may be present. Please do not hesitate to contact the practitioner for clarification. Total time spent was 30 minutes with >50% on coordination of care and patient education. 06/27/2024 Elevated cholesterol (ICD-10 - E78.00) Savita is a 58-year-old female with a PMH of chronic back pain s/p cervical fusion/laminectomy of C2-7 11/2021, HTN, HLD, prediabetes, depression/anxiety that presents for weight management follow-up. Reviewed [facility] holistic and medical approach to weight loss with emphasis on lifestyle modification. 06/27/2024: Weight: 208, BMI: 32.5. Patient down 9 pounds in 6 weeks. Seca reviewed, reveals primarily fat loss. Patient encouraged to continue making health-conscious diet choices and prioritizing protein intake. Protein goal 25 to 30 g/meal. Additionally discussed the importance of continuing to increase her current level of physical activity as tolerated. Plan to increase dose of Zepbound to 7.5 mg SC weekly and follow-up in 6 weeks. 05/15/2024: Weight: 211, BMI: 33. Patient down [...] follow-up in 1 month. MICC injection administered. 04/17/2024: Weight: 219, BMI: 34.3. Patient down [...] reviewed. Dictation completed with the use of [employer] voice recognition software, prone to medical misidentifications and grammatical errors. All errors are unintentional. Although the practitioner does try to identify and correct errors, some may be present. Please do not hesitate to contact the practitioner for clarification. Total time spent was 30 minutes with >50% on coordination of care and patient education. 06/27/2024 Prediabetes (ICD-10 - R73.03) Savita is a 58-year-old female with a PMH of chronic back pain s/p cervical fusion/laminectomy of C2-7 11/2021, HTN, HLD, prediabetes, depression/anxiety that presents for weight management follow-up. Reviewed [facility] holistic and medical approach to weight loss with emphasis on lifestyle modification. 06/27/2024: Weight: 208, BMI: 32.5. Patient down 9 pounds in 6 weeks. Seca reviewed, reveals primarily fat loss. Patient encouraged to continue making health-conscious diet choices and prioritizing protein intake. Protein goal 25 to 30 g/meal. Additionally discussed the importance of continuing to increase her current level of physical activity as tolerated. Plan to increase dose of Zepbound to 7.5 mg SC weekly and follow-up in 6 weeks. 05/15/2024: Weight: 211, BMI: 33. Patient down 8 pounds. SECA reviewed, reveals 7 pounds of fat loss with mild improvement in muscle mass. Patient is encouraged to continue prioritizing protein intake and making health-conscious diet choices. She is additionally encouraged to continue increasing physical activity as tolerated given her pain. Plan to continue Zepbound 5 mg SC weekly and follow-up in [address] [facility]. 04/17/2024: Weight: 219, BMI: 34.3. Patient down [...] reviewed. Dictation completed with the use of [employer] voice recognition software, prone to medical misidentifications and grammatical errors. All errors are unintentional. Although the practitioner does try to identify and correct errors, some may be present. Please do not hesitate to contact the practitioner for clarification. Total time spent was 30 minutes with >50% on coordination of care and patient education. 06/27/2024 Other chronic pain (ICD-10 - G89.29) Savita is a 58-year-old female with a PMH of chronic back pain s/p cervical fusion/laminectomy of C2-7 11/2021, HTN, HLD, prediabetes, depression/anxiety that presents for weight management follow-up. Reviewed [facility] holistic and medical approach to weight loss with emphasis on lifestyle modification. 06/27/2024: Weight: 208, BMI: 32.5. Patient down 9 pounds in 6 weeks. Seca reviewed, reveals primarily fat loss. Patient encouraged to continue making health-conscious diet choices and prioritizing protein intake. Protein goal 25 to 30 g/meal. Additionally discussed the importance of continuing to increase her current level of physical activity as tolerated. Plan to increase dose of Zepbound to 7.5 mg SC weekly and follow-up in 6 weeks. 05/15/2024: Weight: 211, BMI: 33. Patient down [...] follow-up in 1 month. MICC injection administered. 04/17/2024: Weight: 219, BMI: 34.3. Patient down [...] reviewed. Dictation completed with the use of [employer] voice recognition software, prone to medical misidentifications and grammatical errors. All errors are unintentional. Although the practitioner does try to identify and correct errors, some may be present. Please do not hesitate to contact the practitioner for clarification. Total time spent was 30 minutes with >50% on coordination of care and patient education. 06/27/2024 Nutritional counseling (ICD-10 - Z71.3) Savita is a 58-year-old female with a PMH of chronic back pain s/p cervical fusion/laminectomy of C2-7 11/2021, HTN, HLD, prediabetes, depression/anxiety that presents for weight management follow-up. Reviewed [facility] holistic and medical approach to weight loss with emphasis on lifestyle modification. 06/27/2024: Weight: 208, BMI: 32.5. Patient down 9 pounds in 6 weeks. Seca reviewed, reveals primarily fat loss. Patient encouraged to continue making health-conscious diet choices and prioritizing protein intake. Protein goal 25 to 30 g/meal. Additionally discussed the importance of continuing to increase her current level of physical activity as tolerated. Plan to increase dose of Zepbound to 7.5 mg SC weekly and follow-up in 6 weeks. 05/15/2024: Weight: 211, BMI: 33. Patient down [...] follow-up in 1 month. MICC injection administered. 04/17/2024: Weight: 219, BMI: 34.3. Patient down [...] with follow-up in 1 month. Rx for Sue sent in error, prescription immediately canceled. Called [...] reviewed. Dictation completed with the use of [employer] voice recognition software, prone to medical misidentifications [...] Sig Start Date Stop Date Notes Zepbound 7.5 MG/0.5ML Inject 7.5mg Subcu taneous once weekly for 30 days Next Appt Details Provider Name:ADINA Lozano, 08/08/2024 01:00:00 PM, [address] [facility] [address], [place], [address], MEDICATIONS ADMINISTERED Medication Instructions Date of Administration Dosage Notes MICC B12 INJECTION 06/27/2024 1 mL Progress Notes * Savita BENNETT LDOB:[birth year] (59 yo F)Acc No.[id number]:06/27/2024 Patient:??Savita BENNETT Provider:??ADINA ROBISON PA-C :1965?Age:59 Y?Sex:Fe male Date:06/27/2024 Address:[address] [place], [place] [id number] Pcp:Caridad Rebolledo Subjective: * Chief Complaints: * ?1. Patient is here for weight management follow up. SECA done. Previous weight was 211. Today the patient weight is 202. She has no complaints. * HPI: ?Constitutional:? Savita is a 58-year-old female with a PMH of chronic back pain s/p cervical fusion/laminectomy of C2-7 11/2021, HTN, depression/anxiety that presents for weight management follow-up. Patient taking Zepbound 5 mg SC weekly with compliance. Reports mild appetite suppression. Denies side effects including nausea, vomiting, abdominal pain, or constipation. Eating 3 meals/day. Breakfast is typically avocado toast, or raisin brand. Lunch is typically leftovers from the night before, soup, sandwich, etc. Dinner is prepared at home and consists of a protein, veggie, and occasional carb/starch. Every now and then drinks 30g protein shake as meal replacement. Water intake is good, averages 90+ ounces/day. Physical activity is limited in the setting of her back pain, although feels low dose naltrexone is helpful. Starting to incorporate short walks. Over the last month had pneumonia - fortunately is feeling much better. * ROS:?All Other Systems:?Review of Systems (ROS)??All others negative except those mentioned in HPI.? * Medical History:??Low back p ain, unspecified, Cervical pain, Other chronic pain, Elevated cholesterol, Prediabetes. * Surgical History:??cervical fusion/laminectomy . * Hospitalization/Major Diagno stic Procedure:??Denies Past Hospitalization. * Family History:??Father: dec eased, Mesothelioma.??Mother: , [...] MG Tablet 1 tablet Orally twice daily * Allergies:??Contrast Allergy PreMed Pack: rash. Objective: * Vitals:??HR:91/min, BP:124/6 4mm Hg, Wt:208lbs, BMI:32.57Index, Ht: 67 in, Oxygen sat %:97%. * [...] Assessment: 1.??Obesity (BMI 30-39.9) - E66.9 (Primary)??2.??BMI 32.0-32.9,adult - Z68.32??3.??Primary hypertension - I10??4.??Elevated cholesterol - E78.00??5.??Prediabetes - R73.03??6.??Other chronic pain - G89.29??7.??Nutritional counseling - Z71.3?? Savita is a 58-year-old fema le with a PMH of chronic back pain s/p cervical fusion/laminectomy of C2-7 11/2021, HTN, HLD, prediabetes, depression/anxiety that presents for weight management follow-up. Reviewed [facility] holistic and medical approach to weight loss with emphasis on lifestyle modification. 06/27/2024: Weight: 208, BMI: 32.5. Patient down 9 pounds in 6 weeks. Seca reviewed, reveals primarily fat loss. Patient encouraged to continue making health- conscious diet choices and prioritizing protein intake. Protein goal 25 to 30 g/meal. Additionally discussed the importance of continuing to increase her current level of physical activity as tolerated. Plan to increase dose of Zepbound to 7.5 mg SC weekly and follow-up in 6 weeks. 05/15/2024: Weight: 211, BMI: 33. Patient down [...] follow-up in 1 month. MICC injection administered. 04/17/2024: Weight: 219, BMI: 34.3. Patient down [...] reviewed. Dictation completed with the use of [employer] voice recognition software, prone to medical misidentifications [...] * Images: Billing Information: * Visit Code:?? 72401 Office Visit, Est Pt., Level 4. Modifiers: SA * Procedure Codes:?? G0447 FCE-FCE BEHAVRL CNSL OBESITY 15 MIN. Modifiers: 59 * Sign off status: Completed true * Provider:??ADINA ROBISON PA-C Date:?? 06/27/2024 History and Physical Notes * HPI (History of Present Illness) Category Sub-Category Detail Notes Category Not es Constitutional Savita is a [age]-year-old female with a PMH of chronic back pain s/p cervical fusion/laminectomy of C2-7 11/2021, HTN, depression/anxiety that presents for weight management follow-up. Patient taking Zepbound 5 mg SC weekly with compliance. Reports mild appetite suppression. Denies side effects including nausea, vomiting, abdominal pain, or constipation. Eating 3 meals/day. Breakfast is typically avocado toast, or raisin brand. Lunch is typically leftovers from the night before, soup, sandwich, etc. Dinner is prepared at home and consists of a protein, veggie, and occasional carb/starch. Every now and then drinks 30g protein shake as meal replacement. Water intake is good, averages 90+ ounces/day. Physical activity is limited in the setting of her back pain, although feels low dose naltrexone is helpful. Starting to incorporate short walks. Over the last month had pneumonia - fortunately is feeling much better. Physical Examination Category Sub-Category Detail Notes Section [...]
--- OUTSIDE RECORDS SUMMARY | 2024-07-25 12:13 | XMS_ITS | Patient Health Record ---
Author Organization [facility] Address [address] [facility] [place] [place] [address] Care Team Providers Care Card Assembler Name Role Phone Caridad Rebolledo Primary Care Provider ADINA Wilson Unavailable [phone] ALLERGIES Allergen (clinical drug ingredient) Drug/Non Drug [...] taneous once weekly for 30 days Active Lisinopril 10 MG 1 tablet Orally Once a day Active Zepbound 2.5 MG/0.5ML Inject 2.5mg Subcu taneous weekly for 30 days 01/04/2024 Not-Taking traMADol HCl 50 MG 1 tablet Orally twic e daily Not-Taking PROBLEMS Problem Type ICD Code Onset Dates Problem Status W/U Status Risk SNOMED Code Notes Problem Other chronic pain (G89.29) Active confirmed 04268320 Problem Prediabetes (R73.03) Active confirmed 284143486 Problem Obesity (BMI 30-39.9) (E66.9) Active confirmed 601472592 Problem Elevated cholesterol (E78.00) Active confirmed 87804138 Problem Cervical pain (M54.2) Active confirmed 85606981 Problem Primary hypertension (I10) Active confirmed 13825302 Problem Low back pain, unspecified (M54.50) Active confirmed 024393147 Problem Nutritional counseling (Z71.3) Active confirmed 420241588 VITAL SIGNS Heart Rate 91 /min 06/27/2024 Blood pressure diastolic 64 mm Hg 06/27/2024 Oximetry 97 % 06/27/2024 Height 67 in 06/27/2024 Blood pressure systolic 124 mm Hg 06/27/2024 Weight 208 lbs 06/27/2024 BMI 32.57 kg/m2 06/27/2024 Encounters Encounter Location Date Provider Diagnosis [address] [address] 02/08/2024 ADINA [facility] [address] 06/14/2024 ADINA EADS [address] [address] 12/07/2023 ADINA EADS Obesity (BMI 30-39.9 ) E66.9 ; BMI 37.0-37.9, adult Z68.37 ; Primary hypertension I10 ; Elevated cholesterol E78.00 ; Other chronic pain G89.29 ; Low back pain, unspecified M54.50 ; Cervical pain M54.2 and Nutritional counseling Z71.3 [address] [address] 01/04/2024 ADINA EADS Obesity (BMI 30-39.9 ) E66.9 ; BMI 37.0-37.9, adult Z68.37 ; Primary hypertension I10 ; Elevated cholesterol E78.00 ; Prediabetes R73.03 ; Other chronic pain G89.29 ; Low back pain, unspecified M54.50 ; Cervical pain M54.2 and Nutritional counseling Z71.3 [address] [address] 02/02/2024 ADINA [facility] Obesity (BMI 30-39.9 ) E66.9 ; BMI 36.0-36.9,adult Z68.36 ; Primary hypertension I10 ; Elevated cholesterol E78.00 ; Prediabetes R73.03 ; Other chronic pain G89.29 ; Low back pain, unspecified M54.50 ; Nutritional counseling Z71.3 and Cervical pain M54.2 [address] [address] 03/07/2024 ADINA [place] Obesity (BMI 30-39.9 ) E66.9 ; BMI 35.0-35.9,adult Z68.35 ; Primary hypertension I10 ; Elevated cholesterol E78.00 ; Prediabetes R73.03 ; Other chronic pain G89.29 ; Low back pain, unspecified M54.50 ; Cervical pain M54.2 and Nutritional counseling Z71.3 [address] [address] 04/17/2024 ADINA [facility]ADS Obesity (BMI 30-39.9 ) E66.9 ; BMI 34.0-34.9,adult Z68.34 ; Primary hypertension I10 ; Elevated cholesterol E78.00 ; Prediabetes R73.03 ; Other chronic pain G89.29 and Nutritional counseling Z71.3 [address] 05/15/2024 ADINA [facility] Obesity (BMI 30-39.9 ) E66.9 ; BMI 34.0-34.9,adult Z68.34 ; Primary hypertension I10 ; Elevated cholesterol E78.00 ; Prediabetes R73.03 ; Other chronic pain G89.29 ; Expiratory wheezing R06.2 and Nutritional counseling Z71.3 [address] [address] 06/27/2024 ADINA [facility] Obesity (BMI 30-39.9 ) E66.9 ; BMI 32.0-32.9,adult Z68.32 ; Primary hypertension I10 ; Elevated cholesterol E78.00 ; Prediabetes R73.03 ; Other chronic pain G89.29 and Nutritional counseling Z71.3 [place] [address] [address] 12/08/2023 ADINA EADS [address] 01/06/2024 ADINA [facility] [address] 01/11/2024 [place] [address] 02/28/2024 [facility] Obesity (BMI 30-39.9 ) E66.9 [place] [address] 03/07/2024 ADINA [facility] [address] [facility] [address] [place] [address] 01/04/2024 ADINA ROBISON ASSESSMENTS Encounter Date Diagnosis [...] reviewed. Dictation completed with the use of Project Manager voice recognition software, prone to medical misidentifications [...] reviewed. Dictation completed with the use of Project Manager voice recognition software, prone to medical misidentifications [...] reviewed. Dictation completed with the use of Project Manager voice recognition software, prone to medical misidentifications [...] reviewed. Dictation completed with the use of Project Manager voice recognition software, prone to medical misidentifications [...] reviewed. Dictation completed with the use of Project Manager voice recognition software, prone to medical misidentifications [...] reviewed. Dictation completed with the use of Project Manager voice recognition software, prone to medical misidentifications [...] reviewed. Dictation completed with the use of Project Manager voice recognition software, prone to medical misidentifications [...] reviewed. Dictation completed with the use of Project Manager voice recognition software, prone to medical misidentifications and grammatical errors. All errors are unintentional. Although the practitioner does try to identify and correct errors, some may be present. Please do not hesitate to contact the practitioner for clarification. Total time spent was 30 minutes with >50% on coordination of care and patient education. 04/17/2024 Obesity (BMI 30-39.9) (ICD-10 - E66.9) Saviat is a 58-year-old female with a PMH [...] reviewed. Dictation completed with the use of Project Manager voice recognition software, prone to medical misidentifications [...] reviewed. Dictation completed with the use of Project Manager voice recognition software, prone to medical misidentifications [...] reviewed. Dictation completed with the use of Project Manager voice recognition software, prone to medical misidentifications [...] reviewed. Dictation completed with the use of Project Manager voice recognition software, prone to medical misidentifications and grammatical errors. All errors are unintentional. Although the practitioner does try to identify and correct errors, some may be present. Please do not hesitate to contact the practitioner for clarification. Total time spent was 30 minutes with >50% on coordination of care and patient education. 06/27/2024 Obesity (BMI 30-39.9) (ICD-10 - E66.9) [...] reviewed. Dictation completed with the use of Project Manager voice recognition software, prone to medical misidentifications [...] reviewed. Dictation completed with the use of Project Manager voice recognition software, prone to medical misidentifications [...] reviewed. Dictation completed with the use of Project Manager voice recognition software, prone to medical misidentifications [...] reviewed. Dictation completed with the use of Project Manager voice recognition software, prone to medical misidentifications [...] reviewed. Dictation completed with the use of Project Manager voice recognition software, prone to medical misidentifications [...] reviewed. Dictation completed with the use of Project Manager voice recognition software, prone to medical misidentifications [...] reviewed. Dictation completed with the use of Project Manager voice recognition software, prone to medical misidentifications [...] reviewed. Dictation completed with the use of Project Manager voice recognition software, prone to medical misidentifications [...] reviewed. Dictation completed with the use of Project Manager voice recognition software, prone to medical misidentifications [...] reviewed. Dictation completed with the use of Project Manager voice recognition software, prone to medical misidentifications [...] reviewed. Dictation completed with the use of Project Manager voice recognition software, prone to medical misidentifications [...] reviewed. Dictation completed with the use of Project Manager voice recognition software, prone to medical misidentifications [...] reviewed. Dictation completed with the use of Project Manager voice recognition software, prone to medical misidentifications [...] reviewed. Dictation completed with the use of Project Manager voice recognition software, prone to medical misidentifications [...] reviewed. Dictation completed with the use of Project Manager voice recognition software, prone to medical misidentifications [...] reviewed. Dictation completed with the use of Project Manager voice recognition software, prone to medical misidentifications [...] reviewed. Dictation completed with the use of Project Manager voice recognition software, prone to medical misidentifications [...] reviewed. Dictation completed with the use of Project Manager voice recognition software, prone to medical misidentifications [...] reviewed. Dictation completed with the use of Project Manager voice recognition software, prone to medical misidentifications [...] reviewed. Dictation completed with the use of Project Manager voice recognition software, prone to medical misidentifications [...] reviewed. Dictation completed with the use of Project Manager voice recognition software, prone to medical misidentifications [...] reviewed. Dictation completed with the use of Project Manager voice recognition software, prone to medical misidentifications [...] reviewed. Dictation completed with the use of Project Manager voice recognition software, prone to medical misidentifications [...] reviewed. Dictation completed with the use of Project Manager voice recognition software, prone to medical misidentifications [...] reviewed. Dictation completed with the use of Project Manager voice recognition software, prone to medical misidentifications [...] reviewed. Dictation completed with the use of Project Manager voice recognition software, prone to medical misidentifications [...] reviewed. Dictation completed with the use of Project Manager voice recognition software, prone to medical misidentifications [...] reviewed. Dictation completed with the use of Project Manager voice recognition software, prone to medical misidentifications [...] reviewed. Dictation completed with the use of Project Manager voice recognition software, prone to medical misidentifications [...] [place] weekly and follow-up in [address] [facility] injection administered. 04/17/2024: Weight: 219, BMI: 34.3. [...] reviewed. Dictation completed with the use of Project Manager voice recognition software, prone to medical misidentifications [...] reviewed. Dictation completed with the use of Project Manager voice recognition software, prone to medical misidentifications [...] reviewed. Dictation completed with the use of Project Manager voice recognition software, prone to medical misidentifications [...] reviewed. Dictation completed with the use of Project Manager voice recognition software, prone to medical misidentifications [...] reviewed. Dictation completed with the use of Project Manager voice recognition software, prone to medical misidentifications [...] reviewed. Dictation completed with the use of Project Manager voice recognition software, prone to medical misidentifications [...] reviewed. Dictation completed with the use of Project Manager voice recognition software, prone to medical misidentifications [...] reviewed. Dictation completed with the use of Project Manager voice recognition software, prone to medical misidentifications [...] reviewed. Dictation completed with the use of Project Manager voice recognition software, prone to medical misidentifications [...] reviewed. Dictation completed with the use of Project Manager voice recognition software, prone to medical misidentifications [...] reviewed. Dictation completed with the use of Project Manager voice recognition software, prone to medical misidentifications [...] reviewed. Dictation completed with the use of Project Manager voice recognition software, prone to medical misidentifications [...] reviewed. Dictation completed with the use of Project Manager voice recognition software, prone to medical misidentifications [...] reviewed. Dictation completed with the use of Project Manager voice recognition software, prone to medical misidentifications [...] reviewed. Dictation completed with the use of Project Manager voice recognition software, prone to medical misidentifications [...] reviewed. Dictation completed with the use of Project Manager voice recognition software, prone to medical misidentifications and grammatical errors. All errors are unintentional. Although the practitioner does try to identify and correct errors, some may be present. Please do not hesitate to contact the practitioner for clarification. 60 minutes spent with >50% on coordination of care. PLAN OF TREATMENT Next Appt Details Provider Name:ADINA Lozano, 08/08/2024 01:00:00 PM, [address] [facility] [place] [address], [place], [address], Insurance Providers Payer Name Payer Address Payer Phone Subscriber Number Group Number Insured Name Patient Relationship to Insured Coverage Start Date Coverage End Date [facility] [address] [place] [address] [phone] [id number] Savita Bennett Self - patient is the insured MEDICATIONS ADMINISTERED Medication Instructions Date of Administration Dosage Notes MICC B12 INJECTION 12/07/2023 MICC B12 INJECTION 01/04/2024 1 mL MICC B12 INJECTION 02/02/2024 1 mL MICC B12 INJECTION 03/07/2024 1 mL MICC B12 INJECTION 04/17/2024 1 mL MICC B12 INJECTION 05/15/2024 1 mL MICC B12 INJECTION 06/27/2024 1 mL MEDICAL (GENERAL) HISTORY Medical History History ICD Code Low back pain, unspecified M54.50 Cervical pain M54.2 Other chronic pain G89.29 Elevated cholesterol E78.00 Prediabetes R73.03 Surgical History Surgery Date(Month/Year) cervical fusion/laminectomy
--- OUTSIDE RECORDS SUMMARY | 2024-07-25 12:13 | XMS_ITS ---
Author Organization [email or web address] Address [address] [place] [address] Care Team Providers Care Dispatcher Service Or Work Name Role Phone Caridad Rebolledo Primary Care Provider ADINA Wilson [phone] Encounters Encounter Location Date Provider Diagnosis [address] [place] [address] 06/14/2024 ADINA ROBISON PLAN OF TREATMENT Next Appt Details Provider Name:ADINA Lozano, 08/08/2024 01:00:00 PM, [address], [place], [address], Progress Notes * Savita BENNETT LDOB:[birth year] (59 yo F)Acc No.[id number]:06/14/2024 Patient:??Savita BENNETT Provider:??ADINA ROBISON PA-C :1965?Age:58 Y?Sex:Fe male Date:06/14/2024 Address:[address] [place], [place] [id number] Pcp:Caridad Rebolledo Subjective: * Chief Complaints: * ? * Medical History:?? Objective: Assessment: Plan: * Treatment: * Images: Billing Information: * Visit Code:?? * Procedure Codes:?? * Sign off status: Pending * Provider:??ADINA ROBISON PA-C Date:?? 06/14/2024
== END 2024-07-25 10:49 | disposition home or self-care (01) ==
LOC: HO.PMC 10:48
PROVIDERS: PCP Nurse Practitioner Family; Visit Provider Internal Medicine
DX: R52 Pain, unspecified (principal)
CPT/HCPCS: 99213

== ENCOUNTER 2024-08-16 08:31 | Outpatient (REF) | payer BC, SELFPAY ==
--- NOTE | ~2024-08-16 | CT_ITS ---
EXAMINATION: CT LOW-DOSE SCREENING CHEST WITHOUT CONTRAST CLINICAL INFORMATION: 59 year female, smoker, quit 2 years ago, 40 pack years. COMPARISON: CT chest 02/20/2023 low-dose screening CT chest 03/12/2022. TECHNIQUE: Multidetector volumetric CT imaging of the chest is performed on a Siemens SOMATOM Definition scanner without contrast using low dose technique. Additional 2D coronal and sagittal reformatted images and axial 3D maximum intensity projection (MIP) images are generated on the CT workstation. This CT examination was performed using dose optimization techniques as appropriate, variously including the following: *Automated exposure control *Adjustment of mA and/or kV according to patient size (this includes techniques or standardized protocols for targeted exams where dose is matched to indication/reason for exam; i.e. extremities or head) *Use of iterative reconstruction technique FINDINGS: PULMONARY NODULES: -4 mm nodule anterior right upper lobe (series 6, image 57), unchanged. -Average diameter 5 mm nodule anterior left upper lobe (series 6, image 58), unchanged. -Average diameter 6 mm groundglass nodule superior lateral right middle lobe (series 6, image 73), unchanged. -3 mm fissural nodule inferior right major fissure (series 6, image 93), unchanged and consistent with intrapulmonary lymph node. -3 mm nodule posterior left upper lobe (series 6, image 64), unchanged. -There are no new or enlarging pulmonary nodules. LUNGS: -Mild to moderate centrilobular emphysema with upper lobe predominance. -Minimal linear scarring in the lingula and medial right middle lobe. -No abnormal consolidation or abnormal groundglass opacity. -Minimal thickening of the small airways suggesting mild chronic bronchitis. -No pleural effusion or pneumothorax. -Central airways appear normal. MEDIASTINUM: -Normal thyroid. -No abnormal lymphadenopathy in the mediastinum. A few small subcentimeter lymph nodes are present, stable and reactive. -No masses. -Aorta is normal. -Main pulmonary artery is normal. -Heart size is normal. No pericardial effusion. -Esophagus is normal. CORONARY ARTERY CALCIFICATION: None visualized on this study. CHEST WALL/AXILLA: Unremarkable. UPPER ABDOMEN: Included portions of the solid organs in the upper abdomen unremarkable on noncontrast imaging. OSSEOUS STRUCTURES: -No suspicious lytic or blastic bone lesions. -Mild degenerative changes of the spine. -Partially imaged inferior cervical fusion. CT/CT lung screening IMPRESSION: 1. A few scattered solid and groundglass pulmonary nodules measuring up to 6 mm in the left upper lobe. No new or enlarging pulmonary nodules. 2. Mild to moderate centrilobular emphysema with upper lobe predominance. No active lung disease. 3. Mild thickening of the small airways suggesting mild chronic bronchitis. 4. Incidental ancillary findings as discussed. ASSESSMENT: 1. Lung-RADS Category 2: Benign appearance or behavior of nodules. 2. Lung-RADS Category S: None. RECOMMENDATION: Continued routine annual low-dose CT lung screening in 1 year is recommended. An order for CT CHEST LOW DOSE CANCER SCREENING ([id number]) can be placed. Electronically signed by: Angel Arvizu MD 08/16/2024 09:58 AM EDT
--- OUTSIDE RECORDS SUMMARY | 2024-08-16 08:44 | XMS_ITS ---
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 * HPI: ???Constitutional:? 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 She has been in state of *fair health since her last exam. She has the following rock mason concerns: She has received the Pfizer Covid-19 [...] when the weather is good. * ROS:?Annual Net Mobile Developer Exam ROS:?Bowel habit changes?denies.?Bladder symptoms?denies.?Vaginal discharge, unusual?denies.?Vaginal itch or odor?denies.?weight or appetite changes?denies.?Chest pains, SOB?denies.?depression?denies.?Breast:?Denies?Breast lump.?Denies?Nipple discharge.?Hematology:?Denies?Swollen glands.?Skin:?Patient denies?changing moles.?Psychiatric:?Denies?Anxiety.? * Medical History:? Objective: * Vitals:? * Examination: ???General Examination: ?GENERAL APPEARANCE:?in no acute distress, well developed, well nourished, pumper gauger present in room.?HEAD:?normocephalic, atraumatic.?NECK/THYROID:?neck supple, full range [...] * Follow Up:?1 Year (Reason: Y early Net Mobile Developer Exam) * Images: Billing Information: * Visit Code:? 70705 Preventive Care Est Pt. Age 40-64. * Procedure Codes:? 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 She has been in state of *fair health since her last exam. She has the following rock mason concerns: She has received the Pfizer Covid-19 [...] General Examination GENERAL APPEARANCE: in no ac [place] distress, well developed, well nourished, pumper gauger present in room HEAD: normocephalic, atrau matic [...]
--- OUTSIDE RECORDS SUMMARY | 2024-08-16 08:44 | XMS_ITS | Patient Health Record ---
Author Organization [facility] Address [address] [facility] [place] [address] Care Team Providers Care Phd Internship Name Role Phone Caridad Rebolledo Primary Care Provider ADINA Wilson Unavailable [phone] Allergies Allergen (clinical drug ingredient) Drug/Non Drug Allergy documented on EMR Reaction Allergy Type Onset Date Status MRI contrast (uncoded) Unknown Allergy Active Contrast Allergy PreMed Pack rash Drug Allergy Active morphine Morphine vomiting, hives Drug Allergy A ctive Reason For Referral No Information Medications Medication SIG (Take, Route, Frequency, Duration) Notes Start Date End Date Status Naltrexone HCl (Pain) 1.5 MG as directed Orally Active Zepbound 7.5 MG/0.5ML Inject 7.5mg Subcu taneous once weekly for 30 days Active Celecoxib 200 MG 1 capsule with food Orally Once a day Active DULoxetine HCl 60 MG 1 capsule Orally On ce a day Active Lisinopril 10 MG 1 tablet Orally Once a day Active traMADol HCl 50 MG 1 tablet Orally twic e daily Not-Taking Problems Problem Type SNOMED Code ICD Code Onset Dates Problem Status W/U Status Risk Notes Problem 36653835 Other chronic pain (G89.29) Active confirmed Problem 565438311 Prediabetes (R73.03) Active confirmed Problem 221648143 Obesity (BMI 30-39.9) (E66.9) Active confirmed Problem 99078692 Elevated cholesterol (E78.00) Active confirmed Problem 22119496 Cervical pain (M54.2) Active confirmed Problem 50822773 Primary hypertension (I10) Active confirmed Problem 046480632 BMI 30.0-30.9,adult (Z68.30) Active confirmed Problem 283881136 Low back pain, unspecified (M54.50) Active confirmed Problem 506190938 Nutritional counseling (Z71.3) Active confirmed Vital Signs Heart Rate 90 /min 08/08/2024 Oximetry 98 % 08/08/2024 Blood pressure diastolic 82 mm Hg 08/08/2024 Height 67 in 08/08/2024 Blood pressure systolic 126 mm Hg 08/08/2024 Weight 197.6 lbs 08/08/2024 BMI 30.95 kg/m2 08/08/2024 Encounters Encounter Location Date Provider Diagnosis [address] [place] [id number] 12/07/2023 ADINA ROBISON Obesity (BMI 30-39.9 ) E66.9 ; BMI 37.0-37.9, adult Z68.37 ; Primary hypertension I10 ; Elevated cholesterol E78.00 ; Other chronic pain G89.29 ; Low back pain, unspecified M54.50 ; Cervical pain M54.2 and Nutritional counseling Z71.3 [address] [place] [id number] 01/04/2024 ADINA RICKI Obesity (BMI 30-39.9 ) E66.9 ; BMI 37.0-37.9, adult Z68.37 ; Primary hypertension I10 ; Elevated cholesterol E78.00 ; Prediabetes R73.03 ; Other chronic pain G89.29 ; Low back pain, unspecified M54.50 ; Cervical pain M54.2 and Nutritional counseling Z71.3 [address] [place] [id number] 02/02/2024 ADINA ROBISON Obesity (BMI 30-39.9 ) E66.9 ; BMI 36.0-36.9,adult Z68.36 ; Primary hypertension I10 ; Elevated cholesterol E78.00 ; Prediabetes R73.03 ; Other chronic pain G89.29 ; Low back pain, unspecified M54.50 ; Nutritional counseling Z71.3 and Cervical pain M54.2 [address] [address] 03/07/2024 ADINA RICKI Obesity (BMI 30-39.9 ) E66.9 ; BMI 35.0-35.9,adult Z68.35 ; Primary hypertension I10 ; Elevated cholesterol E78.00 ; Prediabetes R73.03 ; Other chronic pain G89.29 ; Low back pain, unspecified M54.50 ; Cervical pain M54.2 and Nutritional counseling Z71.3 [address] 04/17/2024 ADINA WEBERHAM Obesity (BMI 30-39.9 ) E66.9 ; BMI 34.0-34.9,adult Z68.34 ; Primary hypertension I10 ; Elevated cholesterol E78.00 ; Prediabetes R73.03 ; Other chronic pain G89.29 and Nutritional counseling Z71.3 [facility] [address] 05/15/2024 ADINA WEBERHAM Obesity (BMI 30-39.9 ) E66.9 ; BMI 34.0-34.9,adult Z68.34 ; Primary hypertension I10 ; Elevated cholesterol E78.00 ; Prediabetes R73.03 ; Other chronic pain G89.29 ; Expiratory wheezing R06.2 and Nutritional counseling Z71.3 [facility] [address] 06/27/2024 ADINA WEBERHAM Obesity (BMI 30-39.9 ) E66.9 ; BMI 32.0-32.9,adult Z68.32 ; Primary hypertension I10 ; Elevated cholesterol E78.00 ; Prediabetes R73.03 ; Other chronic pain G89.29 and Nutritional counseling Z71.3 [place] [address] 08/08/2024 ADINA WEBERHAM Obesity (BMI 30-39.9 ) E66.9 ; BMI 30.0-30.9,adult Z68.30 ; Primary hypertension I10 ; Elevated cholesterol E78.00 ; Prediabetes R73.03 ; Other chronic pain G89.29 and Nutritional counseling Z71.3 [place] [address] [address] 12/08/2023 ADINA [facility] [address] 01/06/2024 ADINA [facility] [address] 01/11/2024 ADINA [place] [address] [address] 02/28/2024 ADINA ROBISON Obesity (BMI 30-39.9 ) E66.[address] [facility] [address] [address] 03/07/2024 ADINA ROBISON [facility] [address] [address] 01/04/2024 ADINA ROBISON Assessments Encounter Date Diagnosis (ICD Code) Assessment [...] Eat Fat Get Lean by Dr Satnam iKm. Handouts including lifestyle checklist, protein content of [...] reviewed. Dictation completed with the use of eASIC voice recognition software, prone to medical misidentifications [...] reviewed. Dictation completed with the use of eASIC voice recognition software, prone to medical misidentifications [...] reviewed. Dictation completed with the use of eASIC voice recognition software, prone to medical misidentifications [...] reviewed. Dictation completed with the use of eASIC voice recognition software, prone to medical misidentifications [...] reviewed. Dictation completed with the use of eASIC voice recognition software, prone to medical misidentifications [...] reviewed. Dictation completed with the use of eASIC voice recognition software, prone to medical misidentifications [...] reviewed. Dictation completed with the use of eASIC voice recognition software, prone to medical misidentifications [...] reviewed. Dictation completed with the use of eASIC voice recognition software, prone to medical misidentifications [...] reviewed. Dictation completed with the use of eASIC voice recognition software, prone to medical misidentifications [...] reviewed. Dictation completed with the use of eASIC voice recognition software, prone to medical misidentifications [...] reviewed. Dictation completed with the use of eASIC voice recognition software, prone to medical misidentifications [...] reviewed. Dictation completed with the use of eASIC voice recognition software, prone to medical misidentifications [...] reviewed. Dictation completed with the use of eASIC voice recognition software, prone to medical misidentifications [...] reviewed. Dictation completed with the use of eASIC voice recognition software, prone to medical misidentifications and grammatical errors. All errors are unintentional. Although the practitioner does try to identify and correct errors, some may be present. Please do not hesitate to contact the practitioner for clarification. Total time spent was 30 minutes with >50% on coordination of care and patient education. 08/08/2024 Obesity (BMI 30-39.9) (ICD-10 - E66.9) Savita is a 59-year-old female with a PMH of chronic back pain s/p cervical fusion/laminectomy of C2-7 11/2021, HTN, HLD, prediabetes, depression/anxiety that presents for weight management follow-up. Reviewed [facility] holistic and medical approach to weight loss with emphasis on lifestyle modification. 08/08/2024: Weight: 197.6, BMI: 30.9. Patient down 5 pounds. SECA reviewed, reveals 9lbs of fat loss and stable muscle mass. Patient encouraged to continue prioritizing protein intake - goal 25-30g 3x daily. Recommending continued hydration, goal 60-80 oz/day. She is encouraged to continue walking as tolerated with goal of continued maintenance of muscle mass. Plan to continue Zepbound 7.5 mg SC weekly and follow-up in 1 month. 06/27/2024: Weight: 208, BMI: 32.5. Patient down [...] SC weekly and follow-up in 1 month. [facility] injection administered. 04/17/2024: Weight: 219, BMI: 34.3. [...] reviewed. Dictation completed with the use of eASIC voice recognition software, prone to medical misidentifications and grammatical errors. All errors are unintentional. Although the practitioner does try to identify and correct errors, some may be present. Please do not hesitate to contact the practitioner for clarification. Total time spent was 30 minutes with >50% on coordination of care and patient education. 08/08/2024 BMI 30.0-30.9,adult (ICD-10 - Z68.30) Savita is a 59-year-old female with a PMH of chronic back pain s/p cervical fusion/laminectomy of C2-7 11/2021, HTN, HLD, prediabetes, depression/anxiety that presents for weight management follow-up. Reviewed [facility] holistic and medical approach to weight loss with emphasis on lifestyle modification. 08/08/2024: Weight: 197.6, BMI: 30.9. Patient down 5 pounds. SECA reviewed, reveals 9lbs of fat loss and stable muscle mass. Patient encouraged to continue prioritizing protein intake - goal 25-30g 3x daily. Recommending continued hydration, goal 60-80 oz/day. She is encouraged to continue walking as tolerated with goal of continued maintenance of muscle mass. Plan to continue Zepbound 7.5 mg SC weekly and follow-up in 1 month. 06/27/2024: Weight: 208, BMI: 32.5. Patient down [...] reviewed. Dictation completed with the use of eASIC voice recognition software, prone to medical misidentifications and grammatical errors. All errors are unintentional. Although the practitioner does try to identify and correct errors, some may be present. Please do not hesitate to contact the practitioner for clarification. Total time spent was 30 minutes with >50% on coordination of care and patient education. 08/08/2024 Primary hypertension (ICD-10 - I10) Savita is a 59-year-old female with a PMH of chronic back pain s/p cervical fusion/laminectomy of C2-7 11/2021, HTN, HLD, prediabetes, depression/anxiety that presents for weight management follow-up. Reviewed [facility] holistic and medical approach to weight loss with emphasis on lifestyle modification. 08/08/2024: Weight: 197.6, BMI: 30.9. Patient down 5 pounds. SECA reviewed, reveals 9lbs of fat loss and stable muscle mass. Patient encouraged to continue prioritizing protein intake - goal 25-30g 3x daily. Recommending continued hydration, goal 60-80 oz/day. She is encouraged to continue walking as tolerated with goal of continued maintenance of muscle mass. Plan to continue Zepbound 7.5 mg SC weekly and follow-up in 1 month. 06/27/2024: Weight: 208, BMI: 32.5. Patient down [...] reviewed. Dictation completed with the use of eASIC voice recognition software, prone to medical misidentifications [...] reviewed. Dictation completed with the use of eASIC voice recognition software, prone to medical misidentifications [...] reviewed. Dictation completed with the use of eASIC voice recognition software, prone to medical misidentifications [...] reviewed. Dictation completed with the use of eASIC voice recognition software, prone to medical misidentifications [...] reviewed. Dictation completed with the use of eASIC voice recognition software, prone to medical misidentifications [...] reviewed. Dictation completed with the use of eASIC voice recognition software, prone to medical misidentifications [...] reviewed. Dictation completed with the use of eASIC voice recognition software, prone to medical misidentifications [...] reviewed. Dictation completed with the use of eASIC voice recognition software, prone to medical misidentifications [...] reviewed. Dictation completed with the use of eASIC voice recognition software, prone to medical misidentifications [...] reviewed. Dictation completed with the use of eASIC voice recognition software, prone to medical misidentifications [...] reviewed. Dictation completed with the use of eASIC voice recognition software, prone to medical misidentifications [...] reviewed. Dictation completed with the use of eASIC voice recognition software, prone to medical misidentifications [...] reviewed. Dictation completed with the use of eASIC voice recognition software, prone to medical misidentifications [...] reviewed. Dictation completed with the use of eASIC voice recognition software, prone to medical misidentifications [...] reviewed. Dictation completed with the use of eASIC voice recognition software, prone to medical misidentifications and grammatical errors. All errors are unintentional. Although the practitioner does try to identify and correct errors, some may be present. Please do not hesitate to contact the practitioner for clarification. Total time spent was 30 minutes with >50% on coordination of care and patient education. 08/08/2024 Elevated cholesterol (ICD-10 - E78.00) Savita is a 59-year-old female with a PMH of chronic back pain s/p cervical fusion/laminectomy of C2-7 11/2021, HTN, HLD, prediabetes, depression/anxiety that presents for weight management follow-up. Reviewed [facility] holistic and medical approach to weight loss with emphasis on lifestyle modification. 08/08/2024: Weight: 197.6, BMI: 30.9. Patient down 5 pounds. SECA reviewed, reveals 9lbs of fat loss and stable muscle mass. Patient encouraged to continue prioritizing protein intake - goal 25-30g 3x daily. Recommending continued hydration, goal 60-80 oz/day. She is encouraged to continue walking as tolerated with goal of continued maintenance of muscle mass. Plan to continue Zepbound 7.5 mg SC weekly and follow-up in 1 month. 06/27/2024: Weight: 208, BMI: 32.5. Patient down [...] reviewed. Dictation completed with the use of eASIC voice recognition software, prone to medical misidentifications [...] reviewed. Dictation completed with the use of eASIC voice recognition software, prone to medical misidentifications and grammatical errors. All errors are unintentional. Although the practitioner does try to identify and correct errors, some may be present. Please do not hesitate to contact the practitioner for clarification. Total time spent was 30 minutes with >50% on coordination of care and patient education. 08/08/2024 Prediabetes (ICD-10 - R73.03) Savita is a 59-year-old female with a PMH of chronic back pain s/p cervical fusion/laminectomy of C2-7 11/2021, HTN, HLD, prediabetes, depression/anxiety that presents for weight management follow-up. Reviewed [facility] holistic and medical approach to weight loss with emphasis on lifestyle modification. 08/08/2024: Weight: 197.6, BMI: 30.9. Patient down 5 pounds. SECA reviewed, reveals 9lbs of fat loss and stable muscle mass. Patient encouraged to continue prioritizing protein intake - goal 25-30g 3x daily. Recommending continued hydration, goal 60-80 oz/day. She is encouraged to continue walking as tolerated with goal of continued maintenance of muscle mass. Plan to continue Zepbound 7.5 mg SC weekly and follow-up in 1 month. 06/27/2024: Weight: 208, BMI: 32.5. Patient down [...] reviewed. Dictation completed with the use of eASIC voice recognition software, prone to medical misidentifications [...] reviewed. Dictation completed with the use of eASIC voice recognition software, prone to medical misidentifications [...] reviewed. Dictation completed with the use of eASIC voice recognition software, prone to medical misidentifications [...] reviewed. Dictation completed with the use of eASIC voice recognition software, prone to medical misidentifications [...] reviewed. Dictation completed with the use of eASIC voice recognition software, prone to medical misidentifications [...] reviewed. Dictation completed with the use of eASIC voice recognition software, prone to medical misidentifications [...] reviewed. Dictation completed with the use of eASIC voice recognition software, prone to medical misidentifications [...] reviewed. Dictation completed with the use of eASIC voice recognition software, prone to medical misidentifications [...] reviewed. Dictation completed with the use of eASIC voice recognition software, prone to medical misidentifications [...] reviewed. Dictation completed with the use of eASIC voice recognition software, prone to medical misidentifications [...] reviewed. Dictation completed with the use of eASIC voice recognition software, prone to medical misidentifications [...] reviewed. Dictation completed with the use of eASIC voice recognition software, prone to medical misidentifications [...] reviewed. Dictation completed with the use of eASIC voice recognition software, prone to medical misidentifications [...] reviewed. Dictation completed with the use of eASIC voice recognition software, prone to medical misidentifications and grammatical errors. All errors are unintentional. Although the practitioner does try to identify and correct errors, some may be present. Please do not hesitate to contact the practitioner for clarification. Total time spent was 30 minutes with >50% on coordination of care and patient education. 08/08/2024 Other chronic pain (ICD-10 - G89.29) Savita is a 59-year-old female with a PMH of chronic back pain s/p cervical fusion/laminectomy of C2-7 11/2021, HTN, HLD, prediabetes, depression/anxiety that presents for weight management follow-up. Reviewed [facility] holistic and medical approach to weight loss with emphasis on lifestyle modification. 08/08/2024: Weight: 197.6, BMI: 30.9. Patient down 5 pounds. SECA reviewed, reveals 9lbs of fat loss and stable muscle mass. Patient encouraged to continue prioritizing protein intake - goal 25-30g 3x daily. Recommending continued hydration, goal 60-80 oz/day. She is encouraged to continue walking as tolerated with goal of continued maintenance of muscle mass. Plan to continue Zepbound 7.5 mg SC weekly and follow-up in 1 month. 06/27/2024: Weight: 208, BMI: 32.5. Patient down [...] SC weekly and follow-up in 1 month. [facility] injection administered. 04/17/2024: Weight: 219, BMI: 34.3. [...] reviewed. Dictation completed with the use of eASIC voice recognition software, prone to medical misidentifications [...] reviewed. Dictation completed with the use of eASIC voice recognition software, prone to medical misidentifications and grammatical errors. All errors are unintentional. Although the practitioner does try to identify and correct errors, some may be present. Please do not hesitate to contact the practitioner for clarification. Total time spent was 30 minutes with >50% on coordination of care and patient education. 08/08/2024 Nutritional counseling (ICD-10 - Z71.3) Savita is a 59-year-old female with a PMH of chronic back pain s/p cervical fusion/laminectomy of C2-7 11/2021, HTN, HLD, prediabetes, depression/anxiety that presents for weight management follow-up. Reviewed [facility] holistic and medical approach to weight loss with emphasis on lifestyle modification. 08/08/2024: Weight: 197.6, BMI: 30.9. Patient down 5 pounds. SECA reviewed, reveals 9lbs of fat loss and stable muscle mass. Patient encouraged to continue prioritizing protein intake - goal 25-30g 3x daily. Recommending continued hydration, goal 60-80 oz/day. She is encouraged to continue walking as tolerated with goal of continued maintenance of muscle mass. Plan to continue Zepbound 7.5 mg SC weekly and follow-up in 1 month. 06/27/2024: Weight: 208, BMI: 32.5. Patient down [...] reviewed. Dictation completed with the use of eASIC voice recognition software, prone to medical misidentifications [...] reviewed. Dictation completed with the use of eASIC voice recognition software, prone to medical misidentifications [...] reviewed. Dictation completed with the use of eASIC voice recognition software, prone to medical misidentifications [...] reviewed. Dictation completed with the use of eASIC voice recognition software, prone to medical misidentifications [...] reviewed. Dictation completed with the use of eASIC voice recognition software, prone to medical misidentifications [...] reviewed. Dictation completed with the use of eASIC voice recognition software, prone to medical misidentifications [...] Eat Fat Get Lean by Dr Satnam i[employer]. Handouts including lifestyle checklist, protein content of [...] reviewed. Dictation completed with the use of eASIC voice recognition software, prone to medical misidentifications [...] reviewed. Dictation completed with the use of eASIC voice recognition software, prone to medical misidentifications [...] reviewed. Dictation completed with the use of eASIC voice recognition software, prone to medical misidentifications [...] reviewed. Dictation completed with the use of eASIC voice recognition software, prone to medical misidentifications [...] reviewed. Dictation completed with the use of eASIC voice recognition software, prone to medical misidentifications [...] reviewed. Dictation completed with the use of eASIC voice recognition software, prone to medical misidentifications [...] reviewed. Dictation completed with the use of eASIC voice recognition software, prone to medical misidentifications [...] reviewed. Dictation completed with the use of eASIC voice recognition software, prone to medical misidentifications [...] reviewed. Dictation completed with the use of eASIC voice recognition software, prone to medical misidentifications and grammatical errors. All errors are unintentional. Although the practitioner does try to identify and correct errors, some may be present. Please do not hesitate to contact the practitioner for clarification. 60 minutes spent with >50% on coordination of care. Plan Of Treatment Next Appt Details Provider Name:ADINA Lozano, 09/11/2024 10:00:00 AM, [address] [facility] [address], [place], [address], Insurance Providers Payer Name Payer Address Payer Phone Subscriber Number Group Number Insured Name Patient Relationship to Insured Coverage Start Date Coverage End Date [facility] [address] [place] [address] [id number] Savita Bennett Self - patient is the insured Medications Administered Medication Instructions Date of Administration Dosage Notes MICC B12 INJECTION 12/07/2023 MICC B12 INJECTION 01/04/2024 1 mL MICC B12 INJECTION 02/02/2024 1 mL MICC B12 INJECTION 03/07/2024 1 mL MICC B12 INJECTION 04/17/2024 1 mL MICC B12 INJECTION 05/15/2024 1 mL MICC B12 INJECTION 06/27/2024 1 mL MICC B12 INJECTION 08/08/2024 1 mL Medical (General) History Medical History History ICD Code Low back pain, unspecified M54.50 Cervical pain M54.2 Other chronic pain G89.29 Elevated cholesterol E78.00 Prediabetes R73.03 Surgical History Surgery Date(Month/Year) cervical fusion/laminectomy
--- OUTSIDE RECORDS SUMMARY | 2024-08-16 08:44 | XMS_ITS | Patient Health Record ---
Author Organization [facility] Address [address] [place] [address] Care Team Providers Care J2Ee Engineer Name Role Phone Lauri SERRANO, Asma Primary Care Provider Becky Stone Unavailable [phone] Allergies Allergen (clinical drug ingredient) Drug/Non Drug [...] Date X ray : Foot, left 3V 10/12/[id number], [id number] INJECT TENDON ORIGIN/INSER T 10/12/2021 Insurance Providers Payer Name Payer Address Payer Phone Subscriber Number Group Number Insured Name Patient Relationship to Insured Coverage Start Date Coverage End Date [facility] [address] [place] [address] [id number] Savita Bennett Self - patient is the insured Medical (General) History Medical History History ICD Code Arthritis Back,Hip,and Knee pain Depression Sciatica chronic sinusitis Bone implants/screws Transfusions hidradenitis Supperurativa Cervicalfusion osteoarthritis Hand Pain foot pain Surgical History Surgery Date(Month/Year) cervical fusion 2003 right toe surgery 2009 meniscus tear 2001,2007 1992 Neck Surgery 12/17 Hospitalization History Reason Date(Month/Year) [facility] Back pain 09/2020 [facility] 12/17
--- OUTSIDE RECORDS SUMMARY | 2024-08-16 08:44 | XMS_ITS ---
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 Name Role Phone Caridad Rebolledo Primary Care Provider ADINA Wilson [phone] Encounters Encounter Location Date Provider Diagnosis [address] [place] [address] 06/14/2024 ADINA ROBISON Plan Of Treatment Next Appt Details Provider Name:ADINA Lozano, 09/11/2024 10:00:00 AM, [address], [address], [place], [address], Progress Notes * Savita BENNETT LDOB:[birth year] (59 yo F)Acc No.[id number]:06/14/2024 Patient:Savita QUINN Provider:?ADINA ROBISON PA-C :1965???Age:58 Y???Sex:Female D ate:06/14/2024 Address:[address] [place], [place] [id number] Pcp:Caridad Rebolledo Subjective: * Chief Complaints: * ??? * Medical History:? Objective: * Vitals:? Assessment: Plan: * Treatment: * Billing Information: * Visit Code:? * Procedure Codes:? * Electronic signature of AZEB ROBISON PA-C on 08/16/2024 at 08:44 AM EDT Sign off status: Pending * Provider:LORI ROBISON PA-C Date:? Generated for Aubrey mccormick/Alvin/eTransmitting on:?08/16/2024 08:44 AM EDT
--- OUTSIDE RECORDS SUMMARY | 2024-08-16 08:44 | XMS_ITS | Patient Health Record ---
Author Organization [facility] Address [address] [address] Care Team Providers Care Type Copy Examiner Name Role Phone JEFF GONZALEZ, GREYSON GRAFF Primary Care Provider SHIVAM Lombardo Unavailable [phone] Allergies Allergen (clinical drug ingredient) Drug/Non Drug [...] Status W/U Status Risk Notes Problem Menopause (745332151) Menopausal and female climacteric states (N95.1) Active confirmed Problem Postmenopausal atrophic vaginitis (37531451) Postmenopausal atrophic vaginitis (N95.2) Active confirmed Problem Basal cell carcinoma of truncal skin (697231385) Basal cell carcinoma of skin of other part of trunk (C44.519) Active confirmed Problem Tobacco user (957306419) Nicotine dependence, cigarettes, uncomplicated (F17.210) Active confirmed Problem Family history of malignant neoplasm of breast (353768610) Family history of malignant neoplasm of breast (Z80.3) Active confirmed Problem SI - Stress incontinence (96183637) Stress incontinence (female) (male) (N39.3) Active confirmed [...] End Date [employer] [id number] [place] [phone] [id number] CONSUELO GAXIOLA Self - patient is the [...]
== END 2024-08-16 08:32 | disposition home or self-care (01) ==
LOC: HO.CT 08:31
PROVIDERS: PCP Nurse Practitioner Family; Visit Provider Physician Assistant Medical
DX: Z12.2 Encounter for screening for malignant neoplasm of respiratory organs (principal); Z87.891 Personal history of nicotine dependence
CPT/HCPCS: 71271

== ENCOUNTER → 2024-08-16 08:33 | Outpatient (BNV) | payer BC, SELFPAY | PROVIDERS: PCP Nurse Practitioner Family; Visit Provider Radiology Diagnostic Radiology | DX: Z87.891 Personal history of nicotine dependence (principal) | CPT/HCPCS: 71271 ==